=== PATIENT | female | born 1945 | race Caucasian/White ===

== ENCOUNTER 2016-05-01 14:32 | Inpatient (IN) ==
[2016-05-01] MEDS ORDERED: 0.9 % Sodium Chloride 1,000 ML IVC ONE ×2 (14:44→16:52)
[2016-05-01] MEDS ORDERED: Ipratropium/Albuterol Neb 3 ML IH ONE (14:44)
--- NOTE | 2016-05-01 14:47 | Emergency Department Note ---
Disposition Clinical Impression: Pneumonitis, NSTEMI (non-ST elevated myocardial infarction), Severe sepsis, Congestive heart failure, Confusion, Hypoxemia, Suicidal ideation, Depression Disposition: Admitted As Inpatient Referrals: NO,PCP [Primary Care Provider] - Forms: ED Satisfaction Letter General Adult HPI - General Chief complaint: ED Shortness of Breath/Dyspnea Stated complaint: brayden, hallucinations Time Seen by Provider: 05/01/16 14:44 Source: patient, family - History of Present Illness HPI Narrative: 71-year-old female reports to the emergency department via EMS. There is concern for confusion and hallucinosis. Also shortness of breath. The patient has a history of asthma but is essentially untreated. The family reports the patient has not seen a physician for 30 years. She is essentially bedbound at home from a previous back injury, she cannot usually move her legs well at all, she self treats for her various medical concerns. She uses [id number] remedies including honey as a cure-all. EMS reports the patient's oxygen saturation was 60% on arrival she was given that DuoNeb which brought the sats to 92%. The patient reports she has had a cough. She denies any chest pain she has been short of breath. No abdominal pain vomiting or diarrhea. There is no history of recent fall or injury noted back pain or urinary symptoms. EMS reports her feet appear to be discolored. There is no history of convulsion or difficulty moving the arms, no dysarthria. There is a history of confusion which is relatively acute, chronic neurologic defects in the lower extremites is described. - Related Data Allergies Allergy/AdvReac Type Severity Reaction Status Date / Time pain med Allergy See Uncoded 05/01/16 17:11 Comments All systems ED: reviewed and negative except as stated. Past Medical History - Past Medical History Source: patient Medical history: Reports: other (Back injury, bedbound state, ataxia, chronic weakness lower extremities.) Physical Exam - General Limitations: no limitations General appearance: alert - Head Head exam: atraumatic, normocephalic, normal inspection - Eye Eye exam: Present: normal appearance, EOMI, mydriasis. Absent: scleral icterus , conjunctival injection, miosis - ENT ENT exam: TM's normal bilaterally, normal external ear exam, other (Some purulent material noted in the mouth, no liz obstructive pharyngitis noted.) - Neck Neck exam: Present: normal inspection, full ROM, trachea midline. Absent: tenderness - Chest Chest inspection: Present: normal inspection, symmetric chest wall rise. Absent : tenderness - Respiratory Respiratory exam: Present: prolonged expiratory phase, other (Decreased breath sounds bilaterally with coarse breath sounds noted, tachypnea noted.). Absent: respiratory distress - Cardiovascular Cardiovascular exam: Present: normal rhythm, tachycardia - Abdominal Exam Abdominal exam: Present: soft, Non-Tender. Absent: tenderness, distention, guarding, rebound, rigidity, trauma - Extremities Exam Extremities exam: Present: pedal edema, other (Lower extremities show moderate edema, the feet are cyanotic and cool, there are no palpable dorsal pedal pulses. There is no evidence of liz trauma to the lower extremities, the patient's upper extremities show bounding radial pulses bilaterally but there is some fingertip cyanosis noted. There is a good range of motion of the upper extremities. Lower extremity range of motion is limited secondary to the patient's chronic debility. The patient can wiggle her toes and can feel her feet.). Absent: normal inspection, full ROM, tenderness, normal capillary refill, joint swelling - Expanded Lower Extremity Exam Neurovascular/Tendon exam: Absent: normal capillary refill, motor deficit, sensory deficit, tendon deficit - Back Exam Back exam: Present: normal inspection. Absent: tenderness, CVA tenderness (R), CVA tenderness (L), vertebral tenderness - Neurological Exam Neurological exam: Present: alert, oriented X3, CN II-XII intact. Absent: motor sensory deficit - Psychiatric Psychiatric exam: Present: normal affect - Skin Skin exam: Present: warm, dry, intact, cyanosis. Absent: normal color, rash, diaphoresis, erythema Course - Reevaluation(s) Reevaluation #1: I asked the health rn unit manager to page the academic director at 2 :54pm regarding the patient's EKG which appears to show some inferior lead changes with possible ST elevations. Reevaluation #2: Dr. Seth replied promptly, I tested the EKG with no patient identifiers, we both feel the patient is not having a STEMI. Vital Signs Temperature 97.8 F 05/01/16 14:43 Pulse Rate 113 05/01/16 14:43 Respiratory Rate 20 05/01/16 14:43 Blood Pressure 165/76 05/01/16 14:43 O2 Sat by Pulse Oximetry 85 L 05/01/16 14:43 Temperature 97.8 F 05/01/16 14:43 Pulse Rate 105 05/01/16 16:27 Respiratory Rate 35 05/01/16 16:34 Blood Pressure 151/108 05/01/16 16:34 O2 Sat by Pulse Oximetry 96 05/01/16 16:34 Oxygen Delivery Oxygen Delivery Nasal Cannula Medical Decision Making - MDM Narrative Medical decision making narrative: The patient is very ill, she has reportedly been hallucinating and feeling like killing herself for the last few months per the family, she reports she feels depressed and does not want to live. She was refusing imaging initially. Based on her altered mentation and suicidality, the patient was pink slipped. Most likely a medical delirium, patient protection is our primary concern and we felt imaging would be appropriate. She did go to radiology and a chest x- ray was obtained however she would not hold still for CT and essentially refused prompting radiology staff to bring the patient back. Secondary evaluation reveals patient to be alert and cooperative. She denies headache and has a supple neck. There is nothing to suggest liz meningismus. I did not detect focal neurologic defects based on her history of chronic lower extremity immobility. She does move her upper extremities well and has good muscle strength and general sensation all 4 extremities she can wiggle her toes bilaterally and demonstrates no liz cranial nerve defects or dysarthria. She is not overtly confused and is generally oriented. ABIs came back and showed levels in the 0.84 and 0.87 range. The patient did have an elevated BUN/ creatinine and appeared to be heme contracted and was initially started on fluids, the patient's troponin came back at 0.1, her BNP was also elevated. She was given aspirin. Blood cultures were sent, lactate negative, urinalysis shows no major infection, Chest x-ray reveals pneumonitis. Based on the patient 's tachycardia, white count, confirm source of infection, and apparent confusion and elevated creatinine and she meet severe sepsis criteria. Continued IV fluid was ordered. Levaquin was given IV. A second EKG was obtained which showed no ST elevation but significant T-wave inversions were noted strongly suggestive of coronary vascular disease. Non-STEMI is certainly a significant possibility. BiPAP was initiated. I discussed the case with the hospitalist on-call who is accepted the patient to their care. I ordered Ativan , and we will re-attempt to get a CT of the head. The patient is currently stable pending admission to the hospital. - Lab Data Lab results reviewed: Yes I reviewed the patient's lab results. Result diagrams: 05/01/16 15:21 05/01/16 15:21 Lab Results 05/01/16 05/01/16 05/01/16 Range/Units 15:08 15:08 15:12 WBC (4.3-11.1) K/mcL RBC (3.82-4.97) M/mcL Hgb (11.5-15.4) g/dL Hct (35.3-44.9) % MCV (83.0-100.0) fL MCH (28.0-33.3) pg MCHC (31.6-35.5) g/dL RDW (11.5-14.5) % Plt Count (140-400) K/mcL MPV (9.4-12.4) fL Seg Neutrophils % % Band Neutrophils % (0-4) % Lymphocytes % % Monocytes % % Neutrophils # (1.6-8.9) K/mcL Lymphocytes # (0.6-4.6) K/mcL Monocytes # (0.0-1.3) K/mcL Nucleated RBCs/100 WBC (0) /100 WBC Platelet Estimate (Normal) PT (9.4-12.1) Seconds INR APTT (26.0-36.0) Seconds ABG pH 7.32 (7.32-7.45) pH Units ABG pCO2 64 H (35-45) mmHg ABG pO2 67 L (85-104) mmHg ABG HCO3 33.0 H (21-27) mEQ/L ABG Total CO2 35.0 H (20-26) mEq/L ABG O2 Saturation 91 L (95-98) % ABG Base Excess 3.7 H (-2.0 to 3.0) mEq/L Liter Flow 4 L/MIN Blood Gas Modality NC Inspired O2 32 % Sodium (136-145) mEq/L Potassium (3.5-4.5) mEq/L Chloride (98-109) mEq/L Carbon Dioxide (19-29) mEq/L BUN (7-20) mg/dL Creatinine (0.57-1.11) mg/dL Est GFR ( Amer) (> 60) Est GFR (Non-Af Amer) (> 60) BUN/Creatinine Ratio (6-26) Glucose (70-99) mg/dL Calculated Osmolality (280-300) Lactic Acid (0.5-2.2) mmol/L Calcium (8.6-10.8) mg/dL Total Bilirubin (0.2-1.2) mg/dL Direct Bilirubin (0.0-0.5) mg/dL Indirect Bilirubin (0.0-1.2) mg/dL AST (5-34) Units/L ALT (0-55) Units/L Alkaline Phosphatase (38-126) Units/L Ammonia (18-72) mcmol/L Troponin I (0-0.03) ng/mL C-Reactive Protein (Less than 5) mg/L B-Natriuretic Peptide (0-100) pg/mL Serum Total Protein (6.0-8.3) g/dL Albumin (3.5-5.0) g/dL Globulin (2.4-3.5) g/dL Albumin/Globulin Ratio (1.1-2.2) Urine Color Dark Yellow (Yellow) Urine Clarity Cloudy A (Clear) Urine pH 6.0 (5.0-8.0) pH Units Ur Specific [place] 1.028 H (1.010-1.025) Urine Protein 100 H (Neg-Trace) mg/dL Urine Glucose (UA) Normal (Normal) mg/dL Urine Ketones Trace H (Negative) mg/dL Urine Blood Negative (Negative) Urine Nitrite Negative (Negative) Urine Bilirubin Moderate H (Negative) Urine Urobilinogen Normal (Normal) mg/dL Ur Leukocyte Esterase Negative (Negative) Urine Microscopic RBC 0-3 (0-3) per hpf Urine Microscopic WBC 0-3 (0-3) per hpf Urine Bacteria Moderate H (None-Few) per hpf Hyaline Casts Many H (None-Few) per lpf Urine Mucus Many H (Few) Ur Culture Indicated? NO (NO) Salicylates (15-30) mg/dL Urine Opiates Screen Negative (Ccdlms=136) ng/mL Acetaminophen (10-30) mcg/mL Ur Barbiturates Screen Negative (Uicbmk=486) ng/mL Ur Phencyclidine Scrn Negative (Cutoff=25) ng/mL Ur Amphetamines Screen Negative (Ftlmwa=7510) ng/mL U Benzodiazepines Scrn Negative (Jelbtj=520) ng/mL Urine Cocaine Screen Negative (Cutoff= 300) ng/mL U Marijuana (THC) Screen Negative (Cutoff = 50) ng/mL 05/01/16 05/01/16 05/01/16 Range/Units 15:21 15:21 15:21 WBC 27.1 H (4.3-11.1) K/mcL RBC 6.06 H (3.82-4.97) M/mcL Hgb 17.6 H (11.5-15.4) g/dL Hct 55.8 H (35.3-44.9) % MCV 92.1 (83.0-100.0) fL MCH 29.0 (28.0-33.3) pg MCHC 31.5 L (31.6-35.5) g/dL RDW 14.6 H (11.5-14.5) % Plt Count 289 (140-400) K/mcL MPV 10.1 (9.4-12.4) fL Seg Neutrophils % 94.0 % Band Neutrophils % 2.0 (0-4) % Lymphocytes % 2.0 % Monocytes % 2.0 % Neutrophils # 26.0 H (1.6-8.9) K/mcL Lymphocytes # 0.5 L (0.6-4.6) K/mcL Monocytes # 0.5 (0.0-1.3) K/mcL Nucleated RBCs/100 WBC 0.1 H (0) /100 WBC Platelet Estimate Normal (Normal) PT 14.4 H (9.4-12.1) Seconds INR 1.3 APTT 31.7 (26.0-36.0) Seconds ABG pH (7.32-7.45) pH Units ABG pCO2 (35-45) mmHg ABG pO2 (85-104) mmHg ABG HCO3 (21-27) mEQ/L ABG Total CO2 (20-26) mEq/L ABG O2 Saturation (95-98) % ABG Base Excess (-2.0 to 3.0) mEq/L Liter Flow L/MIN Blood Gas Modality Inspired O2 % Sodium 136 (136-145) mEq/L Potassium 4.1 (3.5-4.5) mEq/L Chloride 94 L (98-109) mEq/L Carbon Dioxide 30 H (19-29) mEq/L BUN 65 H (7-20) mg/dL Creatinine 1.30 H (0.57-1.11) mg/dL Est GFR ( Amer) 49 L (> 60) Est GFR (Non-Af Amer) 41 L (> 60) BUN/Creatinine Ratio 50 H (6-26) Glucose 184 H (70-99) mg/dL Calculated Osmolality 305 H (280-300) Lactic Acid (0.5-2.2) mmol/L Calcium 10.2 (8.6-10.8) mg/dL Total Bilirubin 0.7 (0.2-1.2) mg/dL Direct Bilirubin 0.4 (0.0-0.5) mg/dL Indirect Bilirubin 0.3 (0.0-1.2) mg/dL AST 21 (5-34) Units/L ALT 36 (0-55) Units/L Alkaline Phosphatase 161 H (38-126) Units/L Ammonia (18-72) mcmol/L Troponin I (0-0.03) ng/mL C-Reactive Protein 312 H (Less than 5) mg/L B-Natriuretic Peptide (0-100) pg/mL Serum Total Protein 8.4 H (6.0-8.3) g/dL Albumin 3.1 L (3.5-5.0) g/dL Globulin 5.3 H (2.4-3.5) g/dL Albumin/Globulin Ratio 0.6 L (1.1-2.2) Urine Color (Yellow) Urine Clarity (Clear) Urine pH (5.0-8.0) pH Units Ur Specific [place] (1.010-1.025) Urine Protein (Neg-Trace) mg/dL Urine Glucose (UA) (Normal) mg/dL Urine Ketones (Negative) mg/dL Urine Blood (Negative) Urine Nitrite (Negative) Urine Bilirubin (Negative) Urine Urobilinogen (Normal) mg/dL Ur Leukocyte Esterase (Negative) Urine Microscopic RBC (0-3) per hpf Urine Microscopic WBC (0-3) per hpf Urine Bacteria (None-Few) per hpf Hyaline Casts (None-Few) per lpf Urine Mucus (Few) Ur Culture Indicated? (NO) Salicylates < 5.0 L (15-30) mg/dL Urine Opiates Screen (Tpqyjw=289) ng/mL Acetaminophen < 1.0 L (10-30) mcg/mL Ur Barbiturates Screen (Gbbdfq=832) ng/mL Ur Phencyclidine Scrn (Cutoff=25) ng/mL Ur Amphetamines Screen (Ngovdi=1218) ng/mL U Benzodiazepines Scrn (Macfdp=294) ng/mL Urine Cocaine Screen (Cutoff= 300) ng/mL U Marijuana (THC) Screen (Cutoff = 50) ng/mL 05/01/16 05/01/16 05/01/16 Range/Units 15:21 15:21 15:21 WBC (4.3-11.1) K/mcL RBC (3.82-4.97) M/mcL Hgb (11.5-15.4) g/dL Hct (35.3-44.9) % MCV (83.0-100.0) fL MCH (28.0-33.3) pg MCHC (31.6-35.5) g/dL RDW (11.5-14.5) % Plt Count (140-400) K/mcL MPV (9.4-12.4) fL Seg Neutrophils % % Band Neutrophils % (0-4) % Lymphocytes % % Monocytes % % Neutrophils # (1.6-8.9) K/mcL Lymphocytes # (0.6-4.6) K/mcL Monocytes # (0.0-1.3) K/mcL Nucleated RBCs/100 WBC (0) /100 WBC Platelet Estimate (Normal) PT (9.4-12.1) Seconds INR APTT (26.0-36.0) Seconds ABG pH (7.32-7.45) pH Units ABG pCO2 (35-45) mmHg ABG pO2 (85-104) mmHg ABG HCO3 (21-27) mEQ/L ABG Total CO2 (20-26) mEq/L ABG O2 Saturation (95-98) % ABG Base Excess (-2.0 to 3.0) mEq/L Liter Flow L/MIN Blood Gas Modality Inspired O2 % Sodium (136-145) mEq/L Potassium (3.5-4.5) mEq/L Chloride (98-109) mEq/L Carbon Dioxide (19-29) mEq/L BUN (7-20) mg/dL Creatinine (0.57-1.11) mg/dL Est GFR ( Amer) (> 60) Est GFR (Non-Af Amer) (> 60) BUN/Creatinine Ratio (6-26) Glucose (70-99) mg/dL Calculated Osmolality (280-300) Lactic Acid 2.0 (0.5-2.2) mmol/L Calcium (8.6-10.8) mg/dL Total Bilirubin (0.2-1.2) mg/dL Direct Bilirubin (0.0-0.5) mg/dL Indirect Bilirubin (0.0-1.2) mg/dL AST (5-34) Units/L ALT (0-55) Units/L Alkaline Phosphatase (38-126) Units/L Ammonia (18-72) mcmol/L Troponin I 0.10 H* (0-0.03) ng/mL C-Reactive Protein (Less than 5) mg/L B-Natriuretic Peptide 930 H (0-100) pg/mL Serum Total Protein (6.0-8.3) g/dL Albumin (3.5-5.0) g/dL Globulin (2.4-3.5) g/dL Albumin/Globulin Ratio (1.1-2.2) Urine Color (Yellow) Urine Clarity (Clear) Urine pH (5.0-8.0) pH Units Ur Specific [place] (1.010-1.025) Urine Protein (Neg-Trace) mg/dL Urine Glucose (UA) (Normal) mg/dL Urine Ketones (Negative) mg/dL Urine Blood (Negative) Urine Nitrite (Negative) Urine Bilirubin (Negative) Urine Urobilinogen (Normal) mg/dL Ur Leukocyte Esterase (Negative) Urine Microscopic RBC (0-3) per hpf Urine Microscopic WBC (0-3) per hpf Urine Bacteria (None-Few) per hpf Hyaline Casts (None-Few) per lpf Urine Mucus (Few) Ur Culture Indicated? (NO) Salicylates (15-30) mg/dL Urine Opiates Screen (Ulomfu=904) ng/mL Acetaminophen (10-30) mcg/mL Ur Barbiturates Screen (Grvpwy=254) ng/mL Ur Phencyclidine Scrn (Cutoff=25) ng/mL Ur Amphetamines Screen (Eozoor=4469) ng/mL U Benzodiazepines Scrn (Snkuuq=199) ng/mL Urine Cocaine Screen (Cutoff= 300) ng/mL U Marijuana (THC) Screen (Cutoff = 50) ng/mL 05/01/16 Range/Units 15:21 WBC (4.3-11.1) K/mcL RBC (3.82-4.97) M/mcL Hgb (11.5-15.4) g/dL Hct (35.3-44.9) % MCV (83.0-100.0) fL MCH (28.0-33.3) pg MCHC (31.6-35.5) g/dL RDW (11.5-14.5) % Plt Count (140-400) K/mcL MPV (9.4-12.4) fL Seg Neutrophils % % Band Neutrophils % (0-4) % Lymphocytes % % Monocytes % % Neutrophils # (1.6-8.9) K/mcL Lymphocytes # (0.6-4.6) K/mcL Monocytes # (0.0-1.3) K/mcL Nucleated RBCs/100 WBC (0) /100 WBC Platelet Estimate (Normal) PT (9.4-12.1) Seconds INR APTT (26.0-36.0) Seconds ABG pH (7.32-7.45) pH Units ABG pCO2 (35-45) mmHg ABG pO2 (85-104) mmHg ABG HCO3 (21-27) mEQ/L ABG Total CO2 (20-26) mEq/L ABG O2 Saturation (95-98) % ABG Base Excess (-2.0 to 3.0) mEq/L Liter Flow L/MIN Blood Gas Modality Inspired O2 % Sodium (136-145) mEq/L Potassium (3.5-4.5) mEq/L Chloride (98-109) mEq/L Carbon Dioxide (19-29) mEq/L BUN (7-20) mg/dL Creatinine (0.57-1.11) mg/dL Est GFR ( Amer) (> 60) Est GFR (Non-Af Amer) (> 60) BUN/Creatinine Ratio (6-26) Glucose (70-99) mg/dL Calculated Osmolality (280-300) Lactic Acid (0.5-2.2) mmol/L Calcium (8.6-10.8) mg/dL Total Bilirubin (0.2-1.2) mg/dL Direct Bilirubin (0.0-0.5) mg/dL Indirect Bilirubin (0.0-1.2) mg/dL AST (5-34) Units/L ALT (0-55) Units/L Alkaline Phosphatase (38-126) Units/L Ammonia 30 (18-72) mcmol/L Troponin I (0-0.03) ng/mL C-Reactive Protein (Less than 5) mg/L B-Natriuretic Peptide (0-100) pg/mL Serum Total Protein (6.0-8.3) g/dL Albumin (3.5-5.0) g/dL Globulin (2.4-3.5) g/dL Albumin/Globulin Ratio (1.1-2.2) Urine Color (Yellow) Urine Clarity (Clear) Urine pH (5.0-8.0) pH Units Ur Specific [place] (1.010-1.025) Urine Protein (Neg-Trace) mg/dL Urine Glucose (UA) (Normal) mg/dL Urine Ketones (Negative) mg/dL Urine Blood (Negative) Urine Nitrite (Negative) Urine Bilirubin (Negative) Urine Urobilinogen (Normal) mg/dL Ur Leukocyte Esterase (Negative) Urine Microscopic RBC (0-3) per hpf Urine Microscopic WBC (0-3) per hpf Urine Bacteria (None-Few) per hpf Hyaline Casts (None-Few) per lpf Urine Mucus (Few) Ur Culture Indicated? (NO) Salicylates (15-30) mg/dL Urine Opiates Screen (Whzsxu=654) ng/mL Acetaminophen (10-30) mcg/mL Ur Barbiturates Screen (Sjdznb=608) ng/mL Ur Phencyclidine Scrn (Cutoff=25) ng/mL Ur Amphetamines Screen (Xvpruo=4138) ng/mL U Benzodiazepines Scrn (Fqgpce=663) ng/mL Urine Cocaine Screen (Cutoff= 300) ng/mL U Marijuana (THC) Screen (Cutoff = 50) ng/mL - Radiology Data Radiology results reviewed: Yes I reviewed the patient's radiology results.
[2016-05-01 15:18] LABS: Bilirubin,Urine Moderate (Negative); Blood,Urine Negative (Negative); Clarity,Urine Cloudy (Clear); Color,Urine Dark Yellow (Yellow); Glucose,Urine (UA) Normal (Normal); Ketones,Urine Trace mg/dL (Negative); Leukocyte Esterase,Urine Negative (Negative); Nitrite,Urine Negative (Negative); Protein,Urine 100 mg/dL (Neg-Trace); Specific Gravity,Urine 1.028 (1.010-1.025); Urobilinogen,Urine Normal (Normal)
[2016-05-01 15:24] LABS: ABG Base Excess 3.7 mEq/L (-2.0 to 3.0); ABG Oxygen Saturation 91 % (95-98); ABG PCO2 64 mmHg (35-45); ABG PH 7.32 pH Units (7.32-7.45); ABG PO2 67 mmHg (85-104)
[2016-05-01 15:25] LABS: Amphetamine Screen,Urine Negative ng/mL (Cutoff=1000); Barbiturate Screen,Urine Negative ng/mL (Cutoff=200); Benzodiazepines Screen,Urine Negative ng/mL (Cutoff=200); Cannabinoid Screen,Urine Negative ng/mL (Cutoff = 50); Cocaine Screen,Urine Negative ng/mL (Cutoff= 300); Opiate Screen,Urine Negative ng/mL (Cutoff=300); Phencyclidine Screen,Urine Negative ng/mL (Cutoff=25)
[2016-05-01 15:25] LABS: Blood Gas FiO2 32 %; Blood Gas Liter Flow 4 L/MIN
[2016-05-01 15:34] LABS: Hemoglobin 17.6 g/dL (11.5-15.4); Mean Corpuscular HGB Conc 31.5 g/dL (31.6-35.5); Mean Corpuscular Volume 92.1 fL (83.0-100.0); Mean Platelet Volume 10.1 fL (9.4-12.4); Nucleated Red Blood Cells 0.1 /100 WBC (0); Platelet Count 289 K/mcL (140-400); Red Blood Count 6.06 M/mcL (3.82-4.97); Red Cell Distribution Width 14.6 % (11.5-14.5)
[2016-05-01 15:35] LABS: Hematocrit 55.8 % (35.3-44.9)
[2016-05-01 15:39] LABS: INR 1.3; Prothrombin Time 14.4 Seconds (9.4-12.1)
[2016-05-01 15:42] LABS: Activated Partial Thrombo Time 31.7 Seconds (26.0-36.0)
[2016-05-01 15:44] LABS: Hyaline Casts,Urine Many per lpf (None-Few); Mucus,Urine Many (Few)
[2016-05-01 15:45] LABS: RBC,Urine 0-3 per hpf (0-3)
[2016-05-01 15:46] LABS: Bacteria,Urine Moderate per hpf (None-Few); WBC,Urine 0-3 per hpf (0-3)
[2016-05-01 15:51] LABS: Alanine Aminotransferase 36 Units/L (0-55); Albumin 3.1 g/dL (3.5-5.0); Albumin/Globulin Ratio 0.6 (1.1-2.2); Alkaline Phosphatase 161 Units/L (38-126); Aspartate Amino Transferase 21 Units/L (5-34); BUN/Creatinine Ratio 50 (6-26); Bilirubin,Direct 0.4 mg/dL (0.0-0.5); Bilirubin,Indirect 0.3 mg/dL (0.0-1.2); Bilirubin,Total 0.7 mg/dL (0.2-1.2); Blood Urea Nitrogen 65 mg/dL (7-20); Calcium 10.2 mg/dL (8.6-10.8); Carbon Dioxide 30 mEq/L (19-29); Chloride 94 mEq/L (98-109); Globulin 5.3 g/dL (2.4-3.5); Glucose 184 mg/dL (70-99); Osmolality,Calculated 305 (280-300); Potassium 4.1 mEq/L (3.5-4.5); Sodium 136 mEq/L (136-145); Total Protein 8.4 g/dL (6.0-8.3); eGFR For African Americans 49 (> 60); eGFR For Non-African Americans 41 (> 60)
[2016-05-01 15:52] LABS: Acetaminophen < 1.0 mcg/mL (10-30); Salicylate < 5.0 mg/dL (15-30)
[2016-05-01 15:57] LABS: C-Reactive Protein 312 mg/L (Less than 5)
[2016-05-01 16:05] LABS: Lymphocytes # 0.5 K/mcL (0.6-4.6); Monocytes # 0.5 K/mcL (0.0-1.3); Platelet Estimate Normal (Normal)
[2016-05-01] MEDS ORDERED: Aspirin 325 MG TABLET PO ONE (16:12)
[2016-05-01] MEDS ORDERED: Levofloxacin 750 MG/150 ML 750 MG/150 ML BAG IVPB SCH (16:50)
[2016-05-01] MEDS ORDERED: *HR* LORazepam 2 MG/ML VIAL IVP ONE ×2 (17:03→19:25)
[2016-05-01 17:09] LABS: Creatine Kinase 136 Units/L (29-168)
[2016-05-01] MEDS ORDERED: methylPREDNISolone 125 MG/2 ML VIAL IVP ONE (17:18)
[2016-05-01 17:38] LABS: Thyroid Stimulating Hormone 0.526 mcIU/mL (0.350-4.840)
[2016-05-01] MEDS ORDERED: *HR* Etomidate 20 MG/10 ML AMPUL IVP ONE (19:47)
[2016-05-01] MEDS ORDERED: *HR* Rocuronium Bromide 50 MG/5 ML VIAL IVP ONE (19:47)
[2016-05-01] MEDS ORDERED: *HR* Heparin 5,000 UNIT/ML VIAL IVP ONE (19:51)
[2016-05-01] MEDS ORDERED: *HR* Heparin 5,000 UNIT/ML VIAL IVP PRN ×2 (19:51)
[2016-05-01] MEDS ORDERED: Vancomycin 1,250 MG in D5% in Water 250 ML IVPB SCH (20:00)
[2016-05-01] MEDS ORDERED: Furosemide 40 MG/4 ML VIAL IVP SCH (20:00)
[2016-05-01] MEDS: Ipratropium/Albuterol Neb 3 ML IH SCH ×3 (20:21→23:36)
[2016-05-01 21:18] LABS: Hematocrit 50.9 % (35.3-44.9); Hemoglobin 16.1 g/dL (11.5-15.4); Mean Corpuscular HGB Conc 31.6 g/dL (31.6-35.5); Mean Corpuscular Hemoglobin 29.9 pg (28.0-33.3); Mean Corpuscular Volume 94.6 fL (83.0-100.0); Mean Platelet Volume 10.1 fL (9.4-12.4); Platelet Count 233 K/mcL (140-400); Red Blood Count 5.38 M/mcL (3.82-4.97); Red Cell Distribution Width 14.6 % (11.5-14.5)
[2016-05-01 21:21] LABS: INR 1.4
[2016-05-01 21:24] LABS: Activated Partial Thrombo Time 30.5 Seconds (26.0-36.0)
[2016-05-01] MEDS: Piperacillin/Tazobactam 3.375 GM in D5% in Water (Mini-Bag+) 100 ML IVPB SCH (21:24)
[2016-05-01] MEDS: Vancomycin 1,250 MG in D5% in Water 250 ML IVPB SCH (21:26)
[2016-05-01 21:29] LABS: BUN/Creatinine Ratio 55 (6-26); Blood Urea Nitrogen 59 mg/dL (7-20); Calcium 9.3 mg/dL (8.6-10.8); Carbon Dioxide 26 mEq/L (19-29); Chloride 99 mEq/L (98-109); Glucose 139 mg/dL (70-99); Osmolality,Calculated 301 (280-300); Sodium 136 mEq/L (136-145); eGFR For African Americans > 60 (> 60); eGFR For Non-African Americans 50 (> 60)
[2016-05-01 21:31] LABS: Potassium 4.8 mEq/L (3.5-4.5)
--- NOTE | 2016-05-01 21:38 | Internal Med History&Physical ---
Date of Encounter: 05/02/16 Time of Encounter: 21:32 Assessment and Plan (1) Hypercapnic respiratory failure Current visit: Yes Status: Acute Patient intubated and mechanically ventilated because of increased for completing despite maximal respiratory support. Follow arterial blood gas. Propofol for sedation Qualifiers: Qualified Code(s): J96.92 - Respiratory failure, unspecified with hypercapnia (2) CAP (community acquired pneumonia) Current visit: Yes Status: Acute Patient will be started empirically vancomycin Zosyn and Levaquin. Sputum and blood culture (3) CHF (congestive heart failure) Current visit: Yes Status: Acute Lasix 40 mg intravenous twice a day Qualifiers: Qualified Code(s): I50.9 - Heart failure, unspecified (4) Suspected pulmonary embolism Current visit: Yes Status: Acute Rights o initials increase compared to left suspected DVT or electrocardiogram also shows right bundle branch block with T wave inversions in the precordial leads unfortunately no baseline ECG. however patient is bedridden and because of high clinical suspicion for pulmonary embolism she will be started on heparin drip. Мария Doppler's will be checked. Creatinine clearances 41 she had received some fluids in the emergency room kidney functions will be repeated now there is improvement CT angiogram will be performed. discussed with the family the risk of contrast injury. (5) COPD exacerbation Current visit: Yes Status: Acute Internal Medicine - H&P: HPI Chief complaint: sob History of present illness: Ms. Booth is a 71 year old female patient was a lifelong smoker 2 packs per day for over 30 years, history of asthma on inhalers, hypertension takes captopril from her 's medication, non-compliant and has not seen a physician and 30 years who is immobile for the past 5 years as a back injury presents to the emergency room with shortness of breath. For the past 10 days patient has been having progressive shortness of breath productive cough of yellowish sputum chills decrease appetite and confusion probably noticed that she was hallucinating mentioning suicidal thoughts and phrases. She has been taking her nebulizer nonstop during the past few days. She has been noticing swelling in both lower extremities right more than left. On relative emergency room patient was in severe respiratory distress she was placed on BiPAP and after 2 hours of BiPAP during my interview she will still breathing 35 to 40 accessory muscle use so she was intubated and mechanically ventilated. She is nonalcoholic does not use IV drugs. No prior known history of coronary disease. Past Med Surg Social Fam HX - Past Medical History Medical history: other Psychiatric history: no psych history - Social History Smoking Status: Current every day smoker Smokeless Tobacco Status: No Alcohol use: none Drug use: none Internal Medicine - H&P: Meds Albuterol Sulfate [Albuterol Inhaler] 1 puff IH Q4HR 05/01/16 [History] Captopril/Hydrochlorothiazide [Captopril-Hctz 50-15 mg Tablet] 1 tab PO DAILY [History] Allergies pain med Allergy (Uncoded 05/01/16 17:11) See Comments PATIENT'S FAMILY UNSURE OF PAIN MEDICATION BUT IT WAS GIVEN TO PATIENT "30 YEARS AGO" AND "THEY HAD TO CALL A CODE BLUE" - UNSURE OF PATIENTS REACTION All Systems PM: A 10-system review of systems was performed and is negative for pertinent findings except as documented above in the HPI. Review of systems: 10 points of view systems is negative except for HPI - Constitutional Vitals: Temp Pulse Resp BP Pulse Ox 99.1 F 77 14 105/66 100 05/01/16 21:00 05/01/16 21:00 05/01/16 21:00 05/01/16 21:00 05/01/16 21:00 Exam: Gen.: patient's lethargic and moderate respiratory distress cardiac normal S1 S2 no additional sounds are normal chest: significantly diminished air entry lower extremity 2+ swelling increased girth of the right lower extremity compared to left. Abdomen soft nontender neuro: moving extremities pupil: 3 mm reactive Internal Med - H&P Results - Labs CBC & Chem 7: 05/01/16 21:10 05/01/16 21:10 Labs: Short CBC 05/01/16 Range/Units 21:10 WBC 26.8 H (4.3-11.1) K/mcL Hgb 16.1 H D (11.5-15.4) g/dL Hct 50.9 H (35.3-44.9) % Plt Count 233 (140-400) K/mcL BMP 05/01/16 21:10 Sodium 136 Potassium 4.8 H Chloride 99 Carbon Dioxide 26 BUN 59 H Creatinine 1.08 Glucose 139 H Calcium 9.3
[2016-05-01] MEDS: Heparin 25,000 UNIT/500 ML D5W 25,000 UNIT/500 ML MLS IVC SCH (21:45)
[2016-05-01] MEDS: Furosemide 40 MG/4 ML VIAL IVP SCH (21:50)
[2016-05-01 22:09] LABS: ABG Base Excess 6.7 mEq/L (-2.0 to 3.0); ABG HCO3 35.9 mEQ/L (21-27); ABG Oxygen Saturation 100 % (95-98); ABG PCO2 68 mmHg (35-45); ABG PH 7.33 pH Units (7.32-7.45); ABG PO2 475 mmHg (85-104); Blood Gas FiO2 100 %
[2016-05-01] MEDS ORDERED: Calcium Gluconate 1,000 MG in D5% in Water 100 ML IVPB ONE (22:42)
[2016-05-01] MEDS: methylPREDNISolone 125 MG/2 ML VIAL IVP SCH (23:25)
[2016-05-02] MEDS: Ipratropium/Albuterol Neb 3 ML IH SCH ×11 (02:17→23:09)
[2016-05-02] MEDS: Piperacillin/Tazobactam 3.375 GM in D5% in Water (Mini-Bag+) 100 ML IVPB SCH ×3 (03:31→20:53)
[2016-05-02 05:09] LABS: VBG HCO3 38.3 mEq/L (21-27); VBG PH 7.31 pH Units (7.32-7.42)
[2016-05-02 05:10] LABS: Lymphocytes % 2.2 %; Segmented Neutrophils % 92.8 %
[2016-05-02 05:11] LABS: Basophils # 0.1 K/mcL (0.0-0.2); Basophils % 0.2 %; Hematocrit 48.1 % (35.3-44.9); Hemoglobin 15.3 g/dL (11.5-15.4); Immature Granulocytes % 1.2 % (0-4); Lymphocytes # 0.6 K/mcL (0.6-4.6); Mean Corpuscular HGB Conc 31.8 g/dL (31.6-35.5); Mean Corpuscular Hemoglobin 29.8 pg (28.0-33.3); Mean Corpuscular Volume 93.8 fL (83.0-100.0); Mean Platelet Volume 10.7 fL (9.4-12.4); Monocytes % 3.6 %; Neutrophils # 25.2 K/mcL (1.6-8.9); Platelet Count 248 K/mcL (140-400); Red Blood Count 5.13 M/mcL (3.82-4.97); Red Cell Distribution Width 14.5 % (11.5-14.5)
[2016-05-02] MEDS: methylPREDNISolone 125 MG/2 ML VIAL IVP SCH ×3 (05:29→17:07)
[2016-05-02 05:31] LABS: Calcium 9.4 mg/dL (8.6-10.8); Magnesium 2.3 mg/dL (1.6-2.6)
[2016-05-02 05:44] LABS: Large Platelets Present (Not Present); Platelet Estimate Normal (Normal); Reactive Lymphocytes Present (Not Present)
[2016-05-02] MEDS ORDERED: Dexmedetomidine HCl 400 MCG/100 ML MLS IVC SCH (08:30)
[2016-05-02] MEDS: Furosemide 40 MG/4 ML VIAL IVP SCH ×2 (08:48→17:08)
[2016-05-02] MEDS: Pantoprazole 40 MG VIAL IVP SCH (08:48)
[2016-05-02] MEDS: FentaNYL (PF) 1,000 MCG in 0.9 % Sodium Chloride 80 ML IVC SCH ×2 (08:55→23:00)
[2016-05-02] MEDS ORDERED: Levofloxacin 750 MG/150 ML 750 MG/150 ML BAG IVPB SCH (09:00)
[2016-05-02] MEDS ORDERED: *HR* Rocuronium Bromide 100 MG/10 ML VIAL IVC ONE (09:00)
[2016-05-02] MEDS ORDERED: *HR* Etomidate 20 MG/10 ML AMPUL IVP ONE (09:00)
[2016-05-02 09:07] LABS: ABG Base Excess 8.5 mEq/L (-2.0 to 3.0); ABG HCO3 36.3 mEQ/L (21-27); ABG Oxygen Saturation 94 % (95-98); ABG PCO2 60 mmHg (35-45); ABG PH 7.39 pH Units (7.32-7.45); ABG PO2 72 mmHg (85-104); ABG TCO2 38.1 mEq/L (20-26)
[2016-05-02 09:08] LABS: Blood Gas FiO2 50 %; Blood Gas Respiration Rate 15; Blood Gas VT 500 cc
[2016-05-02] MEDS: Dexmedetomidine HCl 400 MCG/100 ML MLS IVC SCH (11:08)
[2016-05-02 11:13] LABS: Bilirubin,Urine Negative (Negative); Blood,Urine Negative (Negative); Clarity,Urine Clear (Clear); Color,Urine Yellow (Yellow); Glucose,Urine (UA) Normal (Normal); Ketones,Urine Negative (Negative); Leukocyte Esterase,Urine Negative (Negative); Nitrite,Urine Negative (Negative); Protein,Urine Negative (Neg-Trace); Specific Gravity,Urine 1.023 (1.010-1.025); Urobilinogen,Urine Normal (Normal)
--- NOTE | 2016-05-02 11:24 | ECHO - Doppler Report ---
Echocardiogram Name: Selma Booth Date of Study: 05/02/2016 Date: 1945 Ht: 64.0 in Medical Record#: [id number] Age: 71 Wt: 210.0 lb Gender: Female BSA: 2 Order #: [id number] Location: [facility] Room #: IC03 Reading Physician: Tai Colorado MD, [facility] Schedule Planning Manager: Marnie Schmitz T, [facility] Ordering Physician: Martín Chavarria MD Primary Physician: None Indications: Check RV and LV function Impressions: Normal LV size and systolic function, LVEF 65%. Mild left ventricular diastolic dysfunction. Moderate-severely dilated right ventricle. RV:LV ratio > 1.0 Mild-moderate right ventricular dysfunction. The basal RV moves normally. TAPSE 21 mm. There is hypokinesis of the mid-apical RV. Mild pulmonary hypertension. Estimated RVSP = 45 mmHg. No significant valvular dysfunction. Abnormal findings were discussed with Dr. Stokes. Left Ventricular Wall Motion: Rest Echo Findings All wall segments showed normal motion. Findings: Study Quality * Suboptimal echo windows. ECG Findings * Sinus rhythm with BBB. Left Ventricle * Normal LV size and systolic function, LVEF 65%. * Normal LV wall thickness. * Mild left ventricular diastolic dysfunction. Right Ventricle * Moderate-severely dilated right ventricle. RV:LV ratio > 1.0 * Mild-moderate right ventricular dysfunction. The basal RV moves normally. TAPSE 21 mm. There is hypokinesis of the mid-apical RV. Left Atrium * Normal left atrial size. Right Atrium * Normal right atrial size. Aorta * Normally sized aortic root. Pericardium * There is no pericardial effusion present. IVC * The IVC is dilated. Tricuspid Valve * Tricuspid valve not well visualized. * No tricuspid stenosis. * Trace tricuspid regurgitation. * Mild pulmonary hypertension. Estimated RVSP = 45 mmHg. Pulmonic Valve * Pulmonic valve not well visualized. * No pulmonic stenosis. * Trace pulmonic regurgitation. Mitral Valve * Normal mitral valve structure. * No mitral stenosis. * Trace mitral regurgitation. Aortic Valve * Aortic valve not well visualized. Appears mildly sclerotic. * No aortic stenosis. * No aortic regurgitation. History History of Smoking Years 30 Packs 2 Measurements: BP: 91/ 49 2D Normal Values RVIDd: 5.00 cm IVSd: 1.00 cm 0.6 - 1.0 cm LVIDd: 4.00 cm 3.7 - 5.6 cm LVPWd: 1.00 cm 0.6 - 1.1 cm LVIDs: 2.40 cm 1.5 - 3.6 cm AO: 3.20 cm < 4.0 cm %FS: 40.00 cm >25 % LA volume: 21 Mitral Valve Peak E:.65 m/sec Peak A:.80 m/sec E/A Ratio:0.8 Tricuspid Valve TV Regurg Peak Grad: 30.00mmHg TV Regurg Peak Benigno: 2.76m/sec Updated by Tai Colorado MD, [facility] on 05/02/2016 11:14:19 AM electronically signed on 05/02/2016 11:18:43 AM with status of Final Wall Motion [place]: 1=Normal, 2=Hypokinesis, 3=Akinesis, 4=Dyskinesis, 5=Aneurysmal, 6=Hyperkinetic, X=Not Visualized (Blank)=Missing
--- NOTE | 2016-05-02 12:03 | Pulmonology Consult Note ---
Date of Encounter: 05/02/16 Time of Encounter: 07:00 Assessment and Plan (1) Acute respiratory failure with hypoxia and hypercapnia Current Visit: Yes Status: Acute Appears to be multifocal including exacerbation of COPD pneumonia possible pulmonary embolus. Intubated and sedated on ventilator now. Vent adjusted for low tidal volume ventilatory strategy. With acceptable oxygenation and ventilation Goal SPO2 89-92% Continue bronchopulmonary toileting as needed Vent bundle to prevent VAP (2) CAP (community acquired pneumonia) Current Visit: Yes Status: Acute Currently covered for broad-spectrum antibiotics with vancomycin and Levaquin and cultures pending likely would de-escalate over the next 48 hours as patient not really at risk for organisms such as MRSA or pseudomonas. Strep and legionella antigen have been sent Rule out influenza Respiratory infectious panel pending Sputum culture pending CT of chest to further delineate opacification (3) Venous thromboembolism Current Visit: Yes Status: Acute Patient with arm swelling leading to ordering duplex of upper and lower extremities. Preliminary report is that she has diffuse DVT in the upper extremities. Official report a lower extremity is pending concern for pulmonary embolus CTA is pending heparin drip has been started cont to monitor PTT per protocol I have high concern for possible malignancy especially lung cancer Echocardiogram pending (4) COPD exacerbation Current Visit: Yes Status: Acute (5) NSTEMI (non-ST elevated myocardial infarction) Current Visit: Yes Status: Acute ECG without STEMI -Likely secondary to type II demand ischemia. Patient has been covered with heparin drip already because of concern for PTE echocardiogram pending we will continue to follow many cardiology consult based upon troponin trend (6) Severe sepsis Current Visit: Yes Status: Acute Lactate normal has been given antibiotics and appropriate fluid resuscitation blood maps have been above 60 we will continue to monitor and continue goal- directed therapy as necessary (7) Suicidal ideation Current Visit: Yes Status: Acute Per family patient has had long history of suicidal ideation and has been fixated on suicide for many years although per the family has not had an attempt of suicide will need psychiatry evaluation prior to discharge (8) Proptosis Current Visit: Yes Status: Acute Ongoing eye erythema and proptosis concern for preseptal cellulitis CT of the orbit has been ordered patient remains on appropriate antimicrobials History of Present Illness Consult date: 05/02/16 Requesting physician: Martín Chavarria Reason for consult: pneumonia Chief complaint: Shortness of Breath History of present illness: Ms Booth, is a 71-year-old woman who is been out of the healthcare system for the last 30 years. She presented with worsening shortness of breath and cough and severe dyspnea. In the ED was in respiratory extremis and was intubated. Chest x-ray notable for possible pneumonia was treated on broad- spectrum antibiotics slight troponin elevation was started on heparin as well as for concern for possible VTE. Per the son patient has had serious medical deterioration she avoids going to the medical community and so she has had chronic pain chronic lower extremity swelling which has essentially made her irritable. She is able to ambulate just a few feet and that is forced to sit most of her day is spent being immobile at home. She has an extensive smoking history including 2 packs a day for at least the last 50 years. Per the family she does take nebulizer breathing treatments at home although the family is unclear who prescribes these for her. She has noted occasionally take her 's medications including antihypertensives. Additionally they have noticed that the patient has been complaining of some eye swelling and pain and even bulging at times over the last few weeks she has not sought help for this either. The family denies that she has had extensive weight loss recently although they are not for certain of this Since admission to the ED overnight she has been maintained on Zully minimal vent settings with improvement in respiratory acidosis. Blood pressure has been stable she is on sedation and is comfortable. She underwent upper extremity and lower extremity duplex today with the preliminary being positive for bilateral VTE Past Med Surg Social Fam HX - Past Medical History Medical history: other Psychiatric history: no psych history - Social History Smoking Status: Current every day smoker Smokeless Tobacco Status: No Alcohol use: none Drug use: none Medications and Allergies Albuterol Sulfate [Albuterol Inhaler] 1 puff IH Q4HR 05/01/16 [History] Captopril/Hydrochlorothiazide [Captopril-Hctz 50-15 mg Tablet] 1 tab PO DAILY [History] Allergies pain med Allergy (Uncoded 05/01/16 17:11) See Comments PATIENT'S FAMILY UNSURE OF PAIN MEDICATION BUT IT WAS GIVEN TO PATIENT "30 YEARS AGO" AND "THEY HAD TO CALL A CODE BLUE" - UNSURE OF PATIENTS REACTION All Systems: A 10-system review of systems was performed and is negative for pertinent findings except as documented above in the HPI. Physical Examination Vital Signs: Vital Signs, Last 4 Hours Temp Pulse Resp BP Pulse Ox 05/02/16 11:28 18 91 L 05/02/16 11:00 98.8 F 80 18 92/52 92 L 05/02/16 10:00 84 18 96/56 92 L 05/02/16 09:39 18 93 L 05/02/16 09:20 85 16 100/58 90 L 05/02/16 08:33 16 90 L 05/02/16 08:30 84 16 91/49 90 L General appearance: other (Intubated and sedated does respond to voice and is noted to move all extremities) Eyes: injected, other (Tuesday with noted surrounding erythema and mild proptosis ) ENT: other (Endotracheal tube present) Neck: supple Auscultation: bilateral: diminished breath sounds, wheezes, rales Cardiovascular: regular rate and rhythm Gastrointestinal: normoactive bowel sounds, non-tender Integumentary: normal Extremities: edema Musculoskeletal: no deformities pupils equal and round other (Sedated intermittent mild agitation) Ventilator Settings Ventilator Settings: Ventilator Settings, Last 8 Hours Ventilator Mode A/C Ventilator Mode A/C Ventilator Mode A/C Ventilator Mode A/C Ventilator Mode A/C Ventilator Mode A/C Ventilator Mode A/C Ventilator Mode A/C Ventilator Mode A/C Ventilator Mode A/C Ventilator Mode A/C Ventilator Mode A/C Ventilator Mode A/C Ventilator Tidal Volume 400 Setting Ventilator Tidal Volume 400 Setting Ventilator Tidal Volume 400 Setting Ventilator Tidal Volume 400 Setting Ventilator Tidal Volume 400 Setting Ventilator Tidal Volume 400 Setting Ventilator Tidal Volume 500 Setting Ventilator Tidal Volume 500 Setting Ventilator Tidal Volume 500 Setting Ventilator Tidal Volume 500 Setting Ventilator Tidal Volume 500 Setting Ventilator Tidal Volume 500 Setting Ventilator Tidal Volume 500 Setting Ventilator Tidal Volume 500 Setting Ventilator Respiratory Rate 18 Setting Ventilator Respiratory Rate 18 Setting Ventilator Respiratory Rate 18 Setting Ventilator Respiratory Rate 18 Setting Ventilator Respiratory Rate 18 Setting Ventilator Respiratory Rate 18 Setting Ventilator Respiratory Rate 16 Setting Ventilator Respiratory Rate 16 Setting Ventilator Respiratory Rate 16 Setting Ventilator Respiratory Rate 16 Setting Ventilator Respiratory Rate 16 Setting Ventilator Respiratory Rate 16 Setting Ventilator Respiratory Rate 16 Setting Ventilator Respiratory Rate 16 Setting Actual Respiratory Rate 18 Actual Respiratory Rate 18 Actual Respiratory Rate 18 Actual Respiratory Rate 18 Actual Respiratory Rate 16 Actual Respiratory Rate 16 Actual Respiratory Rate 16 Actual Respiratory Rate 16 Actual Respiratory Rate 18 Actual Respiratory Rate 16 Actual Respiratory Rate 16 Actual Respiratory Rate 16 Positive End Expiratory 5 Pressure Positive End Expiratory 5 Pressure Positive End Expiratory 5 Pressure Positive End Expiratory 5 Pressure Positive End Expiratory 5 Pressure Positive End Expiratory 5 Pressure Positive End Expiratory 5 Pressure Positive End Expiratory 5 Pressure Positive End Expiratory 5 Pressure Positive End Expiratory 5 Pressure Positive End Expiratory 5 Pressure Positive End Expiratory 5 Pressure Positive End Expiratory 5 Pressure Peak Inspiratory Airway 30 Pressure Peak Inspiratory Airway 31 Pressure Peak Inspiratory Airway 32 Pressure Peak Inspiratory Airway 30 Pressure Peak Inspiratory Airway 32 Pressure Peak Inspiratory Airway 31 Pressure Peak Inspiratory Airway 31 Pressure Peak Inspiratory Airway 29 Pressure Peak Inspiratory Airway 31 Pressure Peak Inspiratory Airway 30 Pressure Peak Inspiratory Airway 30 Pressure Results - Laboratory Findings CBC and BMP: 05/02/16 02:59 05/02/16 02:59 ABG ABG pH 7.39 pH Units (7.32-7.45) 05/02/16 08:58 ABG pCO2 60 mmHg (35-45) H 05/02/16 08:58 ABG pO2 72 mmHg (85-104) L 05/02/16 08:58 ABG O2 Saturation 94 % (95-98) L 05/02/16 08:58 PT/INR, D-dimer PT 15.0 Seconds (9.4-12.1) H 05/01/16 21:10 Abnormal lab findings: Abnormal lab results WBC 27.2 K/mcL (4.3-11.1) H 05/02/16 02:59 RBC 5.13 M/mcL (3.82-4.97) H 05/02/16 02:59 Hct 48.1 % (35.3-44.9) H 05/02/16 02:59 Neutrophils # 25.2 K/mcL (1.6-8.9) H 05/02/16 02:59 Nucleated RBCs/100 WBC 0.1 /100 WBC (0) H 05/01/16 15:21 Reactive Lymphocytes Present (Not Present) A 05/02/16 02:59 Large Platelets Present (Not Present) A 05/02/16 02:59 PT 15.0 Seconds (9.4-12.1) H 05/01/16 21:10 APTT 64.0 Seconds (26.0-36.0) H 05/02/16 11:26 ABG pCO2 60 mmHg (35-45) H 05/02/16 08:58 ABG pO2 72 mmHg (85-104) L 05/02/16 08:58 ABG HCO3 36.3 mEQ/L (21-27) H 05/02/16 08:58 ABG Total CO2 38.1 mEq/L (20-26) H 05/02/16 08:58 ABG O2 Saturation 94 % (95-98) L 05/02/16 08:58 ABG Base Excess 8.5 mEq/L (-2.0 to 3.0) H 05/02/16 08:58 VBG pH 7.31 pH Units (7.32-7.42) L 05/02/16 02:59 VBG pCO2 76 mmHg (41-51) H 05/02/16 02:59 VBG pO2 126 mmHg (25-40) H 05/02/16 02:59 VBG HCO3 38.3 mEq/L (21-27) H 05/02/16 02:59 Chloride 95 mEq/L (98-109) L 05/02/16 02:59 Carbon Dioxide 30 mEq/L (19-29) H 05/02/16 02:59 BUN 57 mg/dL (7-20) H 05/02/16 02:59 Creatinine 1.19 mg/dL (0.57-1.11) H 05/02/16 02:59 Est GFR ( Amer) 55 (> 60) L 05/02/16 02:59 Est GFR (Non-Af Amer) 45 (> 60) L 05/02/16 02:59 BUN/Creatinine Ratio 48 (6-26) H 05/02/16 02:59 Glucose 151 mg/dL (70-99) H 05/02/16 02:59 POC Glucose 172 (58-89) H 05/02/16 11:02 Calculated Osmolality 309 (280-300) H 05/02/16 02:59 Alkaline Phosphatase 161 Units/L (38-126) H 05/01/16 15:21 Troponin I 0.08 ng/mL (0-0.03) H* 05/02/16 02:59 C-Reactive Protein 296 mg/L (Less than 5) H 05/02/16 02:59 B-Natriuretic Peptide 930 pg/mL (0-100) H 05/01/16 15:21 Serum Total Protein 8.4 g/dL (6.0-8.3) H 05/01/16 15:21 Albumin 3.1 g/dL (3.5-5.0) L 05/01/16 15:21 Globulin 5.3 g/dL (2.4-3.5) H 05/01/16 15:21 Albumin/Globulin Ratio 0.6 (1.1-2.2) L 05/01/16 15:21 Urine Bacteria Moderate per hpf (None-Few) H 05/01/16 15:08 Hyaline Casts Many per lpf (None-Few) H 05/01/16 15:08 Urine Mucus Many (Few) H 05/01/16 15:08 Salicylates < 5.0 mg/dL (15-30) L 05/01/16 15:21 Acetaminophen < 1.0 mcg/mL (10-30) L 05/01/16 15:21 - Microbiology Findings Microbiology Findings: Microbiology, Last 48 Hours 05/02/16 10:58 Legionella Antigen - Final Urine,[place] 05/02/16 10:58 Streptococcus pneumoniae Antigen (M - Final Urine,[place] 05/02/16 00:10 Sputum Culture - Preliminary Sputum - Diagnostic Findings Chest x-ray: report reviewed U/S of Legs: report reviewed - Clinical Findings Intake & Output: Intake & Output 05/01/16 05/02/16 05/02/16 23:59 07:59 15:59 Intake Total 250 / 1250 650 / 650 200 / 200 Output Total 550 / 550 400 / 400 100 / 100 Balance -300 / 700 250 / 250 100 / 100 Weight 95.6 kg Consult Discharge Plan - Plan Referrals: NO,PCP [Primary Care Provider] - - Attending Attestation I spent 40min of Critical Care time with this patient. It involved decision making of high complexity to assess, manipulate, and support vital organ system failure and/or to prevent further life threatening deterioration of the patient' s condition. The time involved in the performance of separately reportable procedures was not counted toward critical care time. CODE:Patient is Full Code family (son updated at bedside)
[2016-05-02 12:26] LABS: Adenovirus Not Detected (Not Detect); Bordetella Pertussis Not Detected (Not Detect); Chlamydophila pneumoniae Not Detected (Not Detect); Coronavirus 229E Not Detected (Not Detect); Coronavirus HKU1 Not Detected (Not Detect); Coronavirus NL63 Not Detected (Not Detect); Coronavirus OC43 Not Detected (Not Detect); Human Metapneumovirus Not Detected (Not Detect); Human Rhinovirus/Enterovirus Not Detected (Not Detect); Influenza A Subtype 2009 H1 Not Detected (Not Detect); Influenza A Untypeable Not Detected (Not Detect); Influenza B Not Detected (Not Detect); Mycoplasma pneumoniae Not Detected (Not Detect); Parainfluenza Virus 1 Not Detected (Not Detect); Parainfluenza Virus 2 Not Detected (Not Detect); Parainfluenza Virus 3 Not Detected (Not Detect); Parainfluenza Virus 4 Not Detected (Not Detect); Respiratory Syncytial Virus Not Detected (Not Detect)
[2016-05-02] MEDS: 0.9 % Sodium Chloride 1,000 ML IVC SCH (13:51)
[2016-05-02 15:30] LABS: ABG HCO3 36.5 mEQ/L (21-27); ABG Oxygen Saturation 99 % (95-98); ABG PCO2 59 mmHg (35-45); ABG PO2 135 mmHg (85-104); ABG TCO2 38.3 mEq/L (20-26)
[2016-05-02 15:31] LABS: Blood Gas FiO2 50 %; Blood Gas VT 400 cc
[2016-05-02] MEDS: Heparin 25,000 UNIT/500 ML D5W 25,000 UNIT/500 ML MLS IVC SCH (17:41)
[2016-05-02] MEDS ORDERED: *HR* Dextrose 50 % in Water (Syg) 50 ML SYRINGE IVP PRN (17:54)
[2016-05-02] MEDS ORDERED: D5% in Water 1,000 ML IV PRN (17:54)
[2016-05-02] MEDS ORDERED: Dextrose Gel 15 GM PO PRN ×2 (17:54)
[2016-05-02] MEDS: Insulin LISPRO 300 UNITS/3 ML VIAL SQ SCH (18:10)
[2016-05-02 18:27] LABS: Basophils # 0.1 K/mcL (0.0-0.2); Basophils % 0.2 %; Hematocrit 45.9 % (35.3-44.9); Hemoglobin 15.1 g/dL (11.5-15.4); Immature Granulocytes % 0.8 % (0-4); Immature Platelets 4.4 % (1.1-6.1); Lymphocytes % 2.8 %; Mean Corpuscular HGB Conc 32.9 g/dL (31.6-35.5); Mean Corpuscular Hemoglobin 29.5 pg (28.0-33.3); Mean Corpuscular Volume 89.6 fL (83.0-100.0); Monocytes # 0.8 K/mcL (0.0-1.3); Monocytes % 3.6 %; Neutrophils # 21.3 K/mcL (1.6-8.9); Platelet Count 227 K/mcL (140-400); Red Blood Count 5.12 M/mcL (3.82-4.97); Red Cell Distribution Width 14.3 % (11.5-14.5); Segmented Neutrophils % 92.6 %
[2016-05-02 18:31] LABS: Lymphocytes # 0.6 K/mcL (0.6-4.6)
[2016-05-02 18:38] LABS: Albumin 2.3 g/dL (3.5-5.0); Phosphorous 3.4 mg/dL (2.3-4.7); Potassium 3.5 mEq/L (3.5-4.5)
[2016-05-02 18:55] LABS: Platelet Estimate Normal (Normal)
[2016-05-02] MEDS: Lacri-Lube 3.5 GM TUBE BOTH EYES SCH (20:52)
[2016-05-02] MEDS: Chlorhexidine Rinse 15 ML MOUTHWASH MM SCH (20:54)
[2016-05-02] MEDS: Vancomycin 1,250 MG in D5% in Water 250 ML IVPB SCH (21:06)
[2016-05-03] MEDS: methylPREDNISolone 125 MG/2 ML VIAL IVP SCH ×2 (00:15→06:45)
[2016-05-03] MEDS: Insulin LISPRO 300 UNITS/3 ML VIAL SQ SCH ×4 (00:22→18:15)
[2016-05-03] MEDS: Ipratropium/Albuterol Neb 3 ML IH SCH ×12 (01:05→22:26)
[2016-05-03 04:54] LABS: Calcium 8.8 mg/dL (8.6-10.8); Potassium 3.4 mEq/L (3.5-4.5)
[2016-05-03 05:15] LABS: Albumin 2.3 g/dL (3.5-5.0)
[2016-05-03 05:16] LABS: Blood Gas FiO2 40 %; Blood Gas PEEP 5 cm H2O; Blood Gas Respiration Rate 16; Blood Gas VT 400 cc
[2016-05-03 05:19] LABS: ABG Base Excess 8.5 mEq/L (-2.0 to 3.0); ABG HCO3 34.1 mEQ/L (21-27); ABG Oxygen Saturation 91 % (95-98); ABG PCO2 48 mmHg (35-45); ABG PH 7.46 pH Units (7.32-7.45); ABG PO2 57 mmHg (85-104); ABG TCO2 35.6 mEq/L (20-26)
[2016-05-03 05:54] LABS: Basophils # 0.1 K/mcL (0.0-0.2); Basophils % 0.2 %; Hematocrit 45.9 % (35.3-44.9); Hemoglobin 14.8 g/dL (11.5-15.4); Immature Granulocytes % 1.1 % (0-4); Immature Platelets 5.5 % (1.1-6.1); Lymphocytes # 0.7 K/mcL (0.6-4.6); Lymphocytes % 2.7 %; Mean Corpuscular HGB Conc 32.2 g/dL (31.6-35.5); Mean Corpuscular Hemoglobin 29.2 pg (28.0-33.3); Mean Corpuscular Volume 90.7 fL (83.0-100.0); Mean Platelet Volume 10.4 fL (9.4-12.4); Monocytes # 1.1 K/mcL (0.0-1.3); Monocytes % 4.4 %; Platelet Count 233 K/mcL (140-400); Red Blood Count 5.06 M/mcL (3.82-4.97); Red Cell Distribution Width 14.4 % (11.5-14.5); Segmented Neutrophils % 91.6 %
[2016-05-03 06:09] LABS: Neutrophils # 23.3 K/mcL (1.6-8.9)
[2016-05-03 06:28] LABS: Anisocytosis 1+ (Not Present); Platelet Estimate Normal (Normal)
[2016-05-03] MEDS: Dexmedetomidine HCl 400 MCG/100 ML MLS IVC SCH (06:42)
[2016-05-03] MEDS: 0.9 % Sodium Chloride 1,000 ML IVC SCH ×2 (06:42→16:47)
[2016-05-03] MEDS: Piperacillin/Tazobactam 3.375 GM in D5% in Water (Mini-Bag+) 100 ML IVPB SCH ×3 (06:45→20:09)
--- NOTE | 2016-05-03 07:15 | Venous Imaging Report ---
LE Venous Duplex Patient Name:Selma Booth Order Number:[id number] Procedure Date:05/02/2016 Date:7Age:71 yrs Gender:Female Location:[facility] Room #: IC03 Inventory Checker:Marnie Schmitz RVT, FRANCO Referring MD:Yury Stokes MD blood bank supervisor:None Reading MD:Justin Cardenas MD Primary Indications:edema Secondary Indications: Impressions: Normal bilateral lower extremity deep and superficial venous exam. Recommendations: Test completed on 05/02/2016 at 11:09:37 am. Critical findings reported to Dr. Stokes in person at 11:09:53 am on 05/02/2016 by Marnie Schmitz RVT, FRANCO. Findings Venous Duplex Results: Right: Venous imaging of the lower extremity reveals full patency and normal vessel compressibility of the right distal iliac, right common femoral, right superficial femoral, right popliteal, right posterior tibial, right peroneal, right saphenofemoral junction, right great saphenous and right lesser saphenous. Doppler signals in the evaluated veins were normal. The right posterior tibial and right peroneal veins were not well visualized. Left: Venous imaging of the lower extremity reveals full patency and normal vessel compressibility of the left distal iliac, left common femoral, left superficial femoral, left popliteal, left posterior tibial, left peroneal, left saphenofemoral junction, left great saphenous and left lesser saphenous. Doppler signals in the evaluated veins were normal. The left posterior tibial and left peroneal veins were not well visualized. Lower Extremity Venous Duplex Side Vein Compress Spontaneous Flow Augment Diameter (cm) Depth (cm) Right Distal Iliac Normal Yes Phasic Yes Right Common Femoral Normal Yes Phasic Yes Right Superficial Femoral Normal Yes Phasic Yes Right Popliteal Normal Yes Phasic Yes Right Posterior Tibial Normal Yes Phasic Yes Right Peroneal Normal Yes Phasic Yes Right Saphenofemoral [place] Normal Yes Phasic Yes Right Great Saphenous Normal Yes Phasic Yes Right Lesser Saphenous Normal Yes Phasic Yes Left Distal Iliac Normal Yes Phasic Yes Left Common Femoral Normal Yes Phasic Yes Left Superficial Femoral Normal Yes Phasic Yes Left Popliteal Normal Yes Phasic Yes Left Posterior Tibial Normal Yes Phasic Yes Left Peroneal Normal Yes Phasic Yes Left Saphenofemoral [place] Normal Yes Phasic Yes Left Great Saphenous Normal Yes Phasic Yes Left Lesser Saphenous Normal Yes Phasic Yes Updated by Justin Cardenas MD on 05/03/2016 7:08:59 AM electronically signed on 05/03/2016 7:09:42 AM with status of Final
--- NOTE | 2016-05-03 07:19 | Venous Imaging Report ---
UE Venous Duplex Patient Name:Selma Booth Order Number:[id number] Procedure Date:05/02/2016 Date:1945ge:71 yrs Gender:Female Location:[facility] Room #: IC03 Deputy County Clerk:Marnie Schmitz RVT, RDCS Referring MD:Martín Chavarria MD test developer:None Reading MD:Justin Cardenas MD Primary Indications:DVT Secondary Indications: Impressions: Acute deep venous thrombosis is present in the right brachial vein. Normal right upper extremity superficial venous exam. Acute deep venous thrombosis is present in the left brachial, radial and ulnar veins. Normal left upper extremity superficial venous exam. Recommendations: Test completed on 05/02/2016 at 9:46:34 am. Critical findings reported to Dr. Stokes in person at 9:46:59 am on 05/02/2016 by Marnie Schmitz RVT, RDCS. Findings Venous Duplex Results: Right: Venous imaging of the upper extremity reveals full patency and normal vessel compressibility of the right jugular, right subclavian, right axillary, right cephalic, right basilic, right radial and right ulnar. Doppler signals in the evaluated veins were normal. There is an acute occlusive thrombus seen in the right brachial. It demonstrates an incompressible vein. Flow was absent and it did not augment. Left: Venous imaging of the upper extremity reveals full patency and normal vessel compressibility of the left jugular, left subclavian, left axillary, left cephalic and left basilic. Doppler signals in the evaluated veins were normal. There is an acute occlusive thrombus seen in the left brachial. It demonstrates an incompressible vein. Flow was absent and it did not augment. There is an acute occlusive thrombus seen in the left radial. It demonstrates an incompressible vein. Flow was absent and it did not augment. There is an acute occlusive thrombus seen in the left ulnar. It demonstrates an incompressible vein. Flow was absent and it did not augment. Prior Study: No prior study available for comparison. Upper Extremity Venous Duplex Side Vein Compress Spontaneous Flow Augment Right Jugular Normal Yes Phasic Yes Right Subclavian Normal Yes Phasic Yes Right Axillary Normal Yes Phasic Yes Right Brachial None no Absent no Right Cephalic Normal Yes Phasic Yes Right Basilic Normal Yes Phasic Yes Right Radial Normal Yes Phasic Yes Right Ulnar Normal Yes Phasic Yes Left Jugular Normal Yes Phasic Yes Left Subclavian Normal Yes Phasic Yes Left Axillary Normal Yes Phasic Yes Left Brachial None no Absent no Left Cephalic Normal Yes Phasic Yes Left Basilic Normal Yes Phasic Yes Left Radial None no Absent no Left Ulnar None no Absent no Updated by Justin Cardenas MD on 05/03/2016 7:11:29 AM electronically signed on 05/03/2016 7:12:59 AM with status of Final
[2016-05-03 07:55] LABS: Phosphorous 3.2 mg/dL (2.3-4.7)
[2016-05-03] MEDS ORDERED: Aminoglycoside Consult 1 EACH MC ONE (08:30)
[2016-05-03] MEDS: Lacri-Lube 3.5 GM TUBE BOTH EYES SCH ×2 (08:40→19:53)
[2016-05-03] MEDS: Pantoprazole 40 MG VIAL IVP SCH (08:40)
[2016-05-03] MEDS: Furosemide 40 MG/4 ML VIAL IVP SCH ×2 (08:40→16:47)
[2016-05-03] MEDS: Chlorhexidine Rinse 15 ML MOUTHWASH MM SCH ×2 (08:40→19:53)
--- NOTE | 2016-05-03 08:53 | Pulmonology Progress Note ---
<BobTai garcia Natan - Last Filed: 05/03/16 08:51> Date of Encounter: 05/03/16 Time of Encounter: 08:51 Assessment and Plan (1) Acute respiratory failure with hypoxia and hypercapnia Current Visit: Yes Status: Acute In the setting of abnormal embolism, pneumonia, COPD exacerbation. Patient remains intubated and mechanical ventilated. ABGs are reassuring. We will attempt extubation today. Once extubated BiPAP as needed. (2) Severe sepsis Current Visit: Yes Status: Acute Likely related to underlying pneumonia. Appears to be improving. Continue broad-spectrum antibiotics with vancomycin, Zosyn. Lactic acid normal. Blood pressures have been good. (3) Venous thromboembolism Current Visit: Yes Status: Acute CTA shows evidence of PEs, preliminary results of upper and lower extremity Dopplers showed upper extremity DVTs. Evidence of right heart strain on echo. We will await the final read. Concerns for underlying malignancy however primary is unknown at this time. No evidence of malignancy on CT scan of the chest. Patient is on a heparin drip. (4) CAP (community acquired pneumonia) Current Visit: Yes Status: Acute Patient has evidence of RLL pneumonia on chest CT. Patient has an elevated white count. Continue antibiotics. Blood and sputum cultures are negative at this time. (5) COPD exacerbation Current Visit: Yes Status: Acute Likely related to underlying pneumonia and PE. Treatment for these as above. Continue bronchodilators, steroids. (6) NSTEMI (non-ST elevated myocardial infarction) Current Visit: Yes Status: Acute Troponin was 0.1 on presentation, recheck shows it is decreased to 0.08. Likely related to demand ischemia in the setting of pneumonia, COPD, PE. Continue heparin drip for PE as discussed above. (7) Suicidal ideation Current Visit: Yes Status: Acute The family had expressed concerns of suicidal ideation to the physician yesterday. Once the patient is extubated we will discuss this with the patient we will consider psych consult for further evaluation. (8) DVT prophylaxis Current Visit: Yes Status: Acute Patient is fully anticoagulated with heparin drip. Subjective Principal diagnosis: Respiratory distress Interval history: Patient seen and examined bedside. Patient is awake but sedated. She does not appear in any acute distress. Objective PUL Vital signs: Last Vital Signs Temp 98.4 F 05/03/16 07:31 Pulse 96 05/03/16 08:23 Resp 24 05/03/16 08:23 BP 134/76 05/03/16 08:23 Pulse Ox 95 05/03/16 08:23 General appearance: no acute distress ENT: oropharynx moist Effort: normal Auscultation: right: rhonchi, bilateral: diminished breath sounds Cardiovascular: regular rate and rhythm Gastrointestinal: hypoactive bowel sounds, soft, non-tender, non-distended Extremities: no cyanosis, no clubbing, edema (1+ bilaterally) unable to assess due to mental status Ventilator Settings Ventilator Settings: Ventilator Settings, Last 8 Hours Ventilator Mode A/C Ventilator Mode CPAP Ventilator Mode CPAP Ventilator Mode A/C Ventilator Mode A/C Ventilator Mode A/C Ventilator Mode A/C Ventilator Mode A/C Ventilator Mode A/C Ventilator Mode A/C Ventilator Mode A/C Ventilator Mode A/C Ventilator Mode A/C Ventilator Tidal Volume 400 Setting Ventilator Tidal Volume 400 Setting Ventilator Tidal Volume 400 Setting Ventilator Tidal Volume 400 Setting Ventilator Tidal Volume 400 Setting Ventilator Tidal Volume 400 Setting Ventilator Tidal Volume 400 Setting Ventilator Tidal Volume 400 Setting Ventilator Tidal Volume 400 Setting Ventilator Tidal Volume 400 Setting Ventilator Tidal Volume 400 Setting Ventilator Respiratory Rate 16 Setting Ventilator Respiratory Rate 16 Setting Ventilator Respiratory Rate 16 Setting Ventilator Respiratory Rate 16 Setting Ventilator Respiratory Rate 16 Setting Ventilator Respiratory Rate 16 Setting Ventilator Respiratory Rate 16 Setting Ventilator Respiratory Rate 16 Setting Ventilator Respiratory Rate 16 Setting Ventilator Respiratory Rate 16 Setting Ventilator Respiratory Rate 16 Setting Actual Respiratory Rate 24 Actual Respiratory Rate 26 Actual Respiratory Rate 26 Actual Respiratory Rate 22 Actual Respiratory Rate 19 Actual Respiratory Rate 16 Actual Respiratory Rate 17 Actual Respiratory Rate 16 Actual Respiratory Rate 16 Actual Respiratory Rate 26 Actual Respiratory Rate 23 Actual Respiratory Rate 23 Positive End Expiratory 5 Pressure Positive End Expiratory 5 Pressure Positive End Expiratory 5 Pressure Positive End Expiratory 5 Pressure Positive End Expiratory 5 Pressure Positive End Expiratory 5 Pressure Positive End Expiratory 5 Pressure Positive End Expiratory 5 Pressure Positive End Expiratory 5 Pressure Positive End Expiratory 5 Pressure Positive End Expiratory 5 Pressure Positive End Expiratory 5 Pressure Positive End Expiratory 5 Pressure Peak Inspiratory Airway 12 Pressure Peak Inspiratory Airway 11 Pressure Peak Inspiratory Airway 12 Pressure Peak Inspiratory Airway 35 Pressure Peak Inspiratory Airway 18 Pressure Peak Inspiratory Airway 22 Pressure Peak Inspiratory Airway 29 Pressure Peak Inspiratory Airway 26 Pressure Peak Inspiratory Airway 26 Pressure Peak Inspiratory Airway 26 Pressure Peak Inspiratory Airway 24 Pressure Peak Inspiratory Airway 21 Pressure Results - Laboratory Findings CBC and BMP: 05/03/16 03:36 05/03/16 03:36 ABG ABG pH 7.46 pH Units (7.32-7.45) H 05/03/16 05:06 ABG pCO2 48 mmHg (35-45) H 05/03/16 05:06 ABG pO2 57 mmHg (85-104) L 05/03/16 05:06 ABG O2 Saturation 91 % (95-98) L 05/03/16 05:06 PT/INR, D-dimer PT 15.0 Seconds (9.4-12.1) H 05/01/16 21:10 Abnormal lab findings: Abnormal lab results WBC 25.4 K/mcL (4.3-11.1) H 05/03/16 03:36 RBC 5.06 M/mcL (3.82-4.97) H 05/03/16 03:36 Hct 45.9 % (35.3-44.9) H 05/03/16 03:36 Neutrophils # 23.3 K/mcL (1.6-8.9) H 05/03/16 03:36 Nucleated RBCs/100 WBC 0.1 /100 WBC (0) H 05/01/16 15:21 Reactive Lymphocytes Present (Not Present) A 05/02/16 02:59 Large Platelets Present (Not Present) A 05/02/16 02:59 Anisocytosis 1+ (Not Present) A 05/03/16 03:36 PT 15.0 Seconds (9.4-12.1) H 05/01/16 21:10 APTT 64.0 Seconds (26.0-36.0) H 05/03/16 03:36 ABG pH 7.46 pH Units (7.32-7.45) H 05/03/16 05:06 ABG pCO2 48 mmHg (35-45) H 05/03/16 05:06 ABG pO2 57 mmHg (85-104) L 05/03/16 05:06 ABG HCO3 34.1 mEQ/L (21-27) H 05/03/16 05:06 ABG Total CO2 35.6 mEq/L (20-26) H 05/03/16 05:06 ABG O2 Saturation 91 % (95-98) L 05/03/16 05:06 ABG Base Excess 8.5 mEq/L (-2.0 to 3.0) H 05/03/16 05:06 VBG pH 7.31 pH Units (7.32-7.42) L 05/02/16 02:59 VBG pCO2 76 mmHg (41-51) H 05/02/16 02:59 VBG pO2 126 mmHg (25-40) H 05/02/16 02:59 VBG HCO3 38.3 mEq/L (21-27) H 05/02/16 02:59 Potassium 3.4 mEq/L (3.5-4.5) L 05/03/16 03:36 Chloride 96 mEq/L (98-109) L 05/03/16 03:36 Carbon Dioxide 31 mEq/L (19-29) H 05/03/16 03:36 BUN 57 mg/dL (7-20) H 05/03/16 03:36 Creatinine 1.42 mg/dL (0.57-1.11) H 05/03/16 03:36 Est GFR ( Amer) 44 (> 60) L 05/03/16 03:36 Est GFR (Non-Af Amer) 37 (> 60) L 05/03/16 03:36 BUN/Creatinine Ratio 40 (6-26) H 05/03/16 03:36 Glucose 182 mg/dL (70-99) H 05/03/16 03:36 POC Glucose 188 (58-89) H 05/02/16 23:37 Calculated Osmolality 304 (280-300) H 05/03/16 03:36 Alkaline Phosphatase 161 Units/L (38-126) H 05/01/16 15:21 Troponin I 0.08 ng/mL (0-0.03) H* 05/02/16 02:59 C-Reactive Protein 296 mg/L (Less than 5) H 05/02/16 02:59 B-Natriuretic Peptide 930 pg/mL (0-100) H 05/01/16 15:21 Serum Total Protein 8.4 g/dL (6.0-8.3) H 05/01/16 15:21 Albumin 2.3 g/dL (3.5-5.0) L 05/03/16 03:36 Globulin 5.3 g/dL (2.4-3.5) H 05/01/16 15:21 Albumin/Globulin Ratio 0.6 (1.1-2.2) L 05/01/16 15:21 Urine Bacteria Moderate per hpf (None-Few) H 05/01/16 15:08 Hyaline Casts Many per lpf (None-Few) H 05/01/16 15:08 Urine Mucus Many (Few) H 05/01/16 15:08 Salicylates < 5.0 mg/dL (15-30) L 05/01/16 15:21 Acetaminophen < 1.0 mcg/mL (10-30) L 05/01/16 15:21 - Microbiology Findings Microbiology Findings: Microbiology, Last 48 Hours 05/02/16 00:10 Sputum Culture - Preliminary Sputum 05/02/16 10:58 Legionella Antigen - Final Urine,[place] 05/02/16 10:58 Streptococcus pneumoniae Antigen (M - Final Urine,[place] - Clinical Findings Intake & Output: Intake & Output 05/02/16 05/03/16 05/03/16 23:59 07:59 15:59 Intake Total 483 / 483 1100 / 1100 Output Total 300 / 300 375 / 375 Balance 183 / 183 725 / 725 Weight 99.1 kg Consult Discharge Plan - Plan Referrals: NO,PCP [Primary Care Provider] - <Sanya Macdonald M - Last Filed: 05/03/16 16:14> Date of Encounter: 05/03/16 Objective PUL Vital signs: Last Vital Signs Temp 98.9 F 05/03/16 11:01 Pulse 92 05/03/16 15:00 Resp 24 05/03/16 15:13 BP 117/56 05/03/16 15:00 Pulse Ox 94 L 05/03/16 15:13 Results - Laboratory Findings CBC and BMP: 05/03/16 03:36 05/03/16 03:36 ABG ABG pH 7.46 pH Units (7.32-7.45) H 05/03/16 05:06 ABG pCO2 48 mmHg (35-45) H 05/03/16 05:06 ABG pO2 57 mmHg (85-104) L 05/03/16 05:06 ABG O2 Saturation 91 % (95-98) L 05/03/16 05:06 PT/INR, D-dimer PT 15.0 Seconds (9.4-12.1) H 05/01/16 21:10 Abnormal lab findings: Abnormal lab results WBC 25.4 K/mcL (4.3-11.1) H 05/03/16 03:36 RBC 5.06 M/mcL (3.82-4.97) H 05/03/16 03:36 Hct 45.9 % (35.3-44.9) H 05/03/16 03:36 Neutrophils # 23.3 K/mcL (1.6-8.9) H 05/03/16 03:36 Nucleated RBCs/100 WBC 0.1 /100 WBC (0) H 05/01/16 15:21 Reactive Lymphocytes Present (Not Present) A 05/02/16 02:59 Large Platelets Present (Not Present) A 05/02/16 02:59 Anisocytosis 1+ (Not Present) A 05/03/16 03:36 PT 15.0 Seconds (9.4-12.1) H 05/01/16 21:10 APTT 64.0 Seconds (26.0-36.0) H 05/03/16 03:36 ABG pH 7.46 pH Units (7.32-7.45) H 05/03/16 05:06 ABG pCO2 48 mmHg (35-45) H 05/03/16 05:06 ABG pO2 57 mmHg (85-104) L 05/03/16 05:06 ABG HCO3 34.1 mEQ/L (21-27) H 05/03/16 05:06 ABG Total CO2 35.6 mEq/L (20-26) H 05/03/16 05:06 ABG O2 Saturation 91 % (95-98) L 05/03/16 05:06 ABG Base Excess 8.5 mEq/L (-2.0 to 3.0) H 05/03/16 05:06 VBG pH 7.31 pH Units (7.32-7.42) L 05/02/16 02:59 VBG pCO2 76 mmHg (41-51) H 05/02/16 02:59 VBG pO2 126 mmHg (25-40) H 05/02/16 02:59 VBG HCO3 38.3 mEq/L (21-27) H 05/02/16 02:59 Potassium 3.4 mEq/L (3.5-4.5) L 05/03/16 03:36 Chloride 96 mEq/L (98-109) L 05/03/16 03:36 Carbon Dioxide 31 mEq/L (19-29) H 05/03/16 03:36 BUN 57 mg/dL (7-20) H 05/03/16 03:36 Creatinine 1.42 mg/dL (0.57-1.11) H 05/03/16 03:36 Est GFR ( Amer) 44 (> 60) L 05/03/16 03:36 Est GFR (Non-Af Amer) 37 (> 60) L 05/03/16 03:36 BUN/Creatinine Ratio 40 (6-26) H 05/03/16 03:36 Glucose 182 mg/dL (70-99) H 05/03/16 03:36 POC Glucose 188 (58-89) H 05/02/16 23:37 Calculated Osmolality 304 (280-300) H 05/03/16 03:36 Alkaline Phosphatase 161 Units/L (38-126) H 05/01/16 15:21 Troponin I 0.08 ng/mL (0-0.03) H* 05/02/16 02:59 C-Reactive Protein 296 mg/L (Less than 5) H 05/02/16 02:59 B-Natriuretic Peptide 930 pg/mL (0-100) H 05/01/16 15:21 Serum Total Protein 8.4 g/dL (6.0-8.3) H 05/01/16 15:21 Albumin 2.3 g/dL (3.5-5.0) L 05/03/16 03:36 Globulin 5.3 g/dL (2.4-3.5) H 05/01/16 15:21 Albumin/Globulin Ratio 0.6 (1.1-2.2) L 05/01/16 15:21 Urine Bacteria Moderate per hpf (None-Few) H 05/01/16 15:08 Hyaline Casts Many per lpf (None-Few) H 05/01/16 15:08 Urine Mucus Many (Few) H 05/01/16 15:08 Salicylates < 5.0 mg/dL (15-30) L 05/01/16 15:21 Acetaminophen < 1.0 mcg/mL (10-30) L 05/01/16 15:21 - Microbiology Findings Microbiology Findings: Microbiology, Last 48 Hours 05/02/16 10:58 Urine Culture - Final Urine,[place] No growth. 05/02/16 00:10 Sputum Culture - Preliminary Sputum 05/02/16 10:58 Legionella Antigen - Final Urine,[place] 05/02/16 10:58 Streptococcus pneumoniae Antigen (M - Final Urine,[place] - Clinical Findings Intake & Output: Intake & Output 05/03/16 05/03/16 05/03/16 07:59 15:59 23:59 Intake Total 1195 / 1195 200 / 200 Output Total 375 / 375 325 / 325 Balance 820 / 820 -125 / -125 Weight 99.1 kg - Attending Attestation I examined this patient and my medical decision-making was reviewed with the TRASHMAN/PA/Advanced Practice Nurse/Resident Physician. I agree with the documented findings, disposition and treatment plan as described except to the extent set forth below. Patient seen and examined. Labs, radiology, chart personally reviewed. Agree with resident's history and physical, assessment, plan with following comments: INFORMATION TECHNOLOGY ADMINISTRATOR: Patient follows commands, Pulmonary: Acceptable oxygenation and ventilation. Changed vent setting to VC+ and then SBT before extubation. Patient was extubated successfully. Keep SPO2 around 90%. Cardiovascular: stable GI: Nutrition per dietary and GI prophylaxis per routine Heme: DVT prophylaxis per routine ID: Continue antibiotics and plan to de-escalation Renal; urine out put and renal funtion reviewed Endorcine: blood glucose is monitored Lines: all lines checked and no evidence of infections Skin: skin care to prevent pressure ulcers per nursing routine care Pysch: Patient has severe depression and psych consulted. Family has been updated. I spent 32 min of Critical Care time with this patient. It involved decision making of high complexity to assess, manipulate, and support vital organ system failure and/or to prevent further life threatening deterioration of the patient' s condition. The time involved in the performance of separately reportable procedures was not counted toward critical care time.
[2016-05-03] MEDS: FentaNYL (PF) 1,000 MCG in 0.9 % Sodium Chloride 80 ML IVC SCH (09:38)
[2016-05-03] MEDS: Budesonide/Formoterol 80/4.5 MDI IH SCH ×2 (11:25→20:00)
[2016-05-03] MEDS: APIXABAN 5 MG TABLET PO SCH ×2 (11:56→20:10)
--- NOTE | 2016-05-03 14:11 | Electrocardiograph Report ---
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
--- NOTE | 2016-05-03 14:27 | Electrocardiograph Report ---
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
[2016-05-03] MEDS ORDERED: Levofloxacin 750 MG/150 ML 750 MG/150 ML BAG IVPB SCH (17:00)
--- NOTE | 2016-05-03 17:14 | Arterial Study Report ---
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 Right DAWSON 0.85. The left DAWSON and waveforms are consistent with mild disease. Left DAWSON 0.87. Recommendations: Risk factor reduction. Follow-up exam in 1 year. After imaging the patient returned to their room. Critical findings reported to Dr. Frey in person by Arley Fischer. Findings LE Arterial Physiologic Exam: PVR: Right: The PVR waveforms are mildly diminished in the right ankle. Left: The PVR waveforms are mildly diminished in the left ankle. Prior Study: No prior study available for comparison. Segmental Pressures Side Location Pressure Index Result Right Posterior Tibial 130 0.85 Mildly Diminished Right Dorsalis Pedis 119 0.78 Moderately Diminished Left Posterior Tibial 133 0.87 Mildly Diminished Left Dorsalis Pedis 122 0.80 Mildly Diminished Ankle Brachial Index Right Systolic Diastolic DAWSON Brachial 148 0.85 Dorsalis Pedis 119 0.78 Posterior Tibial 130 0.85 Left Systolic Diastolic DAWSON Brachial 153 0.87 Dorsalis Pedis 122 0.80 Posterior Tibial 133 0.87 Updated by Justin Cardenas MD on 05/03/2016 5:08:25 PM with Status of Final electronically signed on 05/03/2016 5:08:39 PM with status of Final
[2016-05-04] MEDS: Ipratropium/Albuterol Neb 3 ML IH SCH ×7 (00:16→17:10)
[2016-05-04] MEDS: Insulin LISPRO 300 UNITS/3 ML VIAL SQ SCH ×5 (00:22→20:25)
[2016-05-04] MEDS: Dexmedetomidine HCl 400 MCG/100 ML MLS IVC SCH (03:35)
[2016-05-04] MEDS: Piperacillin/Tazobactam 3.375 GM in D5% in Water (Mini-Bag+) 100 ML IVPB SCH ×3 (04:12→19:52)
[2016-05-04 04:32] LABS: Hematocrit 46.9 % (35.3-44.9); Hemoglobin 15.4 g/dL (11.5-15.4); Mean Corpuscular HGB Conc 32.8 g/dL (31.6-35.5); Mean Corpuscular Hemoglobin 29.8 pg (28.0-33.3); Mean Corpuscular Volume 90.7 fL (83.0-100.0); Mean Platelet Volume 10.3 fL (9.4-12.4); Platelet Count 215 K/mcL (140-400); Red Blood Count 5.17 M/mcL (3.82-4.97); Red Cell Distribution Width 14.5 % (11.5-14.5); Segmented Neutrophils % 91.1 %
[2016-05-04 04:33] LABS: Basophils # 0.1 K/mcL (0.0-0.2); Basophils % 0.4 %; Immature Granulocytes % 1.4 % (0-4); Lymphocytes # 0.6 K/mcL (0.6-4.6); Lymphocytes % 2.4 %; Monocytes # 1.2 K/mcL (0.0-1.3); Monocytes % 4.7 %; Neutrophils # 22.3 K/mcL (1.6-8.9)
[2016-05-04 04:36] LABS: INR 1.8; Prothrombin Time 19.3 Seconds (9.4-12.1)
[2016-05-04 04:50] LABS: Albumin 2.4 g/dL (3.5-5.0); Albumin/Globulin Ratio 0.6 (1.1-2.2); Bilirubin,Total 0.6 mg/dL (0.2-1.2); Globulin 4.3 g/dL (2.4-3.5); Phosphorous 3.4 mg/dL (2.3-4.7); Potassium 3.5 mEq/L (3.5-4.5)
[2016-05-04 04:53] LABS: Total Protein 6.7 g/dL (6.0-8.3)
[2016-05-04] MEDS: 0.9 % Sodium Chloride 1,000 ML IVC SCH (04:54)
[2016-05-04] MEDS: Pantoprazole 40 MG VIAL IVP SCH ×2 (04:58→04:59)
[2016-05-04 05:02] LABS: Platelet Estimate Normal (Normal); Reactive Lymphocytes Present (Not Present)
[2016-05-04] MEDS ORDERED: *HR* OxyCODONE/APAP 5/325 TABLET PO PRN (06:43)
[2016-05-04] MEDS: APIXABAN 5 MG TABLET PO SCH ×3 (08:05→20:13)
[2016-05-04] MEDS: Furosemide 40 MG/4 ML VIAL IVP SCH (08:05)
[2016-05-04] MEDS ORDERED: *HR* Dextrose 50 % in Water (Syg) 50 ML SYRINGE IVP PRN (08:50)
[2016-05-04] MEDS ORDERED: D5% in Water 1,000 ML IV PRN (08:50)
[2016-05-04] MEDS ORDERED: Dextrose Gel 15 GM PO PRN ×2 (08:50)
--- NOTE | 2016-05-04 08:50 | Pulmonology Progress Note ---
<Tai Mazariegos - Last Filed: 05/04/16 08:47> Date of Encounter: 05/04/16 Time of Encounter: 08:48 Assessment and Plan (1) Acute respiratory failure with hypoxia and hypercapnia Current Visit: Yes Status: Acute In the setting of pulmonary embolism, pneumonia, COPD exacerbation. Patient extubated and doing well. ABGs are reassuring. Supplemental oxygen and BiPAP as needed. (2) Severe sepsis Current Visit: Yes Status: Acute Likely related to underlying pneumonia. Appears to be improving. Continue broad-spectrum antibiotics with Zosyn, discontinue vancomycin. Day 3 of antibiotics. Lactic acid normal. Blood pressures have been stable. (3) Venous thromboembolism Current Visit: Yes Status: Acute CTA shows evidence of PEs, preliminary results of upper and lower extremity Dopplers showed upper extremity DVTs. Evidence of right heart strain on echo. Concerns for underlying malignancy however primary is unknown at this time. No evidence of malignancy on CT scan of the chest. Patient has been transitioned to Eliquis. (4) CAP (community acquired pneumonia) Current Visit: Yes Status: Acute Patient has evidence of RLL pneumonia on chest CT. Patient has an elevated white count. Continue antibiotics as discussed above. Blood and sputum cultures are negative at this time. (5) COPD exacerbation Current Visit: Yes Status: Acute Likely related to underlying pneumonia and PE. Treatment for these as above. Continue bronchodilators, steroids. Have transitioned to by mouth prednisone will treat for 5 days. (6) NSTEMI (non-ST elevated myocardial infarction) Current Visit: Yes Status: Acute Troponin was 0.1 on presentation, recheck shows it is decreased to 0.08. Likely related to demand ischemia in the setting of pneumonia, COPD, PE. No further cardiac workup at this time. (7) Suicidal ideation Current Visit: Yes Status: Acute The family had expressed concerns of suicidal ideation and hallucinations to the admitting physician. Patient does endorse suicidal ideation to me. Suicide precautions in place. Psychiatry is been consulted. (8) DVT prophylaxis Current Visit: Yes Status: Acute Patient is fully anticoagulated with Eliquis. Subjective Principal diagnosis: Respiratory distress Interval history: Patient seen and examined bedside. Patient says she feels much improved today. She states her breathing is progressively improving. She does report some mild back pain. Patient does endorse suicidal ideation, states that she is in pain all the time and would often "like it to just end.". Objective PUL Vital signs: Last Vital Signs Temp 97.9 F 05/04/16 08:04 Pulse 90 05/04/16 07:30 Resp 12 05/04/16 07:30 BP 115/71 05/04/16 07:30 Pulse Ox 90 L 05/04/16 07:30 General appearance: no acute distress ENT: oropharynx moist Effort: normal Auscultation: bilateral: clear Cardiovascular: regular rate and rhythm Gastrointestinal: normoactive bowel sounds, soft, non-tender, non-distended Extremities: no cyanosis, no clubbing, edema (1+) normal mental status, non-focal exam depressed, other (Endorses suicidal ideation. No plan related.) Results - Laboratory Findings CBC and BMP: 05/04/16 03:50 05/04/16 03:50 ABG ABG pH 7.46 pH Units (7.32-7.45) H 05/03/16 05:06 ABG pCO2 48 mmHg (35-45) H 05/03/16 05:06 ABG pO2 57 mmHg (85-104) L 05/03/16 05:06 ABG O2 Saturation 91 % (95-98) L 05/03/16 05:06 PT/INR, D-dimer PT 19.3 Seconds (9.4-12.1) H 05/04/16 03:50 Abnormal lab findings: Abnormal lab results WBC 24.5 K/mcL (4.3-11.1) H 05/04/16 03:50 RBC 5.17 M/mcL (3.82-4.97) H 05/04/16 03:50 Hct 46.9 % (35.3-44.9) H 05/04/16 03:50 Neutrophils # 22.3 K/mcL (1.6-8.9) H 05/04/16 03:50 Nucleated RBCs/100 WBC 0.1 /100 WBC (0) H 05/01/16 15:21 Reactive Lymphocytes Present (Not Present) A 05/04/16 03:50 Large Platelets Present (Not Present) A 05/02/16 02:59 Anisocytosis 1+ (Not Present) A 05/03/16 03:36 PT 19.3 Seconds (9.4-12.1) H 05/04/16 03:50 APTT 64.0 Seconds (26.0-36.0) H 05/03/16 03:36 ABG pH 7.46 pH Units (7.32-7.45) H 05/03/16 05:06 ABG pCO2 48 mmHg (35-45) H 05/03/16 05:06 ABG pO2 57 mmHg (85-104) L 05/03/16 05:06 ABG HCO3 34.1 mEQ/L (21-27) H 05/03/16 05:06 ABG Total CO2 35.6 mEq/L (20-26) H 05/03/16 05:06 ABG O2 Saturation 91 % (95-98) L 05/03/16 05:06 ABG Base Excess 8.5 mEq/L (-2.0 to 3.0) H 05/03/16 05:06 VBG pH 7.31 pH Units (7.32-7.42) L 05/02/16 02:59 VBG pCO2 76 mmHg (41-51) H 05/02/16 02:59 VBG pO2 126 mmHg (25-40) H 05/02/16 02:59 VBG HCO3 38.3 mEq/L (21-27) H 05/02/16 02:59 Chloride 97 mEq/L (98-109) L 05/04/16 03:50 Carbon Dioxide 33 mEq/L (19-29) H 05/04/16 03:50 BUN 56 mg/dL (7-20) H 05/04/16 03:50 Creatinine 1.39 mg/dL (0.57-1.11) H 05/04/16 03:50 Est GFR ( Amer) 46 (> 60) L 05/04/16 03:50 Est GFR (Non-Af Amer) 38 (> 60) L 05/04/16 03:50 BUN/Creatinine Ratio 40 (6-26) H 05/04/16 03:50 Glucose 122 mg/dL (70-99) H 05/04/16 03:50 POC Glucose 197 (58-89) H 05/03/16 23:32 Calculated Osmolality 309 (280-300) H 05/04/16 03:50 Troponin I 0.08 ng/mL (0-0.03) H* 05/02/16 02:59 C-Reactive Protein 296 mg/L (Less than 5) H 05/02/16 02:59 B-Natriuretic Peptide 930 pg/mL (0-100) H 05/01/16 15:21 Albumin 2.4 g/dL (3.5-5.0) L 05/04/16 03:50 Globulin 4.3 g/dL (2.4-3.5) H 05/04/16 03:50 Albumin/Globulin Ratio 0.6 (1.1-2.2) L 05/04/16 03:50 Urine Bacteria Moderate per hpf (None-Few) H 05/01/16 15:08 Hyaline Casts Many per lpf (None-Few) H 05/01/16 15:08 Urine Mucus Many (Few) H 05/01/16 15:08 Salicylates < 5.0 mg/dL (15-30) L 05/01/16 15:21 Acetaminophen < 1.0 mcg/mL (10-30) L 05/01/16 15:21 - Microbiology Findings Microbiology Findings: Microbiology, Last 48 Hours 05/02/16 00:10 Sputum Culture - Preliminary Sputum 05/02/16 10:58 Urine Culture - Final Urine,[place] No growth. 05/02/16 10:58 Legionella Antigen - Final Urine,[place] 05/02/16 10:58 Streptococcus pneumoniae Antigen (M - Final Urine,[place] - Clinical Findings Intake & Output: Intake & Output 05/03/16 05/04/16 05/04/16 23:59 07:59 15:59 Intake Total 130 / 130 150 / 150 200 / 200 Output Total 175 / 175 200 / 200 Balance -45 / -45 -50 / -50 200 / 200 Weight 98.928 kg Consult Discharge Plan - Plan Referrals: NO,PCP [Primary Care Provider] - <Sanya Macdonald M - Last Filed: 05/04/16 13:18> Date of Encounter: 05/04/16 Objective PUL Vital signs: Last Vital Signs Temp 97.6 F 05/04/16 11:37 Pulse 98 05/04/16 09:21 Resp 24 05/04/16 11:08 BP 131/80 05/04/16 11:37 Pulse Ox 94 L 05/04/16 11:08 Results - Laboratory Findings CBC and BMP: 05/04/16 03:50 05/04/16 03:50 ABG ABG pH 7.46 pH Units (7.32-7.45) H 05/03/16 05:06 ABG pCO2 48 mmHg (35-45) H 05/03/16 05:06 ABG pO2 57 mmHg (85-104) L 05/03/16 05:06 ABG O2 Saturation 91 % (95-98) L 05/03/16 05:06 PT/INR, D-dimer PT 19.3 Seconds (9.4-12.1) H 05/04/16 03:50 Abnormal lab findings: Abnormal lab results WBC 24.5 K/mcL (4.3-11.1) H 05/04/16 03:50 RBC 5.17 M/mcL (3.82-4.97) H 05/04/16 03:50 Hct 46.9 % (35.3-44.9) H 05/04/16 03:50 Neutrophils # 22.3 K/mcL (1.6-8.9) H 05/04/16 03:50 Nucleated RBCs/100 WBC 0.1 /100 WBC (0) H 05/01/16 15:21 Reactive Lymphocytes Present (Not Present) A 05/04/16 03:50 Large Platelets Present (Not Present) A 05/02/16 02:59 Anisocytosis 1+ (Not Present) A 05/03/16 03:36 PT 19.3 Seconds (9.4-12.1) H 05/04/16 03:50 APTT 64.0 Seconds (26.0-36.0) H 05/03/16 03:36 ABG pH 7.46 pH Units (7.32-7.45) H 05/03/16 05:06 ABG pCO2 48 mmHg (35-45) H 05/03/16 05:06 ABG pO2 57 mmHg (85-104) L 05/03/16 05:06 ABG HCO3 34.1 mEQ/L (21-27) H 05/03/16 05:06 ABG Total CO2 35.6 mEq/L (20-26) H 05/03/16 05:06 ABG O2 Saturation 91 % (95-98) L 05/03/16 05:06 ABG Base Excess 8.5 mEq/L (-2.0 to 3.0) H 05/03/16 05:06 VBG pH 7.31 pH Units (7.32-7.42) L 05/02/16 02:59 VBG pCO2 76 mmHg (41-51) H 05/02/16 02:59 VBG pO2 126 mmHg (25-40) H 05/02/16 02:59 VBG HCO3 38.3 mEq/L (21-27) H 05/02/16 02:59 Chloride 97 mEq/L (98-109) L 05/04/16 03:50 Carbon Dioxide 33 mEq/L (19-29) H 05/04/16 03:50 BUN 56 mg/dL (7-20) H 05/04/16 03:50 Creatinine 1.39 mg/dL (0.57-1.11) H 05/04/16 03:50 Est GFR ( Amer) 46 (> 60) L 05/04/16 03:50 Est GFR (Non-Af Amer) 38 (> 60) L 05/04/16 03:50 BUN/Creatinine Ratio 40 (6-26) H 05/04/16 03:50 Glucose 122 mg/dL (70-99) H 05/04/16 03:50 POC Glucose 197 (58-89) H 05/03/16 23:32 Calculated Osmolality 309 (280-300) H 05/04/16 03:50 Troponin I 0.08 ng/mL (0-0.03) H* 05/02/16 02:59 C-Reactive Protein 296 mg/L (Less than 5) H 05/02/16 02:59 B-Natriuretic Peptide 930 pg/mL (0-100) H 05/01/16 15:21 Albumin 2.4 g/dL (3.5-5.0) L 05/04/16 03:50 Globulin 4.3 g/dL (2.4-3.5) H 05/04/16 03:50 Albumin/Globulin Ratio 0.6 (1.1-2.2) L 05/04/16 03:50 Urine Bacteria Moderate per hpf (None-Few) H 05/01/16 15:08 Hyaline Casts Many per lpf (None-Few) H 05/01/16 15:08 Urine Mucus Many (Few) H 05/01/16 15:08 Salicylates < 5.0 mg/dL (15-30) L 05/01/16 15:21 Acetaminophen < 1.0 mcg/mL (10-30) L 05/01/16 15:21 - Microbiology Findings Microbiology Findings: Microbiology, Last 48 Hours 05/02/16 00:10 Sputum Culture - Preliminary Sputum 05/02/16 10:58 Urine Culture - Final Urine,[place] No growth. 05/02/16 10:58 Legionella Antigen - Final Urine,[place] 05/02/16 10:58 Streptococcus pneumoniae Antigen (M - Final Urine,[place] - Clinical Findings Intake & Output: Intake & Output 05/03/16 05/04/16 05/04/16 23:59 07:59 15:59 Intake Total 130 / 130 150 / 150 440 / 440 Output Total 175 / 175 200 / 200 200 / 200 Balance -45 / -45 -50 / -50 240 / 240 Weight 98.928 kg - Attending Attestation I examined this patient and my medical decision-making was reviewed with the HEALTHCARE ASSOCIATE/PA/Advanced Practice Nurse/Resident Physician. I agree with the documented findings, disposition and treatment plan as described except to the extent set forth below. Patient seen and examined with resident Patient more awake and she wants to go home and awaiting for psych to evaluate patient and awaiting to transfer patient to the floor. There is no significant change in the physical examination. Patient will need outpatient follow up. Continue current treatment.
[2016-05-04] MEDS ORDERED: Pantoprazole 40 MG VIAL IVP SCH (09:00)
[2016-05-04] MEDS ORDERED: predniSONE 20 MG TABLET PO SCH (09:00)
[2016-05-04] MEDS: Budesonide/Formoterol 80/4.5 MDI IH SCH ×2 (11:08→22:50)
--- NOTE | 2016-05-04 11:41 | Consult Note ---
Date of Encounter: 05/04/16 Time of Encounter: 10:40 Assessment & Recommendation (1) Major depressive disorder with psychotic features Current visit: Yes Status: Acute Assessment & Recommendation: Patient is alert and oriented today and reports only intermittent auditory hallucinations. This is a chronic issue that has been going on for many years. Patient does report chronic depression that has been untreated. Offer patient medication, such as Remeron 15 mg by mouth daily at bedtime at bedtime to help with both sleep and depressive symptoms. Patient is hesitant to start an antidepressant now until all of her medical issues are sorted out. She denies active plan to hurt herself here in the hospital. She is willing to consider outpatient follow-up. Would recommend continuing to offer the patient Remeron or some other antidepressant so that she can get started on the medication prior to leaving the hospital. Please recall psychiatry prior to patient's discharge so that her lethality can be reassessed and it can be determined if patient will require psychiatric placement once her medical issues have been stabilized. Qualifiers: Major depression recurrence: recurrent Active/Remission status: currently active Major depression episode severity: severe Qualified Code(s): F33.3 - Major depressive disorder, recurrent, severe with psychotic symptoms (2) Anxiety Current visit: Yes Status: Acute Assessment & Recommendation: Avoid sedating medications for now as patient is having difficulty with breathing and there was reported difficulty with confusion prior to coming into the hospital. Encourage positive coping skills to deal with anxiety. History of Present Illness Patient: new to practice Requesting Physician: Zane Albrecht MD Reason for consult: Depression, hallucinations History of present illness: Ms. Booth is a 71 year old female with an unclear psychiatric history who presented to the hospital reporting shortness of breath and was admitted to the hospital for treatment of pulmonary embolus. Patient was initially intubated in the ICU. She reported to staff at some point that she was severely depressed with passive wish to . She also reported to staff that she was having some hallucinations. On interview the patient does appear very dysphoric and states that she has been very depressed for a long time. She has seen a psychiatrist in the remote past and doctor apparently told her she was "crazy." She has not sought help from a psychiatrist or any other doctor in some time. Patient reports that she does have some trouble breathing and her initial reason for coming to the hospital was to get "my physical health sorted out." She admits low mood, difficulty motivating, feelings of hopelessness and helplessness. She does report a passive wish to no longer be alive. However, she has never actively try to hurt herself but has no intention of doing so. She denies auditory hallucinations or visual hallucinations at the time of the interview. Patient reports that sometimes she gets so depressed that she hears people telling her to "get it over with. She has no previous psychiatric admission. She denies a history of schizophrenia or bipolar disorder. Patient is hesitant to start any medication but specifically psychiatric medications. She reports she would like to first get all her health issues sorted out and then potentially start seeing a therapist and/or psychiatrist for depression. CC: Zane Albrecht MD Past Med Surg Social Fam HX - Past Medical History Medical history: other - Past Psychiatric History Psychiatric history: Denies: prior suicide attempt, previous psychiatric hospitalization Past psychiatric history details: Patient has seen a psychiatrist in the past. No history of suicide attempts. No psychiatric admissions. Family psychiatric history: No Family History of Suicide: None - Social History Smoking Status: Current every day smoker Smokeless Tobacco Status: No Alcohol use: none Drug use: none Medications & Allergies Albuterol Sulfate [Albuterol Inhaler] 1 puff IH Q4HR 05/01/16 [History] Captopril/Hydrochlorothiazide [Captopril-Hctz 50-15 mg Tablet] 1 tab PO DAILY [History] Allergies pain med Allergy (Uncoded 05/01/16 17:11) See Comments PATIENT'S FAMILY UNSURE OF PAIN MEDICATION BUT IT WAS GIVEN TO PATIENT "30 YEARS AGO" AND "THEY HAD TO CALL A CODE BLUE" - UNSURE OF PATIENTS REACTION Review of Systems Constitutional: Denies: fever, chills, weakness, weight change Eyes: Denies: eye pain, vision change Ears, Nose, Throat: Denies: ear pain, throat pain, dental pain, hearing loss, congestion Cardiovascular: Denies: chest pain, palpitations, dyspnea on exertion Respiratory: Reports: cough, dyspnea Gastrointestinal: Denies: abdominal pain, nausea, vomiting, diarrhea, constipation Genitourinary male: Denies: urgency, dysuria, frequency, genital lesions Genitourinary female: Denies: urgency, dysuria, frequency, abnormal menses, dyspareunia Musculoskeletal: Reports: back pain Integumentary: Denies: rash, lesions, pruritus Neurological: Denies: headache, weakness, numbness, memory loss Psychiatric: Reports: depression, abnormal sleep pattern, suicidal ideation ( Passive, no plan), auditory hallucinations, hopelessness Endocrine: Denies: fatigue, heat or cold intolerance Hematologic/Lymphatic: Denies: easy bruising, lymphadenopathy Allergic/Immunologic: Denies: urticaria, itchy eyes Mental Status Exam Patient orientation: Yes Person, Yes Time, Yes Place Level of alertness: Alert Patient appearance: Appropriate Behavior: guarded Psychomotor activity: Normal Eye contact: Maintains Eye Contact Mood description: Depressed Affect description: tearful, dysphoric Speech pattern: Normal rate, Normal rhythm, Normal tone Speech volume: Normal Thought process: Intact Thought content: Yes Suicidal ideation (Passive), No Homicidal ideation Perceptual disturbances: No Reacting to internal stimuli, Yes Auditory hallucinations, No Visual hallucinations Attention span: Capable of Focused Attention Memory description: Grossly Intact Patient reliability: Reliable Historian Intelligence estimate: Average Judgment: Limited Insight: Partial Results - Vital Signs Vital signs: Temp Pulse Resp BP Pulse Ox 97.6 F 98 24 131/80 94 L 05/04/16 11:37 05/04/16 09:21 05/04/16 11:08 05/04/16 11:37 05/04/16 11:08 - Labs Labs: Laboratory Last Values WBC 24.5 K/mcL (4.3-11.1) H 05/04/16 03:50 RBC 5.17 M/mcL (3.82-4.97) H 05/04/16 03:50 Hgb 15.4 g/dL (11.5-15.4) 05/04/16 03:50 Hct 46.9 % (35.3-44.9) H 05/04/16 03:50 MCV 90.7 fL (83.0-100.0) 05/04/16 03:50 MCH 29.8 pg (28.0-33.3) 05/04/16 03:50 MCHC 32.8 g/dL (31.6-35.5) 05/04/16 03:50 RDW 14.5 % (11.5-14.5) 05/04/16 03:50 Plt Count 215 K/mcL (140-400) 05/04/16 03:50 MPV 10.3 fL (9.4-12.4) 05/04/16 03:50 Immature Gran % 1.4 % (0-4) 05/04/16 03:50 Seg Neutrophils % 91.1 % 05/04/16 03:50 Band Neutrophils % 2.0 % (0-4) 05/01/16 15:21 Lymphocytes % 2.4 % 05/04/16 03:50 Monocytes % 4.7 % 05/04/16 03:50 Eosinophils % 0.0 % 05/04/16 03:50 Basophils % 0.4 % 05/04/16 03:50 Neutrophils # 22.3 K/mcL (1.6-8.9) H 05/04/16 03:50 Lymphocytes # 0.6 K/mcL (0.6-4.6) 05/04/16 03:50 Monocytes # 1.2 K/mcL (0.0-1.3) 05/04/16 03:50 Eosinophils # 0.0 K/mcL (0.0-0.6) 05/04/16 03:50 Basophils # 0.1 K/mcL (0.0-0.2) 05/04/16 03:50 Nucleated RBCs/100 WBC 0.1 /100 WBC (0) H 05/01/16 15:21 Reactive Lymphocytes Present (Not Present) A 05/04/16 03:50 Platelet Estimate Normal (Normal) 05/04/16 03:50 Large Platelets Present (Not Present) A 05/02/16 02:59 Immature Plt Fraction 5.5 % (1.1-6.1) 05/03/16 03:36 Anisocytosis 1+ (Not Present) A 05/03/16 03:36 PT 19.3 Seconds (9.4-12.1) H 05/04/16 03:50 INR 1.8 05/04/16 03:50 APTT 64.0 Seconds (26.0-36.0) H 05/03/16 03:36 ABG pH 7.46 pH Units (7.32-7.45) H 05/03/16 05:06 ABG pCO2 48 mmHg (35-45) H 05/03/16 05:06 ABG pO2 57 mmHg (85-104) L 05/03/16 05:06 ABG HCO3 34.1 mEQ/L (21-27) H 05/03/16 05:06 ABG Total CO2 35.6 mEq/L (20-26) H 05/03/16 05:06 ABG O2 Saturation 91 % (95-98) L 05/03/16 05:06 ABG Base Excess 8.5 mEq/L (-2.0 to 3.0) H 05/03/16 05:06 VBG pH 7.31 pH Units (7.32-7.42) L 05/02/16 02:59 VBG pCO2 76 mmHg (41-51) H 05/02/16 02:59 VBG pO2 126 mmHg (25-40) H 05/02/16 02:59 VBG HCO3 38.3 mEq/L (21-27) H 05/02/16 02:59 Respiration Rate 16 05/03/16 05:06 Liter Flow 4 L/MIN 05/01/16 15:12 Blood Gas Modality ASSIST CONTROL 05/03/16 05:06 Inspired O2 40 % 05/03/16 05:06 Tidal Volume 400 cc 05/03/16 05:06 PEEP 5 cm H2O 05/03/16 05:06 Sodium 141 mEq/L (136-145) 05/04/16 03:50 Potassium 3.5 mEq/L (3.5-4.5) 05/04/16 03:50 Chloride 97 mEq/L (98-109) L 05/04/16 03:50 Carbon Dioxide 33 mEq/L (19-29) H 05/04/16 03:50 BUN 56 mg/dL (7-20) H 05/04/16 03:50 Creatinine 1.39 mg/dL (0.57-1.11) H 05/04/16 03:50 Est GFR ( Amer) 46 (> 60) L 05/04/16 03:50 Est GFR (Non-Af Amer) 38 (> 60) L 05/04/16 03:50 BUN/Creatinine Ratio 40 (6-26) H 05/04/16 03:50 Glucose 122 mg/dL (70-99) H 05/04/16 03:50 POC Glucose 197 (58-89) H 05/03/16 23:32 Calculated Osmolality 309 (280-300) H 05/04/16 03:50 Lactic Acid 1.6 mmol/L (0.5-2.2) 05/02/16 05:52 Calcium 9.0 mg/dL (8.6-10.8) 05/04/16 03:50 Phosphorus 3.4 mg/dL (2.3-4.7) 05/04/16 03:50 Magnesium 2.0 mg/dL (1.6-2.6) 05/04/16 03:50 Total Bilirubin 0.6 mg/dL (0.2-1.2) 05/04/16 03:50 Direct Bilirubin 0.4 mg/dL (0.0-0.5) 05/01/16 15:21 Indirect Bilirubin 0.3 mg/dL (0.0-1.2) 05/01/16 15:21 AST 19 Units/L (5-34) 05/04/16 03:50 ALT 24 Units/L (0-55) 05/04/16 03:50 Alkaline Phosphatase 106 Units/L (38-126) 05/04/16 03:50 Ammonia 30 mcmol/L (18-72) 05/01/16 15:21 Creatine Kinase 127 Units/L (29-168) 05/02/16 02:59 Troponin I 0.08 ng/mL (0-0.03) H* 05/02/16 02:59 C-Reactive Protein 296 mg/L (Less than 5) H 05/02/16 02:59 B-Natriuretic Peptide 930 pg/mL (0-100) H 05/01/16 15:21 Serum Total Protein 6.7 g/dL (6.0-8.3) D 05/04/16 03:50 Albumin 2.4 g/dL (3.5-5.0) L 05/04/16 03:50 Globulin 4.3 g/dL (2.4-3.5) H 05/04/16 03:50 Albumin/Globulin Ratio 0.6 (1.1-2.2) L 05/04/16 03:50 TSH 0.526 mcIU/mL (0.350-4.840) 05/01/16 15:21 Urine Color Yellow (Yellow) 05/02/16 10:58 Urine Clarity Clear (Clear) 05/02/16 10:58 Urine pH 6.0 pH Units (5.0-8.0) 05/02/16 10:58 Ur Specific [place] 1.023 (1.010-1.025) 05/02/16 10:58 Urine Protein Negative mg/dL (Neg-Trace) 05/02/16 10:58 Urine Glucose (UA) Normal mg/dL (Normal) 05/02/16 10:58 Urine Ketones Negative mg/dL (Negative) 05/02/16 10:58 Urine Blood Negative (Negative) 05/02/16 10:58 Urine Nitrite Negative (Negative) 05/02/16 10:58 Urine Bilirubin Negative (Negative) 05/02/16 10:58 Urine Urobilinogen Normal mg/dL (Normal) 05/02/16 10:58 Ur Leukocyte Esterase Negative (Negative) 05/02/16 10:58 Urine Microscopic RBC 0-3 per hpf (0-3) 05/01/16 15:08 Urine Microscopic WBC 0-3 per hpf (0-3) 05/01/16 15:08 Urine Bacteria Moderate per hpf (None-Few) H 05/01/16 15:08 Hyaline Casts Many per lpf (None-Few) H 05/01/16 15:08 Urine Mucus Many (Few) H 05/01/16 15:08 Ur Culture Indicated? NO (NO) 05/02/16 10:58 Salicylates < 5.0 mg/dL (15-30) L 05/01/16 15:21 Urine Opiates Screen Negative ng/mL (Drahfc=724) 05/01/16 15:08 Acetaminophen < 1.0 mcg/mL (10-30) L 05/01/16 15:21 Ur Barbiturates Screen Negative ng/mL (Iagdtf=554) 05/01/16 15:08 Ur Phencyclidine Scrn Negative ng/mL (Cutoff=25) 05/01/16 15:08 Ur Amphetamines Screen Negative ng/mL (Evpjfb=2427) 05/01/16 15:08 U Benzodiazepines Scrn Negative ng/mL (Jpbjdl=282) 05/01/16 15:08 Urine Cocaine Screen Negative ng/mL (Cutoff= 300) 05/01/16 15:08 U Marijuana (THC) Screen Negative ng/mL (Cutoff = 50) 05/01/16 15:08 Chlamy pneumoniae PCR Not Detected (Not Detect) 05/02/16 10:58 Adenovirus (PCR) Not Detected (Not Detect) 05/02/16 10:58 B. pertussis DNA (PCR) Not Detected (Not Detect) 05/02/16 10:58 Coronavirus OC43 (PCR) Not Detected (Not Detect) 05/02/16 10:58 Coronavirus HKU1 (PCR) Not Detected (Not Detect) 05/02/16 10:58 Coronavirus 229E (PCR) Not Detected (Not Detect) 05/02/16 10:58 Coronavirus NL63 (PCR) Not Detected (Not Detect) 05/02/16 10:58 Human Metapneumovirus Not Detected (Not Detect) 05/02/16 10:58 Influenza A (H1) PCR Not Detected (Not Detect) 05/02/16 10:58 Influ A (H1N1/09) PCR Not Detected (Not Detect) 05/02/16 10:58 Influenza A (H3) PCR Not Detected (Not Detect) 05/02/16 10:58 Influenza A Untype (PCR) Not Detected (Not Detect) 05/02/16 10:58 Influenza Type B (PCR) Not Detected (Not Detect) 05/02/16 10:58 M.pneumoniae DNA (PCR) Not Detected (Not Detect) 05/02/16 10:58 Parainfluenza 1 (PCR) Not Detected (Not Detect) 05/02/16 10:58 Parainfluenza 2 (PCR) Not Detected (Not Detect) 05/02/16 10:58 Parainfluenza 3 (PCR) Not Detected (Not Detect) 05/02/16 10:58 Parainfluenza 4 (PCR) Not Detected (Not Detect) 05/02/16 10:58 RSV (PCR) Not Detected (Not Detect) 05/02/16 10:58 Entero/Rhino (PCR) Not Detected (Not Detect) 05/02/16 10:58 Consult Discharge Plan - Plan Referrals: NO,PCP [Primary Care Provider] -
[2016-05-04] MEDS ORDERED: Ipratropium/Albuterol Neb 3 ML IH SCH (12:00)
[2016-05-04] MEDS: predniSONE 20 MG TABLET PO SCH (12:01)
[2016-05-04] MEDS: *HR* OxyCODONE/APAP 5/325 TABLET PO PRN ×2 (13:28→21:32)
[2016-05-04] MEDS ORDERED: Furosemide 40 MG/4 ML VIAL IVP SCH (17:00)
[2016-05-04] MEDS ORDERED: Ipratropium/Albuterol Neb 3 ML IH PRN (18:45)
[2016-05-04] MEDS: Mirtazapine 15 MG TABLET PO SCH (20:13)
[2016-05-05 03:44] LABS: Basophils # 0.1 K/mcL (0.0-0.2); Basophils % 0.4 %; Hematocrit 49.1 % (35.3-44.9); Hemoglobin 15.6 g/dL (11.5-15.4); Immature Granulocytes % 1.3 % (0-4); Lymphocytes % 4.8 %; Mean Corpuscular HGB Conc 31.8 g/dL (31.6-35.5); Mean Corpuscular Hemoglobin 29.5 pg (28.0-33.3); Mean Platelet Volume 10.1 fL (9.4-12.4); Monocytes # 1.2 K/mcL (0.0-1.3); Monocytes % 5.4 %; Neutrophils # 19.1 K/mcL (1.6-8.9); Platelet Count 216 K/mcL (140-400); Red Blood Count 5.28 M/mcL (3.82-4.97); Red Cell Distribution Width 14.7 % (11.5-14.5); Segmented Neutrophils % 88.1 %
[2016-05-05 03:47] LABS: INR 1.6; Prothrombin Time 17.9 Seconds (9.4-12.1)
[2016-05-05 03:58] LABS: Albumin 2.4 g/dL (3.5-5.0); Albumin/Globulin Ratio 0.6 (1.1-2.2); Bilirubin,Total 0.8 mg/dL (0.2-1.2); Calcium 8.9 mg/dL (8.6-10.8); Globulin 4.1 g/dL (2.4-3.5); Potassium 3.8 mEq/L (3.5-4.5); Total Protein 6.5 g/dL (6.0-8.3)
[2016-05-05] MEDS: Piperacillin/Tazobactam 3.375 GM in D5% in Water (Mini-Bag+) 100 ML IVPB SCH ×3 (03:58→19:38)
--- NOTE | 2016-05-05 07:08 | Pulmonology Progress Note ---
<Tai Mazariegos - Last Filed: 05/05/16 07:24> Date of Encounter: 05/05/16 Time of Encounter: 07:07 Assessment and Plan (1) Acute respiratory failure with hypoxia and hypercapnia Current Visit: Yes Status: Acute In the setting of pulmonary embolism, pneumonia, COPD exacerbation. Patient extubated and doing well. ABGs are reassuring. Supplemental oxygen and BiPAP as needed. (2) Severe sepsis Current Visit: Yes Status: Acute Likely related to underlying pneumonia. Appears to be improving. Continue broad-spectrum antibiotics with Zosyn, discontinue vancomycin. Day 4 of antibiotics. Lactic acid normal. Blood pressures have been stable. (3) Venous thromboembolism Current Visit: Yes Status: Acute CTA shows evidence of PEs, preliminary results of upper and lower extremity Dopplers showed upper extremity DVTs. Evidence of right heart strain on echo. Concerns for underlying malignancy however primary is unknown at this time. No evidence of malignancy on CT scan of the chest. Patient has been transitioned to Eliquis. No evidence of active bleeding (4) CAP (community acquired pneumonia) Current Visit: Yes Status: Acute Patient has evidence of RLL pneumonia on chest CT. Patient has an elevated white count that is improving. Continue antibiotics as discussed above. Blood and sputum cultures are negative at this time. (5) COPD exacerbation Current Visit: Yes Status: Acute Likely related to underlying pneumonia and PE. Treatment for these as above. Continue bronchodilators, steroids. Have transitioned to by mouth prednisone will treat for 5 days, today is last day of treatment. (6) NSTEMI (non-ST elevated myocardial infarction) Current Visit: Yes Status: Acute Troponin was 0.1 on presentation, recheck shows it is decreased to 0.08. Likely related to demand ischemia in the setting of pneumonia, COPD, PE. No further cardiac workup at this time. (7) Suicidal ideation Current Visit: Yes Status: Acute The family had expressed concerns of suicidal ideation and hallucinations to the admitting physician. Patient does endorse suicidal ideation to me. Suicide precautions in place. Psychiatry saw the patient and recommended antidepressant. Remeron was started, Patient was initially hesitant to try it however she did take Remeron last night and states she had the best night sleep of her life. We will continue to encourage this. Patient will need a repeat psych eval at time of discharge to determine whether she is safe to go home. (8) Back pain Current Visit: Yes Status: Acute Patient has chronic low back pain since an injury at work 6 years ago. Her family her functional status has continued to decline because of this pain. She did report significant pain to me. Patient has been started on Percocet 5 mg and this has helped her pain. We will obtain a lumbar x-ray today. Encourage the patient to get out of bed to the chair. PT OT will see the patient today. Qualifiers: Back pain location: low back pain Chronicity: chronic Back pain laterality: bilateral Sciatica presence: unspecified whether sciatica present Qualified Code(s): M54.5 - Low back pain; G89.29 - Other chronic pain (9) DVT prophylaxis Current Visit: Yes Status: Acute Patient is fully anticoagulated with Eliquis. Subjective Principal diagnosis: Respiratory distress Interval history: Patient seen and examined bedside. Patient says she feels much improved today. She states her breathing is progressively improving. She does report some mild back pain that is improving, particularly with pain medication. She states that she slept through the night last night for the first time in years. Feels well rested this morning. Objective PUL Vital signs: Last Vital Signs Temp 98.3 F 05/05/16 03:51 Pulse 77 05/05/16 03:54 Resp 12 05/05/16 03:51 BP 127/82 05/05/16 03:51 Pulse Ox 90 L 05/05/16 03:51 General appearance: no acute distress ENT: oropharynx moist Effort: normal Auscultation: bilateral: diminished breath sounds Cardiovascular: regular rate and rhythm Gastrointestinal: normoactive bowel sounds, soft, non-tender, non-distended Extremities: no cyanosis, no clubbing, edema (Trace) normal mental status, non-focal exam depressed (But improved) Results - Laboratory Findings CBC and BMP: 05/05/16 03:24 05/05/16 03:24 ABG ABG pH 7.46 pH Units (7.32-7.45) H 05/03/16 05:06 ABG pCO2 48 mmHg (35-45) H 05/03/16 05:06 ABG pO2 57 mmHg (85-104) L 05/03/16 05:06 ABG O2 Saturation 91 % (95-98) L 05/03/16 05:06 PT/INR, D-dimer PT 17.9 Seconds (9.4-12.1) H 05/05/16 03:24 Abnormal lab findings: Abnormal lab results WBC 21.7 K/mcL (4.3-11.1) H 05/05/16 03:24 RBC 5.28 M/mcL (3.82-4.97) H 05/05/16 03:24 Hgb 15.6 g/dL (11.5-15.4) H 05/05/16 03:24 Hct 49.1 % (35.3-44.9) H 05/05/16 03:24 RDW 14.7 % (11.5-14.5) H 05/05/16 03:24 Neutrophils # 19.1 K/mcL (1.6-8.9) H 05/05/16 03:24 Nucleated RBCs/100 WBC 0.1 /100 WBC (0) H 05/01/16 15:21 Reactive Lymphocytes Present (Not Present) A 05/04/16 03:50 Large Platelets Present (Not Present) A 05/02/16 02:59 Anisocytosis 1+ (Not Present) A 05/03/16 03:36 PT 17.9 Seconds (9.4-12.1) H 05/05/16 03:24 APTT 64.0 Seconds (26.0-36.0) H 05/03/16 03:36 ABG pH 7.46 pH Units (7.32-7.45) H 05/03/16 05:06 ABG pCO2 48 mmHg (35-45) H 05/03/16 05:06 ABG pO2 57 mmHg (85-104) L 05/03/16 05:06 ABG HCO3 34.1 mEQ/L (21-27) H 05/03/16 05:06 ABG Total CO2 35.6 mEq/L (20-26) H 05/03/16 05:06 ABG O2 Saturation 91 % (95-98) L 05/03/16 05:06 ABG Base Excess 8.5 mEq/L (-2.0 to 3.0) H 05/03/16 05:06 VBG pH 7.31 pH Units (7.32-7.42) L 05/02/16 02:59 VBG pCO2 76 mmHg (41-51) H 05/02/16 02:59 VBG pO2 126 mmHg (25-40) H 05/02/16 02:59 VBG HCO3 38.3 mEq/L (21-27) H 05/02/16 02:59 Carbon Dioxide 36 mEq/L (19-29) H 05/05/16 03:24 BUN 55 mg/dL (7-20) H 05/05/16 03:24 Creatinine 1.16 mg/dL (0.57-1.11) H 05/05/16 03:24 Est GFR ( Amer) 56 (> 60) L 05/05/16 03:24 Est GFR (Non-Af Amer) 46 (> 60) L 05/05/16 03:24 BUN/Creatinine Ratio 47 (6-26) H 05/05/16 03:24 Glucose 127 mg/dL (70-99) H 05/05/16 03:24 POC Glucose 197 (58-89) H 05/03/16 23:32 Calculated Osmolality 313 (280-300) H 05/05/16 03:24 Troponin I 0.08 ng/mL (0-0.03) H* 05/02/16 02:59 C-Reactive Protein 296 mg/L (Less than 5) H 05/02/16 02:59 B-Natriuretic Peptide 930 pg/mL (0-100) H 05/01/16 15:21 Albumin 2.4 g/dL (3.5-5.0) L 05/05/16 03:24 Globulin 4.1 g/dL (2.4-3.5) H 05/05/16 03:24 Albumin/Globulin Ratio 0.6 (1.1-2.2) L 05/05/16 03:24 Urine Bacteria Moderate per hpf (None-Few) H 05/01/16 15:08 Hyaline Casts Many per lpf (None-Few) H 05/01/16 15:08 Urine Mucus Many (Few) H 05/01/16 15:08 Salicylates < 5.0 mg/dL (15-30) L 05/01/16 15:21 Acetaminophen < 1.0 mcg/mL (10-30) L 05/01/16 15:21 - Microbiology Findings Microbiology Findings: Microbiology, Last 48 Hours 05/02/16 00:10 Sputum Culture - Preliminary Sputum 05/02/16 10:58 Urine Culture - Final Urine,[place] No growth. - Clinical Findings Intake & Output: Intake & Output 05/04/16 05/04/16 05/05/16 15:59 23:59 07:59 Intake Total 440 / 440 500 / 500 Output Total 200 / 200 Balance 240 / 240 500 / 500 Consult Discharge Plan - Plan Referrals: NO,PCP [Primary Care Provider] - <Sanya Macdonald - Last Filed: 05/05/16 12:36> Date of Encounter: 05/05/16 Objective PUL Vital signs: Last Vital Signs Temp 97.8 F 05/05/16 11:16 Pulse 80 05/05/16 08:20 Resp 18 05/05/16 11:15 BP 158/95 05/05/16 08:20 Pulse Ox 90 L 05/05/16 11:15 Results - Laboratory Findings CBC and BMP: 05/05/16 03:24 05/05/16 03:24 ABG ABG pH 7.46 pH Units (7.32-7.45) H 05/03/16 05:06 ABG pCO2 48 mmHg (35-45) H 05/03/16 05:06 ABG pO2 57 mmHg (85-104) L 05/03/16 05:06 ABG O2 Saturation 91 % (95-98) L 05/03/16 05:06 PT/INR, D-dimer PT 17.9 Seconds (9.4-12.1) H 05/05/16 03:24 Abnormal lab findings: Abnormal lab results WBC 21.7 K/mcL (4.3-11.1) H 05/05/16 03:24 RBC 5.28 M/mcL (3.82-4.97) H 05/05/16 03:24 Hgb 15.6 g/dL (11.5-15.4) H 05/05/16 03:24 Hct 49.1 % (35.3-44.9) H 05/05/16 03:24 RDW 14.7 % (11.5-14.5) H 05/05/16 03:24 Neutrophils # 19.1 K/mcL (1.6-8.9) H 05/05/16 03:24 Nucleated RBCs/100 WBC 0.1 /100 WBC (0) H 05/01/16 15:21 Reactive Lymphocytes Present (Not Present) A 05/04/16 03:50 Large Platelets Present (Not Present) A 05/02/16 02:59 Anisocytosis 1+ (Not Present) A 05/03/16 03:36 PT 17.9 Seconds (9.4-12.1) H 05/05/16 03:24 APTT 64.0 Seconds (26.0-36.0) H 05/03/16 03:36 ABG pH 7.46 pH Units (7.32-7.45) H 05/03/16 05:06 ABG pCO2 48 mmHg (35-45) H 05/03/16 05:06 ABG pO2 57 mmHg (85-104) L 05/03/16 05:06 ABG HCO3 34.1 mEQ/L (21-27) H 05/03/16 05:06 ABG Total CO2 35.6 mEq/L (20-26) H 05/03/16 05:06 ABG O2 Saturation 91 % (95-98) L 05/03/16 05:06 ABG Base Excess 8.5 mEq/L (-2.0 to 3.0) H 05/03/16 05:06 VBG pH 7.31 pH Units (7.32-7.42) L 05/02/16 02:59 VBG pCO2 76 mmHg (41-51) H 05/02/16 02:59 VBG pO2 126 mmHg (25-40) H 05/02/16 02:59 VBG HCO3 38.3 mEq/L (21-27) H 05/02/16 02:59 Carbon Dioxide 36 mEq/L (19-29) H 05/05/16 03:24 BUN 55 mg/dL (7-20) H 05/05/16 03:24 Creatinine 1.16 mg/dL (0.57-1.11) H 05/05/16 03:24 Est GFR ( Amer) 56 (> 60) L 05/05/16 03:24 Est GFR (Non-Af Amer) 46 (> 60) L 05/05/16 03:24 BUN/Creatinine Ratio 47 (6-26) H 05/05/16 03:24 Glucose 127 mg/dL (70-99) H 05/05/16 03:24 POC Glucose 263 (58-89) H 05/04/16 20:24 Calculated Osmolality 313 (280-300) H 05/05/16 03:24 Troponin I 0.08 ng/mL (0-0.03) H* 05/02/16 02:59 C-Reactive Protein 296 mg/L (Less than 5) H 05/02/16 02:59 B-Natriuretic Peptide 930 pg/mL (0-100) H 05/01/16 15:21 Albumin 2.4 g/dL (3.5-5.0) L 05/05/16 03:24 Globulin 4.1 g/dL (2.4-3.5) H 05/05/16 03:24 Albumin/Globulin Ratio 0.6 (1.1-2.2) L 05/05/16 03:24 Urine Bacteria Moderate per hpf (None-Few) H 05/01/16 15:08 Hyaline Casts Many per lpf (None-Few) H 05/01/16 15:08 Urine Mucus Many (Few) H 05/01/16 15:08 Salicylates < 5.0 mg/dL (15-30) L 05/01/16 15:21 Acetaminophen < 1.0 mcg/mL (10-30) L 05/01/16 15:21 - Microbiology Findings Microbiology Findings: Microbiology, Last 48 Hours 05/02/16 00:10 Sputum Culture - Final Sputum Haemophilus influenzae II 05/02/16 10:58 Urine Culture - Final Urine,[place] No growth. - Clinical Findings Intake & Output: Intake & Output 05/04/16 05/05/16 05/05/16 23:59 07:59 15:59 Intake Total 500 / 500 340 / 340 Balance 500 / 500 340 / 340 - Attending Attestation I examined this patient and my medical decision-making was reviewed with the TRAINING AND DEVELOPMENT PROFESSIONAL/PA/Advanced Practice Nurse/Resident Physician. I agree with the documented findings, disposition and treatment plan as described except to the extent set forth below. Patient seen and examined. Labs, radiology, chart personally reviewed. 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 Pulmonary: Acceptable oxygenation and ventilation Cardiovascular: stable GI: Nutrition per dietary and GI prophylaxis per routine Heme: DVT prophylaxis per routine ID: Continue antibiotics and plan to de-escalation Renal; urine out put and renal funtion reviewed Endorcine: blood glucose is monitored Lines: all lines checked and no evidence of infections Skin: skin care to prevent pressure ulcers per nursing routine care Awaiting to transfer patient to the floor.
[2016-05-05] MEDS: predniSONE 20 MG TABLET PO SCH (08:07)
[2016-05-05] MEDS: Furosemide 20 MG TABLET PO SCH (08:08)
[2016-05-05] MEDS: APIXABAN 5 MG TABLET PO SCH ×2 (08:08→20:18)
[2016-05-05] MEDS: *HR* OxyCODONE/APAP 5/325 TABLET PO PRN ×2 (08:08→22:39)
[2016-05-05] MEDS: Insulin LISPRO 300 UNITS/3 ML VIAL SQ SCH ×4 (08:19→20:22)
[2016-05-05] MEDS: Budesonide/Formoterol 80/4.5 MDI IH SCH ×2 (11:15→21:42)
[2016-05-05 18:15] LABS: CK-BB (CK isoenzymes) 0 % (0-0); CK-MB (CK isoenzymes) 0 % (0-4); CK-MM (CK-isoenzymes) 88 % (96-100)
[2016-05-05] MEDS: Mirtazapine 15 MG TABLET PO SCH (20:18)
[2016-05-06 05:22] LABS: Basophils # 0.1 K/mcL (0.0-0.2); Basophils % 0.4 %; Eosinophils % 0.1 %; Hematocrit 48.3 % (35.3-44.9); Hemoglobin 14.7 g/dL (11.5-15.4); Immature Granulocytes % 1.3 % (0-4); Lymphocytes # 1.4 K/mcL (0.6-4.6); Lymphocytes % 8.4 %; Mean Corpuscular HGB Conc 30.4 g/dL (31.6-35.5); Mean Corpuscular Hemoglobin 28.7 pg (28.0-33.3); Mean Corpuscular Volume 94.2 fL (83.0-100.0); Mean Platelet Volume 10.2 fL (9.4-12.4); Monocytes # 1.1 K/mcL (0.0-1.3); Monocytes % 6.5 %; Platelet Count 201 K/mcL (140-400); Red Blood Count 5.13 M/mcL (3.82-4.97); Red Cell Distribution Width 14.6 % (11.5-14.5); Segmented Neutrophils % 83.3 %
[2016-05-06 05:23] LABS: INR 1.4; Prothrombin Time 15.3 Seconds (9.4-12.1)
[2016-05-06 05:29] LABS: BUN/Creatinine Ratio 47 (6-26); Calcium 8.7 mg/dL (8.6-10.8); Chloride 100 mEq/L (98-109); Glucose 105 mg/dL (70-99); Osmolality,Calculated 307 (280-300); Potassium 3.9 mEq/L (3.5-4.5); Sodium 144 mEq/L (136-145); eGFR For African Americans > 60 (> 60); eGFR For Non-African Americans > 60 (> 60)
[2016-05-06 05:40] LABS: Blood Urea Nitrogen 38 mg/dL (7-20)
[2016-05-06 05:41] LABS: Carbon Dioxide 40 mEq/L (19-29)
[2016-05-06] MEDS: Furosemide 20 MG TABLET PO SCH (07:39)
[2016-05-06] MEDS: APIXABAN 5 MG TABLET PO SCH ×2 (07:39→20:56)
[2016-05-06] MEDS: Insulin LISPRO 300 UNITS/3 ML VIAL SQ SCH ×4 (07:39→20:56)
[2016-05-06] MEDS: Budesonide/Formoterol 80/4.5 MDI IH SCH ×2 (11:36→20:00)
[2016-05-06] MEDS: *HR* OxyCODONE/APAP 5/325 TABLET PO PRN (11:50)
[2016-05-06] MEDS: Nystatin SUSP 5 ML UD.LIQ PO SCH ×3 (11:50→20:56)
--- NOTE | 2016-05-06 16:24 | Pulmonology Progress Note ---
<Tai Mazariegos - Last Filed: 05/06/16 16:22> Date of Encounter: 05/06/16 Time of Encounter: 16:22 Assessment and Plan (1) Acute respiratory failure with hypoxia and hypercapnia Current Visit: Yes Status: Acute In the setting of pulmonary embolism, pneumonia, COPD exacerbation. Patient extubated and doing well. Supplemental oxygen and BiPAP as needed. (2) Severe sepsis Current Visit: Yes Status: Acute Likely related to underlying pneumonia due to Haemophilus influenza. Appears to be improving. Patient completed a five-day course of antibiotics at least been stopped. (3) Venous thromboembolism Current Visit: Yes Status: Acute CTA shows evidence of PEs, preliminary results of upper and lower extremity Dopplers showed upper extremity DVTs. Evidence of right heart strain on echo. Stable. Continue Eliquis. No evidence of active bleeding. (4) CAP (community acquired pneumonia) Current Visit: Yes Status: Acute Due to Haemophilus influenza. Patient has evidence of RLL pneumonia on chest CT. Patient has an elevated white count that is improving. Continue antibiotics as discussed above. Blood and sputum cultures are negative at this time. (5) COPD exacerbation Current Visit: Yes Status: Acute Likely related to underlying pneumonia and PE. Treatment for these as above. Continue bronchodilators, steroids. Have transitioned to by mouth prednisone will treat for 5 days, we will discontinue as patient has completed treatment. (6) NSTEMI (non-ST elevated myocardial infarction) Current Visit: Yes Status: Acute Troponin was 0.1 on presentation, recheck shows it is decreased to 0.08. Likely related to demand ischemia in the setting of pneumonia, COPD, PE. No further cardiac workup at this time. (7) Suicidal ideation Current Visit: Yes Status: Acute The family had expressed concerns of suicidal ideation and hallucinations to the admitting physician. Patient does endorse suicidal ideation to me. Suicide precautions in place. Psychiatry saw the patient and recommended antidepressant. Remeron was started, Patient was initially hesitant to try it however she did take Remeron last night and states she had the best night sleep of her life. We will continue to encourage this. Patient will need a repeat psych eval at time of discharge to determine whether she is safe to go home. (8) Back pain Current Visit: Yes Status: Acute Patient has chronic low back pain since an injury at work 6 years ago. Her family her functional status has continued to decline because of this pain. She did report significant pain to me. Patient has been started on Percocet 5 mg and this has helped her pain. Lumbar x-ray showed arthritis. Encourage the patient to get out of bed to the chair. Continue PT and OT Qualifiers: Back pain location: low back pain Chronicity: chronic Back pain laterality: bilateral Sciatica presence: unspecified whether sciatica present Qualified Code(s): M54.5 - Low back pain; G89.29 - Other chronic pain (9) DVT prophylaxis Current Visit: Yes Status: Acute Patient is fully anticoagulated with Eliquis. Subjective Principal diagnosis: Respiratory distress Interval history: Patient seen and examined bedside. Patient says she feels much improved today. She states her breathing is progressively improving. She does report some mild back pain that is improving, particularly with pain medication. She states that she slept through the night last night. Feels well rested this morning. Objective PUL Vital signs: Last Vital Signs Temp 98.4 F 05/06/16 15:32 Pulse 79 05/06/16 12:18 Resp 15 05/06/16 12:18 BP 131/73 05/06/16 12:18 Pulse Ox 90 L 05/06/16 12:18 General appearance: no acute distress ENT: oropharynx moist Effort: normal Auscultation: bilateral: rhonchi (Improving) Cardiovascular: regular rate and rhythm Gastrointestinal: normoactive bowel sounds, soft, non-tender, non-distended Extremities: no cyanosis, no edema, no clubbing normal mental status, non-focal exam depressed Results - Laboratory Findings CBC and BMP: 05/06/16 05:07 05/06/16 05:07 ABG ABG pH 7.46 pH Units (7.32-7.45) H 05/03/16 05:06 ABG pCO2 48 mmHg (35-45) H 05/03/16 05:06 ABG pO2 57 mmHg (85-104) L 05/03/16 05:06 ABG O2 Saturation 91 % (95-98) L 05/03/16 05:06 PT/INR, D-dimer PT 15.3 Seconds (9.4-12.1) H 05/06/16 05:07 Abnormal lab findings: Abnormal lab results WBC 16.7 K/mcL (4.3-11.1) H 05/06/16 05:07 RBC 5.13 M/mcL (3.82-4.97) H 05/06/16 05:07 Hct 48.3 % (35.3-44.9) H 05/06/16 05:07 MCHC 30.4 g/dL (31.6-35.5) L 05/06/16 05:07 RDW 14.6 % (11.5-14.5) H 05/06/16 05:07 Neutrophils # 14.0 K/mcL (1.6-8.9) H 05/06/16 05:07 Nucleated RBCs/100 WBC 0.1 /100 WBC (0) H 05/01/16 15:21 Reactive Lymphocytes Present (Not Present) A 05/04/16 03:50 Large Platelets Present (Not Present) A 05/02/16 02:59 Anisocytosis 1+ (Not Present) A 05/03/16 03:36 PT 15.3 Seconds (9.4-12.1) H 05/06/16 05:07 APTT 64.0 Seconds (26.0-36.0) H 05/03/16 03:36 ABG pH 7.46 pH Units (7.32-7.45) H 05/03/16 05:06 ABG pCO2 48 mmHg (35-45) H 05/03/16 05:06 ABG pO2 57 mmHg (85-104) L 05/03/16 05:06 ABG HCO3 34.1 mEQ/L (21-27) H 05/03/16 05:06 ABG Total CO2 35.6 mEq/L (20-26) H 05/03/16 05:06 ABG O2 Saturation 91 % (95-98) L 05/03/16 05:06 ABG Base Excess 8.5 mEq/L (-2.0 to 3.0) H 05/03/16 05:06 VBG pH 7.31 pH Units (7.32-7.42) L 05/02/16 02:59 VBG pCO2 76 mmHg (41-51) H 05/02/16 02:59 VBG pO2 126 mmHg (25-40) H 05/02/16 02:59 VBG HCO3 38.3 mEq/L (21-27) H 05/02/16 02:59 Carbon Dioxide 40 mEq/L (19-29) H* 05/06/16 05:07 BUN 38 mg/dL (7-20) H D 05/06/16 05:07 BUN/Creatinine Ratio 47 (6-26) H 05/06/16 05:07 Glucose 105 mg/dL (70-99) H 05/06/16 05:07 POC Glucose 151 (58-89) H 05/05/16 20:20 Hemoglobin A1c 6.0 % (-5.6) H 05/05/16 03:24 Calculated Osmolality 307 (280-300) H 05/06/16 05:07 Troponin I 0.08 ng/mL (0-0.03) H* 05/02/16 02:59 C-Reactive Protein 296 mg/L (Less than 5) H 05/02/16 02:59 B-Natriuretic Peptide 930 pg/mL (0-100) H 05/01/16 15:21 Albumin 2.4 g/dL (3.5-5.0) L 05/05/16 03:24 Globulin 4.1 g/dL (2.4-3.5) H 05/05/16 03:24 Albumin/Globulin Ratio 0.6 (1.1-2.2) L 05/05/16 03:24 Urine Bacteria Moderate per hpf (None-Few) H 05/01/16 15:08 Hyaline Casts Many per lpf (None-Few) H 05/01/16 15:08 Urine Mucus Many (Few) H 05/01/16 15:08 Salicylates < 5.0 mg/dL (15-30) L 05/01/16 15:21 Acetaminophen < 1.0 mcg/mL (10-30) L 05/01/16 15:21 - Microbiology Findings Microbiology Findings: Microbiology, Last 48 Hours 05/02/16 00:10 Sputum Culture - Final Sputum Haemophilus influenzae II - Clinical Findings Intake & Output: Intake & Output 05/06/16 05/06/16 05/06/16 07:59 15:59 23:59 Intake Total 240 / 240 Output Total 150 / 150 Balance -150 / -150 240 / 240 Consult Discharge Plan - Plan Referrals: NO,PCP [Primary Care Provider] - <Sanya Macdonald - Last Filed: 05/06/16 21:11> Date of Encounter: 05/06/16 Objective PUL Vital signs: Last Vital Signs Temp 98.4 F 05/06/16 20:00 Pulse 77 05/06/16 20:00 Resp 18 05/06/16 20:01 BP 144/76 05/06/16 20:00 Pulse Ox 95 05/06/16 20:01 Results - Laboratory Findings CBC and BMP: 05/06/16 05:07 05/06/16 05:07 ABG ABG pH 7.46 pH Units (7.32-7.45) H 05/03/16 05:06 ABG pCO2 48 mmHg (35-45) H 05/03/16 05:06 ABG pO2 57 mmHg (85-104) L 05/03/16 05:06 ABG O2 Saturation 91 % (95-98) L 05/03/16 05:06 PT/INR, D-dimer PT 15.3 Seconds (9.4-12.1) H 05/06/16 05:07 Abnormal lab findings: Abnormal lab results WBC 16.7 K/mcL (4.3-11.1) H 05/06/16 05:07 RBC 5.13 M/mcL (3.82-4.97) H 05/06/16 05:07 Hct 48.3 % (35.3-44.9) H 05/06/16 05:07 MCHC 30.4 g/dL (31.6-35.5) L 05/06/16 05:07 RDW 14.6 % (11.5-14.5) H 05/06/16 05:07 Neutrophils # 14.0 K/mcL (1.6-8.9) H 05/06/16 05:07 Nucleated RBCs/100 WBC 0.1 /100 WBC (0) H 05/01/16 15:21 Reactive Lymphocytes Present (Not Present) A 05/04/16 03:50 Large Platelets Present (Not Present) A 05/02/16 02:59 Anisocytosis 1+ (Not Present) A 05/03/16 03:36 PT 15.3 Seconds (9.4-12.1) H 05/06/16 05:07 APTT 64.0 Seconds (26.0-36.0) H 05/03/16 03:36 ABG pH 7.46 pH Units (7.32-7.45) H 05/03/16 05:06 ABG pCO2 48 mmHg (35-45) H 05/03/16 05:06 ABG pO2 57 mmHg (85-104) L 05/03/16 05:06 ABG HCO3 34.1 mEQ/L (21-27) H 05/03/16 05:06 ABG Total CO2 35.6 mEq/L (20-26) H 05/03/16 05:06 ABG O2 Saturation 91 % (95-98) L 05/03/16 05:06 ABG Base Excess 8.5 mEq/L (-2.0 to 3.0) H 05/03/16 05:06 VBG pH 7.31 pH Units (7.32-7.42) L 05/02/16 02:59 VBG pCO2 76 mmHg (41-51) H 05/02/16 02:59 VBG pO2 126 mmHg (25-40) H 05/02/16 02:59 VBG HCO3 38.3 mEq/L (21-27) H 05/02/16 02:59 Carbon Dioxide 40 mEq/L (19-29) H* 05/06/16 05:07 BUN 38 mg/dL (7-20) H D 05/06/16 05:07 BUN/Creatinine Ratio 47 (6-26) H 05/06/16 05:07 Glucose 105 mg/dL (70-99) H 05/06/16 05:07 POC Glucose 151 (58-89) H 05/05/16 20:20 Hemoglobin A1c 6.0 % (-5.6) H 05/05/16 03:24 Calculated Osmolality 307 (280-300) H 05/06/16 05:07 Troponin I 0.08 ng/mL (0-0.03) H* 05/02/16 02:59 C-Reactive Protein 296 mg/L (Less than 5) H 05/02/16 02:59 B-Natriuretic Peptide 930 pg/mL (0-100) H 05/01/16 15:21 Albumin 2.4 g/dL (3.5-5.0) L 05/05/16 03:24 Globulin 4.1 g/dL (2.4-3.5) H 05/05/16 03:24 Albumin/Globulin Ratio 0.6 (1.1-2.2) L 05/05/16 03:24 Urine Bacteria Moderate per hpf (None-Few) H 05/01/16 15:08 Hyaline Casts Many per lpf (None-Few) H 05/01/16 15:08 Urine Mucus Many (Few) H 05/01/16 15:08 Salicylates < 5.0 mg/dL (15-30) L 05/01/16 15:21 Acetaminophen < 1.0 mcg/mL (10-30) L 05/01/16 15:21 - Microbiology Findings Microbiology Findings: Microbiology, Last 48 Hours 05/02/16 00:10 Sputum Culture - Final Sputum Haemophilus influenzae II - Clinical Findings Intake & Output: Intake & Output 05/06/16 05/06/16 05/06/16 07:59 15:59 23:59 Intake Total 240 / 240 120 / 120 Output Total 150 / 150 Balance -150 / -150 240 / 240 120 / 120 - Attending Attestation I examined this patient and my medical decision-making was reviewed with the ASSISTANT COACH/PA/Advanced Practice Nurse/Resident Physician. I agree with the documented findings, disposition and treatment plan as described except to the extent set forth below. Patient seen and examined and all labs reviewed with residents. Patient is doing much better and exam is unremarkable She is in good spirit and she is not suicidal anymore She doesn't need sitter anymore, but still will need psych evaluation and treatment. Awaiting for transfer
[2016-05-06] MEDS: Mirtazapine 15 MG TABLET PO SCH (20:56)
[2016-05-07] MEDS: *HR* OxyCODONE/APAP 5/325 TABLET PO PRN ×2 (02:26→22:21)
[2016-05-07] MEDS: Insulin LISPRO 300 UNITS/3 ML VIAL SQ SCH ×4 (08:05→21:18)
[2016-05-07] MEDS: Budesonide/Formoterol 80/4.5 MDI IH SCH ×2 (08:10→19:39)
--- NOTE | 2016-05-07 08:33 | Internal Med Progress Note ---
<Jr lAlan Jet - Last Filed: 05/07/16 17:28> Date of Encounter: 05/07/16 Time of Encounter: 08:32 - Assessment and plan (1) Acute respiratory failure with hypoxia and hypercapnia Current Visit: Yes Status: Acute Assessment and plan: In the setting of pulmonary embolism, pneumonia, COPD exacerbation. Supplemental oxygen and BiPAP as needed. (2) Venous thromboembolism Current Visit: Yes Status: Acute Assessment and plan: CTA shows evidence of PEs, preliminary results of upper and lower extremity Dopplers showed upper extremity DVTs. Evidence of right heart strain on echo. Stable. Continue Eliquis. No evidence of active bleeding. Pt. history reveals limited mobility at home for the past 5-6 years. (3) CAP (community acquired pneumonia) Current Visit: Yes Status: Acute Assessment and plan: Due to Haemophilus influenza. Patient has evidence of RLL pneumonia on chest CT. Patient has an elevated white count that is improving. Pt. continued 5 day course of IV abx. Blood and sputum cultures are negative at this time. (4) COPD exacerbation Current Visit: Yes Status: Acute Assessment and plan: Likely related to underlying pneumonia and PE. Treatment for these as above. Continue bronchodilators, steroids. Have transitioned to by mouth prednisone will treat for 5 days, we will discontinue as patient has completed treatment. (5) NSTEMI (non-ST elevated myocardial infarction) Current Visit: Yes Status: Acute Assessment and plan: Troponin was 0.1 on presentation, recheck shows it is decreased to 0.08. Likely related to demand ischemia in the setting of pneumonia, COPD, PE. No further cardiac workup at this time. (6) Severe sepsis Current Visit: Yes Status: Resolved Assessment and plan: Likely related to underlying pneumonia due to Haemophilus influenza. Resolved. Vitals WNL and only slight WBC elevation, but has been trending down. Patient completed a five-day course of IV antibiotics Will continue to monitor vitals and cbc (7) Suicidal ideation Current Visit: Yes Status: Acute Assessment and plan: The family had expressed concerns of suicidal ideation and hallucinations to the admitting physician. Patient does endorse suicidal ideation to me. Suicide precautions in place. Psychiatry saw the patient and recommended antidepressant. Remeron was started, Patient was initially hesitant to try it however she did take Remeron last night and states she had the best night sleep of her life. We will continue to encourage this. Patient will need a repeat psych eval at time of discharge to determine whether she is safe to go home. (8) Back pain Current Visit: Yes Status: Acute Assessment and plan: Patient has chronic low back pain since an injury at work 6 years ago. Lumbar xray revealed osteopenia and spondylosis. Encourage the patient to get out of bed to the chair. Continue PT and OT Pain control further workup as outpatient Qualifiers: Back pain location: low back pain Chronicity: chronic Back pain laterality: bilateral Sciatica presence: unspecified whether sciatica present Qualified Code(s): M54.5 - Low back pain; G89.29 - Other chronic pain (9) DVT prophylaxis Current Visit: Yes Status: Acute Assessment and plan: Patient is fully anticoagulated with Eliquis. - Subjective Interval history: patient seen and examined. Was in the ICU prior and had been intubated for respiratory failure 2/2 PE/PNA/COPD. Pt. has been doing well since being extubated. Resting comfortably in bed on 5L O2 by nc. She is conversational and pleasant. States she currently has some mild SOB. Denies CP/N/V/D - Constitutional Vitals: Temp Pulse Resp BP Pulse Ox 98.0 F 77 18 173/93 92 L 05/07/16 07:17 05/07/16 07:17 05/07/16 08:10 05/07/16 07:17 05/07/16 08:10 General appearance: Present: A&O X 3, pleasant, no acute distress - Head Head exam: Present: atraumatic, normocephalic - Eye Eye exam: Present: PERRL, conjuntiva pink, sclera anicteric Pupils: Present: PERRL - Neck Neck exam general surgery: Present: lymphadenopathy, supple, trachea midline - Respiratory Respiratory exam: Present: decreased breath sounds, rhonchi, wheezes. Absent: CTAB - Cardiovascular Cardiovascular exam: Present: RRR, +S1, +S2. Absent: diastolic murmur, gallop, rubs, systolic murmur - GI/Abdominal GI/Abdominal exam: Present: normal bowel sounds, soft, no peritoneal signs. Absent: distended, tenderness - Extremities Exam Extremities exam: Present: pedal edema, warm. Absent: calf tenderness, normal inspection (b/l le edema, feet in poor repair), tenderness - Neurological Exam Neurological exam: Present: CN II-XII intact, oriented X3, no focal deficits. Absent: facial droop, speech deficit - Skin Skin exam: Present: dry, intact Internal Medicine: Result - Labs CBC & Chem 7: 05/07/16 10:27 05/07/16 10:27 - ABG Interpretation ABG results: ABG ABG pH 7.46 pH Units (7.32-7.45) H 05/03/16 05:06 ABG pCO2 48 mmHg (35-45) H 05/03/16 05:06 ABG pO2 57 mmHg (85-104) L 05/03/16 05:06 ABG O2 Saturation 91 % (95-98) L 05/03/16 05:06 PT/INR, D-dimer PT 15.3 Seconds (9.4-12.1) H 05/06/16 05:07 - Impressions Impressions Lumbar Spine X-Ray 05/05/16 08:00 IMPRESSION: No acute osseous abnormality of the lumbar spine. Mild osteopenia and multilevel lumbar spondylosis and facet arthropathy. D/ / 05/05/2016 12:00:58 Destin Proctor MD / cristofer Interpreting Provider: Destin Proctor MD Consult Discharge Plan - Plan Referrals: NO,PCP [Primary Care Provider] - <Escobar Odonnell P - Last Filed: 05/07/16 18:45> Date of Encounter: 05/07/16 - Constitutional Vitals: Temp Pulse Resp BP Pulse Ox 98.0 F 79 18 174/107 92 L 05/07/16 15:02 05/07/16 15:02 05/07/16 16:38 05/07/16 15:02 05/07/16 16:38 Internal Medicine: Result - Labs CBC & Chem 7: 05/07/16 10:27 05/07/16 10:27 Labs: Short CBC 05/07/16 Range/Units 10:27 WBC 17.4 H (4.3-11.1) K/mcL Hgb 16.0 H (11.5-15.4) g/dL Hct 52.2 H (35.3-44.9) % Plt Count 228 (140-400) K/mcL Neutrophils # 14.8 H (1.6-8.9) K/mcL BMP 05/07/16 10:27 Sodium 142 Potassium 4.4 Chloride 99 Carbon Dioxide 37 H BUN 26 H D Creatinine 0.74 Glucose 165 H Calcium 8.7 Cardiac Enzymes 05/02/16 Range/Units 02:59 CK-MB (CK-2) 0 (0-4) % - ABG Interpretation ABG results: ABG ABG pH 7.46 pH Units (7.32-7.45) H 05/03/16 05:06 ABG pCO2 48 mmHg (35-45) H 05/03/16 05:06 ABG pO2 57 mmHg (85-104) L 05/03/16 05:06 ABG O2 Saturation 91 % (95-98) L 05/03/16 05:06 PT/INR, D-dimer PT 15.3 Seconds (9.4-12.1) H 05/06/16 05:07 - Attending Attestation I examined this patient and my medical decision-making was reviewed with the PULLER OUT/PA/Advanced Practice Nurse/Resident Physician. I agree with the documented findings, disposition and treatment plan as described except to the extent set forth below.
[2016-05-07] MEDS: Nystatin SUSP 5 ML UD.LIQ PO SCH ×4 (08:37→21:22)
[2016-05-07] MEDS: Furosemide 20 MG TABLET PO SCH (08:37)
[2016-05-07] MEDS: APIXABAN 5 MG TABLET PO SCH ×2 (08:37→21:22)
[2016-05-07 08:39] LABS: CK Total (Ck Isoenzymes) 131 U/L (20-180)
[2016-05-07 11:16] LABS: Basophils # 0.1 K/mcL (0.0-0.2); Basophils % 0.4 %; Eosinophils # 0.1 K/mcL (0.0-0.6); Eosinophils % 0.4 %; Hematocrit 52.2 % (35.3-44.9); Immature Granulocytes % 1.5 % (0-4); Lymphocytes # 1.3 K/mcL (0.6-4.6); Lymphocytes % 7.4 %; Mean Corpuscular HGB Conc 30.7 g/dL (31.6-35.5); Mean Corpuscular Volume 94.6 fL (83.0-100.0); Mean Platelet Volume 10.3 fL (9.4-12.4); Monocytes # 0.9 K/mcL (0.0-1.3); Monocytes % 5.1 %; Neutrophils # 14.8 K/mcL (1.6-8.9); Platelet Count 228 K/mcL (140-400); Red Blood Count 5.52 M/mcL (3.82-4.97); Red Cell Distribution Width 14.6 % (11.5-14.5); Segmented Neutrophils % 85.2 %
[2016-05-07 11:33] LABS: BUN/Creatinine Ratio 35 (6-26); Calcium 8.7 mg/dL (8.6-10.8); Carbon Dioxide 37 mEq/L (19-29); Chloride 99 mEq/L (98-109); Chol/HDL Ratio 3.2 (0-4.9); Cholesterol 175 mg/dL (< 200); Glucose 165 mg/dL (70-99); HDL Cholesterol 54 mg/dL (40-59); LDL Cholesterol,Calculated 91 mg/dL (0-99); Osmolality,Calculated 302 (280-300); Potassium 4.4 mEq/L (3.5-4.5); Sodium 142 mEq/L (136-145); Triglycerides 149 mg/dL (< 150); eGFR For African Americans > 60 (> 60); eGFR For Non-African Americans > 60 (> 60)
[2016-05-07 11:35] LABS: Blood Urea Nitrogen 26 mg/dL (7-20)
[2016-05-07] MEDS: Ipratropium/Albuterol Neb 3 ML IH SCH ×4 (11:48→23:30)
[2016-05-07] MEDS: Mirtazapine 15 MG TABLET PO SCH (21:22)
[2016-05-08 04:23] LABS: Basophils # 0.1 K/mcL (0.0-0.2); Basophils % 0.3 %; Eosinophils # 0.2 K/mcL (0.0-0.6); Eosinophils % 0.9 %; Hemoglobin 16.5 g/dL (11.5-15.4); Lymphocytes # 1.4 K/mcL (0.6-4.6); Lymphocytes % 8.5 %; Mean Corpuscular HGB Conc 30.6 g/dL (31.6-35.5); Mean Corpuscular Hemoglobin 28.8 pg (28.0-33.3); Mean Corpuscular Volume 94.4 fL (83.0-100.0); Mean Platelet Volume 10.3 fL (9.4-12.4); Monocytes % 5.9 %; Neutrophils # 13.8 K/mcL (1.6-8.9); Platelet Count 201 K/mcL (140-400); Red Blood Count 5.72 M/mcL (3.82-4.97); Red Cell Distribution Width 14.7 % (11.5-14.5); Segmented Neutrophils % 83.4 %
[2016-05-08] MEDS: Ipratropium/Albuterol Neb 3 ML IH SCH ×5 (04:24→20:01)
[2016-05-08 04:42] LABS: BUN/Creatinine Ratio 32 (6-26); Blood Urea Nitrogen 23 mg/dL (7-20); Calcium 8.7 mg/dL (8.6-10.8); Carbon Dioxide 38 mEq/L (19-29); Chloride 101 mEq/L (98-109); Glucose 117 mg/dL (70-99); Osmolality,Calculated 299 (280-300); Potassium 4.1 mEq/L (3.5-4.5); Sodium 142 mEq/L (136-145); eGFR For African Americans > 60 (> 60); eGFR For Non-African Americans > 60 (> 60)
[2016-05-08] MEDS: Budesonide/Formoterol 80/4.5 MDI IH SCH ×2 (08:19→20:02)
[2016-05-08] MEDS: Insulin LISPRO 300 UNITS/3 ML VIAL SQ SCH ×4 (08:37→21:17)
[2016-05-08] MEDS: APIXABAN 5 MG TABLET PO SCH ×2 (08:40→21:16)
[2016-05-08] MEDS: Furosemide 20 MG TABLET PO SCH (08:40)
[2016-05-08] MEDS: Nystatin SUSP 5 ML UD.LIQ PO SCH ×4 (09:40→21:17)
[2016-05-08] MEDS: *HR* OxyCODONE/APAP 5/325 TABLET PO PRN ×3 (11:16→23:26)
--- NOTE | 2016-05-08 18:08 | Internal Med Progress Note ---
Date of Encounter: 05/08/16 Time of Encounter: 18:06 - Assessment and plan (1) Acute respiratory failure with hypoxia and hypercapnia Current Visit: Yes Status: Acute Assessment and plan: In the setting of pulmonary embolism, pneumonia, COPD exacerbation. Supplemental oxygen and BiPAP as needed. (2) Venous thromboembolism Current Visit: Yes Status: Acute Assessment and plan: CTA shows evidence of PEs, preliminary results of upper and lower extremity Dopplers showed upper extremity DVTs. Evidence of right heart strain on echo. Stable. Continue Eliquis. No evidence of active bleeding. Pt. history reveals limited mobility at home for the past 5-6 years. (3) CAP (community acquired pneumonia) Current Visit: Yes Status: Acute Assessment and plan: Due to Haemophilus influenza. Patient has evidence of RLL pneumonia on chest CT. Patient has an elevated white count that is improving. Pt. continued 5 day course of IV abx. Blood and sputum cultures are negative at this time. (4) COPD exacerbation Current Visit: Yes Status: Acute Assessment and plan: Likely related to underlying pneumonia and PE. Treatment for these as above. Continue bronchodilators, steroids. Have transitioned to by mouth prednisone will treat for 5 days, we will discontinue as patient has completed treatment. (5) NSTEMI (non-ST elevated myocardial infarction) Current Visit: Yes Status: Acute Assessment and plan: Troponin was 0.1 on presentation, recheck shows it is decreased to 0.08. Likely related to demand ischemia in the setting of pneumonia, COPD, PE. No further cardiac workup at this time. - Subjective Interval history: Patient seen and examined. Chart reviewed. Patient is still fatigued and tired. Patient hardly ambulates from her bed to bathroom. We will get opinion from physical therapy/occupational therapy. - Constitutional Vitals: Temp Pulse Resp BP Pulse Ox 97.9 F 79 16 160/95 90 L 05/08/16 15:41 05/08/16 15:41 05/08/16 16:27 05/08/16 11:03 05/08/16 16:27 General appearance: Present: A&O X 3, pleasant, no acute distress - Head Head exam: Present: atraumatic, normocephalic - Eye Eye exam: Present: PERRL, conjuntiva pink, sclera anicteric Pupils: Present: PERRL - Neck Neck exam general surgery: Present: supple, trachea midline. Absent: lymphadenopathy - Respiratory Respiratory exam: Present: CTAB. Absent: accessory muscle use, rales, rhonchi, wheezes - Cardiovascular Cardiovascular exam: Present: RRR, +S1, +S2. Absent: diastolic murmur, gallop, rubs, systolic murmur - GI/Abdominal GI/Abdominal exam: Present: normal bowel sounds, soft, no peritoneal signs. Absent: distended, tenderness - Extremities Exam Extremities exam: Present: warm, radial pulses palpable and symetrical. Absent : calf tenderness, cyanotic, pedal edema - Neurological Exam Neurological exam: Present: CN II-XII intact, oriented X3, no focal deficits. Absent: pronater drift, facial droop, speech deficit - Skin Skin exam: Present: dry, intact Internal Medicine: Result - Labs CBC & Chem 7: 05/08/16 03:39 05/08/16 03:39 Labs: Short CBC 05/08/16 Range/Units 03:39 WBC 16.5 H (4.3-11.1) K/mcL Hgb 16.5 H (11.5-15.4) g/dL Hct 54.0 H (35.3-44.9) % Plt Count 201 (140-400) K/mcL Neutrophils # 13.8 H (1.6-8.9) K/mcL BMP 05/08/16 03:39 Sodium 142 Potassium 4.1 Chloride 101 Carbon Dioxide 38 H BUN 23 H Creatinine 0.72 Glucose 117 H Calcium 8.7 - ABG Interpretation ABG results: ABG ABG pH 7.46 pH Units (7.32-7.45) H 05/03/16 05:06 ABG pCO2 48 mmHg (35-45) H 05/03/16 05:06 ABG pO2 57 mmHg (85-104) L 05/03/16 05:06 ABG O2 Saturation 91 % (95-98) L 05/03/16 05:06 PT/INR, D-dimer PT 15.3 Seconds (9.4-12.1) H 05/06/16 05:07 - VTE Documentation of Mechanical Device: Intermittent pneumatic compression device Consult Discharge Plan - Plan Referrals: NO,PCP [Primary Care Provider] -
[2016-05-08] MEDS: Mirtazapine 15 MG TABLET PO SCH (21:17)
[2016-05-09] MEDS: Ipratropium/Albuterol Neb 3 ML IH SCH ×7 (00:04→23:20)
[2016-05-09 05:16] LABS: Basophils % 0.2 %; Eosinophils # 0.3 K/mcL (0.0-0.6); Eosinophils % 1.9 %; Hematocrit 50.6 % (35.3-44.9); Hemoglobin 15.2 g/dL (11.5-15.4); Immature Granulocytes % 0.9 % (0-4); Lymphocytes # 1.1 K/mcL (0.6-4.6); Lymphocytes % 7.6 %; Mean Corpuscular Hemoglobin 28.8 pg (28.0-33.3); Mean Platelet Volume 10.3 fL (9.4-12.4); Monocytes # 0.9 K/mcL (0.0-1.3); Neutrophils # 12.2 K/mcL (1.6-8.9); Platelet Count 206 K/mcL (140-400); Red Blood Count 5.27 M/mcL (3.82-4.97); Red Cell Distribution Width 14.7 % (11.5-14.5); Segmented Neutrophils % 83.4 %
[2016-05-09 05:33] LABS: BUN/Creatinine Ratio 30 (6-26); Blood Urea Nitrogen 21 mg/dL (7-20); Calcium 8.7 mg/dL (8.6-10.8); Carbon Dioxide 34 mEq/L (19-29); Chloride 101 mEq/L (98-109); Glucose 160 mg/dL (70-99); Osmolality,Calculated 298 (280-300); Potassium 4.9 mEq/L (3.5-4.5); Sodium 141 mEq/L (136-145); eGFR For African Americans > 60 (> 60); eGFR For Non-African Americans > 60 (> 60)
[2016-05-09] MEDS: Budesonide/Formoterol 80/4.5 MDI IH SCH ×2 (07:36→19:55)
[2016-05-09] MEDS: Nystatin SUSP 5 ML UD.LIQ PO SCH ×4 (10:37→21:07)
[2016-05-09] MEDS: Furosemide 20 MG TABLET PO SCH (10:37)
[2016-05-09] MEDS: APIXABAN 5 MG TABLET PO SCH ×2 (10:37→21:07)
[2016-05-09] MEDS: Insulin LISPRO 300 UNITS/3 ML VIAL SQ SCH ×4 (10:38→22:00)
[2016-05-09] MEDS: *HR* OxyCODONE/APAP 5/325 TABLET PO PRN (17:46)
--- NOTE | 2016-05-09 18:22 | Internal Med Progress Note ---
Date of Encounter: 05/10/16 Time of Encounter: 18:22 - Assessment and plan (1) Acute respiratory failure with hypoxia and hypercapnia Current Visit: Yes Status: Acute Assessment and plan: In the setting of pulmonary embolism, pneumonia, COPD exacerbation. Supplemental oxygen and BiPAP as needed. 05/09/2016. Patient's saturation is an acceptable limit. She is not short of breath. She is very physically deconditioned secondary to prolonged ICU stay. (2) Venous thromboembolism Current Visit: Yes Status: Acute Assessment and plan: CTA shows evidence of PEs, preliminary results of upper and lower extremity Dopplers showed upper extremity DVTs. Evidence of right heart strain on echo. Stable. Continue Eliquis. No evidence of active bleeding. Pt. history reveals limited mobility at home for the past 5-6 years. (3) CAP (community acquired pneumonia) Current Visit: Yes Status: Acute Assessment and plan: Due to Haemophilus influenza. Patient has evidence of RLL pneumonia on chest CT. Patient has an elevated white count that is improving. Pt. continued 5 day course of IV abx. Blood and sputum cultures are negative at this time. (4) COPD exacerbation Current Visit: Yes Status: Acute Assessment and plan: Likely related to underlying pneumonia and PE. Treatment for these as above. Continue bronchodilators, steroids. Have transitioned to by mouth prednisone will treat for 5 days, we will discontinue as patient has completed treatment. (5) NSTEMI (non-ST elevated myocardial infarction) Current Visit: Yes Status: Acute Assessment and plan: Troponin was 0.1 on presentation, recheck shows it is decreased to 0.08. Likely related to demand ischemia in the setting of pneumonia, COPD, PE. No further cardiac workup at this time. - Subjective Interval history: Patient seen and examined. Chart reviewed. Patient is still fatigued and tired. Patient hardly ambulates from her bed to bathroom. We will get opinion from physical therapy/occupational therapy. 05/09/2016. Patient seen and examined. Chart reviewed. No new complaints. We will follow the recommendations from physical therapy and occupational therapy. - Constitutional Vitals: Temp Pulse Resp BP Pulse Ox 97.9 F 88 20 156/80 93 L 05/09/16 15:00 05/09/16 15:00 05/09/16 15:29 05/09/16 15:00 05/09/16 15:29 General appearance: Present: A&O X 3, pleasant, no acute distress - Head Head exam: Present: atraumatic, normocephalic - Eye Eye exam: Present: PERRL, conjuntiva pink, sclera anicteric Pupils: Present: PERRL - Neck Neck exam general surgery: Present: supple, trachea midline. Absent: lymphadenopathy - Respiratory Respiratory exam: Present: CTAB. Absent: accessory muscle use, rales, rhonchi, wheezes - Cardiovascular Cardiovascular exam: Present: RRR, +S1, +S2. Absent: diastolic murmur, gallop, rubs, systolic murmur - GI/Abdominal GI/Abdominal exam: Present: normal bowel sounds, soft, no peritoneal signs. Absent: distended, tenderness - Extremities Exam Extremities exam: Present: warm, radial pulses palpable and symetrical. Absent : calf tenderness, cyanotic, pedal edema - Neurological Exam Neurological exam: Present: CN II-XII intact, oriented X3, no focal deficits. Absent: pronater drift, facial droop, speech deficit - Skin Skin exam: Present: dry, intact Internal Medicine: Result - Labs CBC & Chem 7: 05/10/16 05:45 05/10/16 05:45 Labs: Short CBC 05/09/16 Range/Units 04:29 WBC 14.6 H (4.3-11.1) K/mcL Hgb 15.2 (11.5-15.4) g/dL Hct 50.6 H (35.3-44.9) % Plt Count 206 (140-400) K/mcL Neutrophils # 12.2 H (1.6-8.9) K/mcL BMP 05/09/16 04:29 Sodium 141 Potassium 4.9 H Chloride 101 Carbon Dioxide 34 H BUN 21 H Creatinine 0.71 Glucose 160 H Calcium 8.7 - ABG Interpretation ABG results: ABG ABG pH 7.46 pH Units (7.32-7.45) H 05/03/16 05:06 ABG pCO2 48 mmHg (35-45) H 05/03/16 05:06 ABG pO2 57 mmHg (85-104) L 05/03/16 05:06 ABG O2 Saturation 91 % (95-98) L 05/03/16 05:06 PT/INR, D-dimer PT 15.3 Seconds (9.4-12.1) H 05/06/16 05:07 - VTE Documentation of Mechanical Device: Intermittent pneumatic compression device Consult Discharge Plan - Plan Referrals: NO,PCP [Primary Care Provider] -
[2016-05-09] MEDS: Mirtazapine 15 MG TABLET PO SCH (21:07)
[2016-05-10] MEDS: Ipratropium/Albuterol Neb 3 ML IH SCH ×6 (03:42→23:44)
[2016-05-10] MEDS: *HR* OxyCODONE/APAP 5/325 TABLET PO PRN ×3 (04:57→21:41)
[2016-05-10 05:51] LABS: Hematocrit 49.6 % (35.3-44.9); Hemoglobin 15.5 g/dL (11.5-15.4); Immature Platelets 4.8 % (1.1-6.1); Mean Corpuscular HGB Conc 31.3 g/dL (31.6-35.5); Mean Corpuscular Hemoglobin 29.4 pg (28.0-33.3); Mean Corpuscular Volume 93.9 fL (83.0-100.0); Mean Platelet Volume 9.6 fL (9.4-12.4); Red Blood Count 5.28 M/mcL (3.82-4.97); Red Cell Distribution Width 14.9 % (11.5-14.5)
[2016-05-10 05:56] LABS: Ionized Calcium 1.07 mmol/L (1.15-1.35)
[2016-05-10 06:04] LABS: Alanine Aminotransferase 24 Units/L (0-55); Albumin 2.3 g/dL (3.5-5.0); Albumin/Globulin Ratio 0.6 (1.1-2.2); Alkaline Phosphatase 90 Units/L (38-126); Aspartate Amino Transferase 17 Units/L (5-34); BUN/Creatinine Ratio 26 (6-26); Bilirubin,Total 0.5 mg/dL (0.2-1.2); Blood Urea Nitrogen 18 mg/dL (7-20); Calcium 8.7 mg/dL (8.6-10.8); Carbon Dioxide 32 mEq/L (19-29); Chloride 102 mEq/L (98-109); Globulin 3.9 g/dL (2.4-3.5); Glucose 121 mg/dL (70-99); Magnesium 1.8 mg/dL (1.6-2.6); Osmolality,Calculated 289 (280-300); Phosphorous 2.9 mg/dL (2.3-4.7); Potassium 4.3 mEq/L (3.5-4.5); Sodium 138 mEq/L (136-145); Total Protein 6.2 g/dL (6.0-8.3); eGFR For African Americans > 60 (> 60); eGFR For Non-African Americans > 60 (> 60)
[2016-05-10] MEDS: Budesonide/Formoterol 80/4.5 MDI IH SCH ×2 (07:54→19:49)
[2016-05-10] MEDS: APIXABAN 5 MG TABLET PO SCH ×2 (08:35→21:30)
[2016-05-10] MEDS: Furosemide 20 MG TABLET PO SCH (08:35)
[2016-05-10] MEDS: Nystatin SUSP 5 ML UD.LIQ PO SCH ×4 (08:35→21:31)
[2016-05-10] MEDS: Insulin LISPRO 300 UNITS/3 ML VIAL SQ SCH ×4 (08:36→21:31)
--- NOTE | 2016-05-10 18:30 | Internal Med Progress Note ---
Date of Encounter: 05/10/16 Time of Encounter: 18:28 - Assessment and plan (1) Acute respiratory failure with hypoxia and hypercapnia Current Visit: Yes Status: Acute Assessment and plan: In the setting of pulmonary embolism, pneumonia, COPD exacerbation. Supplemental oxygen and BiPAP as needed. 05/09/2016. Patient's saturation is an acceptable limit. She is not short of breath. She is very physically deconditioned secondary to prolonged ICU stay. 05/10/2016. Patient is clinically much better as compared to the day of admission. We will continue the present medications. Possible transfer to longterm tomorrow Patient needs short-term rehabilitation. (2) Venous thromboembolism Current Visit: Yes Status: Acute Assessment and plan: CTA shows evidence of PEs, preliminary results of upper and lower extremity Dopplers showed upper extremity DVTs. Evidence of right heart strain on echo. Stable. Continue Eliquis. No evidence of active bleeding. Pt. history reveals limited mobility at home for the past 5-6 years. (3) CAP (community acquired pneumonia) Current Visit: Yes Status: Acute Assessment and plan: Due to Haemophilus influenza. Patient has evidence of RLL pneumonia on chest CT. Patient has an elevated white count that is improving. Pt. continued 5 day course of IV abx. Blood and sputum cultures are negative at this time. (4) COPD exacerbation Current Visit: Yes Status: Acute Assessment and plan: Likely related to underlying pneumonia and PE. Treatment for these as above. Continue bronchodilators, steroids. Have transitioned to by mouth prednisone will treat for 5 days, we will discontinue as patient has completed treatment. (5) NSTEMI (non-ST elevated myocardial infarction) Current Visit: Yes Status: Acute Assessment and plan: Troponin was 0.1 on presentation, recheck shows it is decreased to 0.08. Likely related to demand ischemia in the setting of pneumonia, COPD, PE. No further cardiac workup at this time. - Subjective Interval history: Patient seen and examined. Chart reviewed. Patient is still fatigued and tired. Patient hardly ambulates from her bed to bathroom. We will get opinion from physical therapy/occupational therapy. 05/09/2016. Patient seen and examined. Chart reviewed. No new complaints. We will follow the recommendations from physical therapy and occupational therapy. 05/10/2016. Patient seen and examined. Patient is comfortably lying in the bed. No new complaints at this point and today patient had a workup with physical therapy. - Constitutional Vitals: Temp Pulse Resp BP Pulse Ox 97.7 F 83 16 180/80 94 L 05/10/16 15:41 05/10/16 15:41 05/10/16 15:57 05/10/16 15:41 05/10/16 15:57 General appearance: Present: A&O X 3, pleasant, no acute distress - Head Head exam: Present: atraumatic, normocephalic - Eye Eye exam: Present: PERRL, conjuntiva pink, sclera anicteric Pupils: Present: PERRL - Neck Neck exam general surgery: Present: supple, trachea midline. Absent: lymphadenopathy - Respiratory Respiratory exam: Present: CTAB. Absent: accessory muscle use, rales, rhonchi, wheezes - Cardiovascular Cardiovascular exam: Present: RRR, +S1, +S2. Absent: diastolic murmur, gallop, rubs, systolic murmur - GI/Abdominal GI/Abdominal exam: Present: normal bowel sounds, soft, no peritoneal signs. Absent: distended, tenderness - Extremities Exam Extremities exam: Present: warm, radial pulses palpable and symetrical. Absent : calf tenderness, cyanotic, pedal edema - Neurological Exam Neurological exam: Present: CN II-XII intact, oriented X3, no focal deficits. Absent: pronater drift, facial droop, speech deficit - Skin Skin exam: Present: dry, intact Internal Medicine: Result - Labs CBC & Chem 7: 05/10/16 05:45 05/10/16 05:45 Labs: Short CBC 05/10/16 Range/Units 05:45 WBC 15.6 H (4.3-11.1) K/mcL Hgb 15.5 H (11.5-15.4) g/dL Hct 49.6 H (35.3-44.9) % Plt Count 240 (140-400) K/mcL BMP 05/10/16 05:45 Sodium 138 Potassium 4.3 Chloride 102 Carbon Dioxide 32 H BUN 18 Creatinine 0.68 Glucose 121 H Calcium 8.7 Liver Function 05/10/16 Range/Units 05:45 Total Bilirubin 0.5 (0.2-1.2) mg/dL AST 17 (5-34) Units/L ALT 24 (0-55) Units/L Alkaline Phosphatase 90 (38-126) Units/L Albumin 2.3 L (3.5-5.0) g/dL - ABG Interpretation ABG results: ABG ABG pH 7.46 pH Units (7.32-7.45) H 05/03/16 05:06 ABG pCO2 48 mmHg (35-45) H 05/03/16 05:06 ABG pO2 57 mmHg (85-104) L 05/03/16 05:06 ABG O2 Saturation 91 % (95-98) L 05/03/16 05:06 PT/INR, D-dimer PT 15.3 Seconds (9.4-12.1) H 05/06/16 05:07 - VTE Documentation of Mechanical Device: Intermittent pneumatic compression device Consult Discharge Plan - Plan Referrals: NO,PCP [Primary Care Provider] -
[2016-05-10] MEDS: Mirtazapine 15 MG TABLET PO SCH (21:30)
[2016-05-11] MEDS: Ipratropium/Albuterol Neb 3 ML IH SCH ×3 (05:05→11:22)
--- NOTE | 2016-05-11 06:59 | Discharge Summary ---
Date of Encounter: 05/11/16 Time of Encounter: 06:56 - Discharge Diagnosis (1) Acute respiratory failure with hypoxia and hypercapnia Priority: Primary Status: Acute (2) Venous thromboembolism Priority: Primary Status: Acute (3) CAP (community acquired pneumonia) Priority: Primary Status: Acute (4) COPD exacerbation Priority: Primary Status: Acute (5) NSTEMI (non-ST elevated myocardial infarction) Priority: Secondary Status: Acute - Discharge Medications Prescriptions: OxyCODONE/APAP 5/325 [Percocet 5/325 MG] 1 each PO Q6HR PRN #14 tablet PRN Reason: Pain Apixaban [Eliquis] 5 mg PO BID #60 tablet Budesonide/Formoterol 80/4.5 [Symbicort 80/4.5] 2 puff IH BIDR #1 inhaler Furosemide [Lasix] 20 mg PO DAILY #30 tablet Metformin [Glucophage] 1,000 mg PO BIDWM #60 tablet Metoprolol [Lopressor] 25 mg PO DAILY #30 tablet Mirtazapine [Remeron] 15 mg PO HS #30 tablet Omeprazole [PriLOSEC] 20 mg PO DAILY@0730 #30 capsule. Potassium Chloride 20 meq PO DAILY #30 tab.er.prt Home Medications: Albuterol Sulfate [Albuterol Inhaler] 1 puff IH Q4HR 05/01/16 [History] Apixaban [Eliquis] 5 mg PO BID #60 tablet 05/11/16 [Rx] Budesonide/Formoterol 80/4.5 [Symbicort 80/4.5] 2 puff IH BIDR #1 inhaler 05/11 [Rx] Furosemide [Lasix] 20 mg PO DAILY #30 tablet 05/11/16 [Rx] Metformin [Glucophage] 1,000 mg PO BIDWM #60 tablet 05/11/16 [Rx] Metoprolol [Lopressor] 25 mg PO DAILY #30 tablet 05/11/16 [Rx] Mirtazapine [Remeron] 15 mg PO HS #30 tablet 05/11/16 [Rx] Omeprazole [PriLOSEC] 20 mg PO DAILY@0730 #30 capsule. 05/11/16 [Rx] OxyCODONE/APAP 5/325 [Percocet 5/325 MG] 1 each PO Q6HR PRN #14 tablet 05/11/16 [Rx] Potassium Chloride 20 meq PO DAILY #30 tab.er.prt 05/11/16 [Rx] Allergies/Adverse Reactions: Allergies pain med Allergy (Uncoded 05/01/16 17:11) See Comments PATIENT'S FAMILY UNSURE OF PAIN MEDICATION BUT IT WAS GIVEN TO PATIENT "30 YEARS AGO" AND "THEY HAD TO CALL A CODE BLUE" - UNSURE OF PATIENTS REACTION Date of admission: 05/01/16 19:43 Primary care physician: PCP NO Consults: 05/02/16 16:50 Consult to [place] [CONS] Routine Reason for SW Consult: insurance and financial concerns 05/03/16 11:07 Consult to Psychiatry [CONS] Routine Consulting Provider: Psychiatry Anabel Reason for Consult: Suicidial Ideation Call Completed: Yes 05/03/16 11:12 Consult to Physical Therapy [CONS] Routine Comment: Evaluate, develop and implement POC OT [Consult to Occupational Therapy] [CONS] Routine Comment: Evaluate, develop and implement POC Discharging clinician: Escobar Odonnell - Patient Status Disposition: Transfer Inpatient Rehab Fac Condition: Good Functional capacity at discharge: uses cane/walker Overall status at discharge: patient is progressing back to baseline - Discharge Instructions Follow Up With: clinic, res [Other] Additional Instructions: please make an appointment with Dr Tai Montejo IM resident in 1-2 weeks. - Diet and Activity Activity: as per physical therapy Diet: diabetic diet Interval History: Ms. Booth is a 71 year old female patient was a lifelong smoker 2 packs per day for over 30 years, history of asthma on inhalers, hypertension takes captopril from her 's medication, non-compliant and has not seen a physician and 30 years who is immobile for the past 5 years as a back injury presents to the emergency room with shortness of breath. For the past 10 days patient has been having progressive shortness of breath productive cough of yellowish sputum chills decrease appetite and confusion probably noticed that she was hallucinating mentioning suicidal thoughts and phrases. She has been taking her nebulizer nonstop during the past few days. She has been noticing swelling in both lower extremities right more than left. On relative emergency room patient was in severe respiratory distress she was placed on BiPAP and after 2 hours of BiPAP during my interview she will still breathing 35 to 40 accessory muscle use so she was intubated and mechanically ventilated. She is nonalcoholic does not use IV drugs. No prior known history of coronary disease. Hospital course: In ICU: Acute respiratory failure secondary to hypoxia and hypercapnia. This was likely secondary to COPD exacerbation and pulmonary embolism. Patient was intubated she was on the ventilator. Patient was started on broad-spectrum antibiotics with vancomycin and levofloxacin. She had a mildly raised troponin likely secondary to sepsis. CTA showed pulmonary embolism. Patient did not have a right heart strain on echo. Her ejection fraction on echocardiogram was more than 50%. Patient was anticoagulated with heparin. Patient responded to supportive treatment well and then she was extubated. On Floor: Patient was transferred to the floor. Physical therapy was consulted. We continued antibiotics and stopped after appropriate duration. Patient is receiving inhaled corticosteroids. She is receiving albuterol nebulization. Physical therapy recommended inpatient rehabilitation. Patient has gained a lot of confidence and she is ready to go to rehabilitation. Plan -Patient can go to rehabilitation today. -Follow with Dr. Lang who is a resident in internal medicine in 1-2 weeks. -Patient needs rehabilitation as per the direction from the physical therapy. QUESTIONS answered at the time of discharge and patient and family does not have any question, concerns or recommendations. -I have printed her medications which are Elliquis for anticoagulation as she has a pulmonary embolism Inhaled corticosteroids and albuterol for COPD Metoprolol/Lasix/potassium chloride as treatment to continue for non-ST elevation HI Remeron as recommended by psychiatry Omeprazole for her GERD Metformin for her diabetes mellitus. She might need of further workup in terms of readjustment/addition of another oral hypoglycemic agent as outpatient. Pain medication total of 14 tablets. - Time Spent with Patient Total time spent providing and/or coordinating discharge services: - Constitutional Vitals: Temp Pulse Resp BP Pulse Ox 97.9 F 89 77 145/78 94 L 05/11/16 03:56 05/11/16 03:56 05/11/16 05:05 05/11/16 03:56 05/11/16 05:05 General appearance: Present: A&O X 3, pleasant, no acute distress - Head Head exam: Present: atraumatic, normocephalic - Eye Eye exam: Present: PERRL, conjuntiva pink, sclera anicteric Pupils: Present: PERRL - Neck Neck exam general surgery: Present: supple, trachea midline. Absent: lymphadenopathy - Respiratory Respiratory exam: Present: CTAB. Absent: accessory muscle use, rales, rhonchi, wheezes - Cardiovascular Cardiovascular exam: Present: RRR, +S1, +S2. Absent: diastolic murmur, gallop, rubs, systolic murmur - GI/Abdominal GI/Abdominal exam: Present: normal bowel sounds, soft, no peritoneal signs. Absent: distended, tenderness - Extremities Exam Extremities exam: Present: warm, radial pulses palpable and symetrical. Absent : calf tenderness, cyanotic, pedal edema - Neurological Exam Neurological exam: Present: CN II-XII intact, oriented X3, no focal deficits. Absent: pronater drift, facial droop, speech deficit - Skin Skin exam: Present: dry, intact - VTE Documentation of Mechanical Device: Intermittent pneumatic compression device
--- NOTE | 2016-05-11 07:18 | Physician Discharge Referral ---
ExtendedCare Referral Info Transfer To: In patient Rehab - Diagnosis (1) Acute respiratory failure with hypoxia and hypercapnia Priority: Primary Status: Acute (2) Venous thromboembolism Priority: Primary Status: Acute (3) CAP (community acquired pneumonia) Priority: Primary Status: Acute (4) COPD exacerbation Priority: Primary Status: Acute (5) NSTEMI (non-ST elevated myocardial infarction) Priority: Primary Status: Acute - Transfer Medications Prescriptions: OxyCODONE/APAP 5/325 [Percocet 5/325 MG] 1 each PO Q6HR PRN #14 tablet PRN Reason: Pain Apixaban [Eliquis] 5 mg PO BID #60 tablet Budesonide/Formoterol 80/4.5 [Symbicort 80/4.5] 2 puff IH BIDR #1 inhaler Furosemide [Lasix] 20 mg PO DAILY #30 tablet Metformin [Glucophage] 1,000 mg PO BIDWM #60 tablet Metoprolol [Lopressor] 25 mg PO DAILY #30 tablet Mirtazapine [Remeron] 15 mg PO HS #30 tablet Omeprazole [PriLOSEC] 20 mg PO DAILY@0730 #30 capsule. Potassium Chloride 20 meq PO DAILY #30 tab.er.prt Home Medications: Albuterol Sulfate [Albuterol Inhaler] 1 puff IH Q4HR 05/01/16 [History] Apixaban [Eliquis] 5 mg PO BID #60 tablet 05/11/16 [Rx] Budesonide/Formoterol 80/4.5 [Symbicort 80/4.5] 2 puff IH BIDR #1 inhaler 05/11 [Rx] Furosemide [Lasix] 20 mg PO DAILY #30 tablet 05/11/16 [Rx] Metformin [Glucophage] 1,000 mg PO BIDWM #60 tablet 05/11/16 [Rx] Metoprolol [Lopressor] 25 mg PO DAILY #30 tablet 05/11/16 [Rx] Mirtazapine [Remeron] 15 mg PO HS #30 tablet 05/11/16 [Rx] Omeprazole [PriLOSEC] 20 mg PO DAILY@0730 #30 capsule. 05/11/16 [Rx] OxyCODONE/APAP 5/325 [Percocet 5/325 MG] 1 each PO Q6HR PRN #14 tablet 05/11/16 [Rx] Potassium Chloride 20 meq PO DAILY #30 tab.er.prt 05/11/16 [Rx] Allergies/Adverse Reactions: Allergies pain med Allergy (Uncoded 05/01/16 17:11) See Comments PATIENT'S FAMILY UNSURE OF PAIN MEDICATION BUT IT WAS GIVEN TO PATIENT "30 YEARS AGO" AND "THEY HAD TO CALL A CODE BLUE" - UNSURE OF PATIENTS REACTION - Respiratory Orders Smoking Cessation: Smoking cessation has been advised. For more information, call the [place] Tobacco Quit Line at 3-888-KVET-NOW. - Mobility Orders Ambulate - Rehabiliation Orders Rehab Potential: Good Rehab Orders: ROM Exercises, Evaluation for Physical Therapy, Evaluation for Occupational Therapy - Treatments Skin tear care topically daily PRN per policy CERTIFICATION: I certify that the transfer of the above named patient to an Extended Care Facility is necessary for the continuing treatment of the diagnosis listed. The above information is true and accurate reflection of patient's current condition. Confidential - Redisclosure prohibited without a patient's written consent.
[2016-05-11] MEDS: APIXABAN 5 MG TABLET PO SCH (08:30)
[2016-05-11] MEDS: Furosemide 20 MG TABLET PO SCH (08:30)
[2016-05-11] MEDS: Nystatin SUSP 5 ML UD.LIQ PO SCH (08:31)
[2016-05-11] MEDS: Insulin LISPRO 300 UNITS/3 ML VIAL SQ SCH ×2 (08:34→12:25)
[2016-05-11] MEDS: Budesonide/Formoterol 80/4.5 MDI IH SCH (11:29)
[2016-05-11 12:10] VITALS: BP 174/89
[2016-05-11] MEDS: *HR* OxyCODONE/APAP 5/325 TABLET PO PRN (13:59)
== END 2016-05-11 14:21 | DRG 871 ==
LOC: EMEROO 14:32 → 2NNU 14:32 → ICNU 19:40 → SUATTDRO 19:43 → ICNU 20:53 → 3BNU 05-07 05:19
PROVIDERS: ADMIT Internal Medicine; ATTEND Internal Medicine

== ENCOUNTER 2018-09-15 23:31 | Inpatient (IN) ==
[2018-09-15] MEDS ORDERED: Ipratropium/Albuterol Neb 3 ML IH ONE (23:44)
--- NOTE | 2018-09-16 00:18 | Emergency Department Note ---
Disposition Clinical Impression: Generalized weakness, Chronic pain of lower extremity, bilateral Congestive heart failure Qualifiers: Heart failure type: unspecified Heart failure chronicity: acute on chronic Qualified Code(s): I50.9 - Heart failure, unspecified DM type 2 (diabetes mellitus, type 2) Qualifiers: Diabetes mellitus fpc insulin use: unspecified fpc insulin use [facility] Diabetes mellitus complication status: with unspecified complications Qualified Code(s): E11.8 - Type 2 diabetes mellitus with unspecified compli cations COPD (chronic obstructive pulmonary disease) Qualifiers: COPD type: unspecified COPD Qualified Code(s): J44.9 - Chronic obstructive pulmonary disease, unspecified Disposition: Admitted As Inpatient Condition: Fair Referrals: NONE,PCP [Primary Care Provider] - Forms: ED Satisfaction Letter Time of Disposition: 04:50 SOB HPI - General Chief Complaint: ED Shortness of Breath/Dyspnea Stated Complaint: TERESITA Time Seen by Provider: 09/15/18 23:44 Source: patient, EMS Mode of arrival: EMS Limitations: no limitations Nursing Notes Reviewed: Yes Vital Signs Reviewed: Yes - History of Present Illness 73 yo female with past medical history of COPD, CHF, diabetes presents to the emergency department via EMS with the complaint of lower extremity weakness and numbness as well as shortness of breath. The patient states that she was discharged from hospital several weeks ago and had been doing well since then but today she was unable to stand up and walk due to a lack of feeling in her legs and weakness. She states that she has not been able to feel her legs for a while but the weakness was new for her. She also complains of pain in her legs that is worse with movement. She has been wrapping her legs to help decrease the swelling. She denies fevers at home, chest pain, increased cough and sputum production, abdominal pain, nausea and vomiting. She has not noticed a decreased urine output. - Related Data Home Medications Medication Instructions Recorded Confirmed Albuterol Sulfate [Albuterol 1 puff IH Q4HR 05/01/16 08/03/18 Inhaler] Albuterol Neb [AccuNeb] 1.25 mg IH Q4-6H PRN 08/02/18 08/03/18 Vitamin E 4,000 unit PO DAILY 08/02/18 08/03/18 Budesonide/Formoterol 160/4.5 2 puff IH BID 08/03/18 08/03/18 [Symbicort 160/4.5] Furosemide [Lasix] 40 mg PO BID 08/03/18 08/03/18 Previous Rx's Medication Instructions Recorded Metoprolol XL (24 HR) Succ [Toprol 50 mg PO DAILY #30 tab.er.24h 05/16/16 Xl] Allergies Allergy/AdvReac Type Severity Reaction Status Date / Time pain med Allergy See Uncoded 08/03/18 15:36 Comments All systems ED: reviewed and negative except as stated. Review of Systems: As Per HPI Constitutional: Reports: weakness. Denies: fever, chills Cardiovascular: Reports: dyspnea on exertion, orthopnea, edema. Denies: chest pain, palpitations, syncope Respiratory: Reports: dyspnea. Denies: cough, wheezes, hemoptysis Gastrointestinal: Denies: abdominal pain, nausea, vomiting, diarrhea Genitourinary: Denies: dysuria Musculoskeletal: Denies: back pain, neck pain Integumentary: Denies: rash Neurological: Reports: weakness, numbness, paresthesias. Denies: headache Endocrine: Denies: fatigue Past Medical History - Past Medical History Attestation: Yes The following information was validated with the patient. 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 Absent: tenderness, lymphadenopathy - Chest Chest inspection: Present: normal inspection. Absent: tenderness, rash - Respiratory Respiratory exam: Present: wheezes, other (pursed lip breathing) - Cardiovascular Cardiovascular exam: Present: normal rhythm, tachycardia - Abdominal Exam Abdominal exam: Present: soft, Non-Tender. Absent: distention, guarding, rebound, rigidity - Extremities Exam Extremities exam: Present: other (Extremity edema of bilateral lower extremities with chronic skin changes, edema is 3+ pitting to the tibial tuberosities) - Neurological Exam Neurological exam: Present: alert, oriented X3 - Psychiatric Psychiatric exam: Present: normal affect, normal mood - Skin Skin exam: Present: warm, dry Course Vital Signs Temperature 98.5 F 09/15/18 23:34 Pulse Rate 119 09/15/18 23:34 Respiratory Rate 28 09/15/18 23:34 Blood Pressure 181/91 09/15/18 23:34 O2 Sat by Pulse Oximetry 98 09/15/18 23:34 Temperature 98.5 F 09/15/18 23:34 Pulse Rate 100 09/16/18 04:11 Respiratory Rate 18 09/16/18 04:11 Blood Pressure 130/53 09/16/18 04:11 O2 Sat by Pulse Oximetry 90 09/16/18 04:11 Oxygen Delivery Oxygen Delivery Simple Mask Shortness of Breath/Dyspnea - MDM Narrative Medical decision making narrative: Patient presents from home with lower extremity weakness and difficulty in breathing. She will be evaluated for a CHF exacerbation with lab work, troponin , BNP, EKG, and chest x-ray. Lab work has returned at patient's baseline. Chest x-ray shows cardiomegaly with mild pulmonary edema. Patient's breathing has improved with oxygen administration but she is still feeling short of breath and did become hypoxic in the mid 80s on nasal cannula, she was placed on a facemask which improved her oxygen saturation to the low 90s. Patient will be admitted to the hospital for IV diuresis as she states she "cannot take the Lasix at home because I cannot ge t up to walk to go to the bathroom". She will be given a dose of IV lasix in the ED and admitted to the hospital for hypoxia and CHF exacerbation. Pt has been accepted by Dr. Bland. - Medical Records Medical records reviewed: Yes I reviewed the patient's medical records. - Lab Data Lab results reviewed: Yes I reviewed the patient's lab results. Result diagrams: 09/15/18 23:59 09/15/18 23:59 Lab Results 09/15/18 09/15/18 09/15/18 Range/Units 23:59 23:59 23:59 WBC 13.3 H (4.3-11.1) K/mcL RBC 4.04 (3.82-4.97) M/mcL Hgb 11.5 (11.5-15.4) g/dL Hct 37.3 (35.3-44.9) % MCV 92.3 (83.0-100.0) fL MCH 28.5 (28.0-33.3) pg MCHC 30.8 L (31.6-35.5) g/dL RDW 14.4 (11.5-14.5) % Plt Count 306 (140-400) K/mcL MPV 9.6 (9.4-12.4) fL Immature Gran % 0.4 (0-4) % Seg Neutrophils % 76.3 % Lymphocytes % 15.8 % Monocytes % 5.5 % Eosinophils % 1.8 % Basophils % 0.2 % Neutrophils # 10.1 H (1.6-8.9) K/mcL Lymphocytes # 2.1 (0.6-4.6) K/mcL Monocytes # 0.7 (0.0-1.3) K/mcL Eosinophils # 0.2 (0.0-0.6) K/mcL Basophils # 0.0 (0.0-0.2) K/mcL Sodium 140 (136-145) mEq/L Potassium 3.9 (3.5-5.1) mEq/L Chloride 99 (98-107) mEq/L Carbon Dioxide 33 H (23-29) mEq/L BUN 21 (8-23) mg/dL Creatinine 1.16 (0.60-1.20) mg/dL Est GFR ( Amer) 56 L (> 60) Est GFR (Non-Af Amer) 46 L (> 60) BUN/Creatinine Ratio 18 (6-26) Glucose 202 H (70-105) mg/dL Calculated Osmolality 299 (280-300) Calcium 8.7 (8.6-10.3) mg/dL Troponin I 0.03 (< 0.04) ng/mL B-Natriuretic Peptide 106 H (Less than 100) pg/mL - Radiology Data Radiology results reviewed: Yes I reviewed the patient's radiology results. - EKG Data EKG attestation: Yes I reviewed and interpreted this EKG. EKG results narrative: EKG obtained at 23:39 on 09/15/2018 Heart rate 1 21 bpm, DC interval 1:15, QRS duration 145, QT 362, QTC 514 Sinus tachycardia with right bundle branch block and left anterior fascicular block. No signs of ST segment elevations or depressions. No other T-wave abnormalities. Unchanged when compared to previous EKG dated 08/02/2018.
[2018-09-16 00:26] LABS: Calcium 8.7 mg/dL (8.6-10.3); Potassium 3.9 mEq/L (3.5-5.1)
[2018-09-16 00:39] LABS: Basophils % 0.2 %; Eosinophils # 0.2 K/mcL (0.0-0.6); Eosinophils % 1.8 %; Hematocrit 37.3 % (35.3-44.9); Hemoglobin 11.5 g/dL (11.5-15.4); Immature Granulocytes % 0.4 % (0-4); Lymphocytes # 2.1 K/mcL (0.6-4.6); Lymphocytes % 15.8 %; Mean Corpuscular HGB Conc 30.8 g/dL (31.6-35.5); Mean Corpuscular Hemoglobin 28.5 pg (28.0-33.3); Mean Corpuscular Volume 92.3 fL (83.0-100.0); Mean Platelet Volume 9.6 fL (9.4-12.4); Monocytes # 0.7 K/mcL (0.0-1.3); Monocytes % 5.5 %; Neutrophils # 10.1 K/mcL (1.6-8.9); Platelet Count 306 K/mcL (140-400); Red Blood Count 4.04 M/mcL (3.82-4.97); Red Cell Distribution Width 14.4 % (11.5-14.5); Segmented Neutrophils % 76.3 %
[2018-09-16 01:23] LABS: Troponin I 0.03 ng/mL (< 0.04)
[2018-09-16] MEDS ORDERED: Furosemide 40 MG/4 ML VIAL IVP ONE (04:48)
--- NOTE | 2018-09-16 04:54 | Emergency Department Note ---
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 Diabetes mellitus complication status: with unspecified complications Qualified Code(s): E11.8 - Type 2 diabetes mellitus with unspecified compli cations COPD (chronic obstructive pulmonary disease) Qualifiers: COPD type: unspecified COPD Qualified Code(s): J44.9 - Chronic obstructive pulmonary disease, unspecified Disposition: Admitted As Inpatient Condition: Fair Referrals: NONE,PCP [Primary Care Provider] - Forms: ED Satisfaction Letter General Adult HPI - General Chief complaint: ED Shortness of Breath/Dyspnea Stated complaint: TERESITA Time Seen by Provider: 09/15/18 23:44 Source: patient, EMS Mode of arrival: EMS Limitations: no limitations Nursing Notes Reviewed: Yes Vital Signs Reviewed: Yes - History of Present Illness Pain Scale: 0 - Related Data Home Medications Medication Instructions Recorded Confirmed Albuterol Sulfate [Albuterol 1 puff IH Q4HR 05/01/16 08/03/18 Inhaler] Albuterol Neb [AccuNeb] 1.25 mg IH Q4-6H PRN 08/02/18 08/03/18 Vitamin E 4,000 unit PO DAILY 08/02/18 08/03/18 Budesonide/Formoterol 160/4.5 2 puff IH BID 08/03/18 08/03/18 [Symbicort 160/4.5] Furosemide [Lasix] 40 mg PO BID 08/03/18 08/03/18 Previous Rx's Medication Instructions Recorded Metoprolol XL (24 HR) Succ [Toprol 50 mg PO DAILY #30 tab.er.24h 05/16/16 Xl] Allergies Allergy/AdvReac Type Severity Reaction Status Date / Time pain med Allergy See Uncoded 08/03/18 15:36 Comments Constitutional: Reports: weakness. Denies: fever, chills Cardiovascular: Reports: dyspnea on exertion, orthopnea, edema. Denies: chest pain, palpitations, syncope Respiratory: Reports: dyspnea. Denies: cough, wheezes, hemoptysis Gastrointestinal: Denies: abdominal pain, nausea, vomiting, diarrhea Genitourinary: Denies: dysuria Musculoskeletal: Denies: back pain, neck pain Integumentary: Denies: rash Neurological: Reports: weakness, numbness, paresthesias. Denies: headache Endocrine: Denies: fatigue Past Medical History - Past Medical History Medical history: Reports: COPD, other Psychiatric history: Reports: anxiety ACTIVITY ASSISTANT history: Reports: no ACTIVITY ASSISTANT history - Social History Smoking Status: Former smoker Smokeless Tobacco Status: No Alcohol use: Reports: none Drug use: Reports: none Physical Exam - General Limitations: no limitations General appearance: alert, in distress (moderate) Course Vital Signs Temperature 98.5 F 09/15/18 23:34 Pulse Rate 119 09/15/18 23:34 Respiratory Rate 28 09/15/18 23:34 Blood Pressure 181/91 09/15/18 23:34 O2 Sat by Pulse Oximetry 98 09/15/18 23:34 Temperature 98.5 F 09/15/18 23:34 Pulse Rate 100 09/16/18 04:11 Respiratory Rate 18 09/16/18 04:11 Blood Pressure 130/53 09/16/18 04:11 O2 Sat by Pulse Oximetry 90 09/16/18 04:11 Oxygen Delivery Oxygen Delivery Simple Mask Medical Decision Making - Medical Records Medical records reviewed: Yes I reviewed the patient's medical records. - Lab Data Lab results reviewed: Yes I reviewed the patient's lab results. Result diagrams: 09/15/18 23:59 09/15/18 23:59 Lab Results 09/15/18 09/15/18 09/15/18 Range/Units 23:59 23:59 23:59 WBC 13.3 H (4.3-11.1) K/mcL RBC 4.04 (3.82-4.97) M/mcL Hgb 11.5 (11.5-15.4) g/dL Hct 37.3 (35.3-44.9) % MCV 92.3 (83.0-100.0) fL MCH 28.5 (28.0-33.3) pg MCHC 30.8 L (31.6-35.5) g/dL RDW 14.4 (11.5-14.5) % Plt Count 306 (140-400) K/mcL MPV 9.6 (9.4-12.4) fL Immature Gran % 0.4 (0-4) % Seg Neutrophils % 76.3 % Lymphocytes % 15.8 % Monocytes % 5.5 % Eosinophils % 1.8 % Basophils % 0.2 % Neutrophils # 10.1 H (1.6-8.9) K/mcL Lymphocytes # 2.1 (0.6-4.6) K/mcL Monocytes # 0.7 (0.0-1.3) K/mcL Eosinophils # 0.2 (0.0-0.6) K/mcL Basophils # 0.0 (0.0-0.2) K/mcL Sodium 140 (136-145) mEq/L Potassium 3.9 (3.5-5.1) mEq/L Chloride 99 (98-107) mEq/L Carbon Dioxide 33 H (23-29) mEq/L BUN 21 (8-23) mg/dL Creatinine 1.16 (0.60-1.20) mg/dL Est GFR ( Amer) 56 L (> 60) Est GFR (Non-Af Amer) 46 L (> 60) BUN/Creatinine Ratio 18 (6-26) Glucose 202 H (70-105) mg/dL Calculated Osmolality 299 (280-300) Calcium 8.7 (8.6-10.3) mg/dL Troponin I 0.03 (< 0.04) ng/mL B-Natriuretic Peptide 106 H (Less than 100) pg/mL - Radiology Data Radiology results reviewed: Yes I reviewed the patient's radiology results. Chest X-Ray 09/15/18 23:44 IMPRESSION: Cardiomegaly with pulmonary edema versus artifact related to the portable technique. D/ / Faraz Hampton MD / Faraz Hampton MD Interpreting Provider: Faraz Hampton MD - EKG Data EKG #1 EKG attestation: Yes I reviewed and interpreted this EKG. EKG results narrative: EKG shows a sinus tachycardia with ventricular rate of 121. Right bundle branch block. Unchanged from prior EKG dated 08/02/2018. Critical Care Time Critical Care Time: Yes Total Critical Care Time: 35 Attestation: Critical care performed: Time is exclusive of separately billable procedures. Time includes: direct patient care, patient reassessment, coordination of patient care, interpretation of data (laboratory data, radiology data, and respiratory data), review of patient's medical records, medical consultation and documentation of patient care. Procedures included in critical care time: Procedures excluded from critical care time: Attestation Statement - Attestation Attestation: I, Miguelito Omalley MD, personally evaluated this patient and discussed their management with the resident physician. I reviewed the resident's note and agree with the documented findings, medical decision making, and plan of care. 73-year-old female presents to the emergency department by EMS with a complaint of severe pain in both lower extremities. This is somewhat chronic but she states tonight it was just unbearable. She has both lower extremities wrapped. The right one is weeping and the wrap is saturated with green drainage from a lesion on the posterior calf. This is cared for by her at home. She do es have a doctor he does home visits. She also complains of severe weakness in the lower extremities. She normally uses a wheelchair and can get around very short distances using a walker at home. Tonight she states that her legs were just so weak that she was unable to move them and could not walk using her walker. She states she became very anxious and became short of breath. She does have a history of CHF. On examination patient is a well-developed obese elderly female in mild respiratory distress on arrival. She seems very anxious and is tachypneic. No cyanosis or diaphoresis. Breath sounds are decreased bilaterally. There are a few scattered expiratory wheezes. Heart tachycardic and regular. Abdomen soft with present bowel sounds. There is marked edema with erythema and chronic skin changes to both lower extremities below the knee. There is a weeping wound on the posterior right calf which I was unable to visualize adequately because of patient's lack of ability to move her lower extremities or her entire body. EKG showed sinus tach with rate of 121. Right bundle branch block. Unchanged from prior EKG dated 08/02/2018. Chest x-ray showed cardiomegaly with pulmonary edema. Labs reviewed. Patient received Lasix 40 mg IV. The hospitalist, Dr. Bland, was consulted and accepted admission of the patient.
--- NOTE | 2018-09-16 08:45 | Internal Med History&Physical ---
Date of Encounter: 09/16/18 Time of Encounter: 08:45 Internal Medicine - H&P: HPI History of present illness: 73 yo female with past medical history of COPD, CHF, diabetes presents to the emergency department via EMS with the complaint of lower extremity weakness and swelling associated with progressive worsening of shortness of breath. she was unable to stand up or walk and she had to stay in her urine until her returned from work. She denies fevers at home, chest pain, increased cough and sputum production, abdominal pain, nausea and vomiting. She has not noticed a decreased urine output. The patient is very emotional about her immobility, she stated that she no longer can visit with her son and see her grandkids, she has some suicidal ideation. She stated that since her leg become extremely swollen she no longer able to move around. The patient also has history of both DVT and pulmonary embolism was supposed to be on Eliquis however she could not afford it and currently she is not on any anticoagulation. , Severe swelling of both lower extremities associated with erythema and skin changes was noted in physical exam. The patient was admitted for further evaluation and management Past Med Surg Social Fam HX - Past Medical History Medical history: COPD, other Additional medical history: bells palsy family states has not seen a doctor in 30 years. Psychiatric history: anxiety - Past Surgical History Additional surgical history: tubal with surgical intervention. - Social History Smoking Status: Former smoker Smokeless Tobacco Status: No Alcohol use: none Drug use: none - Family History Father Living Status: Hx Family Cardiac Disorders: Yes (CHF, anuerysm) Hx Family Respiratory Disorders: No Hx Family Cancer: No Hx Family GI Disorders: No Hx Family Endocrine Disorder: Yes (IDDM 1) Hx Family Neuromuscular Disorders: No Hx Family Neurologic Disorders: No Hx Family HEENT Disorders: No Hx Family Autoimmune Disorders: No Mother Living Status: Age at : 66 Cause of : CHF Hx Family Cardiac Disorders: Yes (CHF, HTN) Hx Family Endocrine Disorder: Yes (DM) Sister Age: 69 Living Status: Age at : 69 Cause of : CHF Hx Family Cardiac Disorders: Yes Internal Medicine - H&P: Meds Albuterol Sulfate [Albuterol Inhaler] 1 puff IH Q4HR 05/01/16 [History] Metoprolol XL (24 HR) Succ [Toprol Xl] 50 mg PO DAILY #30 tab.er.24h 05/16/16 [Rx] Albuterol Neb [AccuNeb] 1.25 mg IH Q4-6H PRN 08/02/18 [History] Budesonide/Formoterol 160/4.5 [Symbicort 160/4.5] 2 puff IH BID 08/03/18 [History] Furosemide [Lasix] 40 mg PO BID 08/03/18 [History] Magnesium 250 mg PO DAILY 09/16/18 [History] Potassium 550 mg PO DAILY 09/16/18 [History] Vitamin E 400 unit PO DAILY 09/16/18 [History] Allergy/AdvReac Type Severity Reaction Status Date / Time pain med Allergy See Uncoded 08/03/18 15:36 Comments All Systems PM: A 10-system review of systems was performed and is negative for pertinent findin gs except as documented above in the HPI. - Constitutional Constitutional: lethargy, malaise, weakness - Cardiovascular Cardiovascular ROS IM: dyspnea, no chest pain, no diaphoresis, no lightheadedness, no palpitations, no syncope - Respiratory Respiratory: dyspnea, wheezing, no cough, no excessive phlegm production - Gastrointestinal Gastrointestinal: no abdominal pain, no diarrhea, no hematemesis, no hematochezia, no melena, no nausea, no vomiting - Integumentary Integumentary IM: erythema, new lesions, skin ulcer - Neurological Neurological ROS: no confusion, no convulsions, no focal weakness, no numbness, no tingling, no tremor(s) - Constitutional Vitals: Temp Pulse Resp BP Pulse Ox 98.3 F 98 18 123/53 95 09/16/18 07:01 09/16/18 07:01 09/16/18 07:01 09/16/18 07:01 09/16/18 07:01 General appearance: Present: A&O X 3 Exam: As below - Head Head exam: Present: atraumatic, normocephalic - Neck Neck exam general surgery: Present: supple, trachea midline. Absent: lymphadenopathy - Respiratory Respiratory exam: Present: rhonchi. Absent: accessory muscle use, rales, wheezes - Cardiovascular Cardiovascular exam: Present: RRR, +S1, +S2. Absent: diastolic murmur, gallop, rubs, systolic murmur - GI/Abdominal GI/Abdominal exam: Present: normal bowel sounds, soft, no peritoneal signs. Absent: distended, tenderness - Neurological Exam Neurological exam: Present: CN II-XII intact, oriented X3, no focal deficits. Absent: pronater drift, facial droop, speech deficit - Skin Skin exam: Present: erythema, intact Additional comments: Most lower extremities are swollen and was erythematous changes Internal Med - H&P Results - Labs CBC & Chem 7: 09/19/18 07:53 09/19/18 07:53 Labs: Short CBC 09/15/18 Range/Units 23:59 WBC 13.3 H (4.3-11.1) K/mcL Hgb 11.5 (11.5-15.4) g/dL Hct 37.3 (35.3-44.9) % Plt Count 306 (140-400) K/mcL Neutrophils # 10.1 H (1.6-8.9) K/mcL BMP 09/15/18 23:59 Sodium 140 Potassium 3.9 Chloride 99 Carbon Dioxide 33 H BUN 21 Creatinine 1.16 Glucose 202 H Calcium 8.7 Cardiac Enzymes 09/15/18 Range/Units 23:59 Troponin I 0.03 (< 0.04) ng/mL - Impressions ITS Impressions Chest X-Ray 09/15/18 23:44 IMPRESSION: Cardiomegaly with pulmonary edema versus artifact related to the portable technique. D/ / Faraz Hampton MD / Faraz Hampton MD Interpreting Provider: Faraz Hampton MD - Assessment and Plan (1) Congestive heart failure Current Visit: Yes Status: Acute Assessment and plan: SOB due to *CHF exacerbation Noncompliance PLAN: - CPP x 1 more, 8 hr after the 1st one - EKG in AM - ASA - O2 to keep SpO2 > 92% - Lasix 40 mg IV BID - Aerosols UD q 4 hr - UA - 2D Echo - CBCD, BMP in AM - Fasting lipids - Tylenol 650 mg PO q 4-6 hr PRN pain - Home meds Qualifiers: Heart failure type: diastolic Heart failure chronicity: acute on chronic Qualified Code(s): I50.33 - Acute on chronic diastolic (congestive) heart failure (2) Suicidal ideation Current Visit: Yes Status: Ruled-out Assessment and plan: We will consult psych for further evaluation and management (3) Depression Current Visit: No Status: Acute Qualifiers: Depression Type: major depressive disorder Major depression recurrence: unspecified whether recurrent Active/Remission status: currently active Tim guzman depression episode severity: moderate Qualified Code(s): F32.1 - Major depressive disorder, single episode, moderate (4) COPD exacerbation Current Visit: Yes Status: Acute Assessment and plan: We will continue home inhalers (5) Hx of deep venous thrombosis Current Visit: No Status: Chronic Assessment and plan: The patient is to be on Eliquis however she could not afford it now she is not in any anticoagulation, she stated that she follow at the resident clinic and she was told that she no longer needed, we will start the patient on heparin 5000 twice a day for DVT prophylaxis. (6) History of pulmonary embolism Current Visit: Yes Status: Acute (7) Physical deconditioning Current Visit: Yes Status: Chronic Assessment and plan: We will consult physical therapy and occupational therapy (8) Diabetes Current Visit: Yes Status: Chronic Assessment and plan: We will start the patient and insulin sliding scale with coverage Qualifiers: Diabetes mellitus type: type 2 Diabetes mellitus primer boxer insulin use: without fpc use Diabetes mellitus complication status: with neurologic complications Diabetes mellitus complication detail: with polyneuropathy Qualified Code(s): E11.42 - Type 2 diabetes mellitus with diabetic polyneuropathy (9) Decubitus skin ulcer Current Visit: Yes Status: Acute Assessment and plan: We will consult wound care for further evaluation and management Qualifiers: Pressure injury location: unspecified location Pressure injury stage: stage 2 Qualified Code(s): L89.92 - Pressure ulcer of unspecified site, stage 2 (10) Lower extremity cellulitis Current Visit: Yes Status: Acute Assessment and plan: Appears to be chronic , The patient stated that for the last several months she has lower extremity edema and erythema, We will order ESR and CRP to rule out infection Qualifiers: Qualified Code(s): L03.119 - Cellulitis of unspecified part of limb - Time Spent With Patient Total time spent is greater than 50% in coordination of care (as documented) at patient's floor/unit and/or counseling patient:
[2018-09-16] MEDS ORDERED: Dextrose Gel 15 GM/37.5 ML TUBE PO PRN ×2 (08:49)
[2018-09-16] MEDS ORDERED: D5% in Water 1,000 ML IVC PRN (08:49)
[2018-09-16] MEDS ORDERED: *HR* Dextrose 50 % in Water (Syg) 50 ML SYRINGE IVP PRN (08:49)
[2018-09-16] MEDS ORDERED: Ipratropium/Albuterol Neb 3 ML IH PRN (08:49)
[2018-09-16] MEDS: Insulin LISPRO 300 UNITS/3 ML VIAL SQ SCH ×4 (10:26→20:48)
[2018-09-16] MEDS ORDERED: Naloxone 0.4 MG/ML INJ IVP PRN ×2 (10:33)
[2018-09-16] MEDS ORDERED: Ondansetron ODT 4 MG TAB.RAPDIS SL PRN (10:33)
[2018-09-16] MEDS ORDERED: 0.9 % Sodium Chloride 250 ML ONE (11:15)
[2018-09-16] MEDS: Furosemide 40 MG in 0.9 % Sodium Chloride 50 ML IV SCH ×2 (11:18→20:38)
[2018-09-16 11:54] LABS: Estimated Average Glucose 134 mg/dl; Hemoglobin A1C 6.3 %
[2018-09-16] MEDS ORDERED: Perflutren Lipid Microsphere 1.3 ML in 0.9 % Sodium Chloride 8.7 ML IVP ONE (14:40)
[2018-09-16] MEDS: *HR* OxyCODONE Immed Rel 5 MG TABLET PO PRN ×2 (16:27→23:15)
[2018-09-16] MEDS ORDERED: Albuterol Neb 1.25 MG/3 ML VIAL IH PRN (16:57)
[2018-09-16] MEDS: Budesonide/Formoterol 160/4.5 1 PUFF INH IH SCH (19:40)
[2018-09-16] MEDS: Nystatin POWDER 30 GM BOTTLE TP SCH (20:38)
[2018-09-17 00:41] LABS: Bilirubin,Urine Negative (Negative); Blood,Urine Negative (Negative); Clarity,Urine Clear (Clear); Color,Urine Yellow (Yellow); Glucose,Urine (UA) Normal (Normal); Ketones,Urine Negative (Negative); Leukocyte Esterase,Urine Negative (Negative); Nitrite,Urine Negative (Negative); PH,Urine 5.5 pH Units (5.0-8.0); Protein,Urine Negative (Neg-Trace); Specific Gravity,Urine 1.015 (1.010-1.025); Urobilinogen,Urine Normal (Normal)
[2018-09-17 04:33] LABS: Basophils % 0.1 %; Eosinophils % 0.3 %; Hematocrit 33.6 % (35.3-44.9); Hemoglobin 10.1 g/dL (11.5-15.4); Immature Granulocytes % 0.2 % (0-4); Lymphocytes # 1.9 K/mcL (0.6-4.6); Lymphocytes % 17.6 %; Mean Corpuscular HGB Conc 30.1 g/dL (31.6-35.5); Mean Corpuscular Volume 93.1 fL (83.0-100.0); Mean Platelet Volume 9.7 fL (9.4-12.4); Monocytes # 0.9 K/mcL (0.0-1.3); Monocytes % 8.9 %; Neutrophils # 7.7 K/mcL (1.6-8.9); Platelet Count 243 K/mcL (140-400); Red Blood Count 3.61 M/mcL (3.82-4.97); Red Cell Distribution Width 14.6 % (11.5-14.5); Segmented Neutrophils % 72.9 %
[2018-09-17 04:45] LABS: Prothrombin Time 11.3 Seconds (9.4-12.1)
[2018-09-17 04:48] LABS: Activated Partial Thrombo Time 31.6 Seconds (26.0-36.0)
[2018-09-17 04:55] LABS: Alanine Aminotransferase 11 Units/L (7-52); Albumin 3.1 g/dL (3.5-5.7); Albumin/Globulin Ratio 0.9 (1.1-2.2); Alkaline Phosphatase 63 Units/L (34-104); Aspartate Amino Transferase 24 Units/L (13-39); BUN/Creatinine Ratio 21 (6-26); Bilirubin,Total 0.3 mg/dL (0.3-1.0); Blood Urea Nitrogen 23 mg/dL (8-23); Calcium 8.3 mg/dL (8.6-10.3); Carbon Dioxide 38 mEq/L (23-29); Chloride 97 mEq/L (98-107); Chol/HDL Ratio 2.6 (0-4.9); Cholesterol 170 mg/dL (< 200); Globulin 3.4 g/dL (2.4-3.5); Glucose 104 mg/dL (70-105); HDL Cholesterol 66 mg/dL (40-59); LDL Cholesterol,Calculated 86 mg/dL (0-99); Magnesium 2.1 mg/dL (1.6-2.6); Osmolality,Calculated 296 (280-300); Phosphorous 3.4 mg/dL (2.7-4.5); Potassium 3.4 mEq/L (3.5-5.1); Sodium 141 mEq/L (136-145); Total Protein 6.5 g/dL (6.4-8.9); Triglycerides 91 mg/dL (< 150); eGFR For Non-African Americans 50 (> 60)
[2018-09-17] MEDS: *HR* Heparin 5,000 UNIT/ML VIAL SQ SCH ×2 (04:59→20:58)
[2018-09-17] MEDS: Budesonide/Formoterol 160/4.5 1 PUFF INH IH SCH ×2 (07:45→22:15)
[2018-09-17] MEDS: Metoprolol XL (24 HR) Succ 50 MG TAB.ER.24H PO SCH (08:26)
[2018-09-17] MEDS: Furosemide 40 MG in 0.9 % Sodium Chloride 50 ML IV SCH ×2 (08:26→22:56)
[2018-09-17] MEDS: Insulin LISPRO 300 UNITS/3 ML VIAL SQ SCH ×4 (08:26→20:58)
[2018-09-17] MEDS: Magnesium Oxide 400 MG TABLET PO SCH (08:26)
[2018-09-17] MEDS: Nystatin POWDER 30 GM BOTTLE TP SCH ×3 (08:27→23:00)
[2018-09-17 08:52] LABS: C-Reactive Protein 18 mg/L (Less than 10)
--- NOTE | 2018-09-17 09:33 | Consult Note ---
Date of Encounter: 09/17/18 Time of Encounter: 09:10 Assessment & Recommendation (1) Depression Current visit: No Status: Acute Assessment & Recommendation: 1. I discussed getting her back on Remeron which according to her record she has been on before. She does not recall being on in the past. She says someone did prescribe her something once which she never took because she prefers to be "natural". She says she does not want to be started on an antidepressant at this time. 2. Would recommend home health care for patient's medical needs if she qualifies. This would give patient someone to talk to during the day and may make her feel like less of a burden to her (though adamantly denies that patient is a burden). 3. Recommended a home hospital bed for the patient so that she can sleep in a bed instead of in a chair at her kitchen island. There is no recliner in the house. 4. Recommend following up with an outpatient counselor at [facility] or [facility].. 5. The patient does not meet criteria for pink slip or psychiatric hospitalization at this time. 6. Psychiatry will sign off unless really contacted. Qualifiers: Depression Type: major depressive disorder Major depression recurrence: unspecified whether recurrent Active/Remission status: currently active Major depression episode severity: moderate Qualified Code(s): F32.1 - Major depressive disorder, single episode, moderate History of Present Illness Patient: known to practice within the last 3 years Requesting Physician: Brandan Lr MD Reason for consult: SI History of present illness: Ms. Booth is a 73 year old female who is known to consult service. She has COPD, CHF, diabetes, and severe lower extremity swelling. She was admitted for shortness of breath. Psychiatry was consulted for depression and some statements of wishing she were not alive. She has had these same symptoms and we have seen her on prior hospitalizations. As with her other hospitalization she has no active thoughts of harming herself, no plan, she prefers to live, she will said she would never kill herself because it would be too hurtful to her son and grandchild. She has no homicidal ideations. She is no psychosis. She does report feeling down, sad, tearful at times, she reports poor sleep because she has to sit up in a chair to attempt asleep and only gets 20-30 minutes at a time. She reports low energy but attributes that to her medical conditions. She says her appetite is okay for sweets. CC: Brandan Lr MD Past Med Surg Social Fam HX - Past Medical History Medical history: arthritis, asthma, COPD, DVT, pulmonary embolus, other - Past Psychiatric History Psychiatric history: Reports: depression. Denies: prior suicide attempt, previous psychiatric hospitalization Past psychiatric history details: She saw a psychiatrist several years ago for psychotherapy and medication management. She cannot recall the name of the medication but said it was for panic attacks and said she really only used it once or twice and then carried around a bottle to know that she had not if she needed. She has no prior psychiatric hospitalizations and no prior suicide attempts. Family psychiatric history: No Family History of Suicide: Attempted - Social History Smoking Status: Former smoker Smokeless Tobacco Status: No Alcohol use: none Drug use: none Occupational status: unemployed Current living situation: Home, With Family Recent Out of Country Travel Within the Last 8 Weeks: No Exposure or Possible Exposure to Illness During Travel: No Additional social history: Patient lives at home with her of 51 years. Her younger brother also lives with them. She has one child and twin grandchildren. She does not work, but her brother and are gone all day at work. - Family History Father Living Status: Age at : 63 Cause of : Stroke Hx Family Cardiac Disorders: Yes (CHF, anuerysm) Hx Family Respiratory Disorders: No Hx Family Cancer: No Hx Family GI Disorders: No Hx Family Endocrine Disorder: Yes (IDDM 1) Hx Family Neuromuscular Disorders: No Hx Family Neurologic Disorders: No Hx Family HEENT Disorders: No Hx Family Autoimmune Disorders: No Mother Living Status: Age at : 66 Cause of : CHF Hx Family Cardiac Disorders: Yes (CHF, HTN) Hx Family Endocrine Disorder: Yes (DM) Sister Age: 69 Living Status: Age at : 69 Cause of : CHF Hx Family Cardiac Disorders: Yes Medications & Allergies Albuterol Sulfate [Albuterol Inhaler] 1 puff IH Q4HR 05/01/16 [History] Metoprolol XL (24 HR) Succ [Toprol Xl] 50 mg PO DAILY #30 tab.er.24h 05/16/16 [Rx] Albuterol Neb [AccuNeb] 1.25 mg IH Q4-6H PRN 08/02/18 [History] Budesonide/Formoterol 160/4.5 [Symbicort 160/4.5] 2 puff IH BID 08/03/18 [History] Furosemide [Lasix] 40 mg PO BID 08/03/18 [History] Magnesium 250 mg PO DAILY 09/16/18 [History] Potassium 550 mg PO DAILY 09/16/18 [History] Vitamin E 400 unit PO DAILY 09/16/18 [History] Allergy/AdvReac Type Severity Reaction Status Date / Time pain med Allergy See Uncoded 08/03/18 15:36 Comments Review of Systems Constitutional: Reports: weakness Eyes: Denies: eye pain Ears, Nose, Throat: Denies: ear pain Cardiovascular: Reports: dyspnea on exertion Respiratory: Reports: dyspnea Gastrointestinal: Reports: abdominal pain Genitourinary female: Denies: urgency Musculoskeletal: Reports: back pain, joint pain, myalgia Integumentary: Reports: other (Severe swelling of lower extremities with some fluid leaking and broken them skin) Neurological: Reports: weakness Psychiatric: Reports: depression, abnormal sleep pattern, anhedonia, hopelessness. Denies: suicidal ideation, change in appetite, homicidal ideation, auditory hallucinations, visual hallucinations Endocrine: Reports: fatigue Hematologic/Lymphatic: Denies: easy bleeding Allergic/Immunologic: Denies: facial swelling Psychiatry Exam - Constitutional Vitals: Temp Pulse Resp BP Pulse Ox 98.2 F 76 18 134/63 92 09/17/18 07:53 09/17/18 07:53 09/17/18 07:53 09/17/18 07:53 09/17/18 07:53 General appearance: age & developmentally appropriate, disheveled - Musculoskeletal Gait: other (In bed) Station: stooped Strength & Tone: mild weakness - Psychiatric Patient Orientation: Yes Person, Yes Time, Yes Place, Yes Circumstance Level of alertness: Alert Behavior: tearful Psychomotor activity: Slowed Eye Contact: Minimal Contact Mood Description: Depressed Patient description of mood: "Down" Affect description: tearful, dysphoric Speech Volume: Normal Speech pattern: normal rate Language & Vocabulary: consistent with education Thought Process: Linear, Goal Oriented Thought Content: No Suicidal ideation, No Homicidal ideation, No Overt delusions Perceptual Disturbances: No Auditory hallucinations, No Visual hallucinations Attention Span Ability: Capable of Focused Attention Memory Description: Grossly Intact Patient Reliability: Reliable Historian Fund of knowledge: Yes abstraction ability, Yes aware of current events Intelligence Estimate: Average Judgment: Good Insight: Full Results - Drug Levels and Toxicology Drug Levels and Toxicology: Vital Signs Temp Pulse Resp BP Pulse Ox 09/17/18 07:53 98.2 F 76 18 134/63 92 09/17/18 07:45 16 93 09/17/18 04:09 98.3 F 73 17 146/67 94 09/17/18 04:08 18 99 09/17/18 00:33 98.0 F 65 17 128/61 94 09/16/18 19:56 95 09/16/18 19:43 18 93 09/16/18 18:48 99.1 F 80 18 122/54 93 09/16/18 16:18 98.3 F 85 17 115/48 93 09/16/18 11:46 18 96 09/16/18 11:19 98.3 F 88 18 130/63 93 Intake and Output 09/16/18 09/17/18 09/17/18 23:59 07:59 15:59 Intake Total 54 / 508 240 / 480 240 / 480 Output Total 700 / 2200 350 / 350 Balance -646 / -1692 -110 / 130 240 / 130 Intake: IV Fluids 54 / 108 Lasix 40 MG In 0.9 % Sodium 54 / 108 Chloride 50 ML @ 108 mls/hr IV BID [facility] Rx#:[id number] Oral 240 / 480 240 / 480 Output: Urine 700 / 2200 Catheter 350 / 350 Urethral (Lopez) 200 / 200 Other: Meal Breakfast Percent of Meal Consumed 85% Weight 113.5 kg Blood Glucose* 135 100 Patient Weight 09/17/18 23:59 Weight 113.5 kg Short CBC 09/17/18 Range/Units 03:50 WBC 10.6 (4.3-11.1) K/mcL Hgb 10.1 L (11.5-15.4) g/dL Hct 33.6 L (35.3-44.9) % Plt Count 243 (140-400) K/mcL Neutrophils # 7.7 (1.6-8.9) K/mcL BMP 09/17/18 Range/Units 03:50 Sodium 141 (136-145) mEq/L Potassium 3.4 L (3.5-5.1) mEq/L Chloride 97 L (98-107) mEq/L Carbon Dioxide 38 H (23-29) mEq/L BUN 23 (8-23) mg/dL Creatinine 1.08 (0.60-1.20) mg/dL Glucose 104 (70-105) mg/dL Calcium 8.3 L (8.6-10.3) mg/dL Liver Function 09/17/18 Range/Units 03:50 Total Bilirubin 0.3 (0.3-1.0) mg/dL AST 24 (13-39) Units/L ALT 11 (7-52) Units/L Alkaline Phosphatase 63 (34-104) Units/L Albumin 3.1 L (3.5-5.7) g/dL Urine 09/17/18 Range/Units 00:27 Urine Color Yellow (Yellow) Urine Clarity Clear (Clear) Urine pH 5.5 (5.0-8.0) pH Units Ur Specific [place] 1.015 (1.010-1.025) Urine Protein Negative (Neg-Trace) mg/dL Urine Glucose (UA) Normal (Normal) mg/dL - Labs Labs: Laboratory Last Values WBC 10.6 K/mcL (4.3-11.1) 09/17/18 03:50 RBC 3.61 M/mcL (3.82-4.97) L 09/17/18 03:50 Hgb 10.1 g/dL (11.5-15.4) L 09/17/18 03:50 Hct 33.6 % (35.3-44.9) L 09/17/18 03:50 MCV 93.1 fL (83.0-100.0) 09/17/18 03:50 MCH 28.0 pg (28.0-33.3) 09/17/18 03:50 MCHC 30.1 g/dL (31.6-35.5) L 09/17/18 03:50 RDW 14.6 % (11.5-14.5) H 09/17/18 03:50 Plt Count 243 K/mcL (140-400) 09/17/18 03:50 MPV 9.7 fL (9.4-12.4) 09/17/18 03:50 Immature Gran % 0.2 % (0-4) 09/17/18 03:50 Seg Neutrophils % 72.9 % 09/17/18 03:50 17.6 % 09/17/18 03:50 8.9 % 09/17/18 03:50 0.3 % 09/17/18 03:50 0.1 % 09/17/18 03:50 7.7 K/mcL (1.6-8.9) 09/17/18 03:50 1.9 K/mcL (0.6-4.6) 09/17/18 03:50 0.9 K/mcL (0.0-1.3) 09/17/18 03:50 0.0 K/mcL (0.0-0.6) 09/17/18 03:50 0.0 K/mcL (0.0-0.2) 09/17/18 03:50 ESR 47 mm/hr (0-15) H 09/17/18 03:50 PT 11.3 Seconds (9.4-12.1) 09/17/18 03:50 INR 1.0 09/17/18 03:50 APTT 31.6 Seconds (26.0-36.0) 09/17/18 03:50 Sodium 141 mEq/L (136-145) 09/17/18 03:50 Potassium 3.4 mEq/L (3.5-5.1) L 09/17/18 03:50 Chloride 97 mEq/L (98-107) L 09/17/18 03:50 Carbon Dioxide 38 mEq/L (23-29) H 09/17/18 03:50 BUN 23 mg/dL (8-23) 09/17/18 03:50 1.08 mg/dL (0.60-1.20) 09/17/18 03:50 Est GFR ( Amer) > 60 (> 60) 09/17/18 03:50 Est GFR (Non-Af Amer) 50 (> 60) L 09/17/18 03:50 21 (6-26) 09/17/18 03:50 Glucose 104 mg/dL (70-105) 09/17/18 03:50 POC Glucose 135 mg/dL (70-99) H 09/16/18 19:50 Est Mean Plasma Glucose 134 mg/dl 09/16/18 00:04 6.3 % (-5.6) H 09/16/18 00:04 296 (280-300) 09/17/18 03:50 Calcium 8.3 mg/dL (8.6-10.3) L 09/17/18 03:50 Phosphorus 3.4 mg/dL (2.7-4.5) 09/17/18 03:50 Magnesium 2.1 mg/dL (1.6-2.6) 09/17/18 03:50 0.3 mg/dL (0.3-1.0) 09/17/18 03:50 AST 24 Units/L (13-39) 09/17/18 03:50 ALT 11 Units/L (7-52) 09/17/18 03:50 63 Units/L (34-104) 09/17/18 03:50 0.03 ng/mL (< 0.04) 09/15/18 23:59 18 mg/L (Less than 10) H 09/17/18 03:50 B-Natriuretic Peptide 106 pg/mL (Less than 100) H 09/15/18 23:59 6.5 g/dL (6.4-8.9) 09/17/18 03:50 3.1 g/dL (3.5-5.7) L 09/17/18 03:50 3.4 g/dL (2.4-3.5) 09/17/18 03:50 0.9 (1.1-2.2) L 09/17/18 03:50 Triglycerides 91 mg/dL (< 150) 09/17/18 03:50 Cholesterol 170 mg/dL (< 200) 09/17/18 03:50 LDL Cholesterol, Calc 86 mg/dL (0-99) 09/17/18 03:50 VLDL Cholesterol, Calc 18 mg/dL (< 31) 09/17/18 03:50 66 mg/dL (40-59) H 09/17/18 03:50 2.6 (0-4.9) 09/17/18 03:50 Yellow (Yellow) 09/17/18 00:27 Clear (Clear) 09/17/18 00:27 5.5 pH Units (5.0-8.0) 09/17/18 00:27 Ur Specific [place] 1.015 (1.010-1.025) 09/17/18 00:27 Negative mg/dL (Neg-Trace) 09/17/18 00:27 Normal mg/dL (Normal) 09/17/18 00:27 Negative mg/dL (Negative) 09/17/18 00:27 Negative (Negative) 09/17/18 00:27 Negative (Negative) 09/17/18 00:27 Negative (Negative) 09/17/18 00:27 Normal mg/dL (Normal) 09/17/18 00:27 Ur Leukocyte Esterase Negative (Negative) 09/17/18 00:27 - Impressions Impressions Echocardiogram 09/16/18 08:36 Impressions: LVEF 50-55%. Normal LV chamber size, wall thickness and function. Mild left ventricular diastolic dysfunction. Definity echo contrast was used. Normal right ventricular structure and function on this study. Mild mitral regurgitation. Mild tricuspid regurgitation. Mild pulmonary hypertension. Left Ventricular Wall Motion: Rest Echo Findings All wall segments showed normal motion. Findings: Study Quality * Technically adequate exam. ECG Findings * Normal sinus rhythm. Left Ventricle * LVEF 50-55%. * Normal LV chamber size, wall thickness and function. * Mild left ventricular diastolic dysfunction. * Definity echo contrast was used. Right Ventricle * Normal right ventricular structure and function. Left Atrium * Mildly dilated left atrium. Right Atrium * Normal right atrial size. Mitral Valve * Normal mitral valve structure. * No mitral stenosis. * Mild mitral regurgitation. Aortic Valve * No aortic regurgitation. * Trileaflet aortic valve. * No aortic stenosis. Tricuspid Valve * Tricuspid valve not well visualized. * Mild tricuspid regurgitation. * Estimated RA pressure is 20 mmHg. * Estimated RVSP is 44 mmHg. * Mild pulmonary hypertension. Pulmonic Valve * Pulmonic valve is not well visualized. * No pulmonic stenosis. * No pulmonic regurgitation. Pulmonary Artery * Pulmonary artery not well visualized. Aorta * Normally sized aortic root. Pericardium * There is no pericardial effusion present. Interatrial Septum * No evidence of PFO by color Doppler. IVC * The IVC is dilated. * < 50% respiratory change. Consult Discharge Plan - Plan Referrals: NONE,PCP [Primary Care Provider] -
--- NOTE | 2018-09-17 14:25 | Internal Med Progress Note ---
Hospitalist Progress Note - Encounter Date of Encounter: 09/17/18 Time of Encounter: 10:30 - Subjective Interval History: Patient lying down in bed. Continues to have lower extremity swelling and some shortness of breath. No fevers or chills reported overnight. Also complains of bilateral foot pain. Currently on 4.5 L nasal cannula. - Exam Vitals: Temp Pulse Resp BP Pulse Ox 98.2 F 69 18 129/59 92 09/17/18 11:23 09/17/18 11:23 09/17/18 11:23 09/17/18 11:23 09/17/18 11:23 Exam: General: Patient is alert, mild distress, oriented x 3 ENT: Mucous membranes moist Respiratory: Good respiratory effort. Normal breath sounds. No wheezing or crackles. Cardiovascular: Regular rate and rhythm. s1 and s2 normal No clicks, rubs, gallops, or murmurs. Bilateral pedal edema with stasis dermatitis on both lower extremities. Abdomen: Abdomen is soft, nontender. Bowel sounds are present Musculoskeletal: Spontaneously moving all extremities; stasis dermatitis in both lower extremities. Dry skin with onychomycosis and poor hygiene involving her both feet. No clear signs of acute infection. Skin: warm, dry, intact. Psych: Depressed mood. Neuro: Alert oriented x 3 normal cranial nerves, no focal deficits - Assessment and Plan (1) Congestive heart failure Current Visit: Yes Status: Acute (2) Suicidal ideation Current Visit: Yes Status: Acute (3) Depression Current Visit: No Status: Acute (4) COPD exacerbation Current Visit: No Status: Acute (5) Hx of deep venous thrombosis Current Visit: No Status: Chronic (6) History of pulmonary embolism Current Visit: Yes Status: Acute (7) Physical deconditioning Current Visit: Yes Status: Acute (8) Diabetes Current Visit: Yes Status: Acute (9) Decubitus skin ulcer Current Visit: Yes Status: Acute (10) Stasis dermatitis of both legs Current Visit: Yes Status: Acute DVT Prophylaxis: Patient being treated for acute on chronic diastolic congestive heart failure. Will continue Lasix. Patient has had good diuresis so far. Renal function remained stable. We will supplement potassium. Evaluated by psychiatry and recommended treatment for depression. Not suicidal. Will DC one-to-one sitter. She does not want treatment for depression. ESR and CRP is slightly elevated. No clear signs of cellulitis on my exam but patient does need to be evaluated by podiatry. She has not never taken care of her feet and she does appear to have very unkempt nails and onychomycosis. Bilateral foot pain which could be from neuropathy, we will place her on low-dose gabapentin. Continue bronchodilators for COPD. On metoprolol for hypertension which is well controlled. On subcuta neous heparin for DVT prophylaxis. 2-D echocardiogram done shows EF of 50-55% with mild left ventricle and diastolic dysfunction. - Time Spent with Patient Total time spent is greater than 50% in coordination of care (as documented) at patient's floor/unit and/or counseling patient: Internal Medicine: Result - Labs CBC & Chem 7: 09/17/18 03:50 09/17/18 03:50 Labs: Short CBC 09/17/18 Range/Units 03:50 WBC 10.6 (4.3-11.1) K/mcL Hgb 10.1 L (11.5-15.4) g/dL Hct 33.6 L (35.3-44.9) % Plt Count 243 (140-400) K/mcL Neutrophils # 7.7 (1.6-8.9) K/mcL BMP 09/17/18 03:50 Sodium 141 Potassium 3.4 L Chloride 97 L Carbon Dioxide 38 H BUN 23 Creatinine 1.08 Glucose 104 Calcium 8.3 L Liver Function 09/17/18 Range/Units 03:50 Total Bilirubin 0.3 (0.3-1.0) mg/dL AST 24 (13-39) Units/L ALT 11 (7-52) Units/L Alkaline Phosphatase 63 (34-104) Units/L Albumin 3.1 L (3.5-5.7) g/dL Urine 09/17/18 Range/Units 00:27 Urine Color Yellow (Yellow) Urine Clarity Clear (Clear) Urine pH 5.5 (5.0-8.0) pH Units Ur Specific [place] 1.015 (1.010-1.025) Urine Protein Negative (Neg-Trace) mg/dL Urine Glucose (UA) Normal (Normal) mg/dL - ABG Interpretation ABG results: PT/INR, D-dimer PT 11.3 Seconds (9.4-12.1) 09/17/18 03:50 - Impressions Impressions Echocardiogram 09/16/18 08:36 Impressions: LVEF 50-55%. Normal LV chamber size, wall thickness and function. Mild left ventricular diastolic dysfunction. Definity echo contrast was used. Normal right ventricular structure and function on this study. Mild mitral regurgitation. Mild tricuspid regurgitation. Mild pulmonary hypertension. Left Ventricular Wall Motion: Rest Echo Findings All wall segments showed normal motion. Findings: Study Quality * Technically adequate exam. ECG Findings * Normal sinus rhythm. Left Ventricle * LVEF 50-55%. * Normal LV chamber size, wall thickness and function. * Mild left ventricular diastolic dysfunction. * Definity echo contrast was used. Right Ventricle * Normal right ventricular structure and function. Left Atrium * Mildly dilated left atrium. Right Atrium * Normal right atrial size. Mitral Valve * Normal mitral valve structure. * No mitral stenosis. * Mild mitral regurgitation. Aortic Valve * No aortic regurgitation. * Trileaflet aortic valve. * No aortic stenosis. Tricuspid Valve * Tricuspid valve not well visualized. * Mild tricuspid regurgitation. * Estimated RA pressure is 20 mmHg. * Estimated RVSP is 44 mmHg. * Mild pulmonary hypertension. Pulmonic Valve * Pulmonic valve is not well visualized. * No pulmonic stenosis. * No pulmonic regurgitation. Pulmonary Artery * Pulmonary artery not well visualized. Aorta * Normally sized aortic root. Pericardium * There is no pericardial effusion present. Interatrial Septum * No evidence of PFO by color Doppler. IVC * The IVC is dilated. * < 50% respiratory change. Consult Discharge Plan - Plan Referrals: NONE,PCP [Primary Care Provider] - (1) Congestive heart failure Qualifiers: Heart failure type: diastolic Heart failure chronicity: acute on chronic Qualified Code(s): I50.33 - Acute on chronic diastolic (congestive) heart failure (3) Depression Qualifiers: Depression Type: major depressive disorder Major depression recurrence: unspecified whether recurrent Active/Remission status: currently active Major depression episode severity: moderate Qualified Code(s): F32.1 - Major depressive disorder, single episode, moderate (8) Diabetes Qualifiers: Diabetes mellitus type: type 2 Diabetes mellitus prison insulin use: without prison use Diabetes mellitus complication detail: with polyneuropathy
[2018-09-17] MEDS: Ipratropium/Albuterol Neb 3 ML IH PRN (18:56)
[2018-09-17] MEDS: Gabapentin 100 MG CAPSULE PO SCH (20:57)
[2018-09-17] MEDS: *HR* OxyCODONE Immed Rel 5 MG TABLET PO PRN (23:04)
[2018-09-18] MEDS: Ipratropium/Albuterol Neb 3 ML IH PRN ×5 (00:15→15:14)
[2018-09-18] MEDS: *HR* Heparin 5,000 UNIT/ML VIAL SQ SCH ×2 (05:52→17:37)
[2018-09-18 07:06] LABS: Basophils % 0.2 %; Eosinophils # 0.2 K/mcL (0.0-0.6); Eosinophils % 1.8 %; Hematocrit 33.8 % (35.3-44.9); Immature Granulocytes % 0.2 % (0-4); Lymphocytes # 1.6 K/mcL (0.6-4.6); Lymphocytes % 17.8 %; Mean Corpuscular HGB Conc 29.6 g/dL (31.6-35.5); Mean Corpuscular Hemoglobin 27.9 pg (28.0-33.3); Mean Corpuscular Volume 94.2 fL (83.0-100.0); Mean Platelet Volume 9.9 fL (9.4-12.4); Monocytes # 0.7 K/mcL (0.0-1.3); Monocytes % 7.4 %; Neutrophils # 6.5 K/mcL (1.6-8.9); Platelet Count 237 K/mcL (140-400); Red Blood Count 3.59 M/mcL (3.82-4.97); Red Cell Distribution Width 14.5 % (11.5-14.5); Segmented Neutrophils % 72.6 %
[2018-09-18] MEDS: Budesonide/Formoterol 160/4.5 1 PUFF INH IH SCH ×2 (07:17→19:43)
[2018-09-18 07:33] LABS: BUN/Creatinine Ratio 22 (6-26); Blood Urea Nitrogen 20 mg/dL (8-23); Calcium 8.7 mg/dL (8.6-10.3); Carbon Dioxide 39 mEq/L (23-29); Chloride 97 mEq/L (98-107); Glucose 94 mg/dL (70-105); Osmolality,Calculated 294 (280-300); Potassium 3.8 mEq/L (3.5-5.1); Sodium 141 mEq/L (136-145); eGFR For Non-African Americans > 60 (> 60)
[2018-09-18] MEDS: Metoprolol XL (24 HR) Succ 50 MG TAB.ER.24H PO SCH (08:12)
[2018-09-18] MEDS: Gabapentin 100 MG CAPSULE PO SCH ×3 (08:12→21:50)
[2018-09-18] MEDS: Insulin LISPRO 300 UNITS/3 ML VIAL SQ SCH ×4 (08:12→21:55)
[2018-09-18] MEDS: Magnesium Oxide 400 MG TABLET PO SCH (08:12)
[2018-09-18] MEDS: Furosemide 40 MG in 0.9 % Sodium Chloride 50 ML IV SCH (08:13)
[2018-09-18] MEDS: Nystatin POWDER 30 GM BOTTLE TP SCH ×3 (08:16→21:54)
--- NOTE | 2018-09-18 09:54 | Electrocardiograph Report ---
[address] [place], [place] [address] Test Date: 2018-09-15 Pat Name: Selma Booth Department: [id number] Room: 2NE19 Gender: F Food Vendor: : [id number] Requested By: Ileana Cardona Order Number: [id number] Reading MD: Chidi Burdick Measurements Intervals [place] Rate: 121 P: 67 SC: 115 QRS: -75 QRSD: 145 T: 66 QT: 362 QTc: 514 Interpretive Statements Sinus tachycardia RBBB and LAFB Electronically Signed On 09-18-2018 9:53:17 EDT by Chidi Burdick
--- NOTE | 2018-09-18 11:21 | Event Note ---
Date of Encounter: 09/18/18 Time of Encounter: 11:00 Podiatry consulted in regards to toenail care. Patient is alert and oriented sitting in bed with no acute distress noted. Patient reports history of elongated, thick, and mycotic nails bilateral feet and dry skin. She reports she doesn't like to have her toenails trimmed due to pain in her feet. She reports history of "weepy lower legs" and that she did have a [employer] come to her house once and she soaked her feet and trimmed her nails and removed all the tissue. Patient states "they looked like normal feet." Patient's bilateral lower extremity with extreme xerosis noted and toenails thick, elongated and onychomycosis noted. No ulcer, pre-ulcerative lesion, blisters, r lydia, or maceration noted to either foot. 2/4 pulses noted PT/DP bilaterally. Cap refill less than 3 seconds. Edema 2/4 lower extremities. Recommend heel medix boots to lower extremities while in bed and follow up with Podiatry outpatient for nail care. Will sign off, please re-consult if feel needs further evaluation from Podiatry team.
--- NOTE | 2018-09-18 14:09 | Internal Med Progress Note ---
Hospitalist Progress Note - Encounter Date of Encounter: 09/18/18 Time of Encounter: 14:07 - Subjective Interval History: Evaluated patient earlier today. She feels much better this morning. She did have an episode of worsening shortness of breath last night and felt like she could not get any air in. She received bronchodilator treatment with and after that she was able to cough up some mucus and since then she has been doing better. She does have chronic home oxygen 2 L/m. - Exam Vitals: Temp Pulse Resp BP Pulse Ox 98.7 F 86 20 161/88 91 09/18/18 07:18 09/18/18 07:18 09/18/18 07:18 09/18/18 07:18 09/18/18 07:18 Exam: General: Patient is alert, mild distress, oriented x 3 ENT: Mucous membranes moist Respiratory: Decreased air entry at both bases. And expiratory wheezing present Cardiovascular: Regular rate and rhythm. s1 and s2 normal No clicks, rubs, gallops, or murmurs. Bilateral pedal edema present Abdomen: Abdomen is soft, nontender. Bowel sounds are present Musculoskeletal: Spontaneously moving all extremities Skin: Feet stasis dermatitis and cirrhosis noted on both feet with onychomycosis involving pretty much all the nails. No cellulitis noted. Neuro: Alert oriented x 3 normal cranial nerves, no focal deficits - Assessment and Plan (1) Acute on chronic respiratory failure with hypoxemia Current Visit: Yes Status: Acute (2) Congestive heart failure Current Visit: Yes Status: Acute (3) Suicidal ideation Current Visit: Yes Status: Ruled-out (4) Depression Current Visit: No Status: Acute (5) COPD exacerbation Current Visit: No Status: Acute (6) Hx of deep venous thrombosis Current Visit: No Status: Chronic (7) History of pulmonary embolism Current Visit: Yes Status: Acute (8) Physical deconditioning Current Visit: Yes Status: Acute (9) Diabetes Current Visit: Yes Status: Acute (10) Decubitus skin ulcer Current Visit: Yes Status: Acute (11) Stasis dermatitis of both legs Current Visit: Yes Status: Acute (12) Morbid obesity with BMI of 40.0-44.9, adult Current Visit: Yes Status: Acute - Summary of Assessment and Plan Summary of Assessment and Plan: Patient with acute respiratory failure with hypoxia related to CHF exacerbation and COPD exacerbation. Continue intravenous Lasix. Continue scheduled bronchodilators and O2 supplementation. Patient is currently on Flor[place]f liters O2 supplementation. Will wean FiO2 as tolerated. Order incentive spirometry. Blood pressure is currently elevated. Patient is on metoprolol 50 mg daily. We will add lisinopril 5 mg daily. Blood sugars are well controlled at this time. Podiatry evaluated patient regarding her bilateral lower extremity extreme xerosis and onychomycosis. We will follow recommendations. Physical therapy evaluation pending. Patient is agreeable to stay at skilled rehabilitation if needed. Moderate risk for complications. - Time Spent with Patient Total time spent is greater than 50% in coordination of care (as documented) at patient's floor/unit and/or counseling patient: Internal Medicine: Result - Labs CBC & Chem 7: 09/18/18 05:54 09/18/18 05:54 Labs: Short CBC 09/18/18 Range/Units 05:54 WBC 9.0 (4.3-11.1) K/mcL Hgb 10.0 L (11.5-15.4) g/dL Hct 33.8 L (35.3-44.9) % Plt Count 237 (140-400) K/mcL Neutrophils # 6.5 (1.6-8.9) K/mcL BMP 09/18/18 05:54 Sodium 141 Potassium 3.8 Chloride 97 L Carbon Dioxide 39 H BUN 20 Creatinine 0.89 Glucose 94 Calcium 8.7 - ABG Interpretation ABG results: PT/INR, D-dimer PT 11.3 Seconds (9.4-12.1) 09/17/18 03:50 Consult Discharge Plan - Plan Referrals: NONE,PCP [Primary Care Provider] - (2) Congestive heart failure Qualifiers: Heart failure type: diastolic Heart failure chronicity: acute on chronic Qualified Code(s): I50.33 - Acute on chronic diastolic (congestive) heart failure (4) Depression Qualifiers: Depression Type: major depressive disorder Major depression recurrence: unspecified whether recurrent Active/Remission status: currently active Major depression episode severity: moderate Qualified Code(s): F32.1 - Major depressive disorder, single episode, moderate (9) Diabetes Qualifiers: Diabetes mellitus type: type 2 Diabetes mellitus correction insulin use: without correction use Diabetes mellitus complication detail: with polyneuropathy
[2018-09-18] MEDS: Furosemide 40 MG/4 ML VIAL IVP SCH (16:15)
[2018-09-18] MEDS: Ipratropium/Albuterol Neb 3 ML IH SCH ×4 (19:43→23:57)
[2018-09-18] MEDS: *HR* OxyCODONE Immed Rel 5 MG TABLET PO PRN (21:49)
[2018-09-19] MEDS: Ipratropium/Albuterol Neb 3 ML IH SCH ×6 (03:36→23:49)
[2018-09-19] MEDS: *HR* Heparin 5,000 UNIT/ML VIAL SQ SCH ×2 (05:42→18:00)
[2018-09-19] MEDS: Budesonide/Formoterol 160/4.5 1 PUFF INH IH SCH ×2 (07:19→19:51)
[2018-09-19 08:40] LABS: Basophils % 0.2 %; Eosinophils # 0.2 K/mcL (0.0-0.6); Eosinophils % 2.1 %; Hematocrit 32.7 % (35.3-44.9); Hemoglobin 9.9 g/dL (11.5-15.4); Immature Granulocytes % 0.3 % (0-4); Lymphocytes # 1.5 K/mcL (0.6-4.6); Lymphocytes % 15.7 %; Mean Corpuscular HGB Conc 30.3 g/dL (31.6-35.5); Mean Corpuscular Hemoglobin 28.4 pg (28.0-33.3); Mean Corpuscular Volume 93.7 fL (83.0-100.0); Mean Platelet Volume 9.8 fL (9.4-12.4); Monocytes # 0.9 K/mcL (0.0-1.3); Monocytes % 8.7 %; Neutrophils # 7.1 K/mcL (1.6-8.9); Platelet Count 226 K/mcL (140-400); Red Blood Count 3.49 M/mcL (3.82-4.97); Red Cell Distribution Width 14.7 % (11.5-14.5)
[2018-09-19 08:59] LABS: BUN/Creatinine Ratio 24 (6-26); Blood Urea Nitrogen 23 mg/dL (8-23); Calcium 8.5 mg/dL (8.6-10.3); Carbon Dioxide 39 mEq/L (23-29); Chloride 95 mEq/L (98-107); Glucose 94 mg/dL (70-105); Osmolality,Calculated 285 (280-300); Potassium 4.2 mEq/L (3.5-5.1); Sodium 136 mEq/L (136-145); eGFR For Non-African Americans 58 (> 60)
[2018-09-19] MEDS: Metoprolol XL (24 HR) Succ 50 MG TAB.ER.24H PO SCH (10:03)
[2018-09-19] MEDS: Magnesium Oxide 400 MG TABLET PO SCH (10:03)
[2018-09-19] MEDS: Gabapentin 100 MG CAPSULE PO SCH ×3 (10:03→21:32)
[2018-09-19] MEDS: Furosemide 40 MG/4 ML VIAL IVP SCH (10:03)
[2018-09-19] MEDS: Insulin LISPRO 300 UNITS/3 ML VIAL SQ SCH ×4 (10:04→21:43)
[2018-09-19] MEDS: Nystatin POWDER 30 GM BOTTLE TP SCH ×3 (10:08→21:43)
--- NOTE | 2018-09-19 12:59 | Internal Med Progress Note ---
Hospitalist Progress Note - Encounter Date of Encounter: 09/19/18 Time of Encounter: 12:57 - Subjective Interval History: Evaluated patient earlier today. She is lying down in bed. Complains of nausea. No shortness of breath. No chest pain or palpitations. No fever or chills reported overnight. Lower extremity swelling is improving. - Exam Vitals: Temp Pulse Resp BP Pulse Ox 98.2 F 78 18 135/61 95 09/19/18 07:09 09/19/18 07:09 09/19/18 11:32 09/19/18 07:09 09/19/18 11:32 Exam: General: Patient is alert, mild distress, oriented x 3 ENT: Mucous membranes moist Respiratory: Decreased breath sounds at both bases. Prolonged expiratory phase. Cardiovascular: Regular rate and rhythm. s1 and s2 normal No clicks, rubs, gallops, or murmurs. Bilateral pedal edema extending up to the knee. Improving overall. Abdomen: Abdomen is soft, nontender. Bowel sounds are present Musculoskeletal: Spontaneously moving all extremities Skin: significant xerosis involving both lower extremities. With onychomycosis involving all the toes Neuro: Alert oriented x 3 normal cranial nerves, no focal deficits - Assessment and Plan (1) Acute on chronic respiratory failure with hypoxemia Current Visit: Yes Status: Acute Assessment and Plan: Patient remains on 4 L O2 supplementation. Saturating well at 95%. Continue. Wean FiO2 as tolerated. (2) Congestive heart failure Current Visit: Yes Status: Acute Assessment and Plan: patient has responded well to intravenous Lasix. -4 L fluid balance. We will transition to oral Lasix. (3) Suicidal ideation Current Visit: Yes Status: Ruled-out (4) Depression Current Visit: No Status: Acute Assessment and Plan: Patient does not wish for any treatment for this condition. (5) COPD exacerbation Current Visit: Yes Status: Acute Assessment and Plan: Continue bronchodilators. Clinically patient is feeling better today with regards to her breathing status. (6) Physical deconditioning Current Visit: Yes Status: Chronic Assessment and Plan: Patient has agreed to placement to skilled rehabilitation. 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 (7) Diabetes Current Visit: Yes Status: Chronic Assessment and Plan: Blood sugars are well controlled. Continue current insulin regimen. (8) Decubitus skin ulcer Current Visit: Yes Status: Acute Assessment and Plan: Patient has multiple decubitus ulcers in various stages in different locations. Stage II ulcer noted on gluteal region. Wound Care consult has been placed. We will follow recommendations. Currently have foam dressing on. (9) Stasis dermatitis of both legs Current Visit: Yes Status: Acute Assessment and Plan: Continued aggressive diuresis. ARETHA hose stockings if patient able to tolerate. (10) Morbid obesity with BMI of 40.0-44.9, adult Current Visit: Yes Status: Chronic DVT Prophylaxis: On Sq Heparin - Time Spent with Patient Total time spent is greater than 50% in coordination of care (as documented) at patient's floor/unit and/or counseling patient: Internal Medicine: Result - Labs CBC & Chem 7: 09/19/18 07:53 09/19/18 07:53 Labs: Short CBC 09/19/18 Range/Units 07:53 WBC 9.7 (4.3-11.1) K/mcL Hgb 9.9 L (11.5-15.4) g/dL Hct 32.7 L (35.3-44.9) % Plt Count 226 (140-400) K/mcL Neutrophils # 7.1 (1.6-8.9) K/mcL BMP 09/19/18 07:53 Sodium 136 Potassium 4.2 Chloride 95 L Carbon Dioxide 39 H BUN 23 Creatinine 0.95 Glucose 94 Calcium 8.5 L - ABG Interpretation ABG results: PT/INR, D-dimer PT 11.3 Seconds (9.4-12.1) 09/17/18 03:50 Consult Discharge Plan - Plan Referrals: NONE,PCP [Primary Care Provider] - (2) Congestive heart failure Qualifiers: Heart failure type: diastolic Heart failure chronicity: acute on chronic Qualified Code(s): I50.33 - Acute on chronic diastolic (congestive) heart failure (4) Depression Qualifiers: Depression Type: major depressive disorder Major depression recurrence: unspecified whether recurrent Active/Remission status: currently active Major depression episode severity: moderate Qualified Code(s): F32.1 - Major depressive disorder, single episode, moderate (7) Diabetes Qualifiers: Diabetes mellitus type: type 2 Diabetes mellitus longterm insulin use: without assistant terminal manager use Diabetes mellitus complication status: with neurologic complications Diabetes mellitus complication detail: with polyneuropathy Qualified Code(s): E11.42 - Type 2 diabetes mellitus with diabetic polyneuropathy (8) Decubitus skin ulcer Qualifiers: Pressure injury location: unspecified location Pressure injury stage: stage 2 Qualified Code(s): L89.92 - Pressure ulcer of unspecified site, stage 2
[2018-09-19] MEDS: Furosemide 40 MG TABLET PO SCH (18:00)
[2018-09-20] MEDS: Ipratropium/Albuterol Neb 3 ML IH SCH ×6 (03:31→23:42)
[2018-09-20] MEDS: Acetaminophen 325 MG TABLET PO PRN ×2 (04:39→20:04)
[2018-09-20] MEDS: *HR* Heparin 5,000 UNIT/ML VIAL SQ SCH ×2 (04:55→17:40)
[2018-09-20] MEDS: Budesonide/Formoterol 160/4.5 1 PUFF INH IH SCH ×2 (07:15→19:57)
[2018-09-20] MEDS: Furosemide 40 MG TABLET PO SCH ×2 (08:29→16:32)
[2018-09-20] MEDS: Metoprolol XL (24 HR) Succ 50 MG TAB.ER.24H PO SCH (08:29)
[2018-09-20] MEDS: *HR* OxyCODONE Immed Rel 5 MG TABLET PO PRN ×2 (08:29→16:32)
[2018-09-20] MEDS: Gabapentin 100 MG CAPSULE PO SCH ×3 (08:29→19:57)
[2018-09-20] MEDS: Magnesium Oxide 400 MG TABLET PO SCH (08:30)
[2018-09-20] MEDS: Insulin LISPRO 300 UNITS/3 ML VIAL SQ SCH ×4 (08:30→20:00)
[2018-09-20] MEDS: Nystatin POWDER 30 GM BOTTLE TP SCH ×3 (08:31→20:00)
--- NOTE | 2018-09-20 18:59 | Internal Med Progress Note ---
Hospitalist Progress Note - Encounter Date of Encounter: 09/20/18 Time of Encounter: 11:00 - Subjective Interval History: Patient is a 73-year-old female who presents due to shortness of breath secondary to acute on chronic diastolic heart failure and COPD exacerbation. Patients respiratory status has improved and currently awaiting placement to residential facility. - Exam Vitals: Temp Pulse Resp BP Pulse Ox 98 F 82 16 141/56 90 09/20/18 16:56 09/20/18 16:56 09/20/18 16:56 09/20/18 16:56 09/20/18 16:56 Exam: Gen.: Nonacute distress, alert and oriented 3 ENT: Mucosal membranes moist Respiratory: Lungs are clear to auscultation bilaterally without any wheezing rhonchi or rales Cardiovascular: Normal S1 and S2 regular rate rhythm no murmurs rubs or gallops Abdomen: Soft, nontender and nondistended with positive bowel sounds Extremities: No lower extremity edema Skin: Normal color - Assessment and Plan (1) COPD exacerbation Current Visit: Yes Status: Acute Assessment and Plan: Continue bronchodilators. Clinically patient is feeling better today with regards to her breathing status. (2) Congestive heart failure Current Visit: Yes Status: Acute Assessment and Plan: patient has responded well to intravenous Lasix. She has now been transitioned to oral Lasix (3) Depression Current Visit: No Status: Acute Assessment and Plan: Psych consult with recommendation to start patient on Remeron She is declining treatment at this point (4) Physical deconditioning Current Visit: Yes Status: Chronic Assessment and Plan: Awaiting placement to residential facility. (5) Diabetes Current Visit: Yes Status: Chronic Assessment and Plan: Blood sugars are well controlled. Continue current insulin regimen. (6) Decubitus skin ulcer Current Visit: Yes Status: Acute Assessment and Plan: Patient has multiple decubitus ulcers in various stages in different locations. Stage II ulcer noted on gluteal region. Wound Care consult has been placed. We will follow recommendations. (7) Stasis dermatitis of both legs Current Visit: Yes Status: Acute Assessment and Plan: Continued aggressive diuresis. ARETHA hose stockings if patient able to tolerate. (8) Morbid obesity with BMI of 40.0-44.9, adult Current Visit: Yes Status: Chronic Assessment and Plan: BMI 42.2 (9) Acute on chronic respiratory failure with hypoxemia Current Visit: Yes Status: Acute Assessment and Plan: Patient remains on 4 L O2 supplementation. Wean FiO2 as tolerated. DVT Prophylaxis: Subcutaneous heparin - Time Spent with Patient Total time spent is greater than 50% in coordination of care (as documented) at patient's floor/unit and/or counseling patient: Internal Medicine: Result - Labs CBC & Chem 7: 09/19/18 07:53 09/19/18 07:53 - ABG Interpretation ABG results: PT/INR, D-dimer PT 11.3 Seconds (9.4-12.1) 09/17/18 03:50 Consult Discharge Plan - Plan Referrals: NONE,PCP [Primary Care Provider] - (2) Congestive heart failure Qualifiers: Heart failure type: diastolic Heart failure chronicity: acute on chronic Qualified Code(s): I50.33 - Acute on chronic diastolic (congestive) heart failure (3) Depression Qualifiers: Depression Type: major depressive disorder Major depression recurrence: unspecified whether recurrent Active/Remission status: currently active Major depression episode severity: moderate Qualified Code(s): F32.1 - Major depressive disorder, single episode, moderate (5) Diabetes Qualifiers: Diabetes mellitus type: type 2 Diabetes mellitus chcf insulin use: without chcf use Diabetes mellitus complication status: with neurologic complications Diabetes mellitus complication detail: with polyneuropathy Qualified Code(s): E11.42 - Type 2 diabetes mellitus with diabetic polyneuropathy (6) Decubitus skin ulcer Qualifiers: Pressure injury location: unspecified location Pressure injury stage: stage 2 Qualified Code(s): L89.92 - Pressure ulcer of unspecified site, stage 2
[2018-09-21] MEDS: Ipratropium/Albuterol Neb 3 ML IH SCH ×6 (03:42→23:57)
[2018-09-21] MEDS: *HR* Heparin 5,000 UNIT/ML VIAL SQ SCH ×2 (05:39→18:44)
[2018-09-21] MEDS: Budesonide/Formoterol 160/4.5 1 PUFF INH IH SCH ×2 (07:39→19:52)
[2018-09-21] MEDS: Gabapentin 100 MG CAPSULE PO SCH ×3 (10:05→21:29)
[2018-09-21] MEDS: Metoprolol XL (24 HR) Succ 50 MG TAB.ER.24H PO SCH (10:05)
[2018-09-21] MEDS: Nystatin POWDER 30 GM BOTTLE TP SCH ×3 (10:05→23:16)
[2018-09-21] MEDS: Magnesium Oxide 400 MG TABLET PO SCH (10:05)
[2018-09-21] MEDS: Furosemide 40 MG TABLET PO SCH ×2 (10:05→16:42)
[2018-09-21] MEDS: Insulin LISPRO 300 UNITS/3 ML VIAL SQ SCH ×4 (10:06→21:29)
--- NOTE | 2018-09-21 19:03 | Internal Med Progress Note ---
Hospitalist Progress Note - Encounter Date of Encounter: 09/21/18 Time of Encounter: 11:00 - Subjective Interval History: Patient is a 73-year-old female who presents due to shortness of breath secondary to acute on chronic diastolic heart failure and COPD exacerbation. Patients respiratory status has improved and currently awaiting placement to long-term facility. - Exam Vitals: Temp Pulse Resp BP Pulse Ox 98.9 F 75 18 115/48 90 09/21/18 15:14 09/21/18 15:14 09/21/18 15:45 09/21/18 15:14 09/21/18 15:45 Exam: Gen.: Nonacute distress, alert and oriented 3 ENT: Mucosal membranes moist Respiratory: Lungs are clear to auscultation bilaterally without any wheezing rhonchi or rales Cardiovascular: Normal S1 and S2 regular rate rhythm no murmurs rubs or gallops Abdomen: Soft, nontender and nondistended with positive bowel sounds Extremities: No lower extremity edema Skin: Normal color - Assessment and Plan (1) Physical deconditioning Current Visit: Yes Status: Chronic Assessment and Plan: Awaiting placement to long-term facility. (2) COPD exacerbation Current Visit: Yes Status: Acute Assessment and Plan: Continue bronchodilators. Clinically patient is feeling better today with regards to her breathing status. (3) Depression Current Visit: No Status: Acute Assessment and Plan: Psych consult with recommendation to start patient on Remeron She is declining treatment at this point (4) Congestive heart failure Current Visit: Yes Status: Acute Assessment and Plan: patient has responded well to intravenous Lasix. She has now been transitioned to oral Lasix (5) Diabetes Current Visit: Yes Status: Chronic Assessment and Plan: Blood sugars are well controlled. Continue current insulin regimen. (6) Decubitus skin ulcer Current Visit: Yes Status: Acute Assessment and Plan: Patient has multiple decubitus ulcers in various stages in different locations. Stage II ulcer noted on gluteal region. Wound Care consult has been placed. We will follow recommendations. - Time Spent with Patient Total time spent is greater than 50% in coordination of care (as documented) at patient's floor/unit and/or counseling patient: Internal Medicine: Result - Labs CBC & Chem 7: 09/19/18 07:53 09/19/18 07:53 - ABG Interpretation ABG results: PT/INR, D-dimer PT 11.3 Seconds (9.4-12.1) 09/17/18 03:50 Consult Discharge Plan - Plan Referrals: NONE,PCP [Primary Care Provider] - (3) Depression Qualifiers: Depression Type: major depressive disorder Major depression recurrence: unspecified whether recurrent Active/Remission status: currently active Major depression episode severity: moderate Qualified Code(s): F32.1 - Major depressive disorder, single episode, moderate (4) Congestive heart failure Qualifiers: Heart failure type: diastolic Heart failure chronicity: acute on chronic Qualified Code(s): I50.33 - Acute on chronic diastolic (congestive) heart failure (5) Diabetes Qualifiers: Diabetes mellitus type: type 2 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
[2018-09-22] MEDS: *HR* OxyCODONE Immed Rel 5 MG TABLET PO PRN ×2 (03:40→10:36)
[2018-09-22] MEDS: Ipratropium/Albuterol Neb 3 ML IH SCH ×4 (03:58→15:51)
[2018-09-22] MEDS: *HR* Heparin 5,000 UNIT/ML VIAL SQ SCH (05:15)
[2018-09-22] MEDS: Insulin LISPRO 300 UNITS/3 ML VIAL SQ SCH ×2 (09:23→12:21)
[2018-09-22] MEDS: Furosemide 40 MG TABLET PO SCH (09:26)
[2018-09-22] MEDS: Metoprolol XL (24 HR) Succ 50 MG TAB.ER.24H PO SCH (09:27)
[2018-09-22] MEDS: Nystatin POWDER 30 GM BOTTLE TP SCH ×2 (09:27→14:11)
[2018-09-22] MEDS: Magnesium Oxide 400 MG TABLET PO SCH (09:27)
[2018-09-22] MEDS: Gabapentin 100 MG CAPSULE PO SCH ×2 (09:27→14:10)
[2018-09-22] MEDS: Budesonide/Formoterol 160/4.5 1 PUFF INH IH SCH (10:58)
[2018-09-22 15:32] VITALS: BP 138/66
--- NOTE | 2018-09-22 16:33 | Physician Discharge Referral ---
ExtendedCare Referral Info Institutional Level of Care: Skilled - Diagnosis (1) Physical deconditioning Status: Chronic (2) COPD exacerbation Status: Acute (3) Depression Status: Acute (4) Congestive heart failure Status: Acute (5) Diabetes Status: Chronic (6) Decubitus skin ulcer Status: Acute - Transfer Medications Prescriptions: Gabapentin [Neurontin] 100 mg PO TID 4 Days #12 capsule OxyCODONE Immed Rel [Roxicodone 5 MG] 10 mg PO Q6HR PRN 4 Days #16 tablet PRN Reason: Severe Pain Home Medications: Albuterol Sulfate [Albuterol Inhaler] 1 puff IH Q4HR 05/01/16 [History] Metoprolol XL (24 HR) Succ [Toprol Xl] 50 mg PO DAILY #30 tab.er.24h 05/16/16 [Rx] Albuterol Neb [AccuNeb] 1.25 mg IH Q4-6H PRN 08/02/18 [History] Budesonide/Formoterol 160/4.5 [Symbicort 160/4.5] 2 puff IH BID 08/03/18 [History] Furosemide [Lasix] 40 mg PO BID 08/03/18 [History] Magnesium 250 mg PO DAILY 09/16/18 [History] Potassium 550 mg PO DAILY 09/16/18 [History] Vitamin E 400 unit PO DAILY 09/16/18 [History] Gabapentin [Neurontin] 100 mg PO TID 4 Days #12 capsule 09/22/18 [Rx] Lisinopril [Zestril] 5 mg PO DAILY tablet 09/22/18 [Rx] OxyCODONE Immed Rel [Roxicodone 5 MG] 10 mg PO Q6HR PRN 4 Days #16 tablet 09/22/18 [Rx] Allergies/Adverse Reactions: Allergy/AdvReac Type Severity Reaction Status Date / Time pain med Allergy See Uncoded 08/03/18 15:36 Comments - Respiratory Orders Smoking Cessation: Smoking cessation has been advised. For more information, call the [place] Tobacco Quit Line at 5-910-ADHG-NOW. CERTIFICATION: I certify that the transfer of the above named patient to an Extended Care Facility is necessary for the continuing treatment of the diagnosis listed. The above information is true and accurate reflection of patient's current condition. Confidential - Redisclosure prohibited without a patient's written consent.
--- NOTE | 2018-09-22 16:33 | Discharge Summary ---
Date of Encounter: 09/22/18 Time of Encounter: 11:00 - Discharge Diagnosis (1) Physical deconditioning Priority: Primary Status: Chronic (2) COPD exacerbation Priority: Primary Status: Acute (3) Depression Priority: Primary Status: Acute Qualifiers: Depression Type: major depressive disorder Major depression recurrence: unspecified whether recurrent Active/Remission status: currently active Major depression episode severity: moderate Qualified Code(s): F32.1 - Major depressive disorder, single episode, moderate (4) Congestive heart failure Priority: Primary Status: Acute Qualifiers: Heart failure type: diastolic Heart failure chronicity: acute on chronic Qualified Code(s): I50.33 - Acute on chronic diastolic (congestive) heart failure (5) Diabetes Priority: Secondary Status: Chronic Qualifiers: Diabetes mellitus type: type 2 Diabetes mellitus jail insulin use: without jail use Diabetes mellitus complication status: with neurologic complications Diabetes mellitus complication detail: with polyneuropathy Qualified Code(s): E11.42 - Type 2 diabetes mellitus with diabetic polyneuropathy (6) Decubitus skin ulcer Priority: Secondary Status: Acute Qualifiers: Pressure injury location: unspecified location Pressure injury stage: stage 2 Qualified Code(s): L89.92 - Pressure ulcer of unspecified site, stage 2 Hospital course: Patient is a 73-year-old female who presents due to shortness of breath secondary to acute on chronic diastolic heart failure and COPD exacerbation. During patients hospital stay her COPD exacerbation improved as did her acute on chronic heart failure with IV diuresis. Patient is now medically stable to be transferred to shelter facility for strengthening conditioning. - Time Spent with Patient Total time spent providing and/or coordinating discharge services: - Discharge Medications Prescriptions: New Gabapentin [Neurontin] 100 mg PO TID 4 Days #12 capsule OxyCODONE Immed Rel [Roxicodone 5 MG] 10 mg PO Q6HR PRN 4 Days #16 tablet PRN Reason: Severe Pain Lisinopril [Zestril] 5 mg PO DAILY tablet Continued Albuterol Sulfate [Albuterol Inhaler] 1 puff IH Q4HR Albuterol Neb [AccuNeb] 1.25 mg IH Q4-6H PRN PRN Reason: Difficulty in Breathing Budesonide/Formoterol 160/4.5 [Symbicort 160/4.5] 2 puff IH BID Furosemide [Lasix] 40 mg PO BID Vitamin E 400 unit PO DAILY Potassium 550 mg PO DAILY Magnesium 250 mg PO DAILY Metoprolol XL (24 HR) Succ [Toprol Xl] 50 mg PO DAILY #30 tab.er.24h Home Medications: Albuterol Sulfate [Albuterol Inhaler] 1 puff IH Q4HR 05/01/16 [History] Metoprolol XL (24 HR) Succ [Toprol Xl] 50 mg PO DAILY #30 tab.er.24h 05/16/16 [Rx] Albuterol Neb [AccuNeb] 1.25 mg IH Q4-6H PRN 08/02/18 [History] Budesonide/Formoterol 160/4.5 [Symbicort 160/4.5] 2 puff IH BID 08/03/18 [History] Furosemide [Lasix] 40 mg PO BID 08/03/18 [History] Magnesium 250 mg PO DAILY 09/16/18 [History] Potassium 550 mg PO DAILY 09/16/18 [History] Vitamin E 400 unit PO DAILY 09/16/18 [History] Gabapentin [Neurontin] 100 mg PO TID 4 Days #12 capsule 09/22/18 [Rx] Lisinopril [Zestril] 5 mg PO DAILY tablet 09/22/18 [Rx] OxyCODONE Immed Rel [Roxicodone 5 MG] 10 mg PO Q6HR PRN 4 Days #16 tablet 09/22/18 [Rx] Allergies/Adverse Reactions: Allergy/AdvReac Type Severity Reaction Status Date / Time pain med Allergy See Uncoded 08/03/18 15:36 Comments Date of admission: 09/16/18 17:22 Primary care physician: PCP NONE Consults: 09/16/18 10:21 Consult to Supervisor Cd Area [CONS] Routine Reason for SW Consult: patient is bed bound is gone at home all day and patient is unable to care for her self 09/16/18 10:37 Consult to Occupational Therapy [CONS] Routine Comment: Evaluate, develop and implement POC Reason for Consult: Difficulty with mobilization Does patient have active BEDREST order?: Yes Is patient medically & hemodynamically stable?: Yes Patient assessed for mobility or mobilized this visit?: No 09/16/18 10:38 Consult to Physical Therapy [CONS] Routine Comment: Evaluate, develop and implement POC Reason for Consult: Difficulty with mobilization Does patient have active BEDREST order?: Yes Is patient medically & hemodynamically stable?: Yes Patient assessed for mobility or mobilized this visit?: No 09/16/18 10:41 Consult to Wound Care [CONS] Routine Reason for Consult: Decub. ulcer Time Notified: 10:41 Call Completed: No 09/16/18 11:03 Consult to Psychiatry [CONS] Routine Consulting Provider: [facility] [place] Reason consult: Other Other reason and/or additional details: Suicidal Time Notified: 11:05 Call Completed: No 09/16/18 17:32 Consult to Podiatry [CONS] Routine Consulting Provider: Podiatry [facility] Reason for Consult: toenail and foot care Time Notified: 17:35 Call Completed: Yes - Constitutional Vitals: Temp Pulse Resp BP Pulse Ox 98.3 F 70 18 138/66 93 09/22/18 15:28 09/22/18 15:28 09/22/18 15:51 09/22/18 15:28 09/22/18 15:51 General appearance: Present: A&O X 3 Exam: Gen.: Nonacute distress, alert and oriented 3 Skin: Normal color - Patient Status Disposition: Transfer LTC Condition: Fair - Discharge Instructions Follow Up With: NONE,PCP [Primary Care Provider] -
== END 2018-09-22 19:25 | DRG 291 ==
LOC: 2NENU 23:31 → EMEROOARM 23:31 → 2NENU 09-16 06:30 → SUATTDRO 09-16 17:22
PROVIDERS: ADMIT Internal Medicine; ATTEND Hospitalist

== ENCOUNTER 2018-11-02 08:14 | Inpatient (IN) ==
[2018-11-02] MEDS ORDERED: Furosemide 40 MG/4 ML VIAL IVP ONE (08:25)
[2018-11-02] MEDS ORDERED: Nitroglycerin 0.4 MG TAB.SUBL SL ONE (08:28)
[2018-11-02] MEDS: Nitroglycerin 0.4 MG TAB.SUBL SL SCH ×2 (08:39→14:15)
[2018-11-02] MEDS ORDERED: Isovue-370 500 ML BOTTLE IVP ONE (08:45)
[2018-11-02 08:50] LABS: Basophils # 0.1 K/mcL (0.0-0.2); Basophils % 0.5 %; Eosinophils # 0.5 K/mcL (0.0-0.6); Eosinophils % 2.9 %; Hematocrit 46.8 % (35.3-44.9); Hemoglobin 13.4 g/dL (11.5-15.4); Immature Granulocytes % 1.6 % (0-4); Lymphocytes % 43.7 %; Mean Corpuscular HGB Conc 28.6 g/dL (31.6-35.5); Mean Corpuscular Hemoglobin 27.5 pg (28.0-33.3); Mean Corpuscular Volume 95.9 fL (83.0-100.0); Mean Platelet Volume 9.9 fL (9.4-12.4); Monocytes % 4.6 %; Neutrophils # 8.6 K/mcL (1.6-8.9); Platelet Count 393 K/mcL (140-400); Red Blood Count 4.88 M/mcL (3.82-4.97); Red Cell Distribution Width 14.2 % (11.5-14.5); Segmented Neutrophils % 46.7 %; White Blood Count 18.4 K/mcL (4.3-11.1)
[2018-11-02 08:52] LABS: Monocytes # 0.9 K/mcL (0.0-1.3)
[2018-11-02] MEDS: Nitroglycerin 25 MG/250 ML INFUS..BTL IVC SCH (08:59)
[2018-11-02 09:00] LABS: Prothrombin Time 11.3 Seconds (9.4-12.1)
[2018-11-02 09:02] LABS: Activated Partial Thrombo Time 38.5 Seconds (26.0-36.0)
[2018-11-02 09:26] LABS: Hypochromasia Present (Not Present); Platelet Estimate Normal (Normal)
[2018-11-02 09:42] LABS: Alanine Aminotransferase 10 Units/L (7-52); Albumin 3.4 g/dL (3.5-5.7); Albumin/Globulin Ratio 0.9 (1.1-2.2); Alkaline Phosphatase 114 Units/L (34-104); Aspartate Amino Transferase 18 Units/L (13-39); BUN/Creatinine Ratio 17 (6-26); Bilirubin,Direct 0.1 mg/dL (0.0-0.2); Bilirubin,Indirect 0.2 mg/dL (0.0-1.2); Bilirubin,Total 0.3 mg/dL (0.3-1.0); Blood Urea Nitrogen 16 mg/dL (8-23); Calcium 8.9 mg/dL (8.6-10.3); Carbon Dioxide 22 mEq/L (23-29); Chloride 100 mEq/L (98-107); Globulin 3.8 g/dL (2.4-3.5); Glucose 321 mg/dL (70-105); Lipase 19 Units/L (11-82); Magnesium 2.5 mg/dL (1.6-2.6); Osmolality,Calculated 298 (280-300); Phosphorous 7.2 mg/dL (2.7-4.5); Potassium 3.7 mEq/L (3.5-5.1); Sodium 137 mEq/L (136-145); Total Protein 7.2 g/dL (6.4-8.9); Troponin I < 0.03 ng/mL (< 0.04); eGFR For African Americans > 60 (> 60); eGFR For Non-African Americans 57 (> 60)
[2018-11-02 09:42] LABS: ABG Base Excess 2 mEq/L (-2 to 3); ABG HCO3 30 mEq/L (21-27); ABG Oxygen Saturation 95 % (95-98); ABG PCO2 63 mmHg (35-45); ABG PH 7.29 pH Units (7.32-7.45); ABG PO2 86 mmHg (85-104); ABG TCO2 32 mEq/L (20-26); Blood Gas Modality BiLevel
--- NOTE | 2018-11-02 09:53 | Emergency Department Note ---
Disposition Clinical Impression: Acute respiratory distress Pulmonary edema Qualifiers: Chronicity: acute Qualified Code(s): J81.0 - Acute pulmonary edema CHF exacerbation Qualifiers: Heart failure type: unspecified Qualified Code(s): I50.9 - Heart failure, unspecified Disposition: Admitted As Inpatient Condition: Fair Referrals: NONE,PCP [Primary Care Provider] - Forms: ED Satisfaction Letter Time of Disposition: 09:53 General Adult HPI - General Chief complaint: ED Shortness of Breath/Dyspnea Stated complaint: TERESITA Time Seen by Provider: 11/02/18 08:22 Source: EMS Limitations: altered mental status - History of Present Illness Pain Scale: 0 - Related Data Home Medications Medication Instructions Recorded Confirmed Albuterol Sulfate [Proventil 1 puff IH Q4HR 05/01/16 09/16/18 Inhaler] Albuterol Neb [AccuNeb] 1.25 mg IH Q4-6H PRN 08/02/18 09/16/18 Budesonide/Formoterol 160/4.5 2 puff IH BID 08/03/18 09/16/18 [Symbicort 160/4.5] Furosemide [Lasix] 40 mg PO BID 08/03/18 09/16/18 Magnesium 250 mg PO DAILY 09/16/18 09/16/18 Potassium 550 mg PO DAILY 09/16/18 09/16/18 Vitamin E 400 unit PO DAILY 09/16/18 09/16/18 Previous Rx's Medication Instructions Recorded Metoprolol XL (24 HR) Succ [Toprol 50 mg PO DAILY #30 tab.er.24h 05/16/16 Xl] Lisinopril [Zestril] 5 mg PO DAILY tablet 09/22/18 Allergies Allergy/AdvReac Type Severity Reaction Status Date / Time pain med Allergy See Uncoded 08/03/18 15:36 Comments Past Medical History - Past Medical History Medical history: Reports: arthritis, asthma, COPD, DVT, pulmonary embolus, other Psychiatric history: Reports: depression MEMBER OF CONGRESS history: Reports: no [employer]BER [employer] history - Social History Smoking Status: Former smoker Smokeless Tobacco Status: No Alcohol use: Reports: none Drug use: Reports: none Physical Exam - General Limitations: altered mental status General appearance: in distress Course Vital Signs Temperature 98.2 F 11/02/18 08:17 Pulse Rate 145 11/02/18 08:17 Respiratory Rate 32 11/02/18 08:17 Blood Pressure 182/117 11/02/18 08:17 O2 Sat by Pulse Oximetry 99 11/02/18 08:17 Temperature 98.2 F 11/02/18 08:18 Pulse Rate 122 11/02/18 09:43 Respiratory Rate 22 11/02/18 09:43 Blood Pressure 135/73 11/02/18 09:43 O2 Sat by Pulse Oximetry 100 11/02/18 09:43 Oxygen Delivery Oxygen Delivery Bipap Medical Decision Making - Lab Data Result diagrams: 11/02/18 08:37 11/02/18 08:37 Lab Results 11/02/18 11/02/18 11/02/18 Range/Units 08:37 08:37 08:37 WBC 18.4 H (4.3-11.1) K/mcL RBC 4.88 (3.82-4.97) M/mcL Hgb 13.4 (11.5-15.4) g/dL Hct 46.8 H (35.3-44.9) % MCV 95.9 (83.0-100.0) fL MCH 27.5 L (28.0-33.3) pg MCHC 28.6 L (31.6-35.5) g/dL RDW 14.2 (11.5-14.5) % Plt Count 393 (140-400) K/mcL MPV 9.9 (9.4-12.4) fL Immature Gran % 1.6 (0-4) % Seg Neutrophils % 46.7 % Lymphocytes % 43.7 % Monocytes % 4.6 % Eosinophils % 2.9 % Basophils % 0.5 % Neutrophils # 8.6 (1.6-8.9) K/mcL Lymphocytes # 8.0 H (0.6-4.6) K/mcL Monocytes # 0.9 (0.0-1.3) K/mcL Eosinophils # 0.5 (0.0-0.6) K/mcL Basophils # 0.1 (0.0-0.2) K/mcL Platelet Estimate Normal (Normal) Hypochromasia Present A (Not Present) PT 11.3 (9.4-12.1) Seconds INR 1.0 APTT 38.5 H (26.0-36.0) Seconds Sample Site ABG pH (7.32-7.45) pH Units ABG pCO2 (35-45) mmHg ABG pO2 (85-104) mmHg ABG HCO3 (21-27) mEq/L ABG Total CO2 (20-26) mEq/L ABG O2 Saturation (95-98) % ABG Base Excess (-2 to 3) mEq/L O2 Delivery Device Blood Gas Modality Inspired O2 (1-15=lpm sn61-115=%) Sodium 137 (136-145) mEq/L Potassium 3.7 (3.5-5.1) mEq/L Chloride 100 (98-107) mEq/L Carbon Dioxide 22 L (23-29) mEq/L BUN 16 (8-23) mg/dL Creatinine 0.96 (0.60-1.20) mg/dL Est GFR ( Amer) > 60 (> 60) Est GFR (Non-Af Amer) 57 L (> 60) BUN/Creatinine Ratio 17 (6-26) Glucose 321 H (70-105) mg/dL Calculated Osmolality 298 (280-300) Calcium 8.9 (8.6-10.3) mg/dL Phosphorus 7.2 H (2.7-4.5) mg/dL Magnesium 2.5 (1.6-2.6) mg/dL Total Bilirubin 0.3 (0.3-1.0) mg/dL Direct Bilirubin 0.1 (0.0-0.2) mg/dL Indirect Bilirubin 0.2 (0.0-1.2) mg/dL AST 18 (13-39) Units/L ALT 10 (7-52) Units/L Alkaline Phosphatase 114 H (34-104) Units/L Troponin I < 0.03 (< 0.04) ng/mL Serum Total Protein 7.2 (6.4-8.9) g/dL Albumin 3.4 L (3.5-5.7) g/dL Globulin 3.8 H (2.4-3.5) g/dL Albumin/Globulin Ratio 0.9 L (1.1-2.2) Lipase 19 (11-82) Units/L 11/02/18 Range/Units 09:36 WBC (4.3-11.1) K/mcL RBC (3.82-4.97) M/mcL Hgb (11.5-15.4) g/dL Hct (35.3-44.9) % MCV (83.0-100.0) fL MCH (28.0-33.3) pg MCHC (31.6-35.5) g/dL RDW (11.5-14.5) % Plt Count (140-400) K/mcL MPV (9.4-12.4) fL Immature Gran % (0-4) % Seg Neutrophils % % Lymphocytes % % Monocytes % % Eosinophils % % Basophils % % Neutrophils # (1.6-8.9) K/mcL Lymphocytes # (0.6-4.6) K/mcL Monocytes # (0.0-1.3) K/mcL Eosinophils # (0.0-0.6) K/mcL Basophils # (0.0-0.2) K/mcL Platelet Estimate (Normal) Hypochromasia (Not Present) PT (9.4-12.1) Seconds INR APTT (26.0-36.0) Seconds Sample Site R Radial ABG pH 7.29 L (7.32-7.45) pH Units ABG pCO2 63 H (35-45) mmHg ABG pO2 86 (85-104) mmHg ABG HCO3 30 H (21-27) mEq/L ABG Total CO2 32 H (20-26) mEq/L ABG O2 Saturation 95 (95-98) % ABG Base Excess 2 (-2 to 3) mEq/L O2 Delivery Device BiPAP Blood Gas Modality BiLevel Inspired O2 40.0 (1-15=lpm [id number]=%) Sodium (136-145) mEq/L Potassium (3.5-5.1) mEq/L Chloride (98-107) mEq/L Carbon Dioxide (23-29) mEq/L BUN (8-23) mg/dL Creatinine (0.60-1.20) mg/dL Est GFR ( Amer) (> 60) Est GFR (Non-Af Amer) (> 60) BUN/Creatinine Ratio (6-26) Glucose (70-105) mg/dL Calculated Osmolality (280-300) Calcium (8.6-10.3) mg/dL Phosphorus (2.7-4.5) mg/dL Magnesium (1.6-2.6) mg/dL Total Bilirubin (0.3-1.0) mg/dL Direct Bilirubin (0.0-0.2) mg/dL Indirect Bilirubin (0.0-1.2) mg/dL AST (13-39) Units/L ALT (7-52) Units/L Alkaline Phosphatase (34-104) Units/L Troponin I (< 0.04) ng/mL Serum Total Protein (6.4-8.9) g/dL Albumin (3.5-5.7) g/dL Globulin (2.4-3.5) g/dL Albumin/Globulin Ratio (1.1-2.2) Lipase (11-82) Units/L Attestation Statement - Attestation Attestation: I reviewed the residents documentation and agree with the residents assessment and plan of care. I have personally had face to face time with the patient. (Brief History, Brief Exam, and MDM) I personally supervised and was present for the corey/critical portions of the following procedures completed by the resident: EKG 73 year old female presents to the ED with complaints of acute respiratory distress and AMS. Leon was found unrespnisve in her house by her and she has a histroy of CHF and COPD and appaers to be in pulmonary edema. She was quickly placed on bipap with nitro drip and lasix therapy and has otherwise been improvin. 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 We will contineu to stabilize leon and obtain a CTA chest/ab/p secondary to her histoyr of PE but also to rule out dissection. admit to medicine
[2018-11-02] MEDS ORDERED: Piperacillin/Tazobactam 3.375 GM in 0.9 % Sodium Chloride Mini Bag 100 ML IVPB ONE (10:00)
[2018-11-02] MEDS ORDERED: levoFLOXacin 750 MG/150 ML 750 MG/150 ML BAG IVPB ONE (10:00)
[2018-11-02] MEDS ORDERED: 0.9 % Sodium Chloride 500 ML IVC ONE (10:12)
[2018-11-02 10:25] LABS: Bilirubin,Urine Negative (Negative); Blood,Urine Negative (Negative); Clarity,Urine Cloudy (Clear); Color,Urine Yellow (Yellow); Glucose,Urine (UA) Normal (Normal); Ketones,Urine Negative (Negative); Leukocyte Esterase,Urine Trace (Negative); Nitrite,Urine Negative (Negative); Protein,Urine Negative (Neg-Trace); Urobilinogen,Urine Normal (Normal)
[2018-11-02 10:28] LABS: Bacteria,Urine Few per hpf (None-Few); Hyaline Casts,Urine None Seen per lpf (None-Few); Squamous Epithelial Cell,Urine Many per lpf (None-Few)
--- NOTE | 2018-11-02 10:46 | Emergency Department Note ---
Disposition Clinical Impression: Acute respiratory distress Pulmonary edema Qualifiers: Chronicity: acute Qualified Code(s): J81.0 - Acute pulmonary edema CHF exacerbation Qualifiers: Heart failure type: diastolic Qualified Code(s): I50.33 - Acute on chronic diastolic (congestive) heart failure Disposition: Admitted As Inpatient Condition: Fair Time of Disposition: 19:54 General Adult HPI - General Chief complaint: ED Shortness of Breath/Dyspnea Stated complaint: TERESITA Time Seen by Provider: 11/02/18 08:22 Source: family, EMS Mode of arrival: EMS Limitations: altered mental status Nursing Notes Reviewed: Yes Vital Signs Reviewed: Yes - History of Present Illness HPI Narrative: Patient is a 73-year-old female with past medical history of COPD, CHF, on 3 L nasal cannula, presents to the ED for evaluation of altered mental status and concern for loss of pulses with chest compressions and ROSC. Granted patient's family patient was recently discharged from a detention facility after she was admitted for CHF and COPD. This morning her checked on her at approximate 5:00 AM. He states that she was at baseline. States he checked on her again around 7 and she does appear to have difficulty breathing was not kelby keesha to himself he called their son when the son arrived he did not feel pulses were initiated 2 rounds of chest compressions with return of pulses. On arrival the patient is altered and she opens eyes to voice. Family states that the patient has been in bed since being discharged from detention facility. Pain Scale: 0 - Related Data Home Medications Medication Instructions Recorded Confirmed Albuterol Sulfate [Proventil 2 puff IH Q4HR PRN 05/01/16 11/02/18 Inhaler] Furosemide [Lasix] 40 mg PO BID 08/03/18 11/02/18 Magnesium 250 mg PO DAILY 09/16/18 11/02/18 Vitamin E 400 unit PO DAILY 09/16/18 11/02/18 Fluticasone/Vilanterol [Breo 1 puff IH BID 11/02/18 11/02/18 Ellipta 100-25 Mcg INH] Gabapentin [Neurontin] 100 mg PO TID 11/02/18 11/02/18 Ipratropium/Albuterol Sulfate 3 ml IH Q4H PRN 11/02/18 11/02/18 [Iprat-Albut 0.5-3(2.5) mg/3 ml] LORazepam [Ativan] 0.5 mg PO Q4H PRN 11/02/18 11/02/18 Oxycodone HCl [Roxybond] 10 mg PO Q6H PRN 11/02/18 11/02/18 Potassium Gluconate 550 mg PO DAILY 11/02/18 11/02/18 Previous Rx's Medication Instructions Recorded Metoprolol XL (24 HR) Succ [Toprol 50 mg PO DAILY #30 tab.er.24h 05/16/16 Xl] Lisinopril [Zestril] 5 mg PO DAILY tablet 09/22/18 Allergies Allergy/AdvReac Type Severity Reaction Status Date / Time pain med Allergy See Uncoded 08/03/18 15:36 Comments Limitations: ROS unobtainable due to patients medical condition Past Medical History - Past Medical History Attestation: Yes The following information was validated with the patient. Medical history: Reports: arthritis, asthma, COPD, DVT, pulmonary embolus, other Psychiatric history: Reports: depression DIRECTOR ACUTE history: Reports: no DIRECTOR ACUTE history - Social History Smoking Status: Former smoker Smokeless Tobacco Status: No Alcohol use: Reports: none Drug use: Reports: none Physical Exam - General Limitations: altered mental status General appearance: in distress - Head Head exam: atraumatic, normocephalic, normal inspection - Eye Eye exam: Present: normal appearance, PERRL, EOMI - ENT ENT exam: normal exam, normal oropharynx, mucous membranes moist - Neck Neck exam: Present: normal inspection, full ROM, trachea midline - Chest Chest inspection: Present: normal inspection, symmetric chest wall rise - Respiratory Respiratory exam: Present: respiratory distress, wheezes (bilaterally. Arrived on 15lpm non-rebreather mask) - Cardiovascular Cardiovascular exam: Present: tachycardia, irregular rhythm - Abdominal Exam Abdominal exam: Present: soft, Non-Tender, normal bowel sounds - Extremities Exam Extremities exam: Present: pedal edema (mild with chronic venous stasis changes. ) - Neurological Exam Neurological exam: Present: other (altered) - Skin Skin exam: Present: warm, dry, intact, other Course Course Narrative: On initial evaluation patient appears to be in acute respiratory distress. Her rhythm and the EKG is showing a wide complex tachycardia in the 150s which appears to be consistent with prior rhythms however there is concern for iso lated ST depressions in leads I, 3 and V6. Her bedside chest x-ray showed concerns for edema. Her pressure systolic was in the high 190s. She was given nitroglycerin tablets and started on nitroglycerin drip. She is also ordered a dose of IV Lasix. Concern at this time is for pulmonary edema secondary to possibly CHF versus pneumonia top of COPD exacerbation. The patient was started on BiPAP on arrival as well. I discussed the patient's EKG with the natural resources extension educator on-call and the . There is no need for intervention at this time no signs for obvious STEMI that would require catheterization. While on the nitroglycerin drip the patient's pressure improved to normal range. Her heart rate has also improved. Her symptoms have also improved the patient is now alert and oriented she is able answer my questions appropriately she is actually refusing CAT scans at this time. She was started on broad-spectrum antibiotics for septic shock shock with an elevated lactic and recent hospitalization. Urine is pending. Vital Signs Temperature 98.2 F 11/02/18 08:17 Pulse Rate 145 11/02/18 08:17 Respiratory Rate 32 11/02/18 08:17 Blood Pressure 182/117 11/02/18 08:17 O2 Sat by Pulse Oximetry 99 11/02/18 08:17 Temperature 98.1 F 11/02/18 14:50 Pulse Rate 102 11/02/18 14:50 Respiratory Rate 20 11/02/18 15:35 Blood Pressure 141/75 11/02/18 14:50 O2 Sat by Pulse Oximetry 99 11/02/18 15:35 Oxygen Delivery Oxygen Delivery Bipap Medical Decision Making - Medical Records Medical records reviewed: Yes I reviewed the patient's medical records. - Lab Data Lab results reviewed: Yes I reviewed the patient's lab results. Result diagrams: 11/02/18 08:37 11/02/18 08:37 Lab Results 11/02/18 11/02/18 11/02/18 Range/Units 08:37 08:37 08:37 WBC 18.4 H (4.3-11.1) K/mcL RBC 4.88 (3.82-4.97) M/mcL Hgb 13.4 (11.5-15.4) g/dL Hct 46.8 H (35.3-44.9) % MCV 95.9 (83.0-100.0) fL MCH 27.5 L (28.0-33.3) pg MCHC 28.6 L (31.6-35.5) g/dL RDW 14.2 (11.5-14.5) % Plt Count 393 (140-400) K/mcL MPV 9.9 (9.4-12.4) fL Immature Gran % 1.6 (0-4) % Seg Neutrophils % 46.7 % Lymphocytes % 43.7 % Monocytes % 4.6 % Eosinophils % 2.9 % Basophils % 0.5 % Neutrophils # 8.6 (1.6-8.9) K/mcL Lymphocytes # 8.0 H (0.6-4.6) K/mcL Monocytes # 0.9 (0.0-1.3) K/mcL Eosinophils # 0.5 (0.0-0.6) K/mcL Basophils # 0.1 (0.0-0.2) K/mcL Platelet Estimate Normal (Normal) Hypochromasia Present A (Not Present) PT 11.3 (9.4-12.1) Seconds INR 1.0 APTT 38.5 H (26.0-36.0) Seconds Sample Site ABG pH (7.32-7.45) pH Units ABG pCO2 (35-45) mmHg ABG pO2 (85-104) mmHg ABG HCO3 (21-27) mEq/L ABG Total CO2 (20-26) mEq/L ABG O2 Saturation (95-98) % ABG Base Excess (-2 to 3) mEq/L O2 Delivery Device Blood Gas Modality Inspired O2 (1-15=lpm [id number]=%) Sodium (136-145) mEq/L Potassium (3.5-5.1) mEq/L Chloride (98-107) mEq/L Carbon Dioxide (23-29) mEq/L BUN (8-23) mg/dL Creatinine (0.60-1.20) mg/dL Est GFR ( Amer) (> 60) Est GFR (Non-Af Amer) (> 60) BUN/Creatinine Ratio (6-26) Glucose (70-105) mg/dL Calculated Osmolality (280-300) Lactic Acid (0.5-2.2) mmol/L Calcium (8.6-10.3) mg/dL Phosphorus (2.7-4.5) mg/dL Magnesium (1.6-2.6) mg/dL Total Bilirubin (0.3-1.0) mg/dL Direct Bilirubin (0.0-0.2) mg/dL Indirect Bilirubin (0.0-1.2) mg/dL AST (13-39) Units/L ALT (7-52) Units/L Alkaline Phosphatase (34-104) Units/L Troponin I (< 0.04) ng/mL B-Natriuretic Peptide 142 H (Less than 100) pg/mL Serum Total Protein (6.4-8.9) g/dL Albumin (3.5-5.7) g/dL Globulin (2.4-3.5) g/dL Albumin/Globulin Ratio (1.1-2.2) Lipase (11-82) Units/L Urine Color (Yellow) Urine Clarity (Clear) Urine pH (5.0-8.0) pH Units Ur Specific Economy (1.010-1.025) Urine Protein (Neg-Trace) mg/dL Urine Glucose (UA) (Normal) mg/dL Urine Ketones (Negative) mg/dL Urine Blood (Negative) Urine Nitrite (Negative) Urine Bilirubin (Negative) Urine Urobilinogen (Normal) mg/dL Ur Leukocyte Esterase (Negative) Urine Microscopic RBC (0-3) per hpf Urine Microscopic WBC (0-3) per hpf Ur Squamous Epith Cells (None-Few) per lpf Urine Bacteria (None-Few) per hpf Hyaline Casts (None-Few) per lpf Ur Culture Indicated? (NO) 11/02/18 11/02/18 11/02/18 Range/Units 08:37 08:37 09:36 WBC (4.3-11.1) K/mcL RBC (3.82-4.97) M/mcL Hgb (11.5-15.4) g/dL Hct (35.3-44.9) % MCV (83.0-100.0) fL MCH (28.0-33.3) pg MCHC (31.6-35.5) g/dL RDW (11.5-14.5) % Plt Count (140-400) K/mcL MPV (9.4-12.4) fL Immature Gran % (0-4) % Seg Neutrophils % % Lymphocytes % % Monocytes % % Eosinophils % % Basophils % % Neutrophils # (1.6-8.9) K/mcL Lymphocytes # (0.6-4.6) K/mcL Monocytes # (0.0-1.3) K/mcL Eosinophils # (0.0-0.6) K/mcL Basophils # (0.0-0.2) K/mcL Platelet Estimate (Normal) Hypochromasia (Not Present) PT (9.4-12.1) Seconds INR APTT (26.0-36.0) Seconds Sample Site R Radial ABG pH 7.29 L (7.32-7.45) pH Units ABG pCO2 63 H (35-45) mmHg ABG pO2 86 (85-104) mmHg ABG HCO3 30 H (21-27) mEq/L ABG Total CO2 32 H (20-26) mEq/L ABG O2 Saturation 95 (95-98) % ABG Base Excess 2 (-2 to 3) mEq/L O2 Delivery Device BiPAP Blood Gas Modality BiLevel Inspired O2 40.0 (1-15=lpm by39-066=%) Sodium 137 (136-145) mEq/L Potassium 3.7 (3.5-5.1) mEq/L Chloride 100 (98-107) mEq/L Carbon Dioxide 22 L (23-29) mEq/L BUN 16 (8-23) mg/dL Creatinine 0.96 (0.60-1.20) mg/dL Est GFR ( Amer) > 60 (> 60) Est GFR (Non-Af Amer) 57 L (> 60) BUN/Creatinine Ratio 17 (6-26) Glucose 321 H (70-105) mg/dL Calculated Osmolality 298 (280-300) Lactic Acid 5.0 H* (0.5-2.2) mmol/L Calcium 8.9 (8.6-10.3) mg/dL Phosphorus 7.2 H (2.7-4.5) mg/dL Magnesium 2.5 (1.6-2.6) mg/dL Total Bilirubin 0.3 (0.3-1.0) mg/dL Direct Bilirubin 0.1 (0.0-0.2) mg/dL Indirect Bilirubin 0.2 (0.0-1.2) mg/dL AST 18 (13-39) Units/L ALT 10 (7-52) Units/L Alkaline Phosphatase 114 H (34-104) Units/L Troponin I < 0.03 (< 0.04) ng/mL B-Natriuretic Peptide (Less than 100) pg/mL Serum Total Protein 7.2 (6.4-8.9) g/dL Albumin 3.4 L (3.5-5.7) g/dL Globulin 3.8 H (2.4-3.5) g/dL Albumin/Globulin Ratio 0.9 L (1.1-2.2) Lipase 19 (11-82) Units/L Urine Color (Yellow) Urine Clarity (Clear) Urine pH (5.0-8.0) pH Units Ur Specific Economy (1.010-1.025) Urine Protein (Neg-Trace) mg/dL Urine Glucose (UA) (Normal) mg/dL Urine Ketones (Negative) mg/dL Urine Blood (Negative) Urine Nitrite (Negative) Urine Bilirubin (Negative) Urine Urobilinogen (Normal) mg/dL Ur Leukocyte Esterase (Negative) Urine Microscopic RBC (0-3) per hpf Urine Microscopic WBC (0-3) per hpf Ur Squamous Epith Cells (None-Few) per lpf Urine Bacteria (None-Few) per hpf Hyaline Casts (None-Few) per lpf Ur Culture Indicated? (NO) 11/02/18 11/02/18 Range/Units 10:15 11:51 WBC (4.3-11.1) K/mcL RBC (3.82-4.97) M/mcL Hgb (11.5-15.4) g/dL Hct (35.3-44.9) % MCV (83.0-100.0) fL MCH (28.0-33.3) pg MCHC (31.6-35.5) g/dL RDW (11.5-14.5) % Plt Count (140-400) K/mcL MPV (9.4-12.4) fL Immature Gran % (0-4) % Seg Neutrophils % % Lymphocytes % % Monocytes % % Eosinophils % % Basophils % % Neutrophils # (1.6-8.9) K/mcL Lymphocytes # (0.6-4.6) K/mcL Monocytes # (0.0-1.3) K/mcL Eosinophils # (0.0-0.6) K/mcL Basophils # (0.0-0.2) K/mcL Platelet Estimate (Normal) Hypochromasia (Not Present) PT (9.4-12.1) Seconds INR APTT (26.0-36.0) Seconds Sample Site ABG pH (7.32-7.45) pH Units ABG pCO2 (35-45) mmHg ABG pO2 (85-104) mmHg ABG HCO3 (21-27) mEq/L ABG Total CO2 (20-26) mEq/L ABG O2 Saturation (95-98) % ABG Base Excess (-2 to 3) mEq/L O2 Delivery Device Blood Gas Modality Inspired O2 (1-15=lpm xu39-122=%) Sodium (136-145) mEq/L Potassium (3.5-5.1) mEq/L Chloride (98-107) mEq/L Carbon Dioxide (23-29) mEq/L BUN (8-23) mg/dL Creatinine (0.60-1.20) mg/dL Est GFR ( Amer) (> 60) Est GFR (Non-Af Amer) (> 60) BUN/Creatinine Ratio (6-26) Glucose (70-105) mg/dL Calculated Osmolality (280-300) Lactic Acid 2.3 H (0.5-2.2) mmol/L Calcium (8.6-10.3) mg/dL Phosphorus (2.7-4.5) mg/dL Magnesium (1.6-2.6) mg/dL Total Bilirubin (0.3-1.0) mg/dL Direct Bilirubin (0.0-0.2) mg/dL Indirect Bilirubin (0.0-1.2) mg/dL AST (13-39) Units/L ALT (7-52) Units/L Alkaline Phosphatase (34-104) Units/L Troponin I (< 0.04) ng/mL B-Natriuretic Peptide (Less than 100) pg/mL Serum Total Protein (6.4-8.9) g/dL Albumin (3.5-5.7) g/dL Globulin (2.4-3.5) g/dL Albumin/Globulin Ratio (1.1-2.2) Lipase (11-82) Units/L Urine Color Yellow (Yellow) Urine Clarity Cloudy A (Clear) Urine pH 6.0 (5.0-8.0) pH Units Ur Specific Economy 1.010 (1.010-1.025) Urine Protein Negative (Neg-Trace) mg/dL Urine Glucose (UA) Normal (Normal) mg/dL Urine Ketones Negative (Negative) mg/dL Urine Blood Negative (Negative) Urine Nitrite Negative (Negative) Urine Bilirubin Negative (Negative) Urine Urobilinogen Normal (Normal) mg/dL Ur Leukocyte Esterase Trace H (Negative) Urine Microscopic RBC 3-5 H (0-3) per hpf Urine Microscopic WBC 3-5 H (0-3) per hpf Ur Squamous Epith Cells Many H (None-Few) per lpf Urine Bacteria Few (None-Few) per hpf Hyaline Casts None Seen (None-Few) per lpf Ur Culture Indicated? YES A (NO) - Radiology Data Radiology results reviewed: Yes I reviewed the patient's radiology results. Chest X-Ray 11/02/18 08:23 IMPRESSION: Worsened diffuse increased interstitial markings suggesting interstitial edema superimposed upon COPD. D/ / Chaz Perez MD / Chaz Perez MD Interpreting Provider: Chaz Perez MD - EKG Data EKG #1 EKG attestation: Yes I reviewed and interpreted this EKG. EKG results narrative: Patient's initial EKG showed sinus tachycardia rate 137 bpm. Right bundle branch block. Concerns for ST depressions in lead 1, lead 3 and lead V6. EKG #2 EKG attestation: Yes I reviewed and interpreted this EKG. EKG results narrative: Patient's second EKG showed sinus tachycardia at a rate of 138 bpm. Improvement in the ST depressions in leads discussed on patient's initial EKG. EKG #3 EKG attestation: Yes I reviewed and interpreted this EKG. EKG results narrative: Patient's third EKG performed at 23:39 shows sinus tachycardia at a rate 1 or 21 bpm. Normal axis. Intervals with QRS widening to 145 and QTc C prolongation.
[2018-11-02] MEDS ORDERED: Naloxone 0.4 MG/ML INJ IVP PRN (11:35)
[2018-11-02] MEDS ORDERED: Ondansetron 4 MG/2 ML VIAL IVP PRN (11:35)
--- NOTE | 2018-11-02 11:46 | Internal Med History&Physical ---
Date of Encounter: 11/02/18 Time of Encounter: 11:00 Internal Medicine - H&P: HPI Chief complaint: SOB, unresponsiveness Admitted From: Home History of present illness: Ms. Booth is a 73 year old female with history of COPD on 3 L of oxygen, h ypertension, heart failure with preserved EF, chronic LE lymphedema, who presented to the ED with SOB. Pt is currently on BiPaP and unable to participate much in history hence further history was obtained from the family members by bedside. According to them, she had been using her nebulizer every 1-2 hours for the last several days. This morning, she developed significantly worsening SOB to the point that she appeared to be apneic hence brief CPR was performed by her family members (although not sure whether she truly went into arrest or not). She was fully responsive and spontaneously breathing after the brief CPR and was brought to the hospital for further evaluation. En route to the ED, her O2 sat was noted to be in 40-50%. She otherwise denied any chest pain, palpitation, orthopnea, PND, or worsening LE swelling. She does admit to intermittent cough without significant sputum production. No fever/chills, sick contacts, N/V, abdominal pain, diarrhea, or dysuria. States that she is compliant to her meds but when asked how often she takes lasix, she is unable to tell me the dosage or frequency. Upon presentation to the ED, she was tachycardic in 145, 182/117, breathing at 32 on NRB, and afebrile. At work showed leukocytosis of 18.4, ABG consistent with respiratory acidosis, and lactic acid of 5. Troponin was negative, EKG shows sinus tachycardia with known bundle branch block (there was a concern for wide complex tachycardia on the EKG done in EMS but after discussing with supervisor kosher dietary service over the phone from the ED, it was deemed that there were no new findings). Chest x-ray showed pulmonary edema. She was started on IV vancomycin/Zosyn/Levaquin, IV Lasix, nitro gtt, and admitted for further management. At the time of my interview, she was breathing much more comfortably on BiPaP with improvement in her tachycardia. Past Med Surg Social Fam HX - Past Medical History Medical history: arthritis, asthma, COPD, DVT, pulmonary embolus, other Additional medical history: bells palsy family states has not seen a doctor in 30 years. Psychiatric history: depression - Past Surgical History Additional surgical history: tubal with surgical intervention. - Social History Smoking Status: Former smoker Smokeless Tobacco Status: No Alcohol use: none Drug use: none - Family History Father Living Status: Hx Family Cardiac Disorders: Yes (CHF, anuerysm) Hx Family Respiratory Disorders: No Hx Family Cancer: No Hx Family GI Disorders: No Hx Family Endocrine Disorder: Yes (IDDM 1) Hx Family Neuromuscular Disorders: No Hx Family Neurologic Disorders: No Hx Family HEENT Disorders: No Hx Family Autoimmune Disorders: No Mother Living Status: Hx Family Cardiac Disorders: Yes (CHF, HTN) Hx Family Endocrine Disorder: Yes (DM) Sister Living Status: Hx Family Cardiac Disorders: Yes Internal Medicine - H&P: Meds Albuterol Sulfate [Proventil Inhaler] 1 puff IH Q4HR 05/01/16 [History] Metoprolol XL (24 HR) Succ [Toprol Xl] 50 mg PO DAILY #30 tab.er.24h 05/16/16 [Rx] Albuterol Neb [AccuNeb] 1.25 mg IH Q4-6H PRN 08/02/18 [History] Budesonide/Formoterol 160/4.5 [Symbicort 160/4.5] 2 puff IH BID 08/03/18 [History] Furosemide [Lasix] 40 mg PO BID 08/03/18 [History] Magnesium 250 mg PO DAILY 09/16/18 [History] Potassium 550 mg PO DAILY 09/16/18 [History] Vitamin E 400 unit PO DAILY 09/16/18 [History] Lisinopril [Zestril] 5 mg PO DAILY tablet 09/22/18 [Rx] Allergy/AdvReac Type Severity Reaction Status Date / Time pain med Allergy See Uncoded 08/03/18 15:36 Comments All Systems PM: A 10-system review of systems was performed and is negative for pertinent findings except as documented above in the HPI. - Constitutional Vitals: Temp Pulse Resp BP Pulse Ox 98.2 F 113 19 132/74 100 11/02/18 08:18 11/02/18 10:42 11/02/18 10:42 11/02/18 10:42 11/02/18 10:42 Exam: General: Alert and oriented, mild distress on BiPAP HEENT:EOMI, pupils equal, round and reactive. Cardiovascular:Normal S1 & S2, No JVD. Pulse regular. Lungs: bibasilar rales, scattered wheezes Abdomen:Soft, non-tender, no rigidity. Extremities: LE changes consistent with chronic lymphedema. Neurological: Non-focal Skin: warm and dry Pulses:Carotid and radial pulses normal +2. Rest of the physical exam is non contributory Internal Med - H&P Results - Labs CBC & Chem 7: 11/02/18 08:37 11/02/18 08:37 Labs: Short CBC 11/02/18 Range/Units 08:37 WBC 18.4 H (4.3-11.1) K/mcL Hgb 13.4 (11.5-15.4) g/dL Hct 46.8 H (35.3-44.9) % Plt Count 393 (140-400) K/mcL Neutrophils # 8.6 (1.6-8.9) K/mcL BMP 11/02/18 08:37 Sodium 137 Potassium 3.7 Chloride 100 Carbon Dioxide 22 L BUN 16 Creatinine 0.96 Glucose 321 H Calcium 8.9 Cardiac Enzymes 11/02/18 Range/Units 08:37 Troponin I < 0.03 (< 0.04) ng/mL Liver Function 11/02/18 Range/Units 08:37 Total Bilirubin 0.3 (0.3-1.0) mg/dL Direct Bilirubin 0.1 (0.0-0.2) mg/dL AST 18 (13-39) Units/L ALT 10 (7-52) Units/L Alkaline Phosphatase 114 H (34-104) Units/L Albumin 3.4 L (3.5-5.7) g/dL Urine 11/02/18 Range/Units 10:15 Urine Color Yellow (Yellow) Urine Clarity Cloudy A (Clear) Urine pH 6.0 (5.0-8.0) pH Units Ur Specific [place] 1.010 (1.010-1.025) Urine Protein Negative (Neg-Trace) mg/dL Urine Glucose (UA) Normal (Normal) mg/dL - ABG Interpretation ABG results: 11/02/18 09:36 ABG pH 7.29 L ABG pCO2 63 H ABG pO2 86 ABG HCO3 30 H ABG Total CO2 32 H ABG O2 Saturation 95 ABG Base Excess 2 - Impressions ITS Impressions Chest X-Ray 11/02/18 08:23 IMPRESSION: Worsened diffuse increased interstitial markings suggesting interstitial edema superimposed upon COPD. D/ / Chaz Perez MD / Chaz Perez MD Interpreting Provider: Chaz Perez MD - Assessment and Plan (1) Acute on chronic respiratory failure with hypoxemia Current Visit: Yes Status: Acute Assessment and plan: requires 3L at baseline, presented with O2 sat of 40-50% CXR finding compatible with pulmonary edema, ?HTN emergency given her leukocytosis, intermittent cough, and recent hospitalization, unable to rule out PNA complicated by COPD exacerbation entirely significantly improved after IV lasix and IV Abx, continue offered CT to better evaluate the airspace disease but declined continue bronchodilators, will add IV solumedrol for the possibility of COPD exacerbation trend troponin to rule out ACS, limited echo due to CHF exacerbation wean to HFNC if possible MRSA screen, sputum culture, strep/legionella ag (2) Sepsis Current Visit: Yes Status: Suspected Assessment and plan: presented with tachycardia, tachypnea, and leukocytosis recently hospitalized, ?HCAP. LActic acid also elevated at 5 which can be explained by profound hypoxia on presentation was given 500ml bolus in the ED, will trend while holding off on further IVF in view of significant pulm edema on CXR abx as above, follow up on cultures Qualifiers: Sepsis type: sepsis due to unspecified organism Qualified Code(s): A41.9 - Sepsis, unspecified organism (3) Hypertensive emergency Current Visit: Yes Status: Acute Assessment and plan: likely the cause of pulmonary edema leading to acute on chronic respiratory failure improved on nitro gtt, will try to wean while restarting her home meds for HTN once reconciled (4) Pneumonia Current Visit: Yes Status: Acute Assessment and plan: abx as above Qualifiers: Pneumonia type: due to unspecified organism Laterality: bilateral Lung location: unspecified part of lung Qualified Code(s): J18.9 - Pneumonia, unspecified organism (5) CHF exacerbation Current Visit: Yes Status: Acute Assessment and plan: continue IV diuresis limited echo trend troponin to rule out ACS Qualifiers: Heart failure type: diastolic Qualified Code(s): I50.33 - Acute on chronic diastolic (congestive) heart failure (6) COPD exacerbation Current Visit: Yes Status: Acute Assessment and plan: IV solumedrol added in addition to abx and IV lasix (7) DVT prophylaxis Current Visit: Yes Status: Acute Assessment and plan: SQ heparin - Time Spent With Patient Total time spent is greater than 50% in coordination of care (as documented) at patient's floor/unit and/or counseling patient: Greater than 35 minutes
[2018-11-02] MEDS ORDERED: Aminoglycoside Consult 1 EACH MC ONE (14:19)
[2018-11-02] MEDS ORDERED: *HR* LORazepam 0.5 MG TABLET PO PRN (15:21)
[2018-11-02] MEDS: Levalbuterol Neb 0.63 MG/3 ML IH SCH ×2 (15:35→20:18)
[2018-11-02] MEDS ORDERED: *HR* Heparin 5,000 UNIT/ML VIAL IVP PRN ×2 (15:47)
[2018-11-02] MEDS ORDERED: *HR* Heparin 5,000 UNIT/ML VIAL IVP ONE (15:47)
[2018-11-02] MEDS ORDERED: Nystatin POWDER 30 GM BOTTLE TP PRN (15:50)
[2018-11-02] MEDS ORDERED: Aspirin 81 MG TAB.CHEW PO ONE (15:50)
[2018-11-02 16:46] LABS: Heparin anti-factor XA UFH 0.01 IU/mL (0.30-0.70)
[2018-11-02] MEDS: MethylPREDNISolone 40 MG/ML VIAL IVP SCH (16:46)
[2018-11-02 16:47] LABS: Prothrombin Time 11.9 Seconds (9.4-12.1)
[2018-11-02] MEDS: Metoprolol XL (24 HR) Succ 50 MG TAB.ER.24H PO SCH (16:47)
[2018-11-02] MEDS: Piperacillin/Tazobactam 3.375 GM in 0.9 % Sodium Chloride Mini Bag 100 ML IVPB SCH ×2 (16:47→23:44)
[2018-11-02] MEDS: Heparin 25,000 UNIT/250 ML D5W 25,000 UNIT/250 ML IV.SOLN IVC SCH (17:36)
[2018-11-02] MEDS ORDERED: *HR* Heparin 5,000 UNIT/ML VIAL SQ SCH (18:00)
[2018-11-02] MEDS ORDERED: (Fluticasone/Vilanterol [Breo Ellipta 100-25 Mcg Inh] IH SCH (21:00)
[2018-11-02] MEDS ORDERED: Levalbuterol Neb 0.63 MG/3 ML IH PRN (21:00)
[2018-11-02] MEDS: Budesonide/Formoterol 160/4.5 1 PUFF INH IH SCH (21:44)
[2018-11-02] MEDS: Furosemide 40 MG/4 ML VIAL IVP SCH (22:06)
[2018-11-03] MEDS: *HR* OxyCODONE Immed Rel 5 MG TABLET PO PRN (02:49)
[2018-11-03] MEDS: Levalbuterol Neb 0.63 MG/3 ML IH SCH ×4 (03:52→21:34)
[2018-11-03 05:05] LABS: Blood Urea Nitrogen 21 mg/dL (8-23); Calcium 9.2 mg/dL (8.6-10.3); Carbon Dioxide 33 mEq/L (23-29); Chloride 97 mEq/L (98-107); Glucose 155 mg/dL (70-105); Osmolality,Calculated 294 (280-300); Potassium 3.6 mEq/L (3.5-5.1); Sodium 139 mEq/L (136-145)
[2018-11-03 05:21] LABS: BUN/Creatinine Ratio 20 (6-26); eGFR For African Americans > 60 (> 60); eGFR For Non-African Americans 52 (> 60)
[2018-11-03] MEDS: MethylPREDNISolone 40 MG/ML VIAL IVP SCH ×2 (06:14→16:56)
[2018-11-03 06:36] LABS: Basophils % 0.2 %; Hemoglobin 12.8 g/dL (11.5-15.4); Immature Granulocytes % 0.2 % (0-4); Lymphocytes # 1.1 K/mcL (0.6-4.6); Lymphocytes % 12.9 %; Mean Corpuscular HGB Conc 31.2 g/dL (31.6-35.5); Mean Corpuscular Hemoglobin 27.8 pg (28.0-33.3); Mean Corpuscular Volume 89.1 fL (83.0-100.0); Mean Platelet Volume 9.9 fL (9.4-12.4); Monocytes # 0.5 K/mcL (0.0-1.3); Monocytes % 5.6 %; Platelet Count 330 K/mcL (140-400); Segmented Neutrophils % 81.1 %; White Blood Count 8.6 K/mcL (4.3-11.1)
[2018-11-03] MEDS: Metoprolol XL (24 HR) Succ 50 MG TAB.ER.24H PO SCH (08:47)
[2018-11-03] MEDS: Furosemide 40 MG/4 ML VIAL IVP SCH ×2 (08:48→20:15)
[2018-11-03] MEDS: Piperacillin/Tazobactam 3.375 GM in 0.9 % Sodium Chloride Mini Bag 100 ML IVPB SCH ×2 (08:48→16:57)
[2018-11-03] MEDS: Nitroglycerin 25 MG/250 ML INFUS..BTL IVC SCH (08:49)
[2018-11-03] MEDS ORDERED: Perflutren Lipid Microsphere 1.3 ML in 0.9 % Sodium Chloride 8.7 ML IVP ONE (08:54)
--- NOTE | 2018-11-03 08:59 | Cardiology Consult Note ---
Date of Encounter: 11/03/18 Time of Encounter: 08:57 Assessment and Plan (1) Elevated troponin Current Visit: Yes Status: Acute Troponin negative, then 0.44, 0.43 in setting of acute hypoxic respiratory failure, hypertensive urgency. Suspect demand ischemic, nondiagnostic for ACS. Per family, appeared to be apneic and brief CPR was performed for ~45 seconds. En route to the ED, her O2 sat was noted to be in 40-50%. Pt denies chest pain. ECG RBBB with LAFB, similar to previous. No arrhythmias noted on tele. Check TTE to evaluate structure and function. Further recs pending TTE results. Continue heparin gtt for now. (2) Diastolic CHF Current Visit: Yes Status: Chronic Documented hx of diastolic CHF. BNP 142. CXR worsened diffuse increased interstitial markings suggesting interstitial edema superimposed upon COPD. Agree with IV Lasix 40mg BID. Recommend strict I/Os, Na and fluid restriction, daily weights. Check TTE. Qualifiers: Heart failure chronicity: chronic Qualified Code(s): I50.32 - Chronic diastolic (congestive) heart failure Discussion w patient/family: The assessment and plan as outlined above was discussed with the patient and/or family members who expressed understanding and agreement. All questions were answered. Thank you for involving us in the care of your patient. Please call with any questions. I will discuss all the above with Dr. Perry and make changes as necessary. History of Present Illness Consult date: 11/03/18 Consult reason: elevated troponin Chief complaint: dyspnea History of present illness: Ms. Booth is a 73 year old female with PMH of COPD on 3 L of oxygen, HTN, diastolic CHF, chronic LE lymphedema, who presented to the ED with chief complaint of dyspnea. Yesterday morning she developed acute shortness of breath. Per family, appeared to be apneic and brief CPR was performed by her family members for ~45 seconds (although not sure whether she truly went into arrest or not). She was fully responsive and spontaneously breathing after the brief CPR and was brought to the ED for further evaluation. En route to the ED, her O2 sat was noted to be in 40-50%. She denied any chest pain. Initial troponin negative, then 0.44, 0.43. Cardiology consulted for further recs. Past Med Surg Social Fam HX - Past Medical History Medical history: arthritis, asthma, COPD, DVT, pulmonary embolus, other Additional medical history: bells palsy family states has not seen a doctor in 30 years. Psychiatric history: depression - Past Surgical History Additional surgical history: tubal with surgical intervention. - Social History Smoking Status: Former smoker Smokeless Tobacco Status: No Alcohol use: none Drug use: none - Family History Father Living Status: Hx Family Cardiac Disorders: Yes (CHF, anuerysm) Hx Family Respiratory Disorders: No Hx Family Cancer: No Hx Family GI Disorders: No Hx Family Endocrine Disorder: Yes (IDDM 1) Hx Family Neuromuscular Disorders: No Hx Family Neurologic Disorders: No Hx Family HEENT Disorders: No Hx Family Autoimmune Disorders: No Mother Living Status: Hx Family Cardiac Disorders: Yes (CHF, HTN) Hx Family Endocrine Disorder: Yes (DM) Sister Living Status: Hx Family Cardiac Disorders: Yes Medications and Allergies Albuterol Sulfate [Proventil Inhaler] 2 puff IH Q4HR PRN 05/01/16 [History] Metoprolol XL (24 HR) Succ [Toprol Xl] 50 mg PO DAILY #30 tab.er.24h 05/16/16 [Rx] Furosemide [Lasix] 40 mg PO BID 08/03/18 [History] Magnesium 250 mg PO DAILY 09/16/18 [History] Vitamin E 400 unit PO DAILY 09/16/18 [History] Lisinopril [Zestril] 5 mg PO DAILY tablet 09/22/18 [Rx] Fluticasone/Vilanterol [Breo Ellipta 100-25 Mcg INH] 1 puff IH BID 11/02/18 [History] Gabapentin [Neurontin] 100 mg PO TID 11/02/18 [History] Ipratropium/Albuterol Sulfate [Iprat-Albut 0.5-3(2.5) mg/3 ml] 3 ml IH Q4H PRN 11/02/18 [History] LORazepam [Ativan] 0.5 mg PO Q4H PRN 11/02/18 [History] Oxycodone HCl [Roxybond] 10 mg PO Q6H PRN 11/02/18 [History] Potassium Gluconate 550 mg PO DAILY 11/02/18 [History] Allergy/AdvReac Type Severity Reaction Status Date / Time pain med Allergy See Uncoded 08/03/18 15:36 Comments All Systems Review: The remainder of the systems were reviewed and are negative - Cardiovascular Cardiovascular: as per HPI, dyspnea at rest, leg edema - Respiratory Respiratory: cough, dyspnea Physical Examination Vital Signs, Last 4 Hours Temp Pulse Resp BP Pulse Ox 11/03/18 07:05 98.2 F 78 16 115/62 96 11/03/18 04:58 98.0 F 87 17 123/58 93 Vital Signs Temp Pulse Resp BP Pulse Ox 11/03/18 07:05 98.2 F 78 16 115/62 96 11/03/18 04:58 98.0 F 87 17 123/58 93 11/03/18 03:52 18 94 11/03/18 00:25 98.6 F 77 20 112/68 96 11/02/18 21:44 18 98 11/02/18 21:30 97.9 F 82 20 126/59 93 11/02/18 21:00 97 100 11/02/18 20:18 20 98 11/02/18 15:35 20 99 11/02/18 14:50 98.1 F 102 22 141/75 96 11/02/18 14:27 21 100 11/02/18 13:14 101 19 122/26 99 11/02/18 12:09 21 130/82 100 11/02/18 12:00 102 19 117/77 100 11/02/18 11:41 116 23 126/88 100 11/02/18 10:42 113 19 132/74 100 11/02/18 10:23 124 22 132/100 100 11/02/18 09:43 122 22 135/73 100 11/02/18 09:18 120 22 132/95 100 11/02/18 09:13 117 19 125/90 100 11/02/18 09:07 119 22 142/94 100 Intake and Output 11/02/18 11/03/18 11/03/18 23:59 07:59 15:59 Intake Total 250 / 1156 485 / 485 Output Total 1400 / 1400 600 / 600 Balance -1150 / -244 -115 / -115 Intake: IV Fluids 250 / 1156 285 / 285 Heparin 25,000 UNIT/250 ML D5W 50 / 50 185 / 185 25,000 unit In 250 ml @ 12 UNIT /KG/HR 11.832 mls/hr IVC . Q21H8M [facility] Rx#:[id number] Zosyn 3.375 GM In 0.9 % Sodium 200 / 200 100 / 100 Chloride (Mini-Bag +) 100 ML @ 25 mls/hr IVPB Q8HR [facility] Rx#: [id number] Oral 200 / 200 Output: Urine 700 / 700 600 / 600 Catheter 700 / 700 Female External Catheter 700 / 700 Other: Weight 98.2 kg Patient Weight 11/03/18 23:59 Weight 98.2 kg General: Conversant, No Apparent Distress HEENT: Atraumatic, Normocephaly, Mucus Membranes Moist Neck: No JVD, Normal carotid pulses Cardiac: Reg Rate and Rhythm, Normal S1 and S2, No Murmur Lungs: Other (diminished, mild bibasilar crackles) Neuro: Alert and responsive, No focal deficits noted Abdomen: Soft, Non-Tender Skin: No rashes noted on visualized skin Musculoskeletal: No Chest Wall Tenderness Extremities: No Clubbing, No Cyanosis, No Edema, Normal Pulses Results 11/03/18 06:22 11/03/18 04:28 Lab Results 11/02/18 11/02/18 11/02/18 08:37 08:37 08:37 WBC Hgb Hct Plt Count INR 1.0 APTT 38.5 H Sodium 137 Potassium 3.7 Chloride 100 Carbon Dioxide 22 L BUN 16 Creatinine 0.96 Glucose 321 H Calcium 8.9 Magnesium 2.5 Total Bilirubin 0.3 AST 18 ALT 10 Alkaline Phosphatase 114 H Troponin I < 0.03 B-Natriuretic Peptide 142 H Lipase 19 11/02/18 11/02/18 11/02/18 14:46 16:26 20:56 WBC Hgb Hct Plt Count INR 1.0 APTT Sodium Potassium Chloride Carbon Dioxide BUN Creatinine Glucose Calcium Magnesium Total Bilirubin AST ALT Alkaline Phosphatase Troponin I 0.44 H* 0.43 H* B-Natriuretic Peptide Lipase 11/03/18 11/03/18 04:28 06:22 WBC 8.6 D Hgb 12.8 Hct 41.0 Plt Count 330 INR APTT Sodium 139 Potassium 3.6 Chloride 97 L Carbon Dioxide 33 H BUN 21 Creatinine 1.04 Glucose 155 H Calcium 9.2 Magnesium Total Bilirubin AST ALT Alkaline Phosphatase Troponin I B-Natriuretic Peptide Lipase Short CBC 11/03/18 11/02/18 Range/Units 06:22 08:37 WBC 8.6 D (4.3-11.1) K/mcL Hgb 12.8 (11.5-15.4) g/dL Hct 41.0 (35.3-44.9) % Plt Count 330 (140-400) K/mcL Neutrophils # 7.0 8.6 (1.6-8.9) K/mcL BMP 11/03/18 11/02/18 Range/Units 04:28 08:37 Sodium 139 137 (136-145) mEq/L Potassium 3.6 3.7 (3.5-5.1) mEq/L Chloride 97 L 100 (98-107) mEq/L Carbon Dioxide 33 H 22 L (23-29) mEq/L BUN 21 16 (8-23) mg/dL Creatinine 1.04 0.96 (0.60-1.20) mg/dL Glucose 155 H 321 H (70-105) mg/dL Calcium 9.2 8.9 (8.6-10.3) mg/dL Cardiac Enzymes 11/02/18 11/02/18 11/02/18 Range/Units 20:56 14:46 08:37 Troponin I 0.43 H* 0.44 H* < 0.03 (< 0.04) ng/mL Liver Function 11/02/18 Range/Units 08:37 Total Bilirubin 0.3 (0.3-1.0) mg/dL Direct Bilirubin 0.1 (0.0-0.2) mg/dL AST 18 (13-39) Units/L ALT 10 (7-52) Units/L Alkaline Phosphatase 114 H (34-104) Units/L Albumin 3.4 L (3.5-5.7) g/dL Urine 11/02/18 Range/Units 10:15 Urine Color Yellow (Yellow) Urine Clarity Cloudy A (Clear) Urine pH 6.0 (5.0-8.0) pH Units Ur Specific [place] 1.010 (1.010-1.025) Urine Protein Negative (Neg-Trace) mg/dL Urine Glucose (UA) Normal (Normal) mg/dL Active Medications Budesonide/Formoterol Fumarate (Symbicort) 2 puff IH BIDR [facility]; Protocol Stop: 05/04/19 22:01 Last Admin: 11/02/18 21:44 Dose: 2 puff Documented by: Furosemide (Lasix) 40 mg IVP BID [facility] Stop: 05/04/19 21:01 Last Admin: 11/03/18 08:48 Dose: 40 mg Documented by: Heparin Sodium (Porcine) (Heparin) 4,000 unit IVP Q6HR PRN PRN Reason: SEE COMMENTS Stop: 05/04/19 15:48 Heparin Sodium (Porcine) (Heparin) 2,000 unit IVP Q6H PRN PRN Reason: SEE COMMENTS Stop: 05/04/19 15:48 Nitroglycerin (Nitroglycerin Premix 25 Mg/250 Ml) 25 mg in 250 mls @ 3 mls/hr IVC .Q24H [facility]; Protocol Stop: 05/04/19 08:46 Last Admin: 11/03/18 08:49 Dose: Not Given Documented by: Piperacillin Sod/Tazobactam (Sod 3.375 gm/ Sodium Chloride) 100 mls @ 25 mls/hr IVPB Q8HR [facility] Stop: 05/04/19 16:01 Last Admin: 11/03/18 08:48 Dose: 25 mls/hr Documented by: Heparin Sodium/Dextrose (Heparin 25,000 Unit/250 Ml D5w) 25,000 unit in 250 mls @ 11.832 mls/hr IVC .Q21H8M [facility]; Protocol Stop: 05/04/19 16:01 Last Titration: 11/03/18 04:56 Dose: 10.04 unit/kg/hr, 9.9 mls/hr Documented by: Perflutren Lipid Microsphere 1 (.3 ml/ Sodium Chloride) 10 mls @ 1,200 mls/hr IVP ONCE ONE Stop: 11/03/18 08:55 Levalbuterol HCl (Xopenex) 0.63 mg IH [id number] [facility] Stop: 05/04/19 16:01 Last Admin: 11/03/18 03:52 Dose: 0.63 mg Documented by: Levalbuterol HCl (Xopenex) 0.63 mg IH Q4H PRN PRN Reason: Dyspnea Stop: 05/04/19 21:01 Lisinopril (Zestril) 5 mg PO DAILY [facility]; Protocol Stop: 05/05/19 09:01 Last Admin: 11/03/18 08:47 Dose: 5 mg Documented by: Lorazepam (Ativan) 0.5 mg PO Q4H PRN PRN Reason: Anxiety Stop: 05/04/19 15:22 Methylprednisolone (Solu-Medrol) 40 mg IVP Q12HR [facility] Stop: 05/04/19 18:01 Last Admin: 11/03/18 06:14 Dose: 40 mg Documented by: Metoprolol Succinate (Toprol Xl) 50 mg PO DAILY [facility] Stop: 05/04/19 15:54 Last Admin: 11/03/18 08:47 Dose: 50 mg Documented by: Naloxone HCl (Narcan) 0.4 mg IVP Q2MPRN PRN PRN Reason: SEE COMMENTS Stop: 05/04/19 11:36 Nystatin (Nystop) 1 appl TP TID PRN PRN Reason: EXCORIATION Stop: 05/04/19 16:01 Ondansetron HCl (Zofran) 4 mg IVP Q8HR PRN PRN Reason: Nausea And Vomiting Stop: 05/04/19 11:36 Oxycodone HCl (Roxicodone) 10 mg PO Q6H PRN PRN Reason: Pain Last Admin: 11/03/18 02:49 Dose: 10 mg Documented by: - EKG Interpretation EKG results cardiology: personally reviewed (sinus tach, RBBB, LAFB), other (12 hr tele AVG HR 79, SR) Consult Discharge Plan - Plan Referrals: NONE,PCP [Primary Care Provider] -
[2018-11-03] MEDS ORDERED: Metoprolol XL (24 HR) Succ 50 MG TAB.ER.24H PO SCH (09:00)
[2018-11-03] MEDS: Budesonide/Formoterol 160/4.5 1 PUFF INH IH SCH ×2 (10:15→21:34)
[2018-11-03] MEDS ORDERED: Mag Hydrox/Al Hydrox/Simeth 30 ML UDC PO ONE (13:04)
--- NOTE | 2018-11-03 15:37 | Electrocardiograph Report ---
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
[2018-11-03] MEDS: Heparin 25,000 UNIT/250 ML D5W 25,000 UNIT/250 ML IV.SOLN IVC SCH (16:59)
[2018-11-03] MEDS: Miconazole 2% ointment 141 APPL/141 GM TUBE TP SCH (17:03)
--- NOTE | 2018-11-03 19:36 | Internal Med Progress Note ---
Hospitalist Progress Note - Encounter Date of Encounter: 11/03/18 Time of Encounter: 10:00 - Subjective Interval History: Mrs. Booth stated she has no recollection of events prior to hospitalization. She admits to be compliant with her COPD inhalers she presently denies any chest pain. 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 - Exam Vitals: Temp Pulse Resp BP Pulse Ox 97.7 F 65 19 118/45 93 11/03/18 19:17 11/03/18 19:17 11/03/18 19:17 11/03/18 19:17 11/03/18 19:17 Exam: GENERAL: NAD, A&O x3, pleasant and conversant at the bedside SKIN: No skin lesions or rashes except for her bilateral lower extremity with signs of chronic lymphedema with venous stasis, non-jaundiced EYES: EOMI, PERRLA, no sclera icterus HENT: Head atraumatic, no facial asymmetry, frontal and maxillary sinus non- tender, normal hearing, oropharynx and mucosa moist and without any exudates NECK: No cervical lymphadenopathy, trachea midline, thyroid is palpable does not appear enlarged LUNGS: Diminished few scattered rales no wheezing rhonchi. Non labored respirations HEART: Normal rate and rhythm, no murmurs or rubs ABDOMEN: soft, non-tender, non-distended, bowel sounds x 4 normoactive EXTRMITIES: No LE asymmetry however since of chronic lymphedema and venostasis with thickening and scaling of the skin bilateral onychomycoses noted with overgrown toenails NEURO: Speech and comprehension appears intact. PSYCH: Cooperative, non- anxious or irritable, mood and affect is appropriate - Assessment and Plan (1) Sepsis Current Visit: Yes Status: Suspected Assessment and Plan: History of resolved her leukocytosis trended down from 18.4-8.6 given his sudden resolution appears to be more inflammatory or reactive blood and urine cultures are pending we will leave [facility] for now presented with tachycardia, tachypnea, and leukocytosis recently hospitalized, ?HCAP. LActic acid also elevated at 5 which can be explained by profound hypoxia on presentation was given 500ml bolus in the ED, will trend while holding off on further IVF in view of significant pulm edema on CXR abx as above, follow up on cultures (2) Elevated troponin Current Visit: Yes Status: Acute Assessment and Plan: Likely demand ischemia however. Family did state that they performed CPR 2-D echo is pending cardiology is on board recommended continuing heparin. (3) Pneumonia Current Visit: Yes Status: Acute Assessment and Plan: Leukocytosis trended down she is afebrile we will continue empiric Zosyn for now likely de-escalate therapy Legionella antigen was negative (4) COPD exacerbation Current Visit: Yes Status: Acute Assessment and Plan: Continue IV steroids and nebulizer treatment will include azithromycin for its anti-inflammatory properties (5) Acute on chronic respiratory failure with hypoxemia Current Visit: Yes Status: Acute Assessment and Plan: She appears stable follow him back to baseline underlying etiology for her likely cardiorespiratory arrest remains unclear requires 3L at baseline, presented with O2 sat of 40-50% CXR finding compatible with pulmonary edema, ?HTN emergency given her leukocytosis, intermittent cough, and recent hospitalization, unable to rule out PNA complicated by COPD exacerbation entirely significantly improved after IV lasix and IV Abx, continue offered CT to better evaluate the airspace disease but declined continue bronchodilators, will add IV solumedrol for the possibility of COPD exacerbation trend troponin to rule out ACS, limited echo due to CHF exacerbation wean to HFNC if possible MRSA screen, sputum culture, strep/legionella ag (6) CHF exacerbation Current Visit: Yes Status: Acute Assessment and Plan: He has had 2.8 L out so far but only -0.4 L continue IV diuresis limited echo trend troponin to rule out ACS (7) Hypertensive emergency Current Visit: Yes Status: Acute Assessment and Plan: Resolved BP is trending down likely the cause of pulmonary edema leading to acute on chronic respiratory failure improved on nitro gtt, will try to wean while restarting her home meds for HTN once reconciled (8) DVT prophylaxis Current Visit: Yes Status: Acute Assessment and Plan: Currently on heparin protocol for her presumed NSTEMI - Time Spent with Patient Total time spent is greater than 50% in coordination of care (as documented) at patient's floor/unit and/or counseling patient: 25 - 35 minutes Internal Medicine: Result - Labs CBC & Chem 7: 11/03/18 06:22 11/03/18 04:28 Labs: Short CBC 11/03/18 Range/Units 06:22 WBC 8.6 D (4.3-11.1) K/mcL Hgb 12.8 (11.5-15.4) g/dL Hct 41.0 (35.3-44.9) % Plt Count 330 (140-400) K/mcL Neutrophils # 7.0 (1.6-8.9) K/mcL BMP 11/03/18 04:28 Sodium 139 Potassium 3.6 Chloride 97 L Carbon Dioxide 33 H BUN 21 Creatinine 1.04 Glucose 155 H Calcium 9.2 Cardiac Enzymes 11/02/18 Range/Units 20:56 Troponin I 0.43 H* (< 0.04) ng/mL - ABG Interpretation ABG results: ABG ABG pH 7.29 pH Units (7.32-7.45) L 11/02/18 09:36 ABG pCO2 63 mmHg (35-45) H 11/02/18 09:36 ABG pO2 86 mmHg (85-104) 11/02/18 09:36 ABG O2 Saturation 95 % (95-98) 11/02/18 09:36 PT/INR, D-dimer PT 11.9 Seconds (9.4-12.1) 11/02/18 16:26 - Impressions Impressions Echocardiogram 11/03/18 08:30 Impressions: LVEF 45-50%. Mild segmental left ventricular systolic dysfunction suggestive of coronary artery disease in the LAD distribution No significant valvular dysfunction. Left Ventricular Wall Motion: Rest Echo Findings The apex, apical anterior, mid anterior, apical lateral and mid anterior lateral [place] were hypokinetic. All other wall segments showed normal motion. Findings: Study Quality * Technically adequate exam. Right Ventricle * Not well visualized Left Atrium * Not well visualized Right Atrium * Not well visualized Aorta * Normally sized aortic root. Pericardium * The pericardium appears normal. Left Ventricle * Indeterminate diastolic function. * LVEF 45-50%. * Mild segmental left ventricular systolic dysfunction suggestive of coronary artery disease in the LAD distribution Aortic Valve * Aortic valve not well visualized. * No aortic regurgitation. * No aortic stenosis. Mitral Valve * No mitral regurgitation. * No mitral stenosis. * Mitral valve not well visualized. Tricuspid Valve * No tricuspid stenosis. * Tricuspid valve not well visualized. * No tricuspid regurgitation. * Unable to estimate RVSP due to lack of TR jet. Interatrial Septum * Interatrial septum not well evaluated. IVC * Normal IVC dimensions and inspiratory collapse. Consult Discharge Plan - Plan Referrals: NONE,PCP [Primary Care Provider] - (Patient will call her pcp when she is released for hospital. Her dr comes to her home ) (1) Sepsis Qualifiers: Sepsis type: sepsis due to unspecified organism Qualified Code(s): A41.9 - Sepsis, unspecified organism (3) Pneumonia Qualifiers: Pneumonia type: due to unspecified organism Laterality: bilateral Lung location: unspecified part of lung Qualified Code(s): J18.9 - Pneumonia, unspecified organism (6) CHF exacerbation Qualifiers: Heart failure type: diastolic Qualified Code(s): I50.33 - Acute on chronic diastolic (congestive) heart failure
[2018-11-03] MEDS: Azithromycin 500 MG in D5% in Water 250 ML IVPB SCH (20:16)
[2018-11-03] MEDS: *HR* Ticagrelor 90 MG TABLET PO SCH (20:19)
[2018-11-04] MEDS: Piperacillin/Tazobactam 3.375 GM in 0.9 % Sodium Chloride Mini Bag 100 ML IVPB SCH ×4 (00:15→23:16)
[2018-11-04] MEDS: Mag Hydrox/Al Hydrox/Simeth 30 ML UDC PO PRN ×2 (00:48→20:17)
[2018-11-04] MEDS: Levalbuterol Neb 0.63 MG/3 ML IH SCH ×4 (03:40→21:54)
[2018-11-04] MEDS: MethylPREDNISolone 40 MG/ML VIAL IVP SCH (05:16)
[2018-11-04 07:44] LABS: Basophils % 0.1 %; Hematocrit 42.8 % (35.3-44.9); Hemoglobin 13.5 g/dL (11.5-15.4); Immature Granulocytes % 0.5 % (0-4); Lymphocytes # 1.1 K/mcL (0.6-4.6); Lymphocytes % 7.9 %; Mean Corpuscular HGB Conc 31.5 g/dL (31.6-35.5); Mean Corpuscular Hemoglobin 28.1 pg (28.0-33.3); Mean Corpuscular Volume 89.2 fL (83.0-100.0); Mean Platelet Volume 9.5 fL (9.4-12.4); Monocytes # 0.6 K/mcL (0.0-1.3); Monocytes % 3.9 %; Platelet Count 346 K/mcL (140-400); Red Cell Distribution Width 14.2 % (11.5-14.5); Segmented Neutrophils % 87.6 %
[2018-11-04 07:47] LABS: Neutrophils # 12.4 K/mcL (1.6-8.9); White Blood Count 14.2 K/mcL (4.3-11.1)
[2018-11-04 08:03] LABS: Calcium 8.9 mg/dL (8.6-10.3); Magnesium 2.1 mg/dL (1.6-2.6); Potassium 3.4 mEq/L (3.5-5.1)
[2018-11-04] MEDS: Nitroglycerin 25 MG/250 ML INFUS..BTL IVC SCH (09:11)
[2018-11-04] MEDS: Aspirin 81 MG TAB.CHEW PO SCH (09:28)
[2018-11-04] MEDS: Metoprolol XL (24 HR) Succ 50 MG TAB.ER.24H PO SCH (09:29)
[2018-11-04] MEDS: *HR* Ticagrelor 90 MG TABLET PO SCH ×2 (09:29→20:17)
[2018-11-04] MEDS: Furosemide 40 MG/4 ML VIAL IVP SCH (09:29)
[2018-11-04] MEDS: Miconazole 2% ointment 141 APPL/141 GM TUBE TP SCH (09:50)
[2018-11-04] MEDS: Budesonide/Formoterol 160/4.5 1 PUFF INH IH SCH ×2 (09:58→21:54)
--- NOTE | 2018-11-04 11:55 | Internal Med Progress Note ---
Hospitalist Progress Note - Encounter Date of Encounter: 11/04/18 Time of Encounter: 11:52 - Subjective Interval History: Ms Booth status she is a little bit anxious about discharge planning because of the events that occurred. She stated that she uses 3.5 L of nasal cannula oxygen and that she is compliant with her nebulizer treatments and she stated also that she gets in a home health nurse that comes once a week and a home health aide that comes 3 times a week. She denies any fevers chills chest pain or shortness of breath but stated that chest wall is sore status post CPR by family members - Exam Vitals: Temp Pulse Resp BP Pulse Ox 97.9 F 68 20 133/65 93 11/04/18 07:37 11/04/18 09:30 11/04/18 09:58 11/04/18 07:37 11/04/18 09:58 Exam: GENERAL: NAD, A&O x3, pleasant and conversant SKIN: No skin lesions or rashes except for her bilateral lower extremity with signs of chronic lymphedema with venous stasis, non-jaundiced EYES: EOMI, PERRLA, no sclera icterus HENT: Head atraumatic, no facial asymmetry, frontal and maxillary sinus non- tender, normal hearing, oropharynx and mucosa moist and without any exudates NECK: No cervical lymphadenopathy, trachea midline, thyroid is palpable does not appear enlarged LUNGS: Diminished few scattered rales no wheezing rhonchi. Non labored respirations HEART: Normal rate and rhythm, no murmurs or rubs ABDOMEN: soft, non-tender, non-distended, bowel sounds x 4 normoactive EXTRMITIES: No LE asymmetry however since of chronic lymphedema and venostasis with thickening and scaling of the skin bilateral onychomycoses noted with overgrown toenails NEURO: Speech and comprehension appears intact. PSYCH: Cooperative, non- anxious or irritable, mood depressed and affect flat - Assessment and Plan (1) Sepsis Current Visit: Yes Status: Suspected Assessment and Plan: resolved her leukocytosis trended down from 18.4-8.6 but trended up today to 14.2 although in the setting of Solu Medrol twice a day 40 mg. Culture is pending and she is afebrile. given his sudden resolution appears to be more inflammatory or reactive blood and urine cultures are pending we will leave Zosyn for now presented with tachycardia, tachypnea, and leukocytosis recently hospitalized, ?HCAP. LActic acid also elevated at 5 which can be explained by profound hypoxia on presentation was given 500ml bolus in the ED, will trend while holding off on further IVF in view of significant pulm edema on CXR abx as above, follow up on cultures (2) Elevated troponin Current Visit: Yes Status: Acute Assessment and Plan: Plan per cardiology Likely demand ischemia however. Family did state that they performed CPR 2-D echo is pending cardiology is on board recommended continuing heparin. (3) Pneumonia Current Visit: Yes Status: Acute Assessment and Plan: she is afebrile, denies any cough or shortness of breath at baseline oxygen 3.5 L. we will continue empiric Zosyn for now likely de-escalate therapy tomorrow Legionella antigen was negative (4) COPD exacerbation Current Visit: Yes Status: Acute Assessment and Plan: Continue steroids switched to oral and nebulizer treatment will include azithromycin for its anti-inflammatory properties (5) Acute on chronic respiratory failure with hypoxemia Current Visit: Yes Status: Acute Assessment and Plan: She appears stable follow him back to baseline underlying etiology for her likely cardiorespiratory arrest remains unclear requires 3L at baseline, presented with O2 sat of 40-50% CXR finding compatible with pulmonary edema, ?HTN emergency given her leukocytosis, intermittent cough, and recent hospitalization, unable to rule out PNA complicated by COPD exacerbation entirely significantly improved after IV lasix and IV Abx, continue offered CT to better evaluate the airspace disease but declined continue bronchodilators, will add IV solumedrol for the possibility of COPD exacerbation trend troponin to rule out ACS, limited echo due to CHF exacerbation wean to HFNC if possible MRSA screen, sputum culture, strep/legionella ag (6) CHF exacerbation Current Visit: Yes Status: Acute Assessment and Plan: had 3.6L will switch to oral lasix and reduce to 40mg to avoid over diuresis. Echo pending limited echo trend troponin to rule out ACS (7) Hypertensive emergency Current Visit: Yes Status: Acute Assessment and Plan: Resolved BP wnl likely the cause of pulmonary edema leading to acute on chronic respiratory failure improved on nitro gtt, will try to wean while restarting her home meds for HTN once reconciled (8) DVT prophylaxis Current Visit: Yes Status: Acute Assessment and Plan: Currently on heparin protocol for her presumed NSTEMI. - Time Spent with Patient Total time spent is greater than 50% in coordination of care (as documented) at patient's floor/unit and/or counseling patient: 25 - 35 minutes Internal Medicine: Result - Labs CBC & Chem 7: 11/04/18 07:35 11/04/18 07:35 Labs: Short CBC 11/04/18 Range/Units 07:35 WBC 14.2 H D (4.3-11.1) K/mcL Hgb 13.5 (11.5-15.4) g/dL Hct 42.8 (35.3-44.9) % Plt Count 346 (140-400) K/mcL Neutrophils # 12.4 H (1.6-8.9) K/mcL BMP 11/04/18 07:35 Sodium 138 Potassium 3.4 L Chloride 95 L Carbon Dioxide 34 H BUN 28 H Creatinine 1.30 H Glucose 166 H Calcium 8.9 - ABG Interpretation ABG results: ABG ABG pH 7.29 pH Units (7.32-7.45) L 11/02/18 09:36 ABG pCO2 63 mmHg (35-45) H 11/02/18 09:36 ABG pO2 86 mmHg (85-104) 11/02/18 09:36 ABG O2 Saturation 95 % (95-98) 11/02/18 09:36 PT/INR, D-dimer PT 11.9 Seconds (9.4-12.1) 11/02/18 16:26 Consult Discharge Plan - Plan Referrals: NONE,PCP [Primary Care Provider] - (Patient will call her pcp when she is released for hospital. Her dr comes to her home ) (1) Sepsis Qualifiers: Sepsis type: sepsis due to unspecified organism Qualified Code(s): A41.9 - Sepsis, unspecified organism (3) Pneumonia Qualifiers: Pneumonia type: due to unspecified organism Laterality: bilateral Lung location: unspecified part of lung Qualified Code(s): J18.9 - Pneumonia, unspecified organism (6) CHF exacerbation Qualifiers: Heart failure type: diastolic Qualified Code(s): I50.33 - Acute on chronic diastolic (congestive) heart failure
[2018-11-04] MEDS: Heparin 25,000 UNIT/250 ML D5W 25,000 UNIT/250 ML IV.SOLN IVC SCH (12:46)
--- NOTE | 2018-11-04 17:52 | Electrocardiograph Report ---
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
--- NOTE | 2018-11-04 17:56 | Electrocardiograph Report ---
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
[2018-11-04] MEDS: *HR* Heparin 5,000 UNIT/ML VIAL SQ SCH (19:24)
[2018-11-04] MEDS: Azithromycin 500 MG in D5% in Water 250 ML IVPB SCH (20:13)
[2018-11-04] MEDS: *HR* OxyCODONE Immed Rel 5 MG TABLET PO PRN (23:27)
[2018-11-05] MEDS: Levalbuterol Neb 0.63 MG/3 ML IH SCH ×3 (03:56→12:54)
[2018-11-05] MEDS: *HR* Heparin 5,000 UNIT/ML VIAL SQ SCH (05:05)
[2018-11-05] MEDS: Miconazole 2% ointment 141 APPL/141 GM TUBE TP SCH (07:40)
[2018-11-05] MEDS: Aspirin 81 MG TAB.CHEW PO SCH (07:40)
[2018-11-05] MEDS: Metoprolol XL (24 HR) Succ 50 MG TAB.ER.24H PO SCH (07:41)
[2018-11-05] MEDS: *HR* Ticagrelor 90 MG TABLET PO SCH (07:41)
[2018-11-05] MEDS: Nitroglycerin 25 MG/250 ML INFUS..BTL IVC SCH (07:42)
[2018-11-05] MEDS: Piperacillin/Tazobactam 3.375 GM in 0.9 % Sodium Chloride Mini Bag 100 ML IVPB SCH (07:42)
[2018-11-05] MEDS ORDERED: Furosemide 40 MG TABLET PO SCH (09:00)
[2018-11-05] MEDS ORDERED: predniSONE 20 MG TABLET PO SCH (09:00)
[2018-11-05 09:25] LABS: Basophils % 0.2 %; Eosinophils % 0.3 %; Hematocrit 43.3 % (35.3-44.9); Hemoglobin 13.4 g/dL (11.5-15.4); Immature Granulocytes % 0.4 % (0-4); Lymphocytes # 1.4 K/mcL (0.6-4.6); Lymphocytes % 10.8 %; Mean Corpuscular HGB Conc 30.9 g/dL (31.6-35.5); Mean Corpuscular Hemoglobin 28.2 pg (28.0-33.3); Mean Corpuscular Volume 91.2 fL (83.0-100.0); Mean Platelet Volume 9.7 fL (9.4-12.4); Monocytes # 0.8 K/mcL (0.0-1.3); Monocytes % 5.6 %; Neutrophils # 11.1 K/mcL (1.6-8.9); Platelet Count 341 K/mcL (140-400); Red Blood Count 4.75 M/mcL (3.82-4.97); Red Cell Distribution Width 14.3 % (11.5-14.5); Segmented Neutrophils % 82.7 %; White Blood Count 13.4 K/mcL (4.3-11.1)
[2018-11-05] MEDS: Budesonide/Formoterol 160/4.5 1 PUFF INH IH SCH (09:29)
[2018-11-05 09:44] LABS: Calcium 8.7 mg/dL (8.6-10.3)
--- NOTE | 2018-11-05 11:20 | Discharge Summary ---
- NOTES TO OUTPATIENT PROVIDER Notes to Outpatient Provider: PCP or Hospice nurse Orders not resulted at time of discharge: Pending orders 11/02/18 08:37 Culture,Blood [BC] Stat 11/02/18 11:37 Culture,Sputum with Gram Stain [RM] Stat Date of Encounter: 11/05/18 Time of Encounter: 11:18 - Discharge Diagnosis (1) Sepsis Priority: Primary Status: Suspected Assessment and Plan: resolved her leukocytosis trended down from 18.4-8.6 but trended up today to 14.2 although in the setting of Solu Medrol twice a day 40 mg. Culture is pending but negative x 3 days and she is afebrile. given his sudden resolution appears to be more inflammatory or reactive blood and urine cultures are pending we will leave Zosyn for now presented with tachycardia, tachypnea, and leukocytosis recently hospitalized, ?HCAP. LActic acid also elevated at 5 which can be explained by profound hypoxia on presentation was given 500ml bolus in the ED, will trend while holding off on further IVF in view of significant pulm edema on CXR abx as above, follow up on cultures Qualifiers: Sepsis type: sepsis due to unspecified organism Qualified Code(s): A41.9 - Sepsis, unspecified organism (2) Elevated troponin Priority: Secondary Status: Acute Assessment and Plan: Patient refused left heart cath. Plan per cardiology Likely demand ischemia however. Family did state that they performed CPR 2-D echo is pending cardiology is on board recommended continuing heparin. (3) Pneumonia Priority: Secondary Status: Acute Assessment and Plan: will discharge on levaquin. she is afebrile, denies any cough or shortness of breath at baseline oxygen 3.5 L. we will continue empiric Zosyn for now likely de-escalate therapy tomorrow Legionella antigen was negative Qualifiers: Pneumonia type: due to unspecified organism Laterality: bilateral Lung lo cation: unspecified part of lung Qualified Code(s): J18.9 - Pneumonia, unspecified organism (4) COPD exacerbation Priority: Secondary Status: Acute Assessment and Plan: resume home meds Continue steroids switched to oral and nebulizer treatment will include azit hromycin for its anti-inflammatory properties (5) Acute on chronic respiratory failure with hypoxemia Priority: Secondary Status: Acute Assessment and Plan: She appears stable follow him back to baseline underlying etiology for her likely cardiorespiratory arrest remains unclear but suspect respiratory depression from opioid. Will reduce opioid dose requires 3L at baseline, presented with O2 sat of 40-50% CXR finding compatible with pulmonary edema, ?HTN emergency given her leukocytosis, intermittent cough, and recent hospitalization, unable to rule out PNA complicated by COPD exacerbation entirely significantly improved after IV lasix and IV Abx, continue offered CT to better evaluate the airspace disease but declined continue bronchodilators, will add IV solumedrol for the possibility of COPD exacerbation trend troponin to rule out ACS, limited echo due to CHF exacerbation wean to HFNC if possible MRSA screen, sputum culture, strep/legionella ag (6) CHF exacerbation Priority: Secondary Status: Acute Assessment and Plan: had 3.6L will switch to oral lasix and reduce to 40mg to avoid over diuresis. Echo EF 45-50% limited echo Qualifiers: Heart failure type: diastolic Qualified Code(s): I50.33 - Acute on chronic diastolic (congestive) heart failure (7) Hypertensive emergency Priority: Secondary Status: Acute Assessment and Plan: Resolved BP wnl likely the cause of pulmonary edema leading to acute on chronic respiratory failure improved on nitro gtt, will try to wean while restarting her home meds for HTN once reconciled (8) DVT prophylaxis Priority: Secondary Status: Acute Assessment and Plan: Currently on heparin protocol for her presumed NSTEMI. Hospital course: Ms. Booth is a 73 year old female - Time Spent with Patient Total time spent providing and/or coordinating discharge services: - Discharge Medications Prescriptions: New Aspirin 81 mg PO DAILY tab.chew LORazepam [Ativan] 0.25 mg PO TID PRN 10 Days #30 tablet PRN Reason: Anxiety Ticagrelor [Brilinta] 90 mg PO BID #60 tablet Buspirone HCl [Buspar] 7.5 mg PO BID #60 tab Rosuvastatin [Crestor] 40 mg PO HS #30 tablet Furosemide [Lasix] 40 mg PO QAM #30 tablet Levofloxacin [Levaquin] 500 mg PO QDPC #7 tablet Nystatin POWDER [Nystop] 1 appl TP TID PRN #60 gm PRN Reason: EXCORIATION Oxycodone HCl/Acetaminophen [Percocet 5-325 mg Tablet] 1 each PO Q4H PRN 7 Days #30 tablet PRN Reason: Pain Potassium Chloride 20 meq PO DAILY #30 tab.er.prt predniSONE [PredniSONE] 10 mg PO DAILY #30 tablet Budesonide Neb [Pulmicort Neb] 0.5 mg IH BIDR #60 ampul.neb Sertraline [Zoloft] 50 mg PO DAILY #30 tablet Continued Albuterol Sulfate [Proventil Inhaler] 2 puff IH Q4HR PRN PRN Reason: Shortness Of Breath Vitamin E 400 unit PO DAILY Magnesium 250 mg PO DAILY Lisinopril [Zestril] 5 mg PO DAILY tablet Gabapentin [Neurontin] 100 mg PO TID Fluticasone/Vilanterol [Breo Ellipta 100-25 Mcg INH] 1 puff IH BID Ipratropium/Albuterol Sulfate [Iprat-Albut 0.5-3(2.5) mg/3 ml] 3 ml IH Q4H PRN #100 ampul.neb PRN Reason: Shortness Of Breath Metoprolol XL (24 HR) Succ [Toprol Xl] 50 mg PO DAILY #30 tab.er.24h Discontinued Furosemide [Lasix] 40 mg PO BID LORazepam [Ativan] 0.5 mg PO Q4H PRN PRN Reason: Anxiety Oxycodone HCl [Roxybond] 10 mg PO Q6H PRN PRN Reason: Pain Potassium Gluconate 550 mg PO DAILY Home Medications: Albuterol Sulfate [Proventil Inhaler] 2 puff IH Q4HR PRN 05/01/16 [History] Metoprolol XL (24 HR) Succ [Toprol Xl] 50 mg PO DAILY #30 tab.er.24h 05/16/16 [Rx] Magnesium 250 mg PO DAILY 09/16/18 [History] Vitamin E 400 unit PO DAILY 09/16/18 [History] Lisinopril [Zestril] 5 mg PO DAILY tablet 09/22/18 [Rx] Fluticasone/Vilanterol [Breo Ellipta 100-25 Mcg INH] 1 puff IH BID 11/02/18 [History] Gabapentin [Neurontin] 100 mg PO TID 11/02/18 [History] Aspirin 81 mg PO DAILY tab.chew 11/05/18 [Rx] Budesonide Neb [Pulmicort Neb] 0.5 mg IH BIDR #60 ampul.neb 11/05/18 [Rx] Buspirone HCl [Buspar] 7.5 mg PO BID #60 tab 11/05/18 [Rx] Furosemide [Lasix] 40 mg PO QAM #30 tablet 11/05/18 [Rx] Ipratropium/Albuterol Sulfate [Iprat-Albut 0.5-3(2.5) mg/3 ml] 3 ml IH Q4H PRN #100 ampul.neb 11/05/18 [Rx] LORazepam [Ativan] 0.25 mg PO TID PRN 10 Days #30 tablet 11/05/18 [Rx] Levofloxacin [Levaquin] 500 mg PO QDPC #7 tablet 11/05/18 [Rx] Nystatin POWDER [Nystop] 1 appl TP TID PRN #60 gm 11/05/18 [Rx] Oxycodone HCl/Acetaminophen [Percocet 5-325 mg Tablet] 1 each PO Q4H PRN 7 Days #30 tablet 11/05/18 [Rx] Potassium Chloride 20 meq PO DAILY #30 tab.er.prt 11/05/18 [Rx] Rosuvastatin [Crestor] 40 mg PO HS #30 tablet 11/05/18 [Rx] Sertraline [Zoloft] 50 mg PO DAILY #30 tablet 11/05/18 [Rx] Ticagrelor [Brilinta] 90 mg PO BID #60 tablet 11/05/18 [Rx] predniSONE [PredniSONE] 10 mg PO DAILY #30 tablet 11/05/18 [Rx] Allergies/Adverse Reactions: Allergy/AdvReac Type Severity Reaction Status Date / Time pain med Allergy See Uncoded 08/03/18 15:36 Comments Date of admission: 11/02/18 13:42 Primary care physician: PCP NONE Consults: 11/02/18 15:45 Consult to Cardiology [CONS] Routine Comment: Consulting Provider: Card[facility] [place] Reason for Consult: NSTEMI Call Completed: Yes 11/02/18 15:54 Consult to Wound Care [CONS] Routine Reason for Consult: BLE wounds. Call Completed: No 11/02/18 16:14 Consult to Nutrition [CONS] Routine Comment: Consulting Provider: NUTRITION Reason for Dietary Consult: MST Score Consult to Pastoral Services [CONS] Routine Comment: Consult to Regulatory Administrator [CONS] Routine Reason for SW Consult: [facility] Discharging clinician: Enovwo E Ohwof[place]woraye - Constitutional Vitals: Temp Pulse Resp BP Pulse Ox 97.7 F 67 16 109/55 96 11/05/18 06:39 11/05/18 06:39 11/05/18 09:29 11/05/18 06:39 11/05/18 09:29 Exam: GENERAL: NAD, A&O x3, quite tearful SKIN: No skin lesions or rashes except for her bilateral lower extremity with signs of chronic lymphedema with venous stasis, non-jaundiced EYES: EOMI, PERRLA, no sclera icterus HENT: Head atraumatic, no facial asymmetry, frontal and maxillary sinus non- tender, normal hearing, oropharynx and mucosa moist and without any exudates NECK: No cervical lymphadenopathy, trachea midline, thyroid is palpable does not appear enlarged LUNGS: Diminished few scattered rales no wheezing rhonchi. Non labored respirations HEART: Normal rate and rhythm, no murmurs or rubs ABDOMEN: soft, non-tender, non-distended, bowel sounds x 4 normoactive EXTRMITIES: No LE asymmetry however since of chronic lymphedema and venostasis with thickening and scaling of the skin bilateral onychomycoses noted with overgrown toenails NEURO: Speech and comprehension appears intact. PSYCH: Cooperative, non- anxious or irritable, mood depressed and affect flat - Patient Status Disposition: Hospice - Home Condition: Fair - Discharge Instructions Follow Up With: NONE,PCP [Primary Care Provider] - (Patient will call her pcp when she is released for hospital. Her dr comes to her home ) - Diet and Activity Activity: resume usual activities as tolerated, wear oxygen at all times Diet: diabetic diet, low fat, low cholesterol
[2018-11-05 11:31] VITALS: BP 129/52
--- NOTE | 2018-11-07 06:25 | Electrocardiograph Report ---
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
--- NOTE | 2018-11-07 06:25 | Electrocardiograph Report ---
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
== END 2018-11-05 14:20 | disposition hospice, home (50) | DRG 871 ==
LOC: EMEROOARM 08:14 → 2NNU 13:42 → SUATTDRO 13:42 → 2NNU 14:35
PROVIDERS: ADMIT Internal Medicine; ATTEND Pharmacist

== ENCOUNTER 2018-12-24 16:31 | Inpatient (IN) ==
[~2018-12-24 16:31] MED LIST: *HR* Etomidate 20 MG/10 ML AMPUL IVP ONE; *HR* Midazolam HCl 5 MG/5 ML VIAL IVP ONE; *HR* Rocuronium Bromide 100 MG/10 ML VIAL IVC ONE
[2018-12-24] MEDS ORDERED: methylPREDNISolone 125 MG/2 ML VIAL IVP ONE (16:43)
[2018-12-24] MEDS ORDERED: Ipratropium/Albuterol Neb 3 ML IH ONE (16:43)
[2018-12-24] MEDS ORDERED: Ipratropium/Albuterol Neb 3 ML ONE (16:47)
--- NOTE | 2018-12-24 16:49 | Emergency Department Note ---
Disposition Clinical Impression: Lactic acidosis Respiratory failure Qualifiers: Chronicity: acute Respiratory failure complication: hypoxia and hypercapnia Qualified Code(s): J96.01 - Acute respiratory failure with hypoxia Disposition: Admitted As Inpatient Condition: Critical Time of Disposition: 21:00 Altered Mental Status HPI - General Stated Complaint: TERESITA/unresponsive Time Seen by Provider: 12/24/18 16:43 Source: family, EMS Mode of arrival: EMS Limitations: altered mental status Nursing Notes Reviewed: Yes Vital Signs Reviewed: Yes - History of Present Illness HPI Narrative: The patient is a 73-year-old female with an unknown past medical history at the time of presentation. We were called by EMS stating that they had picked the patient up for severe respiratory distress and had begun bagging in route. EMS was stating that they were seeing ventricular tachycardia on the monitor but had not administered medication or shock at that time. Upon presentation the patient was noted to be in severe respiratory distress she was unresponsive to verbal or painful stimuli, there was a wide complex tachycardia noted on the monitor in the 140 range she was tachypneic in the 30s and 40s but satting in the 90% range by [id number]. The decision was made at that time for emergent intubation for protection of the patient's airway. The patient was intubated with a size 7.0 tube using 20 mg of etomidate and 70 mg of rocuronium. The tube was secured at 21 cm at the teeth. Patient tolerated the procedure well without difficulties. There was immediate color change on capnography device good waveform on end tidal CO2 pulse ox came up to 100% range patient was bagging easily. There are bilateral breath sounds noted with normal the epigastrium. Bedside chest x-ray showed good tube placement. MD complaint: altered mental status, decreased responsiveness Onset (ago): unknown Timing confirmed by: spouse (Patient's spouse who arrived after intubation states that the patient developed severe onset respiratory distress approximate one half hour prior to arrival in the ED.) - Related Data Home Medications Medication Instructions Recorded Confirmed Albuterol Sulfate [Proventil 2 puff IH Q4HR PRN 05/01/16 12/24/18 Inhaler] Fluticasone/Vilanterol [Breo 1 puff IH BID 11/02/18 12/24/18 Ellipta 100-25 Mcg INH] Pantoprazole Sodium 40 mg PO DAILY 12/24/18 12/24/18 predniSONE [PredniSONE] 10 mg PO DAILY 12/24/18 12/24/18 Previous Rx's Medication Instructions Recorded Metoprolol XL (24 HR) Succ [Toprol 50 mg PO DAILY #30 tab.er.24h 05/16/16 Xl] Aspirin 81 mg PO DAILY tab.chew 11/05/18 Budesonide Neb [Pulmicort Neb] 0.5 mg IH BIDR #60 ampul.neb 11/05/18 Buspirone HCl [Buspar] 7.5 mg PO BID #60 tab 11/05/18 Furosemide [Lasix] 40 mg PO QAM #30 tablet 11/05/18 Ipratropium/Albuterol Sulfate 3 ml IH Q4H PRN #100 ampul.neb 11/05/18 [Iprat-Albut 0.5-3(2.5) mg/3 ml] Nystatin POWDER [Nystop] 1 appl TP TID PRN #60 gm 11/05/18 Potassium Chloride 20 meq PO DAILY #30 tab.er.prt 11/05/18 Ticagrelor [Brilinta] 90 mg PO BID #60 tablet 11/05/18 Allergies Allergy/AdvReac Type Severity Reaction Status Date / Time pain med Allergy See Uncoded 08/03/18 15:36 Comments Limitations: ROS unobtainable due to patients medical condition Past Medical History - Past Medical History Medical history: Reports: arthritis, asthma, COPD, DVT, pulmonary embolus, other Psychiatric history: Reports: depression HOME HEALTH CNA history: Reports: no HOME HEALTH CNA history - Social History Smoking Status: Former smoker Smokeless Tobacco Status: No Alcohol use: Reports: none Drug use: Reports: none Physical Exam Constitutional: Patient is in acute respiratory failure Neuro: GCS 5 Head: Atraumatic, normocephalic Neck: Trachea midline without deviation. Anterior neck is supple without swelling. *Chest: Symmetric chest wall rise *Heart: Cardiac rate was tachycardic regular rhythm S1 and S2 , no S3 or S4 appreciated, no murmurs, gallops, rubs, or clicks. *Lungs: After intubation lung sounds are extremely diminished throughout with coarse wheezes and rhonchi Extremities: Pulses are strong in the 4 extremities - General Limitations: other (Patient is unresponsive) General appearance: obtunded, in distress Course Course Narrative: We will perform a CT head and neck with CTA chest abdomen and pelvis at this time ED sepsis workup plus cardiopulmonary evaluation to determine etiology of sudden onset respiratory failure. Vital Signs Pulse Rate 141 12/24/18 16:37 Respiratory Rate 27 12/24/18 16:37 Blood Pressure 168/108 12/24/18 16:37 O2 Sat by Pulse Oximetry 100 12/24/18 16:37 Temperature 100.0 F H 12/24/18 17:30 Pulse Rate 74 12/24/18 20:05 Respiratory Rate 24 12/24/18 20:55 Blood Pressure 102/71 12/24/18 20:15 O2 Sat by Pulse Oximetry 100 12/24/18 20:55 Oxygen Delivery Oxygen Delivery Ventilator Altered Mental Status - MDM Narrative Medical decision making narrative: Patient initially noted to have a severe respiratory acidosis with a lactic acidosis to laboratory analysis. After approximately one hour after being intubated on the ventilator patient's acidoses have improved dramatically. She has been somewhat of a challenge with sedation requiring higher doses of propofol initially adding a Versed drip in order to achieve adequate sedation. Patient appears to be stable at this time and will go to CT scan her prior to admission to the ICU. Plan of care discussed with patient's and extended family at bedside and they verbalized their understanding and agreement with our course of action. - Lab Data Lab results reviewed: Yes I reviewed the patient's lab results. Result diagrams: 12/24/18 16:36 12/24/18 17:43 Lab Results 12/24/18 12/24/18 12/24/18 Range/Units 16:36 16:36 16:36 WBC 20.2 H (4.3-11.1) K/mcL RBC 5.04 H (3.82-4.97) M/mcL Hgb 14.5 (11.5-15.4) g/dL Hct 48.5 H (35.3-44.9) % MCV 96.2 (83.0-100.0) fL MCH 28.8 (28.0-33.3) pg MCHC 29.9 L (31.6-35.5) g/dL RDW 15.3 H (11.5-14.5) % Plt Count 395 (140-400) K/mcL MPV 9.7 (9.4-12.4) fL Immature Gran % 0.6 (0-4) % Seg Neutrophils % 59.8 % Lymphocytes % 35.6 % Monocytes % 3.2 % Eosinophils % 0.6 % Basophils % 0.2 % Neutrophils # 12.0 H (1.6-8.9) K/mcL Lymphocytes # 7.2 H (0.6-4.6) K/mcL Monocytes # 0.6 (0.0-1.3) K/mcL Eosinophils # 0.1 (0.0-0.6) K/mcL Basophils # 0.1 (0.0-0.2) K/mcL PT (9.4-12.1) Seconds INR APTT (26.0-36.0) Seconds Sample Site ABG pH (7.32-7.45) pH Units ABG pCO2 (35-45) mmHg ABG pO2 (85-104) mmHg ABG HCO3 (21-27) mEq/L ABG Total CO2 (20-26) mEq/L ABG O2 Saturation (95-98) % ABG Base Excess (-2 to 3) mEq/L Ashkan Test Respiration Rate O2 Delivery Device Blood Gas Modality Inspired O2 (1-15=lpm [id number]=%) Tidal Volume cc PEEP cm H2O Sodium 138 (136-145) mEq/L Potassium 5.0 (3.5-5.1) mEq/L Chloride 99 (98-107) mEq/L Carbon Dioxide 22 L (23-29) mEq/L BUN 20 (8-23) mg/dL Creatinine 0.96 (0.60-1.20) mg/dL Est GFR ( Amer) > 60 (> 60) Est GFR (Non-Af Amer) 57 L (> 60) BUN/Creatinine Ratio 21 (6-26) Glucose 248 H (70-105) mg/dL Calculated Osmolality 297 (280-300) Lactic Acid 9.2 H* (0.5-2.2) mmol/L Calcium 9.7 (8.6-10.3) mg/dL Total Bilirubin (0.3-1.0) mg/dL AST (13-39) Units/L ALT (7-52) Units/L Alkaline Phosphatase (34-104) Units/L Troponin I < 0.03 (< 0.04) ng/mL B-Natriuretic Peptide (Less than 100) pg/mL Serum Total Protein (6.4-8.9) g/dL Albumin (3.5-5.7) g/dL Globulin (2.4-3.5) g/dL Albumin/Globulin Ratio (1.1-2.2) Procalcitonin (0.00-0.15) ng/mL Person Notif of Crit 12/24/18 12/24/18 12/24/18 Range/Units 16:36 16:36 16:55 WBC (4.3-11.1) K/mcL RBC (3.82-4.97) M/mcL Hgb (11.5-15.4) g/dL Hct (35.3-44.9) % MCV (83.0-100.0) fL MCH (28.0-33.3) pg MCHC (31.6-35.5) g/dL RDW (11.5-14.5) % Plt Count (140-400) K/mcL MPV (9.4-12.4) fL Immature Gran % (0-4) % Seg Neutrophils % % Lymphocytes % % Monocytes % % Eosinophils % % Basophils % % Neutrophils # (1.6-8.9) K/mcL Lymphocytes # (0.6-4.6) K/mcL Monocytes # (0.0-1.3) K/mcL Eosinophils # (0.0-0.6) K/mcL Basophils # (0.0-0.2) K/mcL PT (9.4-12.1) Seconds INR APTT (26.0-36.0) Seconds Sample Site R Radial ABG pH 7.15 L* (7.32-7.45) pH Units ABG pCO2 87 H* (35-45) mmHg ABG pO2 527 H (85-104) mmHg ABG HCO3 31 H (21-27) mEq/L ABG Total CO2 33 H (20-26) mEq/L ABG O2 Saturation 100 H (95-98) % ABG Base Excess -1 (-2 to 3) mEq/L Ashkan Test N/A Respiration Rate 16 O2 Delivery Device Adult Vent Blood Gas Modality ASSIST CONTROL Inspired O2 100.0 (1-15=lpm [id number]=%) Tidal Volume 450 cc PEEP 5 cm H2O Sodium (136-145) mEq/L Potassium (3.5-5.1) mEq/L Chloride (98-107) mEq/L Carbon Dioxide (23-29) mEq/L BUN (8-23) mg/dL Creatinine (0.60-1.20) mg/dL Est GFR ( Amer) (> 60) Est GFR (Non-Af Amer) (> 60) BUN/Creatinine Ratio (6-26) Glucose (70-105) mg/dL Calculated Osmolality (280-300) Lactic Acid (0.5-2.2) mmol/L Calcium (8.6-10.3) mg/dL Total Bilirubin (0.3-1.0) mg/dL AST (13-39) Units/L ALT (7-52) Units/L Alkaline Phosphatase (34-104) Units/L Troponin I (< 0.04) ng/mL B-Natriuretic Peptide 201 H (Less than 100) pg/mL Serum Total Protein (6.4-8.9) g/dL Albumin (3.5-5.7) g/dL Globulin (2.4-3.5) g/dL Albumin/Globulin Ratio (1.1-2.2) Procalcitonin 0.42 H (0.00-0.15) ng/mL [facility] 12/24/18 12/24/18 12/24/18 Range/Units 17:43 17:43 17:43 WBC (4.3-11.1) K/mcL RBC (3.82-4.97) M/mcL Hgb (11.5-15.4) g/dL Hct (35.3-44.9) % MCV (83.0-100.0) fL MCH (28.0-33.3) pg MCHC (31.6-35.5) g/dL RDW (11.5-14.5) % Plt Count (140-400) K/mcL MPV (9.4-12.4) fL Immature Gran % (0-4) % Seg Neutrophils % % Lymphocytes % % Monocytes % % Eosinophils % % Basophils % % Neutrophils # (1.6-8.9) K/mcL Lymphocytes # (0.6-4.6) K/mcL Monocytes # (0.0-1.3) K/mcL Eosinophils # (0.0-0.6) K/mcL Basophils # (0.0-0.2) K/mcL PT 10.7 (9.4-12.1) Seconds INR 0.9 APTT 32.5 (26.0-36.0) Seconds Sample Site ABG pH (7.32-7.45) pH Units ABG pCO2 (35-45) mmHg ABG pO2 (85-104) mmHg ABG HCO3 (21-27) mEq/L ABG Total CO2 (20-26) mEq/L ABG O2 Saturation (95-98) % ABG Base Excess (-2 to 3) mEq/L Ashkan Test Respiration Rate O2 Delivery Device Blood Gas Modality Inspired O2 (1-15=lpm [id number]=%) Tidal Volume cc PEEP cm H2O Sodium 137 (136-145) mEq/L Potassium 4.2 (3.5-5.1) mEq/L Chloride 100 (98-107) mEq/L Carbon Dioxide 25 (23-29) mEq/L BUN 22 (8-23) mg/dL Creatinine 0.94 (0.60-1.20) mg/dL Est GFR ( Amer) > 60 (> 60) Est GFR (Non-Af Amer) 59 L (> 60) BUN/Creatinine Ratio 23 (6-26) Glucose 269 H (70-105) mg/dL Calculated Osmolality 297 (280-300) Lactic Acid 3.8 H (0.5-2.2) mmol/L Calcium 9.0 (8.6-10.3) mg/dL Total Bilirubin 0.5 (0.3-1.0) mg/dL AST 32 (13-39) Units/L ALT 20 (7-52) Units/L Alkaline Phosphatase 129 H (34-104) Units/L Troponin I (< 0.04) ng/mL B-Natriuretic Peptide (Less than 100) pg/mL Serum Total Protein 7.3 (6.4-8.9) g/dL Albumin 3.7 (3.5-5.7) g/dL Globulin 3.6 H (2.4-3.5) g/dL Albumin/Globulin Ratio 1.0 L (1.1-2.2) Procalcitonin (0.00-0.15) ng/mL Person Notif of Crit - Radiology Data Radiology results reviewed: Yes I reviewed the patient's radiology results. Chest X-Ray 12/24/18 16:43 IMPRESSION: Interstitial changes throughout the lungs, stable with no superimposed acute infiltrate. Satisfactory position of endotracheal tube. Enteric catheter coiled in the proximal stomach. D/ / Destin Proctor MD / Destin Proctor MD Interpreting Provider: Destin Proctor MD - EKG Data EKG attestation: Yes I reviewed and interpreted this EKG. EKG results narrative: 1634: Prior to intubation the patient's EKG shows a sinus tachycardia with a right bundle branch block at a computer analyzed rate of 142 beats per minute, OR interval of 91 milliseconds, a QRS duration of 141 milliseconds, a QT/QTc interval of 294 / 452 milliseconds respectively. There are no significant ST segment elevations, depressions, pathologic Q waves, abnormal T-wave inversions, nor any other signs of acute ischemic change. This EKG that was performed today is generally consistent in morphology with prior EKG that was performed on 11/02/2017. Post intubation the patient's EKG shows a sinus rhythm with a right bundle branch block and a left anterior fascicular block at a computer analyzed rate of 86 beats per minute, OR interval of 135 milliseconds, a QRS duration of 142 milliseconds, a QT/QTc interval of 463 / 554 milliseconds respectively. There are no significant ST segment elevations, depressions, pathologic Q waves, abnormal T-wave inversions, nor any other signs of acute ischemic change. This EKG is generally consistent in morphology with prior. TPA Checklist - LKW: 3-4.5 hrs Add. Warnings/Precautions Patient/family understanding: The patient/family members have been counseled and understood the risk, benefit, and alternatives of treatment. Critical Care Time Critical Care Time: Yes Total Critical Care Time: 60 Attestation: Critical care time 60 minutes managing patient's respiratory failure. Attestation Statement - Attestation Attestation: Patient was seen with resident physician. I reviewed the history, physical, assessment and plan, and agree with the findings. I also personally evaluated this patient and had [id number] time with this patient. 73-year-old female presents to the emergency department with a chief complaint of respiratory failure. Patient's history is provided via EMS she says they were called to the patient's house where she was found in extremis. She was not breathing particularly well and had a heart rate in the 30s. They applied oxygen and a got her heart rate up into the 70s to 80s. She is being bagged at the time of arrival and was essentially unconscious and in respiratory failure. I we had no other patient history at the time of arrival to include head status or medical history, for allergies, or even name. Review of systems as above unable to obtain secondary to patient's condition. Physical exam vital signs patient was tachycardic hypertensive and had decreased oxygenation and she was being bagged. She had very poor breath sounds and sounded very tight with some wheezing. Abdomen was obese no tenderness no masses. Extremities patient had essentially purple looked like almost cyanotic lower extremities bilaterally about mid calf down. Neurologically and psychiatric exams were both unobtainable secondary to patient condition. ED course. Because the patient presented in extremis we immediately started the process of rapid sequence intubation. This was successfully done. Once intubated patient's respiratory status is a little bit better to evaluate and she definitely had some increased wheezing and what sounded like a pretty significant reactive airways disease. She was started on breathing treatments and actually blood pressure and pulse improved once a get her intubated and oxygenated. She was Sedated using propofol and Versed. We completed a cardiopulmonary workup. We spoke with the who said he wanted everything done to keep her alive. She will be admitted to the intensive care unit for additional evaluation and treatment in critical condition. Critical care time was 60 minutes managing patient's respiratory failure. CT scans are pending at time of admission she is got a get them on her way to the intensive care unit. We had a difficult time keeping the patient appropriately sedated. A pharmacy was very helpful in helping to accomplish that. ED procedures. I reviewed the patient's EKG as well as the resident physician interpretation and I agree with the findings.
[2018-12-24] MEDS ORDERED: *HR* Etomidate 20 MG/10 ML AMPUL IVP ONE (16:51)
[2018-12-24] MEDS ORDERED: *HR* Rocuronium Bromide 50 MG/5 ML VIAL IVP ONE (16:52)
[2018-12-24 17:00] LABS: ABG Base Excess -1 mEq/L (-2 to 3); ABG HCO3 31 mEq/L (21-27); ABG Oxygen Saturation 100 % (95-98); ABG PCO2 87 mmHg (35-45); ABG PH 7.15 pH Units (7.32-7.45); ABG PO2 527 mmHg (85-104); ABG TCO2 33 mEq/L (20-26); Blood Gas Modality ASSIST CONTROL; Blood Gas PEEP 5 cm H2O; Blood Gas VT 450 cc
[2018-12-24 17:04] LABS: Basophils # 0.1 K/mcL (0.0-0.2); Basophils % 0.2 %; Eosinophils # 0.1 K/mcL (0.0-0.6); Eosinophils % 0.6 %; Hematocrit 48.5 % (35.3-44.9); Hemoglobin 14.5 g/dL (11.5-15.4); Immature Granulocytes % 0.6 % (0-4); Lymphocytes # 7.2 K/mcL (0.6-4.6); Lymphocytes % 35.6 %; Mean Corpuscular HGB Conc 29.9 g/dL (31.6-35.5); Mean Corpuscular Hemoglobin 28.8 pg (28.0-33.3); Mean Corpuscular Volume 96.2 fL (83.0-100.0); Mean Platelet Volume 9.7 fL (9.4-12.4); Monocytes # 0.6 K/mcL (0.0-1.3); Monocytes % 3.2 %; Platelet Count 395 K/mcL (140-400); Red Blood Count 5.04 M/mcL (3.82-4.97); Red Cell Distribution Width 15.3 % (11.5-14.5); Segmented Neutrophils % 59.8 %; White Blood Count 20.2 K/mcL (4.3-11.1)
[2018-12-24] MEDS ORDERED: Isovue-370 500 ML BOTTLE IVP ONE (17:07)
[2018-12-24] MEDS ORDERED: 0.9 % Sodium Chloride 1,000 ML IVC ONE (17:07)
[2018-12-24] MEDS ORDERED: *HR* Midazolam HCl 5 MG/5 ML VIAL IVP PRN (17:07)
[2018-12-24] MEDS ORDERED: 0.9 % Sodium Chloride 1,000 ML ONE (17:11)
[2018-12-24] MEDS ORDERED: Piperacillin/Tazobactam 3.375 GM in 0.9 % Sodium Chloride Mini Bag 100 ML IVPB ONE (17:12)
[2018-12-24] MEDS ORDERED: Acetaminophen 650 MG RECTAL SUPP RC ONE (17:22)
[2018-12-24 17:24] LABS: BUN/Creatinine Ratio 21 (6-26); Blood Urea Nitrogen 20 mg/dL (8-23); Calcium 9.7 mg/dL (8.6-10.3); Carbon Dioxide 22 mEq/L (23-29); Chloride 99 mEq/L (98-107); Glucose 248 mg/dL (70-105); Osmolality,Calculated 297 (280-300); Sodium 138 mEq/L (136-145); eGFR For African Americans > 60 (> 60); eGFR For Non-African Americans 57 (> 60)
[2018-12-24 17:25] LABS: Troponin I < 0.03 ng/mL (< 0.04)
[2018-12-24 18:06] LABS: INR 0.9; Prothrombin Time 10.7 Seconds (9.4-12.1)
[2018-12-24 18:09] LABS: Activated Partial Thrombo Time 32.5 Seconds (26.0-36.0)
[2018-12-24] MEDS: FentaNYL (PF) 1,000 MCG in 0.9 % Sodium Chloride 80 ML IVC STA (18:21)
[2018-12-24 19:00] LABS: Alanine Aminotransferase 20 Units/L (7-52); Albumin 3.7 g/dL (3.5-5.7); Alkaline Phosphatase 129 Units/L (34-104); Aspartate Amino Transferase 32 Units/L (13-39); BUN/Creatinine Ratio 23 (6-26); Bilirubin,Total 0.5 mg/dL (0.3-1.0); Blood Urea Nitrogen 22 mg/dL (8-23); Carbon Dioxide 25 mEq/L (23-29); Chloride 100 mEq/L (98-107); Globulin 3.6 g/dL (2.4-3.5); Glucose 269 mg/dL (70-105); Osmolality,Calculated 297 (280-300); Potassium 4.2 mEq/L (3.5-5.1); Sodium 137 mEq/L (136-145); Total Protein 7.3 g/dL (6.4-8.9); eGFR For African Americans > 60 (> 60); eGFR For Non-African Americans 59 (> 60)
[2018-12-24 19:26] LABS: ABG Base Excess 4 mEq/L (-2 to 3); ABG HCO3 33 mEq/L (21-27); ABG Oxygen Saturation 100 % (95-98); ABG PCO2 70 mmHg (35-45); ABG PH 7.29 pH Units (7.32-7.45); ABG PO2 534 mmHg (85-104); ABG TCO2 35 mEq/L (20-26); Blood Gas Modality ASSIST CONTROL; Blood Gas PEEP 5 cm H2O; Blood Gas VT 450 cc
[2018-12-24] MEDS ORDERED: Acetaminophen 325 MG TABLET PO PRN (20:19)
[2018-12-24] MEDS ORDERED: Artificial Tears SOLN 15 ML BOTTLE BOTH EYES PRN (20:19)
[2018-12-24] MEDS ORDERED: Naloxone 0.4 MG/ML INJ IVP PRN (20:19)
[2018-12-24] MEDS ORDERED: Vancomycin (wt based) 1,000 MG VIAL IVPB SCH (21:00)
[2018-12-24] MEDS: 0.9 % Sodium Chloride 1,000 ML IVC SCH (21:48)
[2018-12-24] MEDS: Chlorhexidine Rinse 15 ML MOUTHWASH MM SCH (21:49)
[2018-12-24] MEDS: *HR* Heparin 5,000 UNIT/ML VIAL SQ SCH (21:50)
[2018-12-24] MEDS ORDERED: levoFLOXacin 750 MG/150 ML 750 MG/150 ML BAG IVPB SCH (22:00)
[2018-12-24] MEDS: Budesonide/Formoterol 160/4.5 1 PUFF INH IH SCH (22:06)
[2018-12-24 22:14] LABS: Bilirubin,Urine Negative (Negative); Blood,Urine Large (Negative); Clarity,Urine Clear (Clear); Color,Urine Yellow (Yellow); Glucose,Urine (UA) Normal (Normal); Ketones,Urine Negative (Negative); Leukocyte Esterase,Urine Negative (Negative); Nitrite,Urine Negative (Negative); PH,Urine 5.5 pH Units (5.0-8.0); Protein,Urine 30 mg/dL (Neg-Trace); Specific Gravity,Urine > 1.030 (1.010-1.025); Urobilinogen,Urine Normal (Normal)
[2018-12-24 22:15] LABS: Bacteria,Urine None Seen per hpf (None-Few); Hyaline Casts,Urine Few per lpf (None-Few); RBC,Urine TNTC per hpf (0-3); Squamous Epithelial Cell,Urine Many per lpf (None-Few)
[2018-12-24 22:24] LABS: Uric Acid Crystals,Urine Present
--- NOTE | 2018-12-24 22:29 | Internal Med History&Physical ---
Date of Encounter: 12/24/18 Time of Encounter: 19:35 Internal Medicine - H&P: HPI Chief complaint: respiratory failure Admitted From: Emergency Dept Plans for Post Hospital Care: Home History of present illness: Ms. Booth is a 73 year old female who presents to the ER this afternoon/evening with complaints of acute respiratory failure and respiratory arrest en route by EMS. Patient was emergently intubated upon arrival to the ER by ER staff. Workup in ER of the patient reveleaed her to have acute respiratory failure, sepsis, and subsequent respiratory arrest. Once her airway was secured by ER staff and patient was fluid resuscitated, she stabilized hemodynamically and from a respiratory standpoint. She was then admitted to hospitalist service. I discussed the case with the ER staff and then met with family at the bedside in the ER. History is obtained by multiple family members and my discussions with the ER staff. Patient was feeling well earlier in the day but then developed sudden onset respiratory distress at home. She summoned help from her and family members who called EMS. Once EMS arrived, patient collapsed and she was placed in the squad and brought to ER by EMS. Patient was noted to have respiratory arrest in the squad but never lost a pulse. She received bag mask ventilation and was intubated emergently upon arrival to the ER. She was fluid resuscitated and started on antibiotics for suspected sepsis. Blood and urine cultures were obtained. She is also supported by mechanical ventilation for respiratory failure. Given the sudden onset respiratory failure and arrest, there was high clinical concern for possible pulmonary embolus. ER staff and I therefore requested CT of the chest to rule out PE. CT of the chest was negative. CT of the head and abdomen were negative as well. According to family, patient has extensive history of COPD and and has greater than 50 year history of smoking. She quit smoking 2 years ago. Since then, she has been intubated several times, last episode roughly 1 year ago. CODE STATUS was discussed and she is full code. Past Med Surg Social Fam HX - Past Medical History Source: old records reviewed, obtained from family, other (discussions with ER staff) Medical history: arthritis, asthma, COPD, DVT, pulmonary embolus Additional medical history: bells palsy family states has not seen a doctor in 3 0 years. Psychiatric history: depression - Past Surgical History Surgical History: other Additional surgical history: tubal with surgical intervention. - Social History Smoking Status: Former smoker Smokeless Tobacco Status: No Alcohol use: none Drug use: none Current living situation: Home, With Family Activity Level: Independent ambulation Recent Out of Country Travel Within the Last 8 Weeks: No - Family History Father Living Status: Hx Family Cardiac Disorders: Yes (CHF, anuerysm) Hx Family Respiratory Disorders: No Hx Family Cancer: No Hx Family GI Disorders: No Hx Family Endocrine Disorder: Yes (IDDM 1) Hx Family Neuromuscular Disorders: No Hx Family Neurologic Disorders: No Hx Family HEENT Disorders: No Hx Family Autoimmune Disorders: No Mother Living Status: Hx Family Cardiac Disorders: Yes (CHF, HTN) Hx Family Endocrine Disorder: Yes (DM) Sister Living Status: Hx Family Cardiac Disorders: Yes Internal Medicine - H&P: Meds Albuterol Sulfate [Proventil Inhaler] 2 puff IH Q4HR PRN 05/01/16 [History] Metoprolol XL (24 HR) Succ [Toprol Xl] 50 mg PO DAILY #30 tab.er.24h 05/16/16 [Rx] Fluticasone/Vilanterol [Breo Ellipta 100-25 Mcg INH] 1 puff IH BID 11/02/18 [History] Aspirin 81 mg PO DAILY tab.chew 11/05/18 [Rx] Budesonide Neb [Pulmicort Neb] 0.5 mg IH BIDR #60 ampul.neb 11/05/18 [Rx] Buspirone HCl [Buspar] 7.5 mg PO BID #60 tab 11/05/18 [Rx] Furosemide [Lasix] 40 mg PO QAM #30 tablet 11/05/18 [Rx] Ipratropium/Albuterol Sulfate [Iprat-Albut 0.5-3(2.5) mg/3 ml] 3 ml IH Q4H PRN #100 ampul.neb 11/05/18 [Rx] Nystatin POWDER [Nystop] 1 appl TP TID PRN #60 gm 11/05/18 [Rx] Potassium Chloride 20 meq PO DAILY #30 tab.er.prt 11/05/18 [Rx] Ticagrelor [Brilinta] 90 mg PO BID #60 tablet 11/05/18 [Rx] Pantoprazole Sodium 40 mg PO DAILY 12/24/18 [History] predniSONE [PredniSONE] 10 mg PO DAILY 12/24/18 [History] Allergy/AdvReac Type Severity Reaction Status Date / Time pain med Allergy See Uncoded 08/03/18 15:36 Comments ROS unobtainable: due to endotracheal tube Review of systems: as per TAZLINA and per family; unobtainable from patient due to ETT - Constitutional Vitals: Temp Pulse Resp BP Pulse Ox 98.1 F 69 16 104/57 97 12/24/18 20:45 12/24/18 22:00 12/24/18 22:07 12/24/18 22:00 12/24/18 22:07 Exam: intubated, sedated, on mechanical ventilator - Head Head exam: Present: atraumatic, normal inspection - Eye Eye exam: Absent: scleral icterus - ENT ENT exam: Present: mucous membranes dry, normal exam, normal oropharynx Additional comments: ETT in place - Neck Neck exam general surgery: Present: full ROM, supple, trachea midline. Absent: lymphadenopathy, tenderness, nuchal rigidity, thyromegaly - Respiratory Respiratory exam: Present: prolonged expiratory phase, rales, rhonchi. Absent: accessory muscle use, chest wall tenderness, wheezes, tachypnea - Cardiovascular Cardiovascular exam: Present: distant heart sounds, RRR, +S1, +S2. Absent: diastolic murmur, systolic murmur, tachycardia - GI/Abdominal GI/Abdominal exam: Present: hypoactive bowel sounds, soft. Absent: guarding, hepatomegaly, mass, rebound, splenomegaly, tenderness - Extremities Exam Extremities exam: Present: full ROM, normal capillary refill, warm, radial pulses palpable and symmetrical. Absent: calf tenderness, pedal edema, tenderness Additional comments: crusting skin, poor toenail hygiene - Back Exam Back exam: Present: normal inspection - Neurological Exam Additional comments: intubated and sedated; unable to assess - Psychiatric Additional comments: unable to assess; intubated - Skin Skin exam: Present: dry, intact, warm Internal Med - H&P Results - Labs CBC & Chem 7: 12/24/18 16:36 12/24/18 17:43 Labs: Short CBC 12/24/18 Range/Units 16:36 WBC 20.2 H (4.3-11.1) K/mcL Hgb 14.5 (11.5-15.4) g/dL Hct 48.5 H (35.3-44.9) % Plt Count 395 (140-400) K/mcL Neutrophils # 12.0 H (1.6-8.9) K/mcL BMP 12/24/18 12/24/18 16:36 17:43 Sodium 138 137 Potassium 5.0 4.2 Chloride 99 100 Carbon Dioxide 22 L 25 BUN 20 22 Creatinine 0.96 0.94 Glucose 248 H 269 H Calcium 9.7 9.0 Cardiac Enzymes 12/24/18 12/24/18 Range/Units 16:36 21:16 Troponin I < 0.03 0.17 H* (< 0.04) ng/mL Liver Function 12/24/18 Range/Units 17:43 Total Bilirubin 0.5 (0.3-1.0) mg/dL AST 32 (13-39) Units/L ALT 20 (7-52) Units/L Alkaline Phosphatase 129 H (34-104) Units/L Albumin 3.7 (3.5-5.7) g/dL Urine 12/24/18 Range/Units 21:26 Urine Color Yellow (Yellow) Urine Clarity Clear (Clear) Urine pH 5.5 (5.0-8.0) pH Units Ur Specific [place] > 1.030 H (1.010-1.025) Urine Protein 30 H (Neg-Trace) mg/dL Urine Glucose (UA) Normal (Normal) mg/dL - ABG Interpretation Interpretation: ABG interpreted by ms ABG results: 12/24/18 12/24/18 16:55 19:22 ABG pH 7.15 L* 7.29 L D ABG pCO2 87 H* 70 H* ABG pO2 527 H 534 H ABG HCO3 31 H 33 H ABG Total CO2 33 H 35 H ABG O2 Saturation 100 H 100 H ABG Base Excess -1 4 H Interpretation: respiratory acidosis - Impressions ITS Impressions Chest X-Ray 12/24/18 16:43 IMPRESSION: Interstitial changes throughout the lungs, stable with no superimposed acute infiltrate. Satisfactory position of endotracheal tube. Enteric catheter coiled in the proximal stomach. D/ / Destin Proctor MD / Destin Proctor MD Interpreting Provider: Destin Proctor MD Abdomen/Pelvis CTA 12/24/18 17:07 IMPRESSION: 1. 2.6 cm abdominal aortic aneurysm. Recommend follow-up every 5 years. Reference: J Am Soniya Radiol 2013;10:789-794. 2. Cholelithiasis without findings of acute cholecystitis. 3. Nonobstructing 3 mm calculus inferior pole right kidney. 4. Midline ventral pelvic hernia contains only fat. 5. No CT evidence of an acute intra-abdominal or intrapelvic process. 6. Slight chronic appearing central compression superior endplate L4. 7. Degenerative changes throughout the lumbar spine. D/ / Brad Rivas / Brad Rivas Interpreting Provider: Brad Rivas Chest CTA 12/24/18 17:07 IMPRESSION: 1. Negative for acute pulmonary embolism 2. Left upper lobe opacification posteriorly. There is soft tissue density in this region which could represent obstruction of the segmental left upper lobe bronchus. This could represent postobstructive pneumonitis or possibly a pneumonia. Bronchoscopy may be helpful for further evaluation. D/ / Tai Trevino MD / Tai Trevino MD Interpreting Provider: Tai Trevino MD Head CT 12/24/18 17:07 IMPRESSION: No acute intracranial abnormality. Mild left sphenoid sinus disease. D/ / Toño Simpson / Toño Simpson Interpreting Provider: Toño Simpson - Diagnostic Studies Chest x-ray Status: image reviewed by me (ETT in place) - Assessment and Plan (1) Acute respiratory failure with hypoxia and hypercapnia Current Visit: Yes Status: Acute Assessment and plan: 1. S/P respiratory arrest in squad per EMS; no loss of pulse. 2. Patient emergently intubated in ER. 3. Continue mechanical ventilation and supportive measures. 4. Trend ABG's and adjust ventilator settings to normalized respiratory and acid/base status. 5. Consult pulmonary for ventilatory and ICU management. (2) Severe sepsis Current Visit: Yes Status: Acute Assessment and plan: 1. S/P fluid resuscitation in ER. 2. Lactic acid level normalized; continue to trend. 3. Blood and sputum cultures obtained. 4. Continue antibiotics to cover cover respiratory pathogens as pneumonia is suspected source of sepsis. 5. Add Solumedrol given chronic steroid use and possible development of adrenal insufficiency in the setting of sepsis. 6. Monitor hemodynamics closely in ICU. 6. May need CVC and pressors. (3) DM type 2 (diabetes mellitus, type 2) Current Visit: Yes Status: Chronic Assessment and plan: 1. Hold oral home meds. 2. Monitor glucose closely and order SSI -- adjust dosing accordingly. Qualifiers: Diabetes mellitus termite treater helper insulin use: unspecified termite treater helper insulin use status Diabetes mellitus complication status: with unspecified complications Qualified Code(s): E11.9 - Type 2 diabetes mellitus without complications (4) Elevated troponin Current Visit: Yes Status: Acute Assessment and plan: 1. Likely due to respiratory arrest. 2. Trend troponins and EKG's. 3. Order ECHO and consult cardiology. 4. Will give aspirin as this was not given in ER. (5) DVT prophylaxis Current Visit: Yes Status: Acute Assessment and plan: 1. Heparin SQ. - Time Spent With Patient Total 55 minutes critical care time spent assessing patient, coordinating care, and discussing with family.
[2018-12-24] MEDS: Piperacillin/Tazobactam 3.375 GM in 0.9 % Sodium Chloride Mini Bag 100 ML IVPB SCH (23:33)
[2018-12-24] MEDS: Artificial Tears SOLN 15 ML BOTTLE BOTH EYES SCH (23:33)
[2018-12-24] MEDS: Aspirin 81 MG TAB.CHEW PO SCH (23:36)
[2018-12-25 01:10] LABS: ABG Base Excess 3 mEq/L (-2 to 3); ABG HCO3 30 mEq/L (21-27); ABG Oxygen Saturation 95 % (95-98); ABG PCO2 55 mmHg (35-45); ABG PH 7.34 pH Units (7.32-7.45); ABG PO2 79 mmHg (85-104); ABG TCO2 32 mEq/L (20-26); Blood Gas Modality ASSIST CONTROL; Blood Gas PEEP 5 cm H2O; Blood Gas VT 450 cc
[2018-12-25] MEDS: FentaNYL (PF) 1,000 MCG in 0.9 % Sodium Chloride 80 ML IVC STA ×2 (02:14→10:14)
[2018-12-25] MEDS: Artificial Tears SOLN 15 ML BOTTLE BOTH EYES SCH ×5 (03:11→19:42)
[2018-12-25 03:22] LABS: Basophils % 0.2 %; Hematocrit 39.1 % (35.3-44.9); Hemoglobin 11.9 g/dL (11.5-15.4); Lymphocytes # 0.8 K/mcL (0.6-4.6); Lymphocytes % 6.9 %; Mean Corpuscular HGB Conc 30.4 g/dL (31.6-35.5); Mean Corpuscular Hemoglobin 28.1 pg (28.0-33.3); Mean Corpuscular Volume 92.2 fL (83.0-100.0); Mean Platelet Volume 9.6 fL (9.4-12.4); Monocytes # 0.1 K/mcL (0.0-1.3); Monocytes % 1.3 %; Neutrophils # 10.1 K/mcL (1.6-8.9); Platelet Count 268 K/mcL (140-400); Red Blood Count 4.24 M/mcL (3.82-4.97); Red Cell Distribution Width 15.2 % (11.5-14.5); Segmented Neutrophils % 90.6 %; White Blood Count 11.2 K/mcL (4.3-11.1)
[2018-12-25 03:38] LABS: BUN/Creatinine Ratio 27 (6-26); Blood Urea Nitrogen 24 mg/dL (8-23); Calcium 8.6 mg/dL (8.6-10.3); Carbon Dioxide 27 mEq/L (23-29); Chloride 102 mEq/L (98-107); Glucose 191 mg/dL (70-105); Magnesium 2.3 mg/dL (1.6-2.6); Osmolality,Calculated 297 (280-300); Potassium 4.2 mEq/L (3.5-5.1); Sodium 139 mEq/L (136-145); eGFR For African Americans > 60 (> 60); eGFR For Non-African Americans > 60 (> 60)
[2018-12-25 04:02] LABS: Prothrombin Time 11.7 Seconds (9.4-12.1)
[2018-12-25] MEDS: Pantoprazole 40 MG VIAL IVP SCH (05:20)
[2018-12-25] MEDS: *HR* Heparin 5,000 UNIT/ML VIAL SQ SCH ×3 (05:24→21:10)
[2018-12-25] MEDS: 0.9 % Sodium Chloride 1,000 ML IVC SCH (05:25)
[2018-12-25] MEDS ORDERED: methylPREDNISolone 125 MG/2 ML VIAL IVP SCH (06:00)
[2018-12-25 06:01] LABS: ABG Base Excess 3 mEq/L (-2 to 3); ABG HCO3 30 mEq/L (21-27); ABG Oxygen Saturation 97 % (95-98); ABG PCO2 57 mmHg (35-45); ABG PH 7.33 pH Units (7.32-7.45); ABG PO2 95 mmHg (85-104); ABG TCO2 32 mEq/L (20-26); Blood Gas Modality ASSIST CONTROL; Blood Gas PEEP 5 cm H2O; Blood Gas VT 450 cc
[2018-12-25] MEDS: Budesonide/Formoterol 160/4.5 1 PUFF INH IH SCH ×2 (08:08→21:26)
--- NOTE | 2018-12-25 08:15 | Pulmonology Consult Note ---
<Yury Stokes W - Last Filed: 12/25/18 15:41> Date of Encounter: 12/25/18 Medications and Allergies RX: Albuterol Sulfate [Proventil Inhaler] 2 puff IH Q4HR PRN 05/01/16 [History] RX: Metoprolol XL (24 HR) Succ [Toprol Xl] 50 mg PO DAILY #30 tab.er.24h 05/16/16 [Rx] RX: Fluticasone/Vilanterol [Breo Ellipta 100-25 Mcg INH] 1 puff IH BID 11/02/18 [History] RX: Aspirin 81 mg PO DAILY tab.chew 11/05/18 [Rx] RX: Budesonide Neb [Pulmicort Neb] 0.5 mg IH BIDR #60 ampul.neb 11/05/18 [Rx] RX: Buspirone HCl [Buspar] 7.5 mg PO BID #60 tab 11/05/18 [Rx] RX: Furosemide [Lasix] 40 mg PO QAM #30 tablet 11/05/18 [Rx] RX: Ipratropium/Albuterol Sulfate [Iprat-Albut 0.5-3(2.5) mg/3 ml] 3 ml IH Q4H PRN #100 ampul.neb 11/05/18 [Rx] RX: Nystatin POWDER [Nystop] 1 appl TP TID PRN #60 gm 11/05/18 [Rx] RX: Potassium Chloride 20 meq PO DAILY #30 tab.er.prt 11/05/18 [Rx] RX: Ticagrelor [Brilinta] 90 mg PO BID #60 tablet 11/05/18 [Rx] Pantoprazole Sodium 40 mg PO DAILY 12/24/18 [History] predniSONE [PredniSONE] 10 mg PO DAILY 12/24/18 [History] Allergy/AdvReac Type Severity Reaction Status Date / Time pain med Allergy See Uncoded 08/03/18 15:36 Comments All Systems: The remainder of the systems were reviewed and are negative Physical Examination Vital Signs: Vital Signs, Last 4 Hours Temp Pulse Resp BP Pulse Ox 12/25/18 15:22 94 12/25/18 15:09 97 17 172/92 94 12/25/18 15:00 100 12 172/92 98 12/25/18 14:04 43 16 102/55 94 12/25/18 13:20 16 105/53 94 12/25/18 13:00 51 16 98/50 94 12/25/18 12:02 97.6 F Ventilator Settings Ventilator Settings: Ventilator Settings, Last 8 Hours Ventilator Tidal Volume 450 Setting Ventilator Tidal Volume 450 Setting Ventilator Tidal Volume 450 Setting Ventilator Tidal Volume 450 Setting Ventilator Tidal Volume 450 Setting Ventilator Tidal Volume 450 Setting Ventilator Tidal Volume 450 Setting Ventilator Tidal Volume 450 Setting Ventilator Tidal Volume 450 Setting Ventilator Tidal Volume 450 Setting Ventilator Tidal Volume 450 Setting Ventilator Tidal Volume 450 Setting Ventilator Tidal Volume 450 Setting Ventilator Tidal Volume 450 Setting Ventilator Respiratory Rate 16 Setting Ventilator Respiratory Rate 16 Setting Ventilator Respiratory Rate 16 Setting Ventilator Respiratory Rate 16 Setting Ventilator Respiratory Rate 16 Setting Ventilator Respiratory Rate 16 Setting Ventilator Respiratory Rate 16 Setting Ventilator Respiratory Rate 16 Setting Ventilator Respiratory Rate 16 Setting Ventilator Respiratory Rate 16 Setting Ventilator Respiratory Rate 16 Setting Ventilator Respiratory Rate 16 Setting Ventilator Respiratory Rate 16 Setting Ventilator Respiratory Rate 16 Setting Actual Respiratory Rate 15 Actual Respiratory Rate 17 Actual Respiratory Rate 16 Actual Respiratory Rate 16 Actual Respiratory Rate 16 Actual Respiratory Rate 16 Actual Respiratory Rate 16 Actual Respiratory Rate 16 Actual Respiratory Rate 16 Actual Respiratory Rate 16 Actual Respiratory Rate 16 Actual Respiratory Rate 16 Actual Respiratory Rate 16 Actual Respiratory Rate 16 Positive End Expiratory 5 Pressure Positive End Expiratory 5 Pressure Positive End Expiratory 5 Pressure Positive End Expiratory 5 Pressure Positive End Expiratory 5 Pressure Positive End Expiratory 5 Pressure Positive End Expiratory 5 Pressure Positive End Expiratory 5 Pressure Positive End Expiratory 5 Pressure Positive End Expiratory 5 Pressure Positive End Expiratory 5 Pressure Positive End Expiratory 5 Pressure Positive End Expiratory 5 Pressure Positive End Expiratory 5 Pressure Peak Inspiratory Airway 38 Pressure Peak Inspiratory Airway 34 Pressure Peak Inspiratory Airway 27 Pressure Peak Inspiratory Airway 27 Pressure Peak Inspiratory Airway 26 Pressure Peak Inspiratory Airway 26 Pressure Peak Inspiratory Airway 26 Pressure Peak Inspiratory Airway 26 Pressure Peak Inspiratory Airway 25 Pressure Peak Inspiratory Airway 24 Pressure Peak Inspiratory Airway 25 Pressure Peak Inspiratory Airway 28 Pressure Results - Laboratory Findings CBC and BMP: 12/25/18 02:49 12/25/18 14:16 ABG ABG pH 7.33 pH Units (7.32-7.45) 12/25/18 05:58 ABG pCO2 57 mmHg (35-45) H 12/25/18 05:58 ABG pO2 95 mmHg (85-104) 12/25/18 05:58 ABG O2 Saturation 97 % (95-98) 12/25/18 05:58 PT/INR, D-dimer PT 11.7 Seconds (9.4-12.1) 12/25/18 02:49 Abnormal lab findings: Abnormal lab results WBC 11.2 K/mcL (4.3-11.1) H 12/25/18 02:49 RBC 5.04 M/mcL (3.82-4.97) H 12/24/18 16:36 Hct 48.5 % (35.3-44.9) H 12/24/18 16:36 MCHC 30.4 g/dL (31.6-35.5) L 12/25/18 02:49 RDW 15.2 % (11.5-14.5) H 12/25/18 02:49 Neutrophils # 10.1 K/mcL (1.6-8.9) H 12/25/18 02:49 Lymphocytes # 7.2 K/mcL (0.6-4.6) H 12/24/18 16:36 ABG pH 7.29 pH Units (7.32-7.45) L D 12/24/18 19:22 ABG pCO2 57 mmHg (35-45) H 12/25/18 05:58 ABG pO2 79 mmHg (85-104) L D 12/25/18 01:08 ABG HCO3 30 mEq/L (21-27) H 12/25/18 05:58 ABG Total CO2 32 mEq/L (20-26) H 12/25/18 05:58 ABG O2 Saturation 100 % (95-98) H 12/24/18 19:22 ABG Base Excess 4 mEq/L (-2 to 3) H 12/24/18 19:22 Carbon Dioxide 22 mEq/L (23-29) L 12/24/18 16:36 BUN 24 mg/dL (8-23) H 12/25/18 14:16 Est GFR (Non-Af Amer) 59 (> 60) L 12/24/18 17:43 BUN/Creatinine Ratio 29 (6-26) H 12/25/18 14:16 Glucose 176 mg/dL (70-105) H 12/25/18 14:16 POC Glucose 162 mg/dL (70-99) H 12/25/18 11:43 Lactic Acid 3.8 mmol/L (0.5-2.2) H 12/24/18 17:43 Alkaline Phosphatase 129 Units/L (34-104) H 12/24/18 17:43 Troponin I 0.15 ng/mL (< 0.04) H* 12/25/18 14:16 B-Natriuretic Peptide 201 pg/mL (Less than 100) H 12/24/18 16:36 Globulin 3.6 g/dL (2.4-3.5) H 12/24/18 17:43 Albumin/Globulin Ratio 1.0 (1.1-2.2) L 12/24/18 17:43 Procalcitonin 0.42 ng/mL (0.00-0.15) H 12/24/18 16:36 Ur Specific [place] > 1.030 (1.010-1.025) H 12/24/18 21:26 Urine Protein 30 mg/dL (Neg-Trace) H 12/24/18 21:26 Urine Blood Large (Negative) H 12/24/18 21:26 Urine Microscopic RBC TNTC per hpf (0-3) H 12/24/18 21:26 Urine Microscopic WBC 5-15 per hpf (0-3) H 12/24/18 21:26 Ur Squamous Epith Cells Many per lpf (None-Few) H 12/24/18 21:26 - Microbiology Findings Microbiology Findings: Microbiology, Last 48 Hours 12/24/18 22:00 Urine Culture - Preliminary Urine,[place] Culture is incubating. 12/24/18 16:36 Blood Culture - Preliminary Peripheral Venipuncture Culture is incubating and being continuously monitored for growth. Final report to follow. 12/24/18 17:38 Blood Culture - Preliminary Peripheral Venipuncture Culture is incubating and being continuously monitored for growth. Final report to follow. - Clinical Findings Intake & Output: Intake & Output 12/24/18 12/25/18 12/25/18 23:59 07:59 15:59 Intake Total 1507.7 / 1507.7 1642.3 / 2017.3 375 / 2017.3 Output Total 50 / 50 700 / 900 200 / 900 Balance 1457.7 / 1457.7 942.3 / 1117.3 175 / 1117.3 Weight 98 kg 96.7 kg Consult Discharge Plan - Plan Referrals: NONE,PCP [Primary Care Provider] - - Attending Attestation I examined this patient and my medical decision-making was reviewed with the Resident Physician. I agree with the documented findings, disposition and treatment plan as described except to the extent set forth below. We independently had [id number] contact with the patient I spent 32min of Critical Care time with this patient. It involved decision making of high complexity to assess, manipulate, and support vital organ system failure and/or to prevent further life threatening deterioration of the patient's condition. The time involved in the performance of separately reportable procedures was not counted toward critical care time. Patient seen and examined at bedside Labs, radiology, chart personally reviewed. Management was reviewed during multidisciplinary critical care rounds. MANAGER CARDIOLOGY: Acute toxic metabolic encephalopathy patient now intubated on the vent and sedated for goal Ybarra around 2-3 Pulm: Acute hypoxic hypercapnic respiratory failure secondary to pneumonia and COPD exacerbation acceptable gas exchange at this time we will continue to treat aggressively for COPD exacerbation and pneumonia may need bronchoscopy for evaluation of left atelectasis Cards: Blood pressure monitored and stable she presented with NSTEMI which is likely demand ischemia we will get formal echocardiogram to evaluate this may need cardiology consultation aced upon clinical course but this does appear to be secondary to respiratory demand GI: GI prophylaxis given Nutrition: Nothing By mouth for now Renal: UOP Monitored, Cont to Trend sCr and monitor Electrolytes. ID: She is being treated with broad-spectrum antibiotics for pneumonia we will de-escalate based upon clinical course cultures as far blood pending Heme/Onc: DVT prophylaxis given Endo: Glucose Monitored Integ/MSK: Skin Care per routine ICU Nursing Protocol to prevent ulcers. Lines: All lines examined without evidence of infection : Dispo: Monitor in ICU for critical illness CODE: Prognosis is guarded family updated at bedside she remains full code <Destin Lundberg N - Last Filed: 12/25/18 15:48> Date of Encounter: 12/25/18 Time of Encounter: 08:15 Assessment and Plan (1) Acute respiratory failure with hypoxia and hypercapnia Current Visit: Yes Status: Acute 73F with significant PMH of COPD presents to the ED with acute respiratory failure and respiratory arrest en route by EMS likely 2/[address] from 12/24/18 read as Left upper lobe opacification posteriorly. There is soft tissue density in this region which could represent obstruction of the segmental left upper lobe bronchus. This could represent postobstructive pneumonitis or possibly a pneumonia. Emergent intubation was performed by ER staff on 12/24/18 She was started on Solu-Medrol, Levaquin, Zosyn, and vancomycin. -Continue mechanical ventilation and supportive measures -Continue to trend ABGs and adjust ventilator as needed. -Discontinue Levaquin and start azithromycin -Continue Zosyn and vancomycin at this time. -Reduced Solu-Medrol dose from 80 mg twice a day to 40 mg 3 times a day (2) Severe sepsis Current Visit: Yes Status: Acute Lactic acid originally of 9.2, heart rate of 141, and white count of 20.2 along with patient's acute respiratory failure gaits patient criteria of severe sepsis Patient was given bolus fluids and broad spectrum abx were started Likely 2/2 CAP Blood and sputum cultures pending Patient started on broad-spectrum antibiotics Solu-Medrol started due to patient's chronic steroid use Procalcitonin of 0.42 -Lactic Acid down to 2.0 currently -Continue antibiotic therapy with Zosyn, vancomycin, and azithromycin. -Continue Solu-Medrol at 40 mg 3 times a day -Monitor for continued hemodynamic stability (3) Elevated troponin Current Visit: Yes Status: Acute Troponins were originally negative at less than 0.03, but repeats trended from 0.17 up to 0.21 Most likely due to respiratory failure ECG shows normal sinus rhythm at a rate of 65 with a right bundle branch block that has been present on previous ECGs. Echo from 10/2018 with EF of 45-50%. -Continue to trend troponins -Limited echo was performed and came back with an EF of 55-60% without wall segment abnormalities. -Cardiology consulted, will follow recommendations (4) Diabetes Current Visit: No Status: Chronic Most recent glucose of 162 Currently nothing by mouth -Blood sugar checks every 6 hours -Continue to hold home diabetes medications -We will start sliding scale insulin as needed Qualifiers: Diabetes mellitus type: type 2 Diabetes mellitus intermediate project manager insulin use: without intermediate project manager use Diabetes mellitus complication status: with neurologic complications Diabetes mellitus complication detail: with polyneuropathy Qualified Code(s): E11.42 - Type 2 diabetes mellitus with diabetic polyneuropathy History of Present Illness Consult date: 12/25/18 Chief complaint: Respiratory Distress History of present illness: Mrs. Manley is a 73-year-old female with significant MH of who presents for a complaint of acute respiratory failure and respiratory arrest en route by EMS. Currently intubated without family in the room this history was obtained from prior records. According to H&P patient was feeling fine earlier in the day and then developed sudden respiratory depression at home at this time EMS was called. EMS used bag mask ventilation and patient was intubated emergently upon arrival to the ED. In the ED patient had a negative PE workup. Vital signs on admission of temper ature of 100.0, pulse of 141, respiratory rate is 27, blood pressure 168/108, and O2 sat recent 100% on ventilator. Patient's labs were significant for white count of 20.2, lactic acid of 9.2, troponin rising to 0.21, pro calcitonin of 0.42, and glucose of 269. Patient treated at that time for suspected sepsis. Prior notes show patient has had a long history of COPD exacerbations and has been intubated several times with the most recent being approximately 1 year ago. Past Med Surg Social Fam HX - Past Medical History Medical history: arthritis, asthma, COPD, DVT, pulmonary embolus Additional medical history: bells palsy family states has not seen a doctor in 30 years. Psychiatric history: depression - Past Surgical History Surgical History: other Additional surgical history: tubal with surgical intervention. - Social History Smoking Status: Former smoker Smokeless Tobacco Status: No Alcohol use: none Drug use: none - Family History Father Living Status: Hx Family Cardiac Disorders: Yes (CHF, anuerysm) Hx Family Respiratory Disorders: No Hx Family Cancer: No Hx Family GI Disorders: No Hx Family Endocrine Disorder: Yes (IDDM 1) Hx Family Neuromuscular Disorders: No Hx Family Neurologic Disorders: No Hx Family HEENT Disorders: No Hx Family Autoimmune Disorders: No Mother Living Status: Hx Family Cardiac Disorders: Yes (CHF, HTN) Hx Family Endocrine Disorder: Yes (DM) Sister Living Status: Hx Family Cardiac Disorders: Yes ROS unobtainable: due to endotracheal tube All Systems: The remainder of the systems were reviewed and are negative Physical Examination Vital Signs: Vital Signs, Last 4 Hours Temp Pulse Resp BP Pulse Ox 12/25/18 08:08 16 100/68 94 12/25/18 07:40 97.7 F 12/25/18 07:17 71 16 106/57 94 12/25/18 06:19 22 99 12/25/18 05:47 85 21 119/64 98 12/25/18 05:00 66 22 136/84 98 12/25/18 04:33 20 100 General appearance: no acute distress Eyes: nonicteric ENT: other (Endotracheal tube in place) Neck: no lymphadenopathy, no JVD Effort: normal Inspection: normal Auscultation: bilateral: clear Cardiovascular: irregular rhythm Gastrointestinal: normoactive bowel sounds, soft, non-distended Integumentary: normal Extremities: no cyanosis Musculoskeletal: no deformities unable to assess due to mental status Ventilator Settings Ventilator Settings: Ventilator Settings, Last 8 Hours Ventilator Tidal Volume 450 Setting Ventilator Tidal Volume 450 Setting Ventilator Tidal Volume 450 Setting Ventilator Tidal Volume 450 Setting Ventilator Tidal Volume 450 Setting Ventilator Tidal Volume 450 Setting Ventilator Tidal Volume 450 Setting Ventilator Tidal Volume 450 Setting Ventilator Tidal Volume 450 Setting Ventilator Tidal Volume 450 Setting Ventilator Tidal Volume 450 Setting Ventilator Tidal Volume 450 Setting Ventilator Tidal Volume 450 Setting Ventilator Tidal Volume 450 Setting Ventilator Respiratory Rate 16 Setting Ventilator Respiratory Rate 16 Setting Ventilator Respiratory Rate 16 Setting Ventilator Respiratory Rate 18 Setting Ventilator Respiratory Rate 18 Setting Ventilator Respiratory Rate 16 Setting Ventilator Respiratory Rate 16 Setting Ventilator Respiratory Rate 16 Setting Ventilator Respiratory Rate 16 Setting Ventilator Respiratory Rate 16 Setting Ventilator Respiratory Rate 16 Setting Ventilator Respiratory Rate 16 Setting Ventilator Respiratory Rate 16 Setting Ventilator Respiratory Rate 16 Setting Actual Respiratory Rate 16 Actual Respiratory Rate 16 Actual Respiratory Rate 16 Actual Respiratory Rate 18 Actual Respiratory Rate 21 Actual Respiratory Rate 18 Actual Respiratory Rate 23 Actual Respiratory Rate 18 Actual Respiratory Rate 16 Actual Respiratory Rate 16 Actual Respiratory Rate 16 Actual Respiratory Rate 16 Positive End Expiratory 5 Pressure Positive End Expiratory 5 Pressure Positive End Expiratory 5 Pressure Positive End Expiratory 5 Pressure Positive End Expiratory 5 Pressure Positive End Expiratory 5 Pressure Positive End Expiratory 5 Pressure Positive End Expiratory 5 Pressure Positive End Expiratory 5 Pressure Positive End Expiratory 5 Pressure Positive End Expiratory 5 Pressure Positive End Expiratory 5 Pressure Positive End Expiratory 5 Pressure Positive End Expiratory 5 Pressure Peak Inspiratory Airway 25 Pressure Peak Inspiratory Airway 28 Pressure Peak Inspiratory Airway 29 Pressure Peak Inspiratory Airway 17 Pressure Peak Inspiratory Airway 25 Pressure Peak Inspiratory Airway 13 Pressure Peak Inspiratory Airway 20 Pressure Peak Inspiratory Airway 26 Pressure Peak Inspiratory Airway 31 Pressure Peak Inspiratory Airway 26 Pressure Peak Inspiratory Airway 25 Pressure Peak Inspiratory Airway 25 Pressure Results - Laboratory Findings CBC and BMP: 12/25/18 02:49 12/25/18 14:16 ABG ABG pH 7.33 pH Units (7.32-7.45) 12/25/18 05:58 ABG pCO2 57 mmHg (35-45) H 12/25/18 05:58 ABG pO2 95 mmHg (85-104) 12/25/18 05:58 ABG O2 Saturation 97 % (95-98) 12/25/18 05:58 PT/INR, D-dimer PT 11.7 Seconds (9.4-12.1) 12/25/18 02:49 Abnormal lab findings: Abnormal lab results WBC 11.2 K/mcL (4.3-11.1) H 12/25/18 02:49 RBC 5.04 M/mcL (3.82-4.97) H 12/24/18 16:36 Hct 48.5 % (35.3-44.9) H 12/24/18 16:36 MCHC 30.4 g/dL (31.6-35.5) L 12/25/18 02:49 RDW 15.2 % (11.5-14.5) H 12/25/18 02:49 Neutrophils # 10.1 K/mcL (1.6-8.9) H 12/25/18 02:49 Lymphocytes # 7.2 K/mcL (0.6-4.6) H 12/24/18 16:36 ABG pH 7.29 pH Units (7.32-7.45) L D 12/24/18 19:22 ABG pCO2 57 mmHg (35-45) H 12/25/18 05:58 ABG pO2 79 mmHg (85-104) L D 12/25/18 01:08 ABG HCO3 30 mEq/L (21-27) H 12/25/18 05:58 ABG Total CO2 32 mEq/L (20-26) H 12/25/18 05:58 ABG O2 Saturation 100 % (95-98) H 12/24/18 19:22 ABG Base Excess 4 mEq/L (-2 to 3) H 12/24/18 19:22 Carbon Dioxide 22 mEq/L (23-29) L 12/24/18 16:36 BUN 24 mg/dL (8-23) H 12/25/18 02:49 Est GFR (Non-Af Amer) 59 (> 60) L 12/24/18 17:43 BUN/Creatinine Ratio 27 (6-26) H 12/25/18 02:49 Glucose 191 mg/dL (70-105) H 12/25/18 02:49 POC Glucose 163 mg/dL (70-99) H 12/24/18 21:12 Lactic Acid 3.8 mmol/L (0.5-2.2) H 12/24/18 17:43 Alkaline Phosphatase 129 Units/L (34-104) H 12/24/18 17:43 Troponin I 0.21 ng/mL (< 0.04) H* 12/25/18 02:49 B-Natriuretic Peptide 201 pg/mL (Less than 100) H 12/24/18 16:36 Globulin 3.6 g/dL (2.4-3.5) H 12/24/18 17:43 Albumin/Globulin Ratio 1.0 (1.1-2.2) L 12/24/18 17:43 Procalcitonin 0.42 ng/mL (0.00-0.15) H 12/24/18 16:36 Ur Specific [place] > 1.030 (1.010-1.025) H 12/24/18 21:26 Urine Protein 30 mg/dL (Neg-Trace) H 12/24/18 21:26 Urine Blood Large (Negative) H 12/24/18 21:26 Urine Microscopic RBC TNTC per hpf (0-3) H 12/24/18 21:26 Urine Microscopic WBC 5-15 per hpf (0-3) H 12/24/18 21:26 Ur Squamous Epith Cells Many per lpf (None-Few) H 12/24/18 21:26 - Microbiology Findings Microbiology Findings: Microbiology, Last 48 Hours 12/24/18 16:36 Blood Culture - Preliminary Peripheral Venipuncture Culture is incubating and being continuously monitored for growth. Final report to follow. 12/24/18 17:38 Blood Culture - Preliminary Peripheral Venipuncture Culture is incubating and being continuously monitored for growth. Final report to follow. - Clinical Findings Intake & Output: Intake & Output 12/24/18 12/25/18 12/25/18 23:59 07:59 15:59 Intake Total 1507.7 / 1507.7 1642.3 / 1642.3 Output Total 50 / 50 700 / 700 Balance 1457.7 / 1457.7 942.3 / 942.3 Weight 98 kg 96.7 kg
[2018-12-25] MEDS: Piperacillin/Tazobactam 3.375 GM in 0.9 % Sodium Chloride Mini Bag 100 ML IVPB SCH ×3 (08:56→23:54)
[2018-12-25] MEDS: Chlorhexidine Rinse 15 ML MOUTHWASH MM SCH ×2 (08:57→19:42)
[2018-12-25] MEDS: Aspirin 81 MG TAB.CHEW PO SCH (08:57)
--- NOTE | 2018-12-25 09:02 | Electrocardiograph Report ---
[address] [place], [place] [address] Test Date: 2018-12-24 Pat Name: Selma Booth Department: [id number] Room: 10 Gender: F Pinion Polisher: : [id number] Requested By: Sanchez Loo Order Number: [id number] Reading MD: Puja Leyva Measurements Intervals [place] Rate: 142 P: 0 CA: 91 QRS: -64 QRSD: 141 T: 90 QT: 294 QTc: 452 Interpretive Statements Regular tachycardia, probably sinus Right bundle branch block LVH with IVCD and secondary repol abnrm Inferior infarct, age indeterminate Artifact Electronically Signed On 12-25-2018 9:01:01 EDT by Puja Leyva
--- NOTE | 2018-12-25 09:04 | Electrocardiograph Report ---
[address] [place], [place] [address] Test Date: 2018-12-24 Pat Name: Selma Booth Department: [id number] Room: 10 Gender: F Commercial Manager: : 1945 Requested By: David Calle Order Number: [id number] Reading MD: Puja Leyva Measurements Intervals [place] Rate: 65 P: 4 CT: 147 QRS: -49 QRSD: 143 T: -54 QT: 501 QTc: 512 Interpretive Statements SINUS RHYTHM LEFT AXIS DEVIATION RIGHT BUNDLE BRANCH BLOCK SEPTAL MYOCARDIAL INFARCTION, PROBABLY OLD MODERATE T-WAVE ABNORMALITY, CONSIDER INFERIOR ISCHEMIA Electronically Signed On 12-25-2018 9:03:03 EDT by Puja Leyva
[2018-12-25] MEDS ORDERED: Perflutren Lipid Microsphere 1.3 ML in 0.9 % Sodium Chloride 8.7 ML IVP ONE (09:47)
--- NOTE | 2018-12-25 10:43 | Cardiology Consult Note ---
<Anjum Diaz - Last Filed: 12/25/18 10:35> Date of Encounter: 12/25/18 Time of Encounter: 10:35 Assessment and Plan (1) Elevated troponin Current Visit: Yes Status: Acute Troponin elevation at 0.17, 0.21 in the setting of respiratory arrest and COPD. EKG shows sinus tachycardia with RBBB. No known CAD. H/o [place] 10/2018, declined LHC. Last TTE 10/2018 showed EF 45%-50% with segmental dysfunction concerning for LAD disease. LHC recommended at that time and patient declines. states she should be done while under sedation because she will refuse when awake. Discussed medical POA. Patient does not have one but is NOK. Discussed with that there is not emergent need to do LHC but we will consider again during stay based on testing. He agrees with plan. Continue heparin gtt. On asa. On brilinta at home due to recent [place] (no intervention). BB held with mild bradycardia. STart statin when taking oral. Continue to trend troponin. Repeat TTE. (2) Systolic heart failure Current Visit: Yes Status: Acute H/o mild CMP. EF 45-50%. BNP 201. CXR and CT scan with findings concerning for mucous plugging, possible PNA. No effusions or edema seen. Chest CT-. Negative for acute pulmonary embolis . Left upper lobe opacification posteriorly. There is soft tissue density in this region which could represent obstruction of the segmental left upper lobe bronchus. This could represent postobstructive pneumonitis or possibly a pneumonia. Appears close to euvolemic. On lasix 40 mg daily at home and bb. Restart when able. Caution with IV fluid. Strict I&O, daily weights. Qualifiers: Heart failure chronicity: chronic Qualified Code(s): I50.22 - Chronic systolic (congestive) heart failure (3) Wide-complex tachycardia Current Visit: Yes Status: Acute Patient reported to have WCT in the EMS and ED. EKG reviewed by classifying machine operator and read as sinus tachycardia with RBBB. Continue to monitor. Note HR now in upper 50's. BB on hold. Discussion w patient/family: The assessment and plan as outlined above was discussed with the patient and/or family members who expressed understanding and agreement. All questions were answered. Thank you for involving us in the care of your patient. Please call with any questions. History of Present Illness Consult date: 12/25/18 Requesting physician: David Calle Consult reason: elevated troponin Chief complaint: respiratory distress History of present illness: Ms. Booth is a 73 year old female with past medical history significant for mild systolic CHF, COPD, and DM who presents with respiratory distress from home. Her son and are at bedside. They states that the night before she was doing very well. The next day she became increasing SOB and the EMS was called. SHe required bagging in the EMS. She was noted to have some wide complex tachycardia in the ES and ER but did not require shock. She required intubation. She is currently intubated and on sedation. Cardiology consulted for elevated troponin. Of note she was also seen for elevated troponin in the same setting in October. TTE at that time revealed EF 45-50% with segmental wall motion concerning for disease in the LAD territory. [facility] discussed at that time and patient declined. Her son states that she has panic attacks and often declines testing. Past Med Surg Social Fam HX - Past Medical History Medical history: arthritis, asthma, cardiomyopathy, COPD, DVT, pulmonary embolus Additional medical history: bells palsy family states has not seen a doctor in 30 years. Psychiatric history: depression - Past Surgical History Surgical History: other Additional surgical history: tubal with surgical intervention. - Social History Smoking Status: Former smoker Smokeless Tobacco Status: No Alcohol use: none Drug use: none - Family History Father Living Status: Hx Family Cardiac Disorders: Yes (CHF, anuerysm) Hx Family Respiratory Disorders: No Hx Family Cancer: No Hx Family GI Disorders: No Hx Family Endocrine Disorder: Yes (IDDM 1) Hx Family Neuromuscular Disorders: No Hx Family Neurologic Disorders: No Hx Family HEENT Disorders: No Hx Family Autoimmune Disorders: No Mother Living Status: Hx Family Cardiac Disorders: Yes (CHF, HTN) Hx Family Endocrine Disorder: Yes (DM) Sister Living Status: Hx Family Cardiac Disorders: Yes Medications and Allergies Albuterol Sulfate [Proventil Inhaler] 2 puff IH Q4HR PRN 05/01/16 [History] Metoprolol XL (24 HR) Succ [Toprol Xl] 50 mg PO DAILY #30 tab.er.24h 05/16/16 [Rx] Fluticasone/Vilanterol [Breo Ellipta 100-25 Mcg INH] 1 puff IH BID 11/02/18 [History] Aspirin 81 mg PO DAILY tab.chew 11/05/18 [Rx] Budesonide Neb [Pulmicort Neb] 0.5 mg IH BIDR #60 ampul.neb 11/05/18 [Rx] Buspirone HCl [Buspar] 7.5 mg PO BID #60 tab 11/05/18 [Rx] Furosemide [Lasix] 40 mg PO QAM #30 tablet 11/05/18 [Rx] Ipratropium/Albuterol Sulfate [Iprat-Albut 0.5-3(2.5) mg/3 ml] 3 ml IH Q4H PRN #100 ampul.neb 11/05/18 [Rx] Nystatin POWDER [Nystop] 1 appl TP TID PRN #60 gm 11/05/18 [Rx] Potassium Chloride 20 meq PO DAILY #30 tab.er.prt 11/05/18 [Rx] Ticagrelor [Brilinta] 90 mg PO BID #60 tablet 11/05/18 [Rx] Pantoprazole Sodium 40 mg PO DAILY 12/24/18 [History] predniSONE [PredniSONE] 10 mg PO DAILY 12/24/18 [History] Allergy/AdvReac Type Severity Reaction Status Date / Time pain med Allergy See Uncoded 08/03/18 15:36 Comments All Systems Review: The remainder of the systems were reviewed and are negative Physical Examination Vital Signs, Last 4 Hours Temp Pulse Resp BP Pulse Ox 12/25/18 10:20 93 12/25/18 10:16 54 16 106/53 93 12/25/18 09:46 16 104/51 94 12/25/18 09:10 58 12/25/18 09:00 58 16 104/51 94 12/25/18 08:08 16 100/68 94 12/25/18 07:40 97.7 F 12/25/18 07:17 71 16 106/57 94 General: Other (Sedated on ventilator) HEENT: Atraumatic, Normocephaly, Mucus Membranes Moist, Other (ET tube intact) Neck: No JVD, Normal carotid pulses Cardiac: Reg Rate and Rhythm, Normal S1 and S2, No Murmur Lungs: Other (diminished, ventilator support) Abdomen: Soft, Non-Tender Skin: Other (orange plaque areas on BLE) Extremities: No Clubbing, No Cyanosis, No Edema, Normal Pulses Results 12/25/18 02:49 12/25/18 02:49 Lab Results 12/24/18 12/24/18 12/24/18 16:36 16:36 16:36 WBC 20.2 H Hgb 14.5 Hct 48.5 H Plt Count 395 INR APTT Sodium 138 Potassium 5.0 Chloride 99 Carbon Dioxide 22 L BUN 20 Creatinine 0.96 Glucose 248 H Calcium 9.7 Magnesium Total Bilirubin AST ALT Alkaline Phosphatase Troponin I < 0.03 B-Natriuretic Peptide 201 H 12/24/18 12/24/18 12/24/18 17:43 17:43 21:16 WBC Hgb Hct Plt Count INR 0.9 APTT 32.5 Sodium 137 Potassium 4.2 Chloride 100 Carbon Dioxide 25 BUN 22 Creatinine 0.94 Glucose 269 H Calcium 9.0 Magnesium Total Bilirubin 0.5 AST 32 ALT 20 Alkaline Phosphatase 129 H Troponin I 0.17 H* B-Natriuretic Peptide 12/25/18 12/25/18 12/25/18 02:49 02:49 02:49 WBC 11.2 H Hgb 11.9 D Hct 39.1 Plt Count 268 INR 1.0 APTT Sodium Potassium Chloride Carbon Dioxide BUN Creatinine Glucose Calcium Magnesium Total Bilirubin AST ALT Alkaline Phosphatase Troponin I 0.21 H* B-Natriuretic Peptide 12/25/18 02:49 WBC Hgb Hct Plt Count INR APTT Sodium 139 Potassium 4.2 Chloride 102 Carbon Dioxide 27 BUN 24 H Creatinine 0.88 Glucose 191 H Calcium 8.6 Magnesium 2.3 Total Bilirubin AST ALT Alkaline Phosphatase Troponin I B-Natriuretic Peptide - Imaging and Cardiology Echo: report reviewed - EKG Interpretation EKG results cardiology: personally reviewed Consult Discharge Plan - Plan Referrals: NONE,PCP [Primary Care Provider] - <Puja Leyva - Last Filed: 12/25/18 12:25> Date of Encounter: 12/25/18 - Attending Attestation I examined this patient and my medical decision-making was reviewed with the IMPREGNATOR HELPER. I agree with the documented findings, disposition and treatment plan as described. Ms. Booth presents with troponin elevation in setting of acute respiratory distress requiring intubation and ventilator support. ECG without acute ischemic findings. 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 Await echo findings to help guide management. Described to the family that this is not emergent and decisions can be made pending further evaluation and improvement in patient's clinical status. Assessment and Plan Discussion w patient/family: The assessment and plan as outlined above was discussed with the patient and/or family members who expressed understanding and agreement. All questions were answered. Thank you for involving us in the care of your patient. Please call with any questions. History of Present Illness History of present illness: Ms. Booth is a 73 year old female All Systems Review: The remainder of the systems were reviewed and are negative Physical Examination Vital Signs, Last 4 Hours Temp Pulse Resp BP Pulse Ox 12/25/18 12:02 97.6 F 12/25/18 11:30 54 12/25/18 11:10 56 16 106/49 92 12/25/18 11:06 16 106/49 93 12/25/18 10:20 93 12/25/18 10:16 54 16 106/53 93 12/25/18 09:46 16 104/51 94 12/25/18 09:10 58 12/25/18 09:00 56 16 104/51 93 Results 12/25/18 02:49 12/25/18 02:49 Lab Results 12/24/18 12/24/18 12/24/18 16:36 16:36 16:36 WBC 20.2 H Hgb 14.5 Hct 48.5 H Plt Count 395 INR APTT Sodium 138 Potassium 5.0 Chloride 99 Carbon Dioxide 22 L BUN 20 Creatinine 0.96 Glucose 248 H Calcium 9.7 Magnesium Total Bilirubin AST ALT Alkaline Phosphatase Troponin I < 0.03 B-Natriuretic Peptide 201 H 12/24/18 12/24/18 12/24/18 17:43 17:43 21:16 WBC Hgb Hct Plt Count INR 0.9 APTT 32.5 Sodium 137 Potassium 4.2 Chloride 100 Carbon Dioxide 25 BUN 22 Creatinine 0.94 Glucose 269 H Calcium 9.0 Magnesium Total Bilirubin 0.5 AST 32 ALT 20 Alkaline Phosphatase 129 H Troponin I 0.17 H* B-Natriuretic Peptide 12/25/18 12/25/18 12/25/18 02:49 02:49 02:49 WBC 11.2 H Hgb 11.9 D Hct 39.1 Plt Count 268 INR 1.0 APTT Sodium Potassium Chloride Carbon Dioxide BUN Creatinine Glucose Calcium Magnesium Total Bilirubin AST ALT Alkaline Phosphatase Troponin I 0.21 H* B-Natriuretic Peptide 12/25/18 02:49 WBC Hgb Hct Plt Count INR APTT Sodium 139 Potassium 4.2 Chloride 102 Carbon Dioxide 27 BUN 24 H Creatinine 0.88 Glucose 191 H Calcium 8.6 Magnesium 2.3 Total Bilirubin AST ALT Alkaline Phosphatase Troponin I B-Natriuretic Peptide
[2018-12-25] MEDS ORDERED: Azithromycin 500 MG in 0.9 % Sodium Chloride 250 ML IVPB SCH (13:00)
[2018-12-25] MEDS: Azithromycin 500 MG in 0.9 % Sodium Chloride 250 ML IVPB SCH (14:25)
[2018-12-25 15:02] LABS: BUN/Creatinine Ratio 29 (6-26); Blood Urea Nitrogen 24 mg/dL (8-23); Calcium 8.8 mg/dL (8.6-10.3); Carbon Dioxide 29 mEq/L (23-29); Chloride 104 mEq/L (98-107); Glucose 176 mg/dL (70-105); Osmolality,Calculated 296 (280-300); Potassium 4.1 mEq/L (3.5-5.1); Sodium 139 mEq/L (136-145); eGFR For African Americans > 60 (> 60); eGFR For Non-African Americans > 60 (> 60)
[2018-12-25] MEDS: methylPREDNISolone 125 MG/2 ML VIAL IVP SCH ×2 (16:27→23:56)
[2018-12-25] MEDS: FentaNYL (PF) 1,000 MCG in 0.9 % Sodium Chloride 80 ML IVC SCH (17:59)
[2018-12-26] MEDS: Artificial Tears SOLN 15 ML BOTTLE BOTH EYES SCH ×7 (00:01→23:42)
[2018-12-26] MEDS: Dexmedetomidine HCl 400 MCG/100 ML MLS IVC SCH ×2 (04:09→14:21)
[2018-12-26 04:50] LABS: ABG Base Excess 5 mEq/L (-2 to 3); ABG HCO3 31 mEq/L (21-27); ABG Oxygen Saturation 97 % (95-98); ABG PCO2 49 mmHg (35-45); ABG PH 7.41 pH Units (7.32-7.45); ABG PO2 87 mmHg (85-104); ABG TCO2 32 mEq/L (20-26); Blood Gas Modality ASSIST CONTROL; Blood Gas PEEP 5 cm H2O; Blood Gas VT 450 cc
[2018-12-26 05:07] LABS: Hematocrit 35.9 % (35.3-44.9); Hemoglobin 11.5 g/dL (11.5-15.4); Mean Corpuscular Hemoglobin 28.8 pg (28.0-33.3); Mean Platelet Volume 9.5 fL (9.4-12.4); Platelet Count 286 K/mcL (140-400); Red Blood Count 3.99 M/mcL (3.82-4.97); Red Cell Distribution Width 15.4 % (11.5-14.5); White Blood Count 12.7 K/mcL (4.3-11.1)
[2018-12-26 05:30] LABS: BUN/Creatinine Ratio 28 (6-26); Blood Urea Nitrogen 29 mg/dL (8-23); Calcium 8.8 mg/dL (8.6-10.3); Carbon Dioxide 26 mEq/L (23-29); Chloride 104 mEq/L (98-107); Glucose 156 mg/dL (70-105); Osmolality,Calculated 297 (280-300); Potassium 4.2 mEq/L (3.5-5.1); Sodium 139 mEq/L (136-145); eGFR For African Americans > 60 (> 60); eGFR For Non-African Americans 52 (> 60)
[2018-12-26] MEDS: Pantoprazole 40 MG VIAL IVP SCH (05:56)
[2018-12-26] MEDS: *HR* Heparin 5,000 UNIT/ML VIAL SQ SCH ×3 (05:56→21:16)
--- NOTE | 2018-12-26 07:05 | Pulmonology Progress Note ---
<Destin Lundberg - Last Filed: 12/26/18 10:33> Date of Encounter: 12/26/18 Time of Encounter: 07:05 Assessment and Plan (1) Acute respiratory failure with hypoxia and hypercapnia Current Visit: Yes Status: Acute 73F with significant PMH of COPD presents to the ED with acute respiratory failure and respiratory arrest en route by EMS likely 2/2 PNA and COPD exacerbation CT from 12/24/18 read as Left upper lobe opacification posteriorly. There is soft tissue density in this region which could represent obstruction of the segmental left upper lobe bronchus. This could represent postobstructive pneumonitis or possibly a pneumonia. Emergent intubation was performed by ER staff on 12/24/18 She was started on Solu-Medrol, Levaquin, Zosyn, and vancomycin. -Patient extubated this morning and placed on BiPAP will wean throughout the day in hopes of patient being able to tolerate -Continue Zosyn and azithromycin day 2 -d/c vancomycin -Solu-Medrol 40 mg 3 times a day (2) Severe sepsis Current Visit: Yes Status: Resolved Lactic acid originally of 9.2, heart rate of 141, and white count of 20.2 along with patient's acute respiratory failure gaits patient criteria of severe sepsis Patient was given bolus fluids and broad spectrum abx were started Likely 2/2 CAP Blood and sputum cultures pending Patient started on broad-spectrum antibiotics Solu-Medrol started due to patient's chronic steroid use Procalcitonin of 0.42 -WBC down to 12.7 and temperature 98.3 -Lactic Acid down to 2.0 currently -Continue antibiotic therapy with Zosyn and azithromycin day 2 -Monitor for continued hemodynamic stability (3) Diabetes Current Visit: No Status: Chronic Most recent glucose of 139 Currently nothing by mouth -Will move up diet as tolerated as pt is weaned off bipap -Blood sugar checks every 6 hours -Start on SSI when diet is advanced -Continue to hold home diabetes medications Qualifiers: Diabetes mellitus type: type 2 Diabetes mellitus vermin exterminator insulin use: without vermin exterminator use Diabetes mellitus complication status: with neurologic complications Diabetes mellitus complication detail: with polyneuropathy Qualified Code(s): E11.42 - Type 2 diabetes mellitus with diabetic polyneuropathy (4) NSTEMI (non-ST elevated myocardial infarction) Current Visit: No Status: Acute Troponins were originally negative at less than 0.03, but repeats trended from 0.17 up to 0.21 Most likely due to respiratory failure ECG shows normal sinus rhythm at a rate of 65 with a right bundle branch block that has been present on previous ECGs. Echo from 10/2018 with EF of 45-50%. Limited echo was performed and came back with an EF of 55-60% without wall segment abnormalities. -Troponins trending down to 0.15 -Cardiology following, will follow recommendations -EKG from 12/26/18 shows sinus tachycardia at a rate of 107 with a a RBBB. No evidence of acute ischemia. (5) Lactic acidosis Current Visit: Yes Status: Acute On admission patient with a lactic acid of 9.2 Following the beginning of treatment trended down to 3.8 -Most recent lactic acid on 12/25 of 2.0 (6) DVT prophylaxis Current Visit: Yes Status: Acute Heparin 500 units subcutaneous every 8 hours Subjective Interval history: Patient extubated this morning was able to speak with patient some, but difficult due to BiPAP. Patient states she was doing fine at home when she was rolled over by hospice nurse for changing and became suddenly short of breath. Objective PUL Vital signs: Last Vital Signs Temp 98.3 F 12/26/18 04:58 Pulse 85 12/26/18 06:00 Resp 13 12/26/18 06:07 BP 100/56 12/26/18 06:07 Pulse Ox 94 12/26/18 06:07 General appearance: no acute distress Eyes: nonicteric Neck: supple, no lymphadenopathy Auscultation: bilateral: clear Cardiovascular: other (Sinus Tachycardia at a rate of 105) Gastrointestinal: normoactive bowel sounds, soft, non-distended Integumentary: normal Extremities: no cyanosis (trace pitting edema in ble) non-focal exam (a&ox3) mood appropriate, affect normal Ventilator Settings Ventilator Settings: Ventilator Settings, Last 8 Hours Ventilator Tidal Volume 450 Setting Ventilator Tidal Volume 450 Setting Ventilator Tidal Volume 450 Setting Ventilator Tidal Volume 450 Setting Ventilator Tidal Volume 450 Setting Ventilator Tidal Volume 450 Setting Ventilator Tidal Volume 450 Setting Ventilator Tidal Volume 450 Setting Ventilator Tidal Volume 450 Setting Ventilator Tidal Volume 450 Setting Ventilator Tidal Volume 450 Setting Ventilator Tidal Volume 450 Setting Ventilator Respiratory Rate 16 Setting Ventilator Respiratory Rate 16 Setting Ventilator Respiratory Rate 16 Setting Ventilator Respiratory Rate 16 Setting Ventilator Respiratory Rate 16 Setting Ventilator Respiratory Rate 16 Setting Ventilator Respiratory Rate 16 Setting Ventilator Respiratory Rate 16 Setting Ventilator Respiratory Rate 16 Setting Ventilator Respiratory Rate 16 Setting Ventilator Respiratory Rate 16 Setting Ventilator Respiratory Rate 16 Setting Actual Respiratory Rate 13 Actual Respiratory Rate 12 Actual Respiratory Rate 16 Actual Respiratory Rate 16 Actual Respiratory Rate 16 Actual Respiratory Rate 18 Actual Respiratory Rate 16 Actual Respiratory Rate 17 Actual Respiratory Rate 16 Actual Respiratory Rate 16 Actual Respiratory Rate 16 Actual Respiratory Rate 20 Positive End Expiratory 5 Pressure Positive End Expiratory 5 Pressure Positive End Expiratory 5 Pressure Positive End Expiratory 5 Pressure Positive End Expiratory 5 Pressure Positive End Expiratory 5 Pressure Positive End Expiratory 5 Pressure Positive End Expiratory 5 Pressure Positive End Expiratory 5 Pressure Positive End Expiratory 5 Pressure Positive End Expiratory 5 Pressure Positive End Expiratory 5 Pressure Positive End Expiratory 5 Pressure Peak Inspiratory Airway 10 Pressure Peak Inspiratory Airway 10 Pressure Peak Inspiratory Airway 30 Pressure Peak Inspiratory Airway 30 Pressure Peak Inspiratory Airway 23 Pressure Peak Inspiratory Airway 29 Pressure Peak Inspiratory Airway 27 Pressure Peak Inspiratory Airway 30 Pressure Peak Inspiratory Airway 34 Pressure Peak Inspiratory Airway 28 Pressure Peak Inspiratory Airway 27 Pressure Peak Inspiratory Airway 26 Pressure Results - Laboratory Findings CBC and BMP: 12/26/18 04:56 12/26/18 04:56 ABG ABG pH 7.41 pH Units (7.32-7.45) 12/26/18 04:47 ABG pCO2 49 mmHg (35-45) H 12/26/18 04:47 ABG pO2 87 mmHg (85-104) 12/26/18 04:47 ABG O2 Saturation 97 % (95-98) 12/26/18 04:47 PT/INR, D-dimer PT 11.7 Seconds (9.4-12.1) 12/25/18 02:49 Abnormal lab findings: Abnormal lab results WBC 12.7 K/mcL (4.3-11.1) H 12/26/18 04:56 RBC 5.04 M/mcL (3.82-4.97) H 12/24/18 16:36 Hct 48.5 % (35.3-44.9) H 12/24/18 16:36 MCHC 30.4 g/dL (31.6-35.5) L 12/25/18 02:49 RDW 15.4 % (11.5-14.5) H 12/26/18 04:56 Neutrophils # 10.1 K/mcL (1.6-8.9) H 12/25/18 02:49 Lymphocytes # 7.2 K/mcL (0.6-4.6) H 12/24/18 16:36 ABG pH 7.29 pH Units (7.32-7.45) L D 12/24/18 19:22 ABG pCO2 49 mmHg (35-45) H 12/26/18 04:47 ABG pO2 79 mmHg (85-104) L D 12/25/18 01:08 ABG HCO3 31 mEq/L (21-27) H 12/26/18 04:47 ABG Total CO2 32 mEq/L (20-26) H 12/26/18 04:47 ABG O2 Saturation 100 % (95-98) H 12/24/18 19:22 ABG Base Excess 5 mEq/L (-2 to 3) H 12/26/18 04:47 Carbon Dioxide 22 mEq/L (23-29) L 12/24/18 16:36 BUN 29 mg/dL (8-23) H 12/26/18 04:56 Est GFR (Non-Af Amer) 52 (> 60) L 12/26/18 04:56 BUN/Creatinine Ratio 28 (6-26) H 12/26/18 04:56 Glucose 156 mg/dL (70-105) H 12/26/18 04:56 POC Glucose 139 mg/dL (70-99) H 12/26/18 05:43 Lactic Acid 3.8 mmol/L (0.5-2.2) H 12/24/18 17:43 Alkaline Phosphatase 129 Units/L (34-104) H 12/24/18 17:43 Troponin I 0.15 ng/mL (< 0.04) H* 12/25/18 14:16 B-Natriuretic Peptide 201 pg/mL (Less than 100) H 12/24/18 16:36 Globulin 3.6 g/dL (2.4-3.5) H 12/24/18 17:43 Albumin/Globulin Ratio 1.0 (1.1-2.2) L 12/24/18 17:43 Procalcitonin 0.42 ng/mL (0.00-0.15) H 12/24/18 16:36 Ur Specific [place] > 1.030 (1.010-1.025) H 12/24/18 21:26 Urine Protein 30 mg/dL (Neg-Trace) H 12/24/18 21:26 Urine Blood Large (Negative) H 12/24/18 21:26 Urine Microscopic RBC TNTC per hpf (0-3) H 12/24/18 21:26 Urine Microscopic WBC 5-15 per hpf (0-3) H 12/24/18 21:26 Ur Squamous Epith Cells Many per lpf (None-Few) H 12/24/18 21:26 Vancomycin Trough 19 mcg/mL (5-10) H 12/26/18 04:56 - Microbiology Findings Microbiology Findings: Microbiology, Last 48 Hours 12/24/18 22:00 Urine Culture - Preliminary Urine,[place] Culture is incubating. 12/24/18 16:36 Blood Culture - Preliminary Peripheral Venipuncture Culture is incubating and being continuously monitored for growth. Final report to follow. 12/24/18 17:38 Blood Culture - Preliminary Peripheral Venipuncture Culture is incubating and being continuously monitored for growth. Final report to follow. - Clinical Findings Intake & Output: Intake & Output 12/25/18 12/25/18 12/26/18 15:59 23:59 07:59 Intake Total 650 / 3988.4 1696.1 / 3988.4 264.9 / 264.9 Output Total 200 / 3010 2110 / 3010 200 / 200 Balance 450 / 978.4 -413.9 / 978.4 64.9 / 64.9 Weight 96.9 kg Consult Discharge Plan - Plan Referrals: NONE,PCP [Primary Care Provider] - <Yury Stokes - Last Filed: 12/26/18 11:11> Date of Encounter: 12/26/18 Objective PUL Vital signs: Last Vital Signs Temp 99.5 F 12/26/18 08:00 Pulse 71 12/26/18 10:00 Resp 12 12/26/18 10:00 BP 151/126 12/26/18 10:00 Pulse Ox 95 12/26/18 10:00 Ventilator Settings Ventilator Settings: Ventilator Settings, Last 8 Hours Ventilator Tidal Volume 450 Setting Ventilator Tidal Volume 450 Setting Ventilator Tidal Volume 450 Setting Ventilator Tidal Volume 450 Setting Ventilator Tidal Volume 450 Setting Ventilator Tidal Volume 450 Setting Ventilator Respiratory Rate 16 Setting Ventilator Respiratory Rate 16 Setting Ventilator Respiratory Rate 16 Setting Ventilator Respiratory Rate 16 Setting Ventilator Respiratory Rate 16 Setting Ventilator Respiratory Rate 16 Setting Actual Respiratory Rate 14 Actual Respiratory Rate 19 Actual Respiratory Rate 13 Actual Respiratory Rate 12 Actual Respiratory Rate 16 Actual Respiratory Rate 16 Actual Respiratory Rate 16 Actual Respiratory Rate 18 Positive End Expiratory 5 Pressure Positive End Expiratory 5 Pressure Positive End Expiratory 5 Pressure Positive End Expiratory 5 Pressure Positive End Expiratory 5 Pressure Positive End Expiratory 5 Pressure Positive End Expiratory 5 Pressure Positive End Expiratory 5 Pressure Positive End Expiratory 5 Pressure Peak Inspiratory Airway 11 Pressure Peak Inspiratory Airway 10 Pressure Peak Inspiratory Airway 10 Pressure Peak Inspiratory Airway 30 Pressure Peak Inspiratory Airway 30 Pressure Peak Inspiratory Airway 23 Pressure Peak Inspiratory Airway 29 Pressure Results - Laboratory Findings CBC and BMP: 12/26/18 04:56 12/26/18 04:56 ABG ABG pH 7.41 pH Units (7.32-7.45) 12/26/18 04:47 ABG pCO2 49 mmHg (35-45) H 12/26/18 04:47 ABG pO2 87 mmHg (85-104) 12/26/18 04:47 ABG O2 Saturation 97 % (95-98) 12/26/18 04:47 PT/INR, D-dimer PT 11.7 Seconds (9.4-12.1) 12/25/18 02:49 Abnormal lab findings: Abnormal lab results WBC 12.7 K/mcL (4.3-11.1) H 12/26/18 04:56 RBC 5.04 M/mcL (3.82-4.97) H 12/24/18 16:36 Hct 48.5 % (35.3-44.9) H 12/24/18 16:36 MCHC 30.4 g/dL (31.6-35.5) L 12/25/18 02:49 RDW 15.4 % (11.5-14.5) H 12/26/18 04:56 Neutrophils # 10.1 K/mcL (1.6-8.9) H 12/25/18 02:49 Lymphocytes # 7.2 K/mcL (0.6-4.6) H 12/24/18 16:36 ABG pH 7.29 pH Units (7.32-7.45) L D 12/24/18 19:22 ABG pCO2 49 mmHg (35-45) H 12/26/18 04:47 ABG pO2 79 mmHg (85-104) L D 12/25/18 01:08 ABG HCO3 31 mEq/L (21-27) H 12/26/18 04:47 ABG Total CO2 32 mEq/L (20-26) H 12/26/18 04:47 ABG O2 Saturation 100 % (95-98) H 12/24/18 19:22 ABG Base Excess 5 mEq/L (-2 to 3) H 12/26/18 04:47 Carbon Dioxide 22 mEq/L (23-29) L 12/24/18 16:36 BUN 29 mg/dL (8-23) H 12/26/18 04:56 Est GFR (Non-Af Amer) 52 (> 60) L 12/26/18 04:56 BUN/Creatinine Ratio 28 (6-26) H 12/26/18 04:56 Glucose 156 mg/dL (70-105) H 12/26/18 04:56 POC Glucose 139 mg/dL (70-99) H 12/26/18 05:43 Lactic Acid 3.8 mmol/L (0.5-2.2) H 12/24/18 17:43 Alkaline Phosphatase 129 Units/L (34-104) H 12/24/18 17:43 Troponin I 0.15 ng/mL (< 0.04) H* 12/25/18 14:16 B-Natriuretic Peptide 201 pg/mL (Less than 100) H 12/24/18 16:36 Globulin 3.6 g/dL (2.4-3.5) H 12/24/18 17:43 Albumin/Globulin Ratio 1.0 (1.1-2.2) L 12/24/18 17:43 Procalcitonin 0.42 ng/mL (0.00-0.15) H 12/24/18 16:36 Ur Specific [place] > 1.030 (1.010-1.025) H 12/24/18 21:26 Urine Protein 30 mg/dL (Neg-Trace) H 12/24/18 21:26 Urine Blood Large (Negative) H 12/24/18 21:26 Urine Microscopic RBC TNTC per hpf (0-3) H 12/24/18 21:26 Urine Microscopic WBC 5-15 per hpf (0-3) H 12/24/18 21:26 Ur Squamous Epith Cells Many per lpf (None-Few) H 12/24/18 21:26 Vancomycin Trough 19 mcg/mL (5-10) H 12/26/18 04:56 - Microbiology Findings Microbiology Findings: Microbiology, Last 48 Hours 12/24/18 22:00 Urine Culture - Final Urine,[place] No growth. 12/24/18 16:36 Blood Culture - Preliminary Peripheral Venipuncture Culture is incubating and being continuously monitored for growth. Final report to follow. 12/24/18 17:38 Blood Culture - Preliminary Peripheral Venipuncture Culture is incubating and being continuously monitored for growth. Final report to follow. - Clinical Findings Intake & Output: Intake & Output 12/25/18 12/26/18 12/26/18 23:59 07:59 15:59 Intake Total 1696.1 / 3988.4 264.9 / 264.9 Output Total 2110 / 3010 200 / 250 50 / 250 Balance -413.9 / 978.4 64.9 / 14.9 -50 / 14.9 Weight 96.9 kg - Attending Attestation I examined this patient and my medical decision-making was reviewed with the Resident Physician. I agree with the documented findings, disposition and treatment plan as described except to the extent set forth below. We independently had [id number] contact with the patient Patient seen and examined at bedside Labs, radiology, chart personally reviewed. Management was reviewed during multidisciplinary critical care rounds. HEALTH PROMOTION COORDINATOR: Awake and alert following commands Pulm: Acute hypoxic hypercapnic respiratory failure patient has been liberated from the vent she is on BiPAP and will be weaned to nasal cannula 15 to treat for COPD exacerbation the context of pneumonia Cards: Mildly fluid overloaded we will give for diuretic resume home antihypertensive regimen GI: Discontinue stress ulcer prophylaxis off vent Nutrition: Advance diet as tolerated after bedside speech and swallow eval once off BiPAP Renal: UOP Monitored, Cont to Trend sCr and monitor Electrolytes. ID: Patient is on broad-spectrum antibiotics and we will de-escalate Heme/Onc: DVT prophylaxis given Endo: Glucose Monitored Integ/MSK: Skin Care per routine ICU Nursing Protocol to prevent ulcers. Lines: All lines examined without evidence of infection : Dispo: Monitor in ICU postextubation CODE: Full
[2018-12-26] MEDS: Budesonide/Formoterol 160/4.5 1 PUFF INH IH SCH ×2 (07:15→20:27)
[2018-12-26] MEDS ORDERED: *HR* LORazepam 2 MG/ML VIAL IVP ONE (07:38)
[2018-12-26] MEDS ORDERED: Furosemide 40 MG/4 ML VIAL IVP ONE (07:38)
[2018-12-26] MEDS ORDERED: Aminoglycoside Consult 1 EACH MC ONE (08:06)
[2018-12-26] MEDS: methylPREDNISolone 125 MG/2 ML VIAL IVP SCH ×3 (08:18→23:44)
[2018-12-26] MEDS: Piperacillin/Tazobactam 3.375 GM in 0.9 % Sodium Chloride Mini Bag 100 ML IVPB SCH ×3 (08:19→23:44)
[2018-12-26] MEDS: Chlorhexidine Rinse 15 ML MOUTHWASH MM SCH ×2 (08:19→21:16)
[2018-12-26 08:47] LABS: Magnesium 2.3 mg/dL (1.6-2.6)
[2018-12-26] MEDS: Aspirin 81 MG TAB.CHEW PO SCH (09:17)
[2018-12-26] MEDS: Azithromycin 500 MG in 0.9 % Sodium Chloride 250 ML IVPB SCH (14:32)
--- NOTE | 2018-12-26 15:32 | Cardiology Progress Note ---
Date of Encounter: 12/26/18 Time of Encounter: 09:00 Assessment and Plan (1) Elevated troponin Current Visit: Yes Status: Acute Troponin elevation at 0.17, 0.21, 0.15 in the setting of respiratory arrest and COPD. EKG shows sinus tachycardia with RBBB. No known CAD. H/o RI 10/2018, declined LHC. Last TTE 10/2018 showed EF 45%-50% with segmental dysfunction concerning for LAD disease. LHC recommended at that time and patient declined. TTE this admission shows EF improved and WMA resolved. Reviwed with patient and family. No indication for further testing this admission. Continue treatment for COPD. Patient agrees. Continue heparin gtt 48 hr then d/c. On asa and brilinta at home due to recent RI (no intervention). Continue bb. Start statin . Cardiology will sign off. Call with questions. Out-pt f/u will be coordinated. (2) Systolic heart failure Current Visit: Yes Status: Acute H/o mild CMP. EF 45-50%. BNP 201. CXR and CT scan with findings concerning for mucous plugging, possible PNA. No effusions or edema seen. Chest CT-. Negative for acute pulmonary embolis . Left upper lobe opacification posteriorly. There is soft tissue density in this region which could represent obstruction of the segmental left upper lobe bronchus. This could represent postobstructive pneumonitis or possibly a pneumonia. TTE shows EF back to normal. Appears close to euvolemic. On bb. Oral lasix only if needed. Caution with IV fluid. Strict I&O, daily weights. Qualifiers: Heart failure chronicity: chronic Qualified Code(s): I50.22 - Chronic systolic (congestive) heart failure (3) Wide-complex tachycardia Current Visit: Yes Status: Acute Patient reported to have WCT in the EMS and ED. EKG reviewed by boots and shoes supervisor and read as sinus tachycardia with RBBB. Continue to monitor. Now SR Discussion w patient/family: The assessment and plan as outlined above was discussed with the patient and/or family members who expressed understanding and agreement. All questions were answered. Thank you for involving us in the care of your patient. Please call with any questions. Subjective Principal diagnosis: elevated troponin Interval history: Ms. Booth is now extubated. Denies chest pain. C/o chest congestion/tightness at times. Breathing improved. Objective Vital Signs, Last 4 Hours Pulse Resp BP Pulse Ox 12/26/18 14:00 85 13 150/73 95 12/26/18 13:44 20 95 12/26/18 13:00 85 16 157/72 95 12/26/18 12:00 79 22 146/64 95 General: Conversant, No Apparent Distress HEENT: Atraumatic, Normocephaly, Mucus Membranes Moist Neck: No JVD, Normal carotid pulses Cardiac: Reg Rate and Rhythm, Normal S1 and S2, No Murmur Lungs: Other (Rhonci scattered through out. ) Neuro: Alert and responsive, No focal deficits noted Abdomen: Soft, Non-Tender Skin: No rashes noted on visualized skin Musculoskeletal: No Chest Wall Tenderness Extremities: No Clubbing, No Cyanosis, No Edema, Normal Pulses Results 12/26/18 04:56 12/26/18 04:56 Lab Results 12/26/18 12/26/18 04:56 04:56 WBC 12.7 H Hgb 11.5 Hct 35.9 Plt Count 286 Sodium 139 Potassium 4.2 Chloride 104 Carbon Dioxide 26 BUN 29 H Creatinine 1.05 Glucose 156 H Calcium 8.8 Magnesium 2.3 - Imaging and Cardiology Echo: report reviewed Consult Discharge Plan - Plan Referrals: NONE,PCP [Primary Care Provider] -
--- NOTE | 2018-12-26 15:44 | Electrocardiograph Report ---
[address] [place], [place] [address] Test Date: 2018-12-24 Pat Name: Selma Booth Department: [id number] Room: 10 Gender: F Equipment Engineer: : 1945 Requested By: Jet Leslie Order Number: [id number] Reading MD: Romain Seth Measurements Intervals [place] Rate: 86 P: 52 NV: 135 QRS: -65 QRSD: 142 T: -24 QT: 463 QTc: 554 Interpretive Statements Sinus rhythm RBBB Electronically Signed On 12-26-2018 15:42:42 EDT by Romain Steh
--- NOTE | 2018-12-26 15:48 | Electrocardiograph Report ---
[address] [place], [place] [address] Test Date: 2018-12-25 Pat Name: Selma Booth Department: 109 Room: 10 Gender: F Records Analysis Manager: : 1945 Requested By: David Calle Order Number: [id number] Reading MD: Romain Seth Measurements Intervals [place] Rate: 78 P: 36 CT: 139 QRS: -62 QRSD: 141 T: -52 QT: 432 QTc: 466 Interpretive Statements SINUS RHYTHM MARKED LEFT AXIS DEVIATION RIGHT BUNDLE BRANCH BLOCK Electronically Signed On 12-26-2018 15:46:41 EDT by Romain Seth
--- NOTE | 2018-12-26 16:20 | Electrocardiograph Report ---
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
[2018-12-26] MEDS: FentaNYL (PF) 1,000 MCG in 0.9 % Sodium Chloride 80 ML IVC SCH (18:52)
[2018-12-26] MEDS: Ipratropium/Albuterol Neb 3 ML IH PRN (20:27)
[2018-12-27] MEDS: Artificial Tears SOLN 15 ML BOTTLE BOTH EYES SCH ×2 (04:31→07:29)
[2018-12-27 05:50] LABS: Hematocrit 38.4 % (35.3-44.9); Hemoglobin 12.4 g/dL (11.5-15.4); Mean Corpuscular HGB Conc 32.3 g/dL (31.6-35.5); Mean Corpuscular Hemoglobin 28.9 pg (28.0-33.3); Mean Corpuscular Volume 89.5 fL (83.0-100.0); Mean Platelet Volume 9.7 fL (9.4-12.4); Platelet Count 313 K/mcL (140-400); Red Blood Count 4.29 M/mcL (3.82-4.97); Red Cell Distribution Width 15.6 % (11.5-14.5); White Blood Count 9.9 K/mcL (4.3-11.1)
[2018-12-27] MEDS: *HR* Heparin 5,000 UNIT/ML VIAL SQ SCH ×3 (06:01→21:40)
[2018-12-27] MEDS: Pantoprazole 40 MG VIAL IVP SCH (06:01)
[2018-12-27 06:22] LABS: BUN/Creatinine Ratio 32 (6-26); Blood Urea Nitrogen 32 mg/dL (8-23); Carbon Dioxide 29 mEq/L (23-29); Chloride 101 mEq/L (98-107); Glucose 159 mg/dL (70-105); Magnesium 2.3 mg/dL (1.6-2.6); Osmolality,Calculated 304 (280-300); Potassium 3.8 mEq/L (3.5-5.1); Sodium 142 mEq/L (136-145); eGFR For African Americans > 60 (> 60); eGFR For Non-African Americans 55 (> 60)
--- NOTE | 2018-12-27 06:52 | Pulmonology Progress Note ---
<ToñoDestin Khadijah - Last Filed: 12/27/18 10:49> Date of Encounter: 12/27/18 Time of Encounter: 06:49 Assessment and Plan (1) Acute respiratory failure with hypoxia and hypercapnia Current Visit: Yes Status: Resolved 73F with significant PMH of COPD presents to the ED with acute respiratory failure and respiratory arrest en route by EMS likely 2/2 PNA and COPD exacerbation CT from 12/24/18 read as Left upper lobe opacification posteriorly. There is soft tissue density in this region which could represent obstruction of the segmental left upper lobe bronchus. This could represent postobstructive pneumonitis or possibly a pneumonia. Emergent intubation was performed by ER staff on 12/24/18 She was started on Solu-Medrol, Levaquin, Zosyn, and vancomycin. Levaquin was switched to Azithromycin in ICU Vancomycin d/c 12/26/18 -Patient currently on 4L NC with O2 saturation of 93% -Discontinue Zosyn and started pt on Augmentin 875 mg BID for 7 days and Azithromycin 250 mg PO for 2 more days -Transitioned pt to PO prednisone 40 mg to be tapered -Pt will need pulmonology f/u and CT scan in 4 weeks -Patient to be transferred to the floor, we will continue to follow him for today and hospitalist will be notified (2) Severe sepsis Current Visit: Yes Status: Resolved Lactic acid originally of 9.2, heart rate of 141, and white count of 20.2 along with patient's acute respiratory failure gaits patient criteria of severe sepsis Patient was given bolus fluids and broad spectrum abx were started Likely 2/2 CAP Blood and sputum cultures pending Patient started on broad-spectrum antibiotics Solu-Medrol started due to patient's chronic steroid use Procalcitonin of 0.42 -WBC down to 9.9, temperature 97.8,and BP 140/67 -Continue antibiotic therapy as described above -Monitor for continued hemodynamic stability (3) Diabetes Current Visit: No Status: Chronic Pt started on Diabetic diet. -Hold home diabetes medications -Start on low-dose SSI with continued BG monitoring. Qualifiers: Diabetes mellitus type: type 2 Diabetes mellitus half-way insulin use: without superintendent terminal use Diabetes mellitus complication status: with neurologic complications Diabetes mellitus complication detail: with polyneuropathy Qualified Code(s): E11.42 - Type 2 diabetes mellitus with diabetic polyneuropathy (4) NSTEMI (non-ST elevated myocardial infarction) Current Visit: No Status: Acute Troponins were originally negative at less than 0.03, but repeats trended from 0.17 up to 0.21 Most likely due to respiratory failure ECG shows normal sinus rhythm at a rate of 65 with a right bundle branch block that has been present on previous ECGs. Echo from 10/2018 with EF of 45-50%. Limited echo was performed and came back with an EF of 55-60% without wall segment abnormalities. Troponins trending down to 0.15 EKG from 12/26/18 shows sinus tachycardia at a rate of 107 with a a RBBB. No evidence of acute ischemia. -Will need cardiac f/u as an outpatient (5) Lactic acidosis Current Visit: Yes Status: Acute On admission patient with a lactic acid of 9.2 Following the beginning of treatment trended down to 3.8 -Most recent lactic acid on 12/25 of 2.0 (6) DVT prophylaxis Current Visit: Yes Status: Acute Heparin 5000 units subcutaneous every 8 hours Subjective Principal diagnosis: elevated troponin Interval history: Patient states she is doing well. Patient asked when she would be able to go d own to a regular bed in the hospital. Patient denies chest pain, shortness of breath, cough, either, chills, abdominal pain, nausea, vomiting, or diarrhea. Objective PUL Vital signs: Last Vital Signs Temp 97.8 F 12/27/18 04:24 Pulse 67 12/27/18 06:00 Resp 22 12/27/18 06:00 BP 140/67 12/27/18 06:00 Pulse Ox 93 12/27/18 06:00 General appearance: no acute distress Eyes: nonicteric ENT: oropharynx moist Neck: supple, no lymphadenopathy Effort: normal Auscultation: bilateral: clear Cardiovascular: irregular rhythm Gastrointestinal: normoactive bowel sounds, soft, non-distended Extremities: no cyanosis (trace pitting edema to BLE) Musculoskeletal: no deformities normal mental status, non-focal exam mood appropriate, affect normal Results - Laboratory Findings CBC and BMP: 12/27/18 04:58 12/27/18 04:58 ABG ABG pH 7.41 pH Units (7.32-7.45) 12/26/18 04:47 ABG pCO2 49 mmHg (35-45) H 12/26/18 04:47 ABG pO2 87 mmHg (85-104) 12/26/18 04:47 ABG O2 Saturation 97 % (95-98) 12/26/18 04:47 PT/INR, D-dimer PT 11.7 Seconds (9.4-12.1) 12/25/18 02:49 Abnormal lab findings: Abnormal lab results WBC 12.7 K/mcL (4.3-11.1) H 12/26/18 04:56 RBC 5.04 M/mcL (3.82-4.97) H 12/24/18 16:36 Hct 48.5 % (35.3-44.9) H 12/24/18 16:36 MCHC 30.4 g/dL (31.6-35.5) L 12/25/18 02:49 RDW 15.6 % (11.5-14.5) H 12/27/18 04:58 Neutrophils # 10.1 K/mcL (1.6-8.9) H 12/25/18 02:49 Lymphocytes # 7.2 K/mcL (0.6-4.6) H 12/24/18 16:36 ABG pH 7.29 pH Units (7.32-7.45) L D 12/24/18 19:22 ABG pCO2 49 mmHg (35-45) H 12/26/18 04:47 ABG pO2 79 mmHg (85-104) L D 12/25/18 01:08 ABG HCO3 31 mEq/L (21-27) H 12/26/18 04:47 ABG Total CO2 32 mEq/L (20-26) H 12/26/18 04:47 ABG O2 Saturation 100 % (95-98) H 12/24/18 19:22 ABG Base Excess 5 mEq/L (-2 to 3) H 12/26/18 04:47 Carbon Dioxide 22 mEq/L (23-29) L 12/24/18 16:36 BUN 32 mg/dL (8-23) H 12/27/18 04:58 Est GFR (Non-Af Amer) 55 (> 60) L 12/27/18 04:58 BUN/Creatinine Ratio 32 (6-26) H 12/27/18 04:58 Glucose 159 mg/dL (70-105) H 12/27/18 04:58 POC Glucose 178 mg/dL (70-99) H 12/26/18 18:10 Calculated Osmolality 304 (280-300) H 12/27/18 04:58 Lactic Acid 3.8 mmol/L (0.5-2.2) H 12/24/18 17:43 Alkaline Phosphatase 129 Units/L (34-104) H 12/24/18 17:43 Troponin I 0.15 ng/mL (< 0.04) H* 12/25/18 14:16 B-Natriuretic Peptide 201 pg/mL (Less than 100) H 12/24/18 16:36 Globulin 3.6 g/dL (2.4-3.5) H 12/24/18 17:43 Albumin/Globulin Ratio 1.0 (1.1-2.2) L 12/24/18 17:43 Procalcitonin 0.42 ng/mL (0.00-0.15) H 12/24/18 16:36 Ur Specific Combs > 1.030 (1.010-1.025) H 12/24/18 21:26 Urine Protein 30 mg/dL (Neg-Trace) H 12/24/18 21:26 Urine Blood Large (Negative) H 12/24/18 21:26 Urine Microscopic RBC TNTC per hpf (0-3) H 12/24/18 21:26 Urine Microscopic WBC 5-15 per hpf (0-3) H 12/24/18 21:26 Ur Squamous Epith Cells Many per lpf (None-Few) H 12/24/18 21:26 Vancomycin Trough 19 mcg/mL (5-10) H 12/26/18 04:56 - Microbiology Findings Microbiology Findings: Microbiology, Last 48 Hours 12/24/18 22:00 Urine Culture - Final Urine,[place] No growth. 12/24/18 16:36 Blood Culture - Preliminary Peripheral Venipuncture Culture is incubating and being continuously monitored for growth. Final report to follow. - Clinical Findings Intake & Output: Intake & Output 12/26/18 12/26/18 12/27/18 15:59 23:59 07:59 Intake Total 119 / 733.9 350 / 733.9 Output Total 2350 / 2700 150 / 2700 250 / 250 Balance -2230 / -1965.1 200 / -1966.1 -250 / -250 Weight 95.9 kg Consult Discharge Plan - Plan Referrals: NONE,PCP [Primary Care Provider] - <Yury Stokes W - Last Filed: 12/27/18 12:21> Date of Encounter: 12/27/18 Objective PUL Vital signs: Last Vital Signs Temp 98.1 F 12/27/18 11:25 Pulse 73 12/27/18 11:46 Resp 16 12/27/18 11:00 BP 112/48 12/27/18 11:00 Pulse Ox 92 12/27/18 11:00 Results - Laboratory Findings CBC and BMP: 12/27/18 04:58 12/27/18 04:58 ABG ABG pH 7.41 pH Units (7.32-7.45) 12/26/18 04:47 ABG pCO2 49 mmHg (35-45) H 12/26/18 04:47 ABG pO2 87 mmHg (85-104) 12/26/18 04:47 ABG O2 Saturation 97 % (95-98) 12/26/18 04:47 PT/INR, D-dimer PT 11.7 Seconds (9.4-12.1) 12/25/18 02:49 Abnormal lab findings: Abnormal lab results WBC 12.7 K/mcL (4.3-11.1) H 12/26/18 04:56 RBC 5.04 M/mcL (3.82-4.97) H 12/24/18 16:36 Hct 48.5 % (35.3-44.9) H 12/24/18 16:36 MCHC 30.4 g/dL (31.6-35.5) L 12/25/18 02:49 RDW 15.6 % (11.5-14.5) H 12/27/18 04:58 Neutrophils # 10.1 K/mcL (1.6-8.9) H 12/25/18 02:49 Lymphocytes # 7.2 K/mcL (0.6-4.6) H 12/24/18 16:36 ABG pH 7.29 pH Units (7.32-7.45) L D 12/24/18 19:22 ABG pCO2 49 mmHg (35-45) H 12/26/18 04:47 ABG pO2 79 mmHg (85-104) L D 12/25/18 01:08 ABG HCO3 31 mEq/L (21-27) H 12/26/18 04:47 ABG Total CO2 32 mEq/L (20-26) H 12/26/18 04:47 ABG O2 Saturation 100 % (95-98) H 12/24/18 19:22 ABG Base Excess 5 mEq/L (-2 to 3) H 12/26/18 04:47 Carbon Dioxide 22 mEq/L (23-29) L 12/24/18 16:36 BUN 32 mg/dL (8-23) H 12/27/18 04:58 Est GFR (Non-Af Amer) 55 (> 60) L 12/27/18 04:58 BUN/Creatinine Ratio 32 (6-26) H 12/27/18 04:58 Glucose 159 mg/dL (70-105) H 12/27/18 04:58 POC Glucose 178 mg/dL (70-99) H 12/26/18 18:10 Calculated Osmolality 304 (280-300) H 12/27/18 04:58 Lactic Acid 3.8 mmol/L (0.5-2.2) H 12/24/18 17:43 Alkaline Phosphatase 129 Units/L (34-104) H 12/24/18 17:43 Troponin I 0.15 ng/mL (< 0.04) H* 12/25/18 14:16 B-Natriuretic Peptide 201 pg/mL (Less than 100) H 12/24/18 16:36 Globulin 3.6 g/dL (2.4-3.5) H 12/24/18 17:43 Albumin/Globulin Ratio 1.0 (1.1-2.2) L 12/24/18 17:43 Procalcitonin 0.42 ng/mL (0.00-0.15) H 12/24/18 16:36 Ur Specific Combs > 1.030 (1.010-1.025) H 12/24/18 21:26 Urine Protein 30 mg/dL (Neg-Trace) H 12/24/18 21:26 Urine Blood Large (Negative) H 12/24/18 21:26 Urine Microscopic RBC TNTC per hpf (0-3) H 12/24/18 21:26 Urine Microscopic WBC 5-15 per hpf (0-3) H 12/24/18 21:26 Ur Squamous Epith Cells Many per lpf (None-Few) H 12/24/18 21:26 Vancomycin Trough 19 mcg/mL (5-10) H 12/26/18 04:56 - Microbiology Findings Microbiology Findings: Microbiology, Last 48 Hours 12/24/18 22:00 Urine Culture - Final Urine,[place] No growth. - Clinical Findings Intake & Output: Intake & Output 12/26/18 12/27/18 12/27/18 23:59 07:59 15:59 Intake Total 350 / 733.9 100 / 460 360 / 460 Output Total 150 / 2700 350 / 550 200 / 550 Balance 200 / -1966.1 -250 / -90 160 / -90 Weight 95.9 kg - Attending Attestation I examined this patient and my medical decision-making was reviewed with the Resident Physician. I agree with the documented findings, disposition and treatment plan as described except to the extent set forth below. We independently had [id number] contact with the patient Patient seen and examined at bedside Labs, radiology, chart personally reviewed. Impression/Recs: Patient's clinical course continues to improve. She will need a 5 day burst of prednisone for COPD exacerbation continue schedule bronchodilators and Symbicort she will need antibiotics for at least 5 days and probably closer to 7 for community-acquired pneumonia and can be de-escalated to oral formulation she kay l need repeat CT scan in about 4 weeks and pulmonary follow-up at that time. Stable for transfer to the floor
[2018-12-27] MEDS: Budesonide/Formoterol 160/4.5 1 PUFF INH IH SCH ×3 (07:17→19:30)
[2018-12-27] MEDS: Ipratropium/Albuterol Neb 3 ML IH PRN ×2 (07:18→15:52)
[2018-12-27] MEDS ORDERED: predniSONE 20 MG TABLET PO SCH (08:00)
[2018-12-27] MEDS: FentaNYL (PF) 1,000 MCG in 0.9 % Sodium Chloride 80 ML IVC SCH (08:26)
[2018-12-27] MEDS: Dexmedetomidine HCl 400 MCG/100 ML MLS IVC SCH (08:26)
[2018-12-27] MEDS: predniSONE 20 MG TABLET PO SCH ×3 (08:56→09:22)
[2018-12-27] MEDS: Piperacillin/Tazobactam 3.375 GM in 0.9 % Sodium Chloride Mini Bag 100 ML IVPB SCH (08:56)
[2018-12-27] MEDS: Aspirin 81 MG TAB.CHEW PO SCH (08:57)
[2018-12-27] MEDS: Chlorhexidine Rinse 15 ML MOUTHWASH MM SCH (08:57)
[2018-12-27] MEDS ORDERED: NON-FORMULARY MEDICATION 1 EACH EACH (Pantoprazole Sodium 40 MG) PO SCH (09:00)
[2018-12-27] MEDS ORDERED: Aspirin 81 MG TAB.CHEW PO SCH (09:00)
[2018-12-27] MEDS ORDERED: *HR* Ticagrelor 90 MG TABLET PO SCH (09:00)
[2018-12-27] MEDS ORDERED: *HR* Midazolam HCl 5 MG/5 ML VIAL IVP PRN (09:00)
[2018-12-27] MEDS ORDERED: Azithromycin 250 MG TABLET PO SCH (09:00)
[2018-12-27] MEDS ORDERED: Acetaminophen 325 MG TABLET PO PRN (09:00)
[2018-12-27] MEDS ORDERED: Naloxone 0.4 MG/ML INJ IVP PRN (09:00)
[2018-12-27] MEDS: Azithromycin 250 MG TABLET PO SCH (09:23)
[2018-12-27] MEDS: Furosemide 40 MG TABLET PO SCH (09:34)
[2018-12-27] MEDS ORDERED: Piperacillin/Tazobactam 3.375 GM in 0.9 % Sodium Chloride Mini Bag 100 ML IVPB SCH (16:00)
[2018-12-28] MEDS: Ipratropium/Albuterol Neb 3 ML IH PRN ×2 (04:37→10:34)
[2018-12-28] MEDS ORDERED: Pantoprazole 40 MG VIAL IVP SCH (06:30)
[2018-12-28] MEDS: *HR* Heparin 5,000 UNIT/ML VIAL SQ SCH ×3 (06:59→20:51)
[2018-12-28] MEDS: Furosemide 40 MG TABLET PO SCH (08:11)
[2018-12-28] MEDS: predniSONE 20 MG TABLET PO SCH (08:12)
[2018-12-28] MEDS: Azithromycin 250 MG TABLET PO SCH (08:12)
[2018-12-28] MEDS: Aspirin 81 MG TAB.CHEW PO SCH (08:12)
[2018-12-28] MEDS: Budesonide/Formoterol 160/4.5 1 PUFF INH IH SCH ×2 (10:28→20:10)
--- NOTE | 2018-12-28 11:45 | Internal Med Progress Note ---
Hospitalist Progress Note - Encounter Date of Encounter: 12/28/18 Time of Encounter: 08:25 - Subjective Interval History: Patient is currently in ICU but stable enough to be transferred to medical floor. Basically presented with shortness of breath, diagnosed with pneumonia and COPD and is currently being treated for these problems. Major improvement i n the breathing status. Currently on her baseline home oxygen requirement. Denies fever, chills, rigors. Denies chest pain. Wants to be transferred to medical floor as she gets disturbed because of the noise in the ICU. No other overnight events. - Exam Vitals: Temp Pulse Resp BP Pulse Ox 97.8 F 56 19 113/45 94 12/28/18 07:36 12/28/18 11:00 12/28/18 11:00 12/28/18 11:00 12/28/18 11:00 Exam: General: Alert and oriented, no physical distress, able to follow commands. HEENT: No thyromegaly, no lymphadenopathy, no discharge. Eyes: No discharge. Normal conjuctiva, no icterus Respiratory: Wheezing appreciated in all lung bases CVS: Normal heart sounds, no murmurs, regular rhthm, no edema Extremities: No peripheral edema, peripheral pulses intact. Lymph nodes: No lymphadenopathy Gastrointestinal: Soft, nontender abdomen, normal abdominal sounds. No distention noted. Genitourinary: No paravertebral tenderness. Skin: No rash, ulcers or wound. Neurological: Alert and oriented. No focal deficits. Cranial nerves II-XII intact. - Assessment and Plan (1) Acute respiratory failure with hypoxia and hypercapnia Current Visit: Yes Status: Resolved Assessment and Plan: Etiology seems to be COPD exacerbation and pneumonia. CT scan done at the time of admission showed left upper lobe opacity anteriorly. There is soft tissue density in this region which could represent obstruction of the segmental left upper lobe bronchus. This could represent postobstructive pneumonitis or possibly a pneumonia. Was intubated initially but then extubated yesterday. Has been doing well. Currently on prednisone, Augmentin and azithromycin which will continue. On 2 L of oxygen with saturation in low 90s. As per pulmonary recommendations, pulmonology follow-up and CT scan in 4 weeks. (2) DM type 2 (diabetes mellitus, type 2) Current Visit: Yes Status: Chronic Assessment and Plan: Hold home antidiabetic medications. Start the patient on low-dose sliding scale. (3) DVT prophylaxis Current Visit: Yes Status: Acute Assessment and Plan: Heparin SQ. (4) Elevated troponin Current Visit: Yes Status: Acute Assessment and Plan: Likely type II in context of sepsis. Troponins peaked at 0.21. EKG did not show any new changes. Limited echo done during this visit showed ejection fraction of 55-60% No interventions planned in this visit. Cardiology follow-up as an outpatient. (5) Severe sepsis Current Visit: Yes Status: Resolved Assessment and Plan: K with a lactic acid of 9.2, tachycardia of 141, WBC count of 20.2, satisfied the criteria of sepsis. Condition improved with IV fluid bolus and IV antibiotics. Blood cultures have been negative so far. Continue the patient on ordered antibiotics. Continue to monitor for signs of hemodynamic stability. (6) COPD (chronic obstructive pulmonary disease) Current Visit: No Status: Acute Assessment and Plan: History of COPD, on 2 L of oxygen at home. Currently taking Symbicort at home. Continue the current management. Outpatient follow-up with the pulmonology. - Summary of Assessment and Plan Summary of Assessment and Plan: Patient vitals, EKG, x-ray and CT scan were reviewed. Anticipate discharge tomorrow. - Time Spent with Patient Total time spent is greater than 50% in coordination of care (as documented) at patient's floor/unit and/or counseling patient: Internal Medicine: Result - Labs CBC & Chem 7: 12/27/18 04:58 12/27/18 04:58 - ABG Interpretation ABG results: ABG ABG pH 7.41 pH Units (7.32-7.45) 12/26/18 04:47 ABG pCO2 49 mmHg (35-45) H 12/26/18 04:47 ABG pO2 87 mmHg (85-104) 12/26/18 04:47 ABG O2 Saturation 97 % (95-98) 12/26/18 04:47 PT/INR, D-dimer PT 11.7 Seconds (9.4-12.1) 12/25/18 02:49 Consult Discharge Plan - Plan Referrals: NONE,PCP [Primary Care Provider] - (2) DM type 2 (diabetes mellitus, type 2) Qualifiers: Diabetes mellitus cadd manager insulin use: unspecified cadd manager insulin use status Diabetes mellitus complication status: with other specified complication Qualified Code(s): E11.69 - Type 2 diabetes mellitus with other specified complication (6) COPD (chronic obstructive pulmonary disease) Qualifiers: COPD type: unspecified COPD Qualified Code(s): J44.9 - Chronic obstructive pulmonary disease, unspecified
[2018-12-28] MEDS ORDERED: *HR* Dextrose 50 % in Water (Syg) 50 ML SYRINGE IVP PRN (11:50)
[2018-12-28] MEDS ORDERED: D5% in Water 1,000 ML IVC PRN (11:50)
[2018-12-28] MEDS ORDERED: Dextrose Gel 15 GM/37.5 ML TUBE PO PRN ×2 (11:50)
[2018-12-28] MEDS: Insulin LISPRO 300 UNITS/3 ML VIAL SQ SCH (17:28)
[2018-12-29] MEDS: Ipratropium/Albuterol Neb 3 ML IH PRN ×2 (04:09→10:42)
[2018-12-29 05:12] LABS: Basophils % 0.1 %; Eosinophils # 0.1 K/mcL (0.0-0.6); Eosinophils % 0.4 %; Hematocrit 39.1 % (35.3-44.9); Hemoglobin 12.2 g/dL (11.5-15.4); Immature Granulocytes % 0.7 % (0-4); Lymphocytes # 3.1 K/mcL (0.6-4.6); Lymphocytes % 22.8 %; Mean Corpuscular HGB Conc 31.2 g/dL (31.6-35.5); Mean Corpuscular Hemoglobin 28.5 pg (28.0-33.3); Mean Corpuscular Volume 91.4 fL (83.0-100.0); Mean Platelet Volume 9.7 fL (9.4-12.4); Monocytes # 0.9 K/mcL (0.0-1.3); Monocytes % 6.9 %; Neutrophils # 9.3 K/mcL (1.6-8.9); Platelet Count 305 K/mcL (140-400); Red Blood Count 4.28 M/mcL (3.82-4.97); Red Cell Distribution Width 15.6 % (11.5-14.5); Segmented Neutrophils % 69.1 %; White Blood Count 13.4 K/mcL (4.3-11.1)
[2018-12-29 05:22] LABS: BUN/Creatinine Ratio 33 (6-26); Blood Urea Nitrogen 27 mg/dL (8-23); Calcium 8.7 mg/dL (8.6-10.3); Carbon Dioxide 31 mEq/L (23-29); Chloride 102 mEq/L (98-107); Glucose 124 mg/dL (70-105); Osmolality,Calculated 299 (280-300); Potassium 3.3 mEq/L (3.5-5.1); Sodium 141 mEq/L (136-145); eGFR For African Americans > 60 (> 60); eGFR For Non-African Americans > 60 (> 60)
[2018-12-29] MEDS: *HR* Heparin 5,000 UNIT/ML VIAL SQ SCH ×2 (06:12→16:15)
[2018-12-29] MEDS: Insulin LISPRO 300 UNITS/3 ML VIAL SQ SCH ×3 (09:00→16:17)
[2018-12-29] MEDS: Aspirin 81 MG TAB.CHEW PO SCH (09:01)
[2018-12-29] MEDS: Azithromycin 250 MG TABLET PO SCH (09:01)
[2018-12-29] MEDS: predniSONE 20 MG TABLET PO SCH (09:01)
[2018-12-29] MEDS: Furosemide 40 MG TABLET PO SCH (09:02)
[2018-12-29] MEDS: Budesonide/Formoterol 160/4.5 1 PUFF INH IH SCH (10:41)
--- NOTE | 2018-12-29 10:47 | Discharge Summary ---
- NOTES TO OUTPATIENT PROVIDER Notes to Outpatient Provider: Presented with acute hypoxic respiratory failure, diagnosed with COPD and pneumonia. Currently on antibiotics and steroids. Taking 10 mg at home, I will taper down the steroids to 10 mg daily. Orders not resulted at time of discharge: Pending orders 12/24/18 16:36 Culture,Blood [BC] Stat 12/24/18 20:19 Culture,Sputum with Gram Stain [RM] Stat Date of Encounter: 12/29/18 Time of Encounter: 10:30 - Discharge Diagnosis (1) Acute respiratory failure with hypoxia and hypercapnia Priority: Primary Status: Resolved (2) DM type 2 (diabetes mellitus, type 2) Priority: Secondary Status: Chronic Qualifiers: Diabetes mellitus anode rebuilder insulin use: unspecified fpc insulin use status Diabetes mellitus complication status: with other specified complication Qualified Code(s): E11.69 - Type 2 diabetes mellitus with other specified complication (3) DVT prophylaxis Priority: Secondary Status: Acute (4) Elevated troponin Priority: Secondary Status: Acute (5) Severe sepsis Priority: Secondary Status: Resolved (6) COPD (chronic obstructive pulmonary disease) Priority: Secondary Status: Acute Qualifiers: COPD type: unspecified COPD Qualified Code(s): J44.9 - Chronic obstructive pulmonary disease, unspecified Hospital course: Ms. Booth is a 73 year old female with a past medical history significant for COPD, CAD, DVT, asthma, presented to the hospital because of the acute onset of shortness of breath. Patient was diagnosed with acute respiratory failure, intubated. She was admitted to the ICU. Diagnosed with pneumonia and COPD exacerbation and was continued on antibiotics and steroids. Her condition improved over the next couple of days. She was extubated and transferred to the floor. She was switched to oral prednisone and oral antibiotics. She has been doing fine. Denies any chest pain, increased shortness of breath at this point. She is back to her home requirement of 2 L of oxygen at this point. Denies any fever, chills, rigors. Her potassium is low today which was debilitated. Her WBC count is high which is most likely because of the prednisone. No other overnight events. During the hospitalization, her troponin was elevated which was most likely because of the sepsis. She been discharged on Augmentin for 6 more days. She also been given steroids, prednisone 40 mg daily for 2 more days, 20 mg daily for 3 more days, 10 mg afterwards daily until she seen by the PCP as he has been on 10 mg outpatient. She is being [facility]. - Time Spent with Patient Total time spent providing and/or coordinating discharge services:45 minutes - Discharge Medications Prescriptions: New Amoxicillin/Clavulanate [Augmentin] 875 mg PO BIDWM 6 Days #12 tablet Continued Albuterol Sulfate [Proventil Inhaler] 2 puff IH Q4HR PRN PRN Reason: Shortness Of Breath Fluticasone/Vilanterol [Breo Ellipta 100-25 Mcg INH] 1 puff IH BID Aspirin 81 mg PO DAILY tab.chew Ticagrelor [Brilinta] 90 mg PO BID #60 tablet Buspirone HCl [Buspar] 7.5 mg PO BID #60 tab Furosemide [Lasix] 40 mg PO QAM #30 tablet Nystatin POWDER [Nystop] 1 appl TP TID PRN #60 gm PRN Reason: EXCORIATION Potassium Chloride 20 meq PO DAILY #30 tab.er.prt Budesonide Neb [Pulmicort Neb] 0.5 mg IH BIDR #60 ampul.neb Ipratropium/Albuterol Sulfate [Iprat-Albut 0.5-3(2.5) mg/3 ml] 3 ml IH Q4H PRN #100 ampul.neb PRN Reason: Shortness Of Breath Pantoprazole Sodium 40 mg PO DAILY Metoprolol XL (24 HR) Succ [Toprol Xl] 50 mg PO DAILY #30 tab.er.24h Changed predniSONE [PredniSONE] See Taper PO DAILY #50 tablet Home Medications: Albuterol Sulfate [Proventil Inhaler] 2 puff IH Q4HR PRN 05/01/16 [History] Fluticasone/Vilanterol [Breo Ellipta 100-25 Mcg INH] 1 puff IH BID 11/02/18 [History] Aspirin 81 mg PO DAILY tab.chew 11/05/18 [Rx] Budesonide Neb [Pulmicort Neb] 0.5 mg IH BIDR #60 ampul.neb 11/05/18 [Rx] Buspirone HCl [Buspar] 7.5 mg PO BID #60 tab 11/05/18 [Rx] Furosemide [Lasix] 40 mg PO QAM #30 tablet 11/05/18 [Rx] Ipratropium/Albuterol Sulfate [Iprat-Albut 0.5-3(2.5) mg/3 ml] 3 ml IH Q4H PRN #100 ampul.neb 11/05/18 [Rx] Nystatin POWDER [Nystop] 1 appl TP TID PRN #60 gm 11/05/18 [Rx] Potassium Chloride 20 meq PO DAILY #30 tab.er.prt 11/05/18 [Rx] Ticagrelor [Brilinta] 90 mg PO BID #60 tablet 11/05/18 [Rx] Pantoprazole Sodium 40 mg PO DAILY 12/24/18 [History] Amoxicillin/Clavulanate [Augmentin] 875 mg PO BIDWM 6 Days #12 tablet 12/29/18 [Rx] Metoprolol XL (24 HR) Succ [Toprol Xl] 50 mg PO DAILY #30 tab.er.24h 12/29/18 [Rx] predniSONE [PredniSONE] See Taper PO DAILY #50 tablet 12/29/18 [Rx] Allergies/Adverse Reactions: Allergy/AdvReac Type Severity Reaction Status Date / Time pain med Allergy See Uncoded 08/03/18 15:36 Comments Date of admission: 12/24/18 19:11 Primary care physician: PCP NONE Consults: 12/24/18 20:19 Consult to Pulmonology [CONS] Routine Consulting Provider: [facility] [place] Reason for Consult: icu/vent management Call Completed: No 12/24/18 22:43 Consult to Cardiology [CONS] Routine Comment: Consulting Provider: Cardiology [place] Reason for Consult: troponin elevation; respiratory arrest Call Completed: No 12/27/18 09:00 Consult to Occupational Therapy [CONS] Routine Comment: Evaluate, develop and implement POC Reason for Consult: eval Does patient have active BEDREST order?: No Is patient medically & hemodynamically stable?: Yes Consult to Physical Therapy [CONS] Routine Comment: Evaluate, develop and implement POC Reason for Consult: eval, previously bed bound Does patient have active BEDREST order?: No Is patient medically & hemodynamically stable?: Yes 12/27/18 10:18 Consult to Fab[employer] And Material C[employer] [CONS] Routine Reason for SW Consult: discharge planning. [facility] with home health prior to admission. - Constitutional Vitals: Temp Pulse Resp BP Pulse Ox 97.9 F 57 18 116/59 94 12/29/18 07:18 12/29/18 07:18 12/29/18 07:18 12/29/18 07:18 12/29/18 07:18 Exam: General: Alert and oriented, no physical distress, able to follow commands. HEENT: No thyromegaly, no lymphadenopathy, no discharge. Eyes: No discharge. Normal conjuctiva, no icterus Respiratory: Wheezing appreciated in all lung bases CVS: Normal heart sounds, no murmurs, regular rhthm, no edema Extremities: No peripheral edema, peripheral pulses intact. Lymph nodes: No lymphadenopathy Gastrointestinal: Soft, nontender abdomen, normal abdominal sounds. No distention noted. Genitourinary: No paravertebral tenderness. Skin: No rash, ulcers or wound. Neurological: Alert and oriented. No focal deficits. Cranial nerves II-XII intact. - Patient Status Disposition: Hospice - Home Condition: Fair - Discharge Instructions Follow Up With: NONE,PCP [Primary Care Provider] - Forms: ED Satisfaction Letter Additional Instructions: Take 40 mg of prdnisone for 2 days, then 20 mg for 3 days, then go down to 10mg until you see your PCP. Further prednisone adjusetments as per the PCP. - Diet and Activity Activity: as per physical therapy, increase activity as tolerated Diet: advance to your usual diet
--- NOTE | 2018-12-29 10:53 | Physician Discharge Referral ---
Home Health/Hosp Referral Info Transfer to: Hospice Provider in Charge Post Discharge: PCP - Diagnosis (1) Acute respiratory failure with hypoxia and hypercapnia Priority: Primary Status: Resolved (2) DM type 2 (diabetes mellitus, type 2) Priority: Secondary Status: Chronic (3) DVT prophylaxis Priority: Secondary Status: Acute (4) Elevated troponin Priority: Secondary Status: Acute (5) Severe sepsis Priority: Secondary Status: Resolved (6) COPD (chronic obstructive pulmonary disease) Priority: Secondary Status: Acute - Respiratory Orders Oxygen / L per min (2) Smoking Cessation: Smoking cessation has been advised. For more information, call the [place] [employer] Quit Line at [phone]. - Transfer Medications Prescriptions: Amoxicillin/Clavulanate [Augmentin] 875 mg PO BIDWM 6 Days #12 tablet predniSONE [PredniSONE] See Taper PO DAILY #50 tablet Metoprolol XL (24 HR) Succ [Toprol Xl] 50 mg PO DAILY #30 tab.er.24h Home Medications: Albuterol Sulfate [Proventil Inhaler] 2 puff IH Q4HR PRN 05/01/16 [History] Fluticasone/Vilanterol [Breo Ellipta 100-25 Mcg INH] 1 puff IH BID 11/02/18 [History] Aspirin 81 mg PO DAILY tab.chew 11/05/18 [Rx] Budesonide Neb [Pulmicort Neb] 0.5 mg IH BIDR #60 ampul.neb 11/05/18 [Rx] Buspirone HCl [Buspar] 7.5 mg PO BID #60 tab 11/05/18 [Rx] Furosemide [Lasix] 40 mg PO QAM #30 tablet 11/05/18 [Rx] Ipratropium/Albuterol Sulfate [Iprat-Albut 0.5-3(2.5) mg/3 ml] 3 ml IH Q4H PRN #100 ampul.neb 11/05/18 [Rx] Nystatin POWDER [Nystop] 1 appl TP TID PRN #60 gm 11/05/18 [Rx] Potassium Chloride 20 meq PO DAILY #30 tab.er.prt 11/05/18 [Rx] Ticagrelor [Brilinta] 90 mg PO BID #60 tablet 11/05/18 [Rx] Pantoprazole Sodium 40 mg PO DAILY 12/24/18 [History] Amoxicillin/Clavulanate [Augmentin] 875 mg PO BIDWM 6 Days #12 tablet 12/29/18 [Rx] Metoprolol XL (24 HR) Succ [Toprol Xl] 50 mg PO DAILY #30 tab.er.24h 12/29/18 [Rx] predniSONE [PredniSONE] See Taper PO DAILY #50 tablet 12/29/18 [Rx] Allergies/Adverse Reactions: Allergy/AdvReac Type Severity Reaction Status Date / Time pain med Allergy See Uncoded 08/03/18 15:36 Comments Certification: Further, I certify that my clinical findings support that this patient is homebound (i.e. absences from home require considerable and taxing effort and are for medical reasons or zoroastrianism services or infrequently or short duration when for other reasons) because: Homebound Reason: Patient requires assistance of a person or device to safely leave home Attestation: My signature below is to certify that this patient is under my care and that I, or nurse practitioner, or a physician's bookkeeper assistant working with me, has a [id number] encounter with this patient.
[2018-12-29 15:46] VITALS: BP 122/64
== END 2018-12-29 16:36 | disposition hospice, home (50) | DRG 871 ==
LOC: EMEROOARM 16:31 → ICNU 19:11 → SUATTDRO 19:11 → ICNU 20:10 → 2ANU 12-28 13:12
PROVIDERS: ADMIT Internal Medicine Nephrology; ATTEND Internal Medicine

== ENCOUNTER 2019-06-30 08:34 | Inpatient (IN) ==
[2019-06-30] MEDS ORDERED: methylPREDNISolone 125 MG/2 ML VIAL IVP ONE (08:37)
[2019-06-30] MEDS ORDERED: Ipratropium/Albuterol Neb 3 ML IH ONE (08:37)
[2019-06-30] MEDS ORDERED: 0.9 % Sodium Chloride 1,000 ML IVC ONE ×2 (08:40→19:18)
[2019-06-30] MEDS ORDERED: Isovue-370 500 ML BOTTLE IVP ONE (08:42)
[2019-06-30 09:06] LABS: Basophils # 0.1 K/mcL (0.0-0.2); Basophils % 0.5 %; Eosinophils # 0.1 K/mcL (0.0-0.6); Eosinophils % 0.2 %; Hematocrit 44.4 % (35.3-44.9); Hemoglobin 13.1 g/dL (11.5-15.4); Immature Granulocytes % 3.7 % (0-4); Lymphocytes # 6.6 K/mcL (0.6-4.6); Lymphocytes % 24.9 %; Mean Corpuscular HGB Conc 29.5 g/dL (31.6-35.5); Mean Corpuscular Hemoglobin 28.7 pg (28.0-33.3); Mean Corpuscular Volume 97.4 fL (83.0-100.0); Mean Platelet Volume 9.9 fL (9.4-12.4); Monocytes % 3.9 %; Nucleated Red Blood Cells 0.1 /100 WBC (0); Platelet Count 433 K/mcL (140-400); Red Blood Count 4.56 M/mcL (3.82-4.97); Red Cell Distribution Width 13.8 % (11.5-14.5); Segmented Neutrophils % 66.8 %; White Blood Count 26.6 K/mcL (4.3-11.1)
[2019-06-30 09:07] LABS: Neutrophils # 17.8 K/mcL (1.6-8.9)
[2019-06-30 09:27] LABS: Platelet Estimate Normal (Normal)
[2019-06-30 09:29] LABS: Calcium 9.4 mg/dL (8.6-10.3); Potassium 3.7 mEq/L (3.5-5.1); Troponin I 0.05 ng/mL (< 0.04)
[2019-06-30] MEDS ORDERED: levoFLOXacin 750 MG/150 ML 750 MG/150 ML BAG IVPB ONE (09:35)
[2019-06-30] MEDS ORDERED: *HR* Etomidate 20 MG/10 ML AMPUL IVP ONE (10:04)
[2019-06-30] MEDS ORDERED: *HR* Succinylcholine 200 MG/10 ML VIAL IVP ONE (10:04)
[2019-06-30] MEDS ORDERED: Insulin Human Regular 10 UNIT in 0.9 % Sodium Chloride 10 ML IV ONE (10:16)
[2019-06-30 10:18] LABS: VBG HCO3 30 mEq/L (21-27); VBG PCO2 79 mmHg (41-51); VBG PH 7.18 pH Units (7.32-7.42); VBG PO2 112 mmHg (25-50)
[2019-06-30] MEDS ORDERED: D5% in Water 250 ML IV BAG IV ONE (10:20)
[2019-06-30] MEDS ORDERED: *HR* Norepinephrine 4 MG/4 ML VIAL IVC ONE (10:20)
[2019-06-30] MEDS ORDERED: *HR* LORazepam 2 MG/ML VIAL IVP ONE ×2 (10:35→13:24)
[2019-06-30 12:01] LABS: VBG HCO3 29 mEq/L (21-27); VBG PCO2 58 mmHg (41-51); VBG PO2 162 mmHg (25-50)
[2019-06-30] MEDS ORDERED: *HR* FentaNYL (PF) 100 MCG/2 ML VIAL IVP ONE (13:42)
[2019-06-30] MEDS ORDERED: Naloxone 0.4 MG/ML INJ ONE (14:03)
[2019-06-30] MEDS ORDERED: Naloxone 0.4 MG/ML INJ IVP PRN (15:30)
[2019-06-30] MEDS ORDERED: Piperacillin/Tazobactam 3.375 GM in 0.9 % Sodium Chloride Mini Bag 100 ML IVPB STA (15:37)
[2019-06-30 15:49] LABS: ABG Base Excess 2 mEq/L (-2 to 3); ABG HCO3 27 mEq/L (21-27); ABG Oxygen Saturation 100 % (95-98); ABG PCO2 46 mmHg (35-45); ABG PH 7.38 pH Units (7.32-7.45); ABG PO2 180 mmHg (85-104); ABG TCO2 29 mEq/L (20-26); Blood Gas VT 450 cc
[2019-06-30] MEDS ORDERED: Vancomycin 1,750 MG in 0.9 % Sodium Chloride 250 ML IVPB SCH (16:00)
[2019-06-30] MEDS ORDERED: 0.9 % Sodium Chloride 1,000 ML ONE (16:07)
[2019-06-30 16:17] LABS: Basophils # 0.1 K/mcL (0.0-0.2); Basophils % 0.2 %; Hematocrit 37.6 % (35.3-44.9); Hemoglobin 11.3 g/dL (11.5-15.4); Immature Granulocytes % 1.3 % (0-4); Lymphocytes # 0.4 K/mcL (0.6-4.6); Lymphocytes % 1.8 %; Mean Corpuscular HGB Conc 30.1 g/dL (31.6-35.5); Mean Corpuscular Hemoglobin 28.9 pg (28.0-33.3); Mean Corpuscular Volume 96.2 fL (83.0-100.0); Mean Platelet Volume 9.9 fL (9.4-12.4); Monocytes # 0.4 K/mcL (0.0-1.3); Monocytes % 1.8 %; Neutrophils # 21.6 K/mcL (1.6-8.9); Platelet Count 373 K/mcL (140-400); Red Blood Count 3.91 M/mcL (3.82-4.97); Segmented Neutrophils % 94.9 %; White Blood Count 22.8 K/mcL (4.3-11.1)
[2019-06-30 16:18] LABS: Prothrombin Time 11.6 Seconds (9.4-12.1)
[2019-06-30 16:21] LABS: Activated Partial Thrombo Time 27.4 Seconds (26.0-36.0)
[2019-06-30 16:35] LABS: Platelet Estimate Normal (Normal); Stomatocytes 1+ (Not Present)
[2019-06-30 16:42] LABS: Calcium 8.7 mg/dL (8.6-10.3); Potassium 5.1 mEq/L (3.5-5.1)
[2019-06-30] MEDS: Dexmedetomidine HCl 400 MCG/100 ML MLS IVC SCH ×2 (16:43→23:31)
[2019-06-30] MEDS: Norepinephrine 4 MG in 0.9 % Sodium Chloride 250 ML IVC SCH ×2 (16:44→20:24)
[2019-06-30] MEDS ORDERED: Dexmedetomidine HCl 400 MCG/100 ML MLS IVC ONE (17:05)
[2019-06-30] MEDS ORDERED: D5% in Water 1,000 ML IVC PRN (17:37)
[2019-06-30] MEDS ORDERED: Dextrose Gel 15 GM/37.5 ML TUBE PO PRN ×2 (17:37)
[2019-06-30] MEDS ORDERED: *HR* Dextrose 50 % in Water (Syg) 50 ML SYRINGE IVP PRN (17:37)
[2019-06-30] MEDS: FentaNYL (PF) 1,000 MCG in 0.9 % Sodium Chloride 80 ML IVC SCH (17:43)
[2019-06-30 17:51] LABS: Estimated Average Glucose 229 mg/dl
[2019-06-30] MEDS: Hydrocortisone Sodium Succ 100 MG/2 ML VIAL IVP SCH (18:42)
[2019-06-30] MEDS: Clindamycin 600 MG/50 ML 600 MG/50 ML IV.SOLN IVPB SCH (18:43)
[2019-06-30] MEDS: Insulin LISPRO 300 UNITS/3 ML VIAL SQ SCH (18:47)
[2019-06-30 19:29] LABS: Albumin 3.2 g/dL (3.5-5.7); Albumin/Globulin Ratio 1.1 (1.1-2.2); Bilirubin,Direct 0.1 mg/dL (0.0-0.2); Bilirubin,Indirect 0.2 mg/dL (0.0-1.0); Bilirubin,Total 0.3 mg/dL (0.3-1.0); Globulin 2.9 g/dL (2.4-3.5); Total Protein 6.1 g/dL (6.4-8.9)
[2019-06-30] MEDS: Ipratropium/Albuterol Neb 3 ML IH SCH ×2 (19:51→23:49)
[2019-06-30 20:10] LABS: ABG Base Excess -2 mEq/L (-2 to 3); ABG HCO3 26 mEq/L (21-27); ABG Oxygen Saturation 97 % (95-98); ABG PCO2 55 mmHg (35-45); ABG PH 7.28 pH Units (7.32-7.45); ABG PO2 102 mmHg (85-104); ABG TCO2 27 mEq/L (20-26); Blood Gas VT 450 cc
[2019-06-30] MEDS: Chlorhexidine Rinse 15 ML MOUTHWASH MM SCH (21:26)
[2019-06-30 22:16] LABS: ABG Base Excess -1 mEq/L (-2 to 3); ABG HCO3 26 mEq/L (21-27); ABG Oxygen Saturation 92 % (95-98); ABG PCO2 53 mmHg (35-45); ABG PH 7.29 pH Units (7.32-7.45); ABG PO2 71 mmHg (85-104); ABG TCO2 27 mEq/L (20-26); Blood Gas VT 450 cc
[2019-07-01] MEDS: Norepinephrine 4 MG in 0.9 % Sodium Chloride 250 ML IVC SCH ×3 (00:01→15:14)
[2019-07-01] MEDS: Clindamycin 600 MG/50 ML 600 MG/50 ML IV.SOLN IVPB SCH ×4 (00:02→23:42)
[2019-07-01 00:03] LABS: Calcium 7.9 mg/dL (8.6-10.3); Potassium 4.8 mEq/L (3.5-5.1)
[2019-07-01] MEDS: Insulin LISPRO 300 UNITS/3 ML VIAL SQ SCH ×5 (00:05→23:42)
[2019-07-01] MEDS: Hydrocortisone Sodium Succ 100 MG/2 ML VIAL IVP SCH ×5 (00:06→23:42)
[2019-07-01] MEDS: Ipratropium/Albuterol Neb 3 ML IH SCH ×6 (03:48→23:40)
[2019-07-01 04:42] LABS: Basophils # 0.1 K/mcL (0.0-0.2); Basophils % 0.2 %; Hematocrit 29.5 % (35.3-44.9); Immature Granulocytes % 1.6 % (0-4); Lymphocytes # 1.3 K/mcL (0.6-4.6); Mean Corpuscular HGB Conc 30.8 g/dL (31.6-35.5); Mean Corpuscular Hemoglobin 29.5 pg (28.0-33.3); Mean Corpuscular Volume 95.8 fL (83.0-100.0); Mean Platelet Volume 10.3 fL (9.4-12.4); Monocytes # 1.3 K/mcL (0.0-1.3); Monocytes % 5.9 %; Neutrophils # 19.2 K/mcL (1.6-8.9); Platelet Count 285 K/mcL (140-400); Red Blood Count 3.08 M/mcL (3.82-4.97); Segmented Neutrophils % 86.3 %; White Blood Count 22.3 K/mcL (4.3-11.1)
[2019-07-01 04:44] LABS: Hemoglobin 9.1 g/dL (11.5-15.4)
[2019-07-01 04:47] LABS: Potassium 4.6 mEq/L (3.5-5.1)
[2019-07-01] MEDS: Dexmedetomidine HCl 400 MCG/100 ML MLS IVC SCH ×4 (05:11→20:50)
[2019-07-01 05:28] LABS: ABG Base Excess -1 mEq/L (-2 to 3); ABG HCO3 26 mEq/L (21-27); ABG Oxygen Saturation 92 % (95-98); ABG PCO2 48 mmHg (35-45); ABG PH 7.34 pH Units (7.32-7.45); ABG PO2 69 mmHg (85-104); ABG TCO2 27 mEq/L (20-26); Blood Gas Modality ASSIST CONTROL; Blood Gas VT 450 cc
[2019-07-01] MEDS ORDERED: *HR* Heparin 5,000 UNIT/ML VIAL SQ SCH (06:00)
[2019-07-01] MEDS ORDERED: Perflutren Lipid Microsphere 1.3 ML in 0.9 % Sodium Chloride 8.7 ML IVP ONE (08:31)
[2019-07-01] MEDS: Chlorhexidine Rinse 15 ML MOUTHWASH MM SCH ×2 (08:58→21:05)
[2019-07-01] MEDS: FentaNYL (PF) 1,000 MCG in 0.9 % Sodium Chloride 80 ML IVC SCH (09:07)
[2019-07-01] MEDS ORDERED: *HR* Heparin 5,000 UNIT/ML VIAL IVP ONE (12:52)
[2019-07-01] MEDS ORDERED: *HR* Heparin 5,000 UNIT/ML VIAL IVP PRN ×2 (13:10)
[2019-07-01] MEDS: Heparin 25,000 UNIT/250 ML D5W 25,000 UNIT/250 ML IV.SOLN IVC SCH (14:14)
[2019-07-01 14:28] LABS: Hematocrit 27.7 % (35.3-44.9); Hemoglobin 8.6 g/dL (11.5-15.4); Mean Corpuscular Hemoglobin 29.6 pg (28.0-33.3); Mean Corpuscular Volume 95.2 fL (83.0-100.0); Mean Platelet Volume 10.2 fL (9.4-12.4); Platelet Count 262 K/mcL (140-400); Red Blood Count 2.91 M/mcL (3.82-4.97); Red Cell Distribution Width 14.1 % (11.5-14.5); White Blood Count 24.3 K/mcL (4.3-11.1)
[2019-07-01 14:35] LABS: Heparin anti-factor XA UFH 0.05 IU/mL (0.30-0.70); Prothrombin Time 11.7 Seconds (9.4-12.1)
[2019-07-01 19:39] LABS: Hemoglobin 8.5 g/dL (11.5-15.4)
[2019-07-01 23:36] LABS: Bilirubin,Urine Small (Negative); Blood,Urine Large (Negative); Clarity,Urine Turbid (Clear); Color,Urine Dark Yellow (Yellow); Glucose,Urine (UA) 250 mg/dL (Normal); Ketones,Urine 15 mg/dL (Negative); Leukocyte Esterase,Urine Negative (Negative); Nitrite,Urine Negative (Negative); PH,Urine 5.5 pH Units (5.0-8.0); Protein,Urine 100 mg/dL (Neg-Trace); Specific Gravity,Urine > 1.030 (1.010-1.025); Urobilinogen,Urine Normal (Normal)
[2019-07-01 23:39] LABS: Squamous Epithelial Cell,Urine Many per lpf (None-Few); WBC,Urine 50-100 per hpf (0-3)
[2019-07-01] MEDS: Piperacillin/Tazobactam 3.375 GM in 0.9 % Sodium Chloride Mini Bag 100 ML IVPB SCH (23:42)
[2019-07-01 23:53] LABS: Hyaline Casts,Urine Few per lpf (None-Few); RBC,Urine TNTC per hpf (0-3); Yeast,Urine Many per hpf (None Seen)
[2019-07-01 23:54] LABS: Bacteria,Urine Few per hpf (None-Few)
[2019-07-02] MEDS: FentaNYL (PF) 1,000 MCG in 0.9 % Sodium Chloride 80 ML IVC SCH ×4 (00:47→22:10)
[2019-07-02] MEDS: Dexmedetomidine HCl 400 MCG/100 ML MLS IVC SCH ×5 (01:54→23:28)
[2019-07-02] MEDS: Ipratropium/Albuterol Neb 3 ML IH SCH ×6 (03:08→23:18)
[2019-07-02 04:01] LABS: Basophils % 0.2 %; Hematocrit 26.9 % (35.3-44.9); Hemoglobin 8.3 g/dL (11.5-15.4); Immature Granulocytes % 1.4 % (0-4); Lymphocytes # 1.7 K/mcL (0.6-4.6); Lymphocytes % 7.1 %; Mean Corpuscular HGB Conc 30.9 g/dL (31.6-35.5); Mean Corpuscular Hemoglobin 29.4 pg (28.0-33.3); Mean Corpuscular Volume 95.4 fL (83.0-100.0); Mean Platelet Volume 10.2 fL (9.4-12.4); Monocytes # 1.4 K/mcL (0.0-1.3); Monocytes % 5.9 %; Neutrophils # 20.6 K/mcL (1.6-8.9); Nucleated Red Blood Cells 0.1 /100 WBC (0); Platelet Count 236 K/mcL (140-400); Red Blood Count 2.82 M/mcL (3.82-4.97); Red Cell Distribution Width 14.3 % (11.5-14.5); Segmented Neutrophils % 85.4 %; White Blood Count 24.1 K/mcL (4.3-11.1)
[2019-07-02 04:17] LABS: Calcium 8.2 mg/dL (8.6-10.3); Potassium 4.4 mEq/L (3.5-5.1)
[2019-07-02 04:41] LABS: ABG Base Excess 3 mEq/L (-2 to 3); ABG HCO3 28 mEq/L (21-27); ABG Oxygen Saturation 93 % (95-98); ABG PCO2 45 mmHg (35-45); ABG PH 7.41 pH Units (7.32-7.45); ABG PO2 66 mmHg (85-104); ABG TCO2 30 mEq/L (20-26); Blood Gas Modality AF; Blood Gas VT 340 cc
[2019-07-02] MEDS: Hydrocortisone Sodium Succ 100 MG/2 ML VIAL IVP SCH ×3 (05:17→23:30)
[2019-07-02] MEDS: *HR* Midazolam HCl 2 MG/2 ML VIAL IVP PRN ×2 (05:17→20:20)
[2019-07-02] MEDS: Insulin LISPRO 300 UNITS/3 ML VIAL SQ SCH ×4 (05:20→23:42)
[2019-07-02] MEDS: Piperacillin/Tazobactam 3.375 GM in 0.9 % Sodium Chloride Mini Bag 100 ML IVPB SCH ×3 (07:32→23:30)
[2019-07-02] MEDS: Chlorhexidine Rinse 15 ML MOUTHWASH MM SCH ×2 (07:32→20:30)
[2019-07-02] MEDS: Clindamycin 600 MG/50 ML 600 MG/50 ML IV.SOLN IVPB SCH (07:32)
[2019-07-02] MEDS: CLEAR EYES NATURAL TEARS 15 ML BOTTLE BOTH EYES SCH ×4 (10:21→20:31)
[2019-07-02] MEDS: Pantoprazole 40 MG VIAL IVP SCH (13:20)
[2019-07-02] MEDS: Furosemide 20 MG/2 ML VIAL IVP SCH ×2 (13:21→20:30)
[2019-07-02 16:59] LABS: Adenovirus Not Detected (Not Detect); Bordetella Pertussis Not Detected (Not Detect); Chlamydophila pneumoniae Not Detected (Not Detect); Coronavirus 229E Not Detected (Not Detect); Coronavirus HKU1 Not Detected (Not Detect); Coronavirus NL63 Not Detected (Not Detect); Coronavirus OC43 Not Detected (Not Detect); Human Metapneumovirus Not Detected (Not Detect); Human Rhinovirus/Enterovirus Not Detected (Not Detect); Influenza A Subtype 2009 H1 Not Detected (Not Detect); Influenza B Not Detected (Not Detect); Mycoplasma pneumoniae Not Detected (Not Detect); Parainfluenza Virus 1 Not Detected (Not Detect); Parainfluenza Virus 2 Not Detected (Not Detect); Parainfluenza Virus 3 Not Detected (Not Detect); Parainfluenza Virus 4 Not Detected (Not Detect); Respiratory Syncytial Virus Not Detected (Not Detect)
[2019-07-02] MEDS: Heparin 25,000 UNIT/250 ML D5W 25,000 UNIT/250 ML IV.SOLN IVC SCH (17:27)
[2019-07-02] MEDS: Cetaphil Lotion 473 ML BOTTLE TP SCH (17:34)
[2019-07-03] MEDS: *HR* Midazolam HCl 2 MG/2 ML VIAL IVP PRN ×2 (01:35→08:19)
[2019-07-03] MEDS: FentaNYL (PF) 1,000 MCG in 0.9 % Sodium Chloride 80 ML IVC SCH ×2 (03:47→10:20)
[2019-07-03] MEDS: Ipratropium/Albuterol Neb 3 ML IH SCH ×5 (03:55→20:14)
[2019-07-03 03:58] LABS: Basophils # 0.1 K/mcL (0.0-0.2); Basophils % 0.2 %; Hematocrit 24.6 % (35.3-44.9); Hemoglobin 7.7 g/dL (11.5-15.4); Immature Granulocytes % 1.5 % (0-4); Lymphocytes # 2.1 K/mcL (0.6-4.6); Lymphocytes % 8.1 %; Mean Corpuscular HGB Conc 31.3 g/dL (31.6-35.5); Mean Corpuscular Hemoglobin 30.2 pg (28.0-33.3); Mean Corpuscular Volume 96.5 fL (83.0-100.0); Mean Platelet Volume 10.5 fL (9.4-12.4); Monocytes # 1.5 K/mcL (0.0-1.3); Monocytes % 5.9 %; Neutrophils # 21.8 K/mcL (1.6-8.9); Platelet Count 223 K/mcL (140-400); Red Blood Count 2.55 M/mcL (3.82-4.97); Red Cell Distribution Width 14.6 % (11.5-14.5); Segmented Neutrophils % 84.3 %; White Blood Count 25.9 K/mcL (4.3-11.1)
[2019-07-03 04:09] LABS: Calcium 8.3 mg/dL (8.6-10.3); Potassium 4.2 mEq/L (3.5-5.1)
[2019-07-03 04:54] LABS: ABG Base Excess 2 mEq/L (-2 to 3); ABG HCO3 29 mEq/L (21-27); ABG Oxygen Saturation 87 % (95-98); ABG PCO2 54 mmHg (35-45); ABG PH 7.34 pH Units (7.32-7.45); ABG PO2 58 mmHg (85-104); ABG TCO2 30 mEq/L (20-26); Blood Gas Modality VC; Blood Gas VT 340 cc
[2019-07-03] MEDS: Dexmedetomidine HCl 400 MCG/100 ML MLS IVC SCH ×5 (05:12→21:36)
[2019-07-03] MEDS: Insulin LISPRO 300 UNITS/3 ML VIAL SQ SCH ×4 (05:32→23:58)
[2019-07-03] MEDS: Heparin 25,000 UNIT/250 ML D5W 25,000 UNIT/250 ML IV.SOLN IVC SCH (05:45)
[2019-07-03] MEDS: Furosemide 20 MG/2 ML VIAL IVP SCH ×2 (08:19→20:09)
[2019-07-03] MEDS: Chlorhexidine Rinse 15 ML MOUTHWASH MM SCH ×2 (08:20→19:58)
[2019-07-03] MEDS: Piperacillin/Tazobactam 3.375 GM in 0.9 % Sodium Chloride Mini Bag 100 ML IVPB SCH ×3 (08:20→23:33)
[2019-07-03] MEDS: Hydrocortisone Sodium Succ 100 MG/2 ML VIAL IVP SCH (08:21)
[2019-07-03] MEDS: Cetaphil Lotion 473 ML BOTTLE TP SCH (08:21)
[2019-07-03] MEDS: CLEAR EYES NATURAL TEARS 15 ML BOTTLE BOTH EYES SCH ×4 (08:21→19:58)
[2019-07-03] MEDS: Pantoprazole 40 MG VIAL IVP SCH (08:21)
[2019-07-03] MEDS ORDERED: Lidocaine -MPF 1% 5 ML AMPUL INFILT ONE (08:46)
[2019-07-03] MEDS ORDERED: Aminoglycoside Consult 1 EACH MC ONE (09:18)
[2019-07-03 11:27] LABS: Mycoplasma pneumoniae IgG 0.31 U/L (<=0.09)
[2019-07-03] MEDS ORDERED: Furosemide 40 MG/4 ML VIAL IVP ONE (12:49)
[2019-07-03 13:40] LABS: Hematocrit 23.2 % (35.3-44.9); Hemoglobin 7.2 g/dL (11.5-15.4)
[2019-07-03] MEDS ORDERED: Isovue-370 500 ML BOTTLE PO ONE (18:23)
[2019-07-04] MEDS: Ipratropium/Albuterol Neb 3 ML IH SCH ×6 (00:07→20:10)
[2019-07-04] MEDS: Dexmedetomidine HCl 400 MCG/100 ML MLS IVC SCH ×3 (00:29→06:34)
[2019-07-04] MEDS: Insulin LISPRO 300 UNITS/3 ML VIAL SQ SCH ×4 (05:32→20:57)
[2019-07-04 07:33] LABS: Basophils % 0.1 %; Eosinophils # 0.1 K/mcL (0.0-0.6); Eosinophils % 0.4 %; Hematocrit 20.5 % (35.3-44.9); Hemoglobin 6.4 g/dL (11.5-15.4); Immature Granulocytes % 1.1 % (0-4); Lymphocytes # 1.5 K/mcL (0.6-4.6); Lymphocytes % 10.6 %; Mean Corpuscular HGB Conc 31.2 g/dL (31.6-35.5); Mean Corpuscular Hemoglobin 29.6 pg (28.0-33.3); Mean Corpuscular Volume 94.9 fL (83.0-100.0); Mean Platelet Volume 10.5 fL (9.4-12.4); Monocytes # 0.8 K/mcL (0.0-1.3); Monocytes % 5.5 %; Neutrophils # 11.5 K/mcL (1.6-8.9); Nucleated Red Blood Cells 0.5 /100 WBC (0); Platelet Count 174 K/mcL (140-400); Red Blood Count 2.16 M/mcL (3.82-4.97); Red Cell Distribution Width 14.8 % (11.5-14.5); Segmented Neutrophils % 82.3 %; White Blood Count 13.9 K/mcL (4.3-11.1)
[2019-07-04 07:55] LABS: Calcium 7.9 mg/dL (8.6-10.3); Potassium 3.3 mEq/L (3.5-5.1)
[2019-07-04] MEDS: Piperacillin/Tazobactam 3.375 GM in 0.9 % Sodium Chloride Mini Bag 100 ML IVPB SCH ×2 (08:07→16:36)
[2019-07-04] MEDS: Chlorhexidine Rinse 15 ML MOUTHWASH MM SCH (08:08)
[2019-07-04] MEDS: CLEAR EYES NATURAL TEARS 15 ML BOTTLE BOTH EYES SCH (08:08)
[2019-07-04] MEDS: Furosemide 20 MG/2 ML VIAL IVP SCH ×2 (08:08→20:50)
[2019-07-04] MEDS: Pantoprazole 40 MG VIAL IVP SCH (08:09)
[2019-07-04] MEDS: Cetaphil Lotion 473 ML BOTTLE TP SCH (08:13)
[2019-07-04] MEDS ORDERED: Hydrocortisone Sodium Succ 100 MG/2 ML VIAL IVP SCH (09:00)
[2019-07-04] MEDS ORDERED: *HR* LORazepam 0.5 MG TABLET PO PRN (12:04)
[2019-07-04] MEDS ORDERED: *HR* Heparin 5,000 UNIT/ML VIAL SQ SCH (14:00)
[2019-07-04] MEDS ORDERED: *HR* Metoprolol 5 MG/5 ML VIAL IVP ONE ×2 (14:35→14:58)
[2019-07-04] MEDS ORDERED: Furosemide 20 MG/2 ML VIAL IVP ONE (15:00)
[2019-07-04] MEDS ORDERED: carvediloL 6.25 MG TABLET PO SCH (17:00)
[2019-07-04] MEDS ORDERED: D5% in Water 1,000 ML IVC PRN (18:07)
[2019-07-04] MEDS ORDERED: Naloxone 0.4 MG/ML INJ IVP PRN (18:07)
[2019-07-04] MEDS ORDERED: Dextrose Gel 15 GM/37.5 ML TUBE PO PRN ×2 (18:07)
[2019-07-04] MEDS ORDERED: *HR* Dextrose 50 % in Water (Syg) 50 ML SYRINGE IVP PRN (18:07)
[2019-07-04] MEDS: *HR* Heparin 5,000 UNIT/ML VIAL SQ SCH (21:00)
[2019-07-04] MEDS ORDERED: Insulin LISPRO 300 UNITS/3 ML VIAL SQ SCH (21:00)
[2019-07-05] MEDS: Ipratropium/Albuterol Neb 3 ML IH SCH ×7 (00:01→23:48)
[2019-07-05] MEDS: Piperacillin/Tazobactam 3.375 GM in 0.9 % Sodium Chloride Mini Bag 100 ML IVPB SCH ×2 (01:15→08:14)
[2019-07-05] MEDS: Mag Hydrox/Al Hydrox/Simeth 30 ML UDC PO PRN (01:55)
[2019-07-05] MEDS: *HR* Heparin 5,000 UNIT/ML VIAL SQ SCH ×3 (04:41→21:06)
[2019-07-05] MEDS ORDERED: Ondansetron ODT 4 MG TAB.RAPDIS SL ONE (04:43)
[2019-07-05 05:51] LABS: Hematocrit 29.1 % (35.3-44.9); Hemoglobin 9.4 g/dL (11.5-15.4); Mean Corpuscular HGB Conc 32.3 g/dL (31.6-35.5); Mean Corpuscular Hemoglobin 29.3 pg (28.0-33.3); Mean Corpuscular Volume 90.7 fL (83.0-100.0); Platelet Count 217 K/mcL (140-400); Red Blood Count 3.21 M/mcL (3.82-4.97); Red Cell Distribution Width 17.5 % (11.5-14.5); White Blood Count 17.6 K/mcL (4.3-11.1)
[2019-07-05 05:58] LABS: Calcium 8.3 mg/dL (8.6-10.3); Potassium 3.1 mEq/L (3.5-5.1)
[2019-07-05] MEDS: carvediloL 6.25 MG TABLET PO SCH ×2 (08:11→17:09)
[2019-07-05] MEDS: Insulin LISPRO 300 UNITS/3 ML VIAL SQ SCH ×4 (08:12→21:07)
[2019-07-05] MEDS: Cetaphil Lotion 473 ML BOTTLE TP SCH (08:16)
[2019-07-05] MEDS: predniSONE 10 MG TABLET PO SCH (08:16)
[2019-07-05] MEDS: Furosemide 20 MG/2 ML VIAL IVP SCH ×2 (08:17→21:06)
[2019-07-05] MEDS ORDERED: predniSONE 10 MG TABLET PO SCH (09:00)
[2019-07-05] MEDS ORDERED: Vancomycin 1,750 MG in 0.9 % Sodium Chloride 250 ML IVPB SCH (12:00)
[2019-07-05] MEDS: *HR* LORazepam 0.5 MG TABLET PO PRN (21:05)
[2019-07-06] MEDS: Ipratropium/Albuterol Neb 3 ML IH SCH ×6 (04:04→23:44)
[2019-07-06 04:45] LABS: Basophils % 0.1 %; Eosinophils # 0.1 K/mcL (0.0-0.6); Eosinophils % 0.7 %; Hematocrit 28.3 % (35.3-44.9); Hemoglobin 8.7 g/dL (11.5-15.4); Immature Granulocytes % 1.2 % (0-4); Lymphocytes # 1.5 K/mcL (0.6-4.6); Mean Corpuscular HGB Conc 30.7 g/dL (31.6-35.5); Mean Corpuscular Hemoglobin 28.7 pg (28.0-33.3); Mean Corpuscular Volume 93.4 fL (83.0-100.0); Mean Platelet Volume 10.7 fL (9.4-12.4); Monocytes # 1.3 K/mcL (0.0-1.3); Nucleated Red Blood Cells 0.2 /100 WBC (0); Platelet Count 214 K/mcL (140-400); Red Blood Count 3.03 M/mcL (3.82-4.97)
[2019-07-06 05:00] LABS: BUN/Creatinine Ratio 21 (6-26); Blood Urea Nitrogen 20 mg/dL (8-23); Calcium 8.2 mg/dL (8.6-10.3); Carbon Dioxide 33 mEq/L (23-29); Chloride 101 mEq/L (98-107); Glucose 167 mg/dL (70-105); Osmolality,Calculated 296 (280-300); Potassium 3.1 mEq/L (3.5-5.1); Sodium 140 mEq/L (136-145); eGFR For African Americans > 60 (> 60); eGFR For Non-African Americans 57 (> 60)
[2019-07-06] MEDS: *HR* Heparin 5,000 UNIT/ML VIAL SQ SCH ×3 (05:50→20:54)
[2019-07-06] MEDS ORDERED: Potassium Chloride Elixir 20 MEQ/15 ML UDC PO ONE (07:37)
[2019-07-06] MEDS: predniSONE 10 MG TABLET PO SCH (09:53)
[2019-07-06] MEDS: carvediloL 6.25 MG TABLET PO SCH ×2 (09:54→18:07)
[2019-07-06] MEDS: Furosemide 20 MG/2 ML VIAL IVP SCH ×2 (09:55→20:56)
[2019-07-06] MEDS: Insulin LISPRO 300 UNITS/3 ML VIAL SQ SCH ×4 (09:58→20:58)
[2019-07-06] MEDS: Cetaphil Lotion 473 ML BOTTLE TP SCH (10:00)
[2019-07-06] MEDS: Mag Hydrox/Al Hydrox/Simeth 30 ML UDC PO PRN (20:59)
[2019-07-07] MEDS: Ipratropium/Albuterol Neb 3 ML IH SCH ×6 (03:37→23:54)
[2019-07-07] MEDS: *HR* Heparin 5,000 UNIT/ML VIAL SQ SCH ×3 (06:23→21:15)
[2019-07-07 07:23] LABS: Basophils % 0.1 %; Eosinophils # 0.1 K/mcL (0.0-0.6); Eosinophils % 0.8 %; Hematocrit 27.6 % (35.3-44.9); Hemoglobin 8.6 g/dL (11.5-15.4); Immature Granulocytes % 1.1 % (0-4); Lymphocytes # 1.6 K/mcL (0.6-4.6); Mean Corpuscular HGB Conc 31.2 g/dL (31.6-35.5); Mean Corpuscular Hemoglobin 29.2 pg (28.0-33.3); Mean Corpuscular Volume 93.6 fL (83.0-100.0); Mean Platelet Volume 10.6 fL (9.4-12.4); Monocytes # 1.1 K/mcL (0.0-1.3); Monocytes % 7.7 %; Neutrophils # 11.2 K/mcL (1.6-8.9); Platelet Count 222 K/mcL (140-400); Red Blood Count 2.95 M/mcL (3.82-4.97); Red Cell Distribution Width 16.5 % (11.5-14.5); Segmented Neutrophils % 79.3 %; White Blood Count 14.1 K/mcL (4.3-11.1)
[2019-07-07 07:33] LABS: BUN/Creatinine Ratio 20 (6-26); Blood Urea Nitrogen 17 mg/dL (8-23); Calcium 8.5 mg/dL (8.6-10.3); Carbon Dioxide 37 mEq/L (23-29); Chloride 99 mEq/L (98-107); Glucose 160 mg/dL (70-105); Osmolality,Calculated 295 (280-300); Potassium 3.3 mEq/L (3.5-5.1); Sodium 140 mEq/L (136-145); eGFR For African Americans > 60 (> 60); eGFR For Non-African Americans > 60 (> 60)
[2019-07-07] MEDS: predniSONE 10 MG TABLET PO SCH (08:21)
[2019-07-07] MEDS: Furosemide 20 MG/2 ML VIAL IVP SCH ×2 (08:21→21:15)
[2019-07-07] MEDS: carvediloL 6.25 MG TABLET PO SCH ×2 (08:21→17:01)
[2019-07-07] MEDS: Insulin LISPRO 300 UNITS/3 ML VIAL SQ SCH ×4 (08:25→21:23)
[2019-07-07] MEDS: Cetaphil Lotion 473 ML BOTTLE TP SCH (10:21)
[2019-07-07] MEDS: Nystatin SUSP 5 ML UD.LIQ PO SCH ×3 (14:00→21:15)
[2019-07-08] MEDS: Ipratropium/Albuterol Neb 3 ML IH SCH ×5 (04:00→20:07)
[2019-07-08] MEDS: Furosemide 20 MG/2 ML VIAL IVP SCH ×2 (08:28→21:10)
[2019-07-08] MEDS: *HR* Heparin 5,000 UNIT/ML VIAL SQ SCH ×3 (08:29→21:10)
[2019-07-08] MEDS: Insulin LISPRO 300 UNITS/3 ML VIAL SQ SCH ×4 (08:30→23:00)
[2019-07-08] MEDS: predniSONE 10 MG TABLET PO SCH (08:31)
[2019-07-08] MEDS: carvediloL 6.25 MG TABLET PO SCH ×2 (08:31→16:59)
[2019-07-08] MEDS: Nystatin SUSP 5 ML UD.LIQ PO SCH ×4 (08:32→21:10)
[2019-07-08] MEDS: Cetaphil Lotion 473 ML BOTTLE TP SCH (08:32)
[2019-07-08 09:20] LABS: Basophils % 0.1 %; Eosinophils # 0.1 K/mcL (0.0-0.6); Eosinophils % 0.9 %; Hematocrit 29.7 % (35.3-44.9); Hemoglobin 9.3 g/dL (11.5-15.4); Immature Granulocytes % 1.1 % (0-4); Lymphocytes # 1.5 K/mcL (0.6-4.6); Lymphocytes % 10.5 %; Mean Corpuscular HGB Conc 31.3 g/dL (31.6-35.5); Mean Corpuscular Hemoglobin 29.8 pg (28.0-33.3); Mean Corpuscular Volume 95.2 fL (83.0-100.0); Mean Platelet Volume 10.6 fL (9.4-12.4); Monocytes % 7.2 %; Neutrophils # 11.1 K/mcL (1.6-8.9); Platelet Count 257 K/mcL (140-400); Red Blood Count 3.12 M/mcL (3.82-4.97); Red Cell Distribution Width 16.3 % (11.5-14.5); Segmented Neutrophils % 80.2 %; White Blood Count 13.9 K/mcL (4.3-11.1)
[2019-07-08 09:30] LABS: BUN/Creatinine Ratio 19 (6-26); Blood Urea Nitrogen 16 mg/dL (8-23); Calcium 8.5 mg/dL (8.6-10.3); Carbon Dioxide 40 mEq/L (23-29); Chloride 97 mEq/L (98-107); Glucose 184 mg/dL (70-105); Osmolality,Calculated 296 (280-300); Potassium 3.4 mEq/L (3.5-5.1); Sodium 140 mEq/L (136-145); eGFR For African Americans > 60 (> 60); eGFR For Non-African Americans > 60 (> 60)
[2019-07-08] MEDS ORDERED: SODIUM CHLORIDE/NAHCO3/KCL/PEG 4,000 ML SOLN.RECON PO ONE (17:00)
[2019-07-09] MEDS: Ipratropium/Albuterol Neb 3 ML IH SCH ×7 (00:06→23:43)
[2019-07-09 03:56] LABS: Basophils % 0.1 %; Eosinophils # 0.2 K/mcL (0.0-0.6); Eosinophils % 1.2 %; Hematocrit 31.6 % (35.3-44.9); Hemoglobin 9.6 g/dL (11.5-15.4); Immature Granulocytes % 1.1 % (0-4); Lymphocytes # 1.8 K/mcL (0.6-4.6); Lymphocytes % 12.5 %; Mean Corpuscular HGB Conc 30.4 g/dL (31.6-35.5); Mean Corpuscular Hemoglobin 28.7 pg (28.0-33.3); Mean Corpuscular Volume 94.3 fL (83.0-100.0); Mean Platelet Volume 10.5 fL (9.4-12.4); Monocytes % 6.9 %; Neutrophils # 11.4 K/mcL (1.6-8.9); Nucleated Red Blood Cells 0.1 /100 WBC (0); Platelet Count 293 K/mcL (140-400); Red Blood Count 3.35 M/mcL (3.82-4.97); Segmented Neutrophils % 78.2 %; White Blood Count 14.5 K/mcL (4.3-11.1)
[2019-07-09 04:42] LABS: BUN/Creatinine Ratio 14 (6-26); Blood Urea Nitrogen 11 mg/dL (8-23); Calcium 8.2 mg/dL (8.6-10.3); Carbon Dioxide 36 mEq/L (23-29); Chloride 100 mEq/L (98-107); Glucose 115 mg/dL (70-105); Osmolality,Calculated 292 (280-300); Potassium 3.1 mEq/L (3.5-5.1); Sodium 141 mEq/L (136-145); eGFR For African Americans > 60 (> 60); eGFR For Non-African Americans > 60 (> 60)
[2019-07-09] MEDS: *HR* Heparin 5,000 UNIT/ML VIAL SQ SCH ×3 (06:50→20:54)
[2019-07-09] MEDS: Insulin LISPRO 300 UNITS/3 ML VIAL SQ SCH ×4 (10:18→21:06)
[2019-07-09] MEDS: Furosemide 20 MG/2 ML VIAL IVP SCH ×2 (14:16→20:55)
[2019-07-09] MEDS: Nystatin SUSP 5 ML UD.LIQ PO SCH ×4 (14:16→20:55)
[2019-07-09] MEDS: carvediloL 6.25 MG TABLET PO SCH ×2 (14:17→16:52)
[2019-07-09] MEDS: predniSONE 10 MG TABLET PO SCH (14:17)
[2019-07-09] MEDS: Cetaphil Lotion 473 ML BOTTLE TP SCH (14:21)
[2019-07-10] MEDS: Ipratropium/Albuterol Neb 3 ML IH SCH ×6 (03:22→23:58)
[2019-07-10] MEDS: *HR* Heparin 5,000 UNIT/ML VIAL SQ SCH ×3 (05:17→20:15)
[2019-07-10] MEDS: lisinopriL 5 MG TABLET PO SCH (08:02)
[2019-07-10] MEDS: Insulin LISPRO 300 UNITS/3 ML VIAL SQ SCH ×4 (08:02→20:16)
[2019-07-10] MEDS: Furosemide 20 MG/2 ML VIAL IVP SCH (08:03)
[2019-07-10] MEDS: predniSONE 10 MG TABLET PO SCH (08:03)
[2019-07-10] MEDS: Nystatin SUSP 5 ML UD.LIQ PO SCH ×4 (08:03→20:15)
[2019-07-10] MEDS: carvediloL 6.25 MG TABLET PO SCH ×2 (08:03→16:53)
[2019-07-10] MEDS: Cetaphil Lotion 473 ML BOTTLE TP SCH (14:42)
[2019-07-10] MEDS: Mag Hydrox/Al Hydrox/Simeth 30 ML UDC PO PRN (20:23)
[2019-07-10] MEDS ORDERED: Acetaminophen 325 MG TABLET PO ONE (20:24)
[2019-07-11] MEDS: Ipratropium/Albuterol Neb 3 ML IH SCH ×6 (03:14→23:47)
[2019-07-11 04:38] LABS: Basophils % 0.1 %; Eosinophils # 0.2 K/mcL (0.0-0.6); Eosinophils % 1.2 %; Hematocrit 30.1 % (35.3-44.9); Hemoglobin 9.2 g/dL (11.5-15.4); Immature Granulocytes % 0.6 % (0-4); Lymphocytes # 1.7 K/mcL (0.6-4.6); Lymphocytes % 13.4 %; Mean Corpuscular HGB Conc 30.6 g/dL (31.6-35.5); Mean Corpuscular Hemoglobin 28.8 pg (28.0-33.3); Mean Corpuscular Volume 94.4 fL (83.0-100.0); Monocytes # 0.8 K/mcL (0.0-1.3); Monocytes % 6.5 %; Platelet Count 297 K/mcL (140-400); Red Blood Count 3.19 M/mcL (3.82-4.97); Red Cell Distribution Width 16.6 % (11.5-14.5); Segmented Neutrophils % 78.2 %; White Blood Count 12.8 K/mcL (4.3-11.1)
[2019-07-11 04:56] LABS: Calcium 8.7 mg/dL (8.6-10.3); Potassium 3.6 mEq/L (3.5-5.1)
[2019-07-11] MEDS: *HR* Heparin 5,000 UNIT/ML VIAL SQ SCH ×3 (06:13→20:25)
[2019-07-11] MEDS ORDERED: Furosemide 20 MG TABLET PO SCH (08:00)
[2019-07-11] MEDS: lisinopriL 5 MG TABLET PO SCH (08:04)
[2019-07-11] MEDS: carvediloL 6.25 MG TABLET PO SCH ×2 (08:05→17:44)
[2019-07-11] MEDS: predniSONE 10 MG TABLET PO SCH (08:06)
[2019-07-11] MEDS: Nystatin SUSP 5 ML UD.LIQ PO SCH ×4 (08:06→19:49)
[2019-07-11] MEDS: Mag Hydrox/Al Hydrox/Simeth 30 ML UDC PO PRN ×2 (08:06→19:49)
[2019-07-11] MEDS: Cetaphil Lotion 473 ML BOTTLE TP SCH (08:08)
[2019-07-11] MEDS: Insulin LISPRO 300 UNITS/3 ML VIAL SQ SCH ×4 (08:08→20:23)
[2019-07-11] MEDS ORDERED: Furosemide 40 MG/4 ML VIAL IVP ONE (16:46)
[2019-07-11] MEDS: *HR* LORazepam 0.5 MG TABLET PO PRN (19:49)
[2019-07-11] MEDS ORDERED: Acetaminophen 325 MG TABLET PO ONE (22:19)
[2019-07-12] MEDS: Ipratropium/Albuterol Neb 3 ML IH SCH ×4 (04:03→16:08)
[2019-07-12 04:21] LABS: Hematocrit 31.5 % (35.3-44.9); Hemoglobin 9.9 g/dL (11.5-15.4); Mean Corpuscular HGB Conc 31.4 g/dL (31.6-35.5); Mean Corpuscular Hemoglobin 29.5 pg (28.0-33.3); Mean Corpuscular Volume 93.8 fL (83.0-100.0); Mean Platelet Volume 9.8 fL (9.4-12.4); Platelet Count 371 K/mcL (140-400); Red Blood Count 3.36 M/mcL (3.82-4.97); Red Cell Distribution Width 16.8 % (11.5-14.5); White Blood Count 14.6 K/mcL (4.3-11.1)
[2019-07-12 04:40] LABS: Calcium 8.8 mg/dL (8.6-10.3); Potassium 3.1 mEq/L (3.5-5.1)
[2019-07-12] MEDS: *HR* Heparin 5,000 UNIT/ML VIAL SQ SCH ×2 (05:29→15:16)
[2019-07-12] MEDS ORDERED: Potassium Chloride Elixir 20 MEQ/15 ML UDC PO SCH (05:39)
[2019-07-12] MEDS: Nystatin SUSP 5 ML UD.LIQ PO SCH ×2 (09:16→12:44)
[2019-07-12] MEDS: lisinopriL 5 MG TABLET PO SCH (09:16)
[2019-07-12] MEDS: Cetaphil Lotion 473 ML BOTTLE TP SCH (09:17)
[2019-07-12] MEDS: predniSONE 10 MG TABLET PO SCH (09:17)
[2019-07-12] MEDS: carvediloL 6.25 MG TABLET PO SCH (09:17)
[2019-07-12] MEDS: Insulin LISPRO 300 UNITS/3 ML VIAL SQ SCH ×2 (09:18→12:44)
[2019-07-12 12:12] VITALS: BP 109/69
[2019-07-12] MEDS ORDERED: carvediloL 6.25 MG TABLET PO SCH (17:00)
[2019-07-13] MEDS ORDERED: Aspirin 81 MG TAB.CHEW PO SCH (09:00)
[2019-07-13] MEDS ORDERED: lisinopriL 5 MG TABLET PO SCH (09:00)
== END 2019-07-12 17:16 | DRG 871 ==
LOC: EMEROOARM 08:34 → SUATTDRO 13:27 → ICNU 13:27 → 2NNU 07-04 20:32 → 2ANU 07-11 17:33
PROVIDERS: ADMIT Pediatrics; ATTEND Internal Medicine

== ENCOUNTER 2020-06-29 01:23 | Inpatient (IN) ==
[2020-06-29] MEDS ORDERED: Ipratropium/Albuterol Neb 3 ML ONE (01:32)
[2020-06-29] MEDS ORDERED: Ipratropium/Albuterol Neb 3 ML IH ONE (01:35)
[2020-06-29] MEDS ORDERED: Azithromycin 250 MG TABLET PO ONE (01:35)
[2020-06-29] MEDS ORDERED: methylPREDNISolone 125 MG/2 ML VIAL IVP ONE (01:35)
[2020-06-29] MEDS ORDERED: Azithromycin 500 MG in 0.9 % Sodium Chloride 250 ML IVPB ONE (01:40)
[2020-06-29 02:04] LABS: Basophils # 0.1 K/mcL (0.0-0.2); Basophils % 0.6 %; Eosinophils # 0.1 K/mcL (0.0-0.6); Eosinophils % 0.4 %; Hematocrit 45.8 % (35.3-44.9); Hemoglobin 13.6 g/dL (11.5-15.4); Lymphocytes % 35.4 %; Mean Corpuscular HGB Conc 29.7 g/dL (31.6-35.5); Mean Corpuscular Volume 97.7 fL (83.0-100.0); Mean Platelet Volume 10.5 fL (9.4-12.4); Monocytes # 0.9 K/mcL (0.0-1.3); Monocytes % 5.3 %; Neutrophils # 9.6 K/mcL (1.6-8.9); Platelet Count 378 K/mcL (140-400); Red Blood Count 4.69 M/mcL (3.82-4.97); Segmented Neutrophils % 56.3 %
[2020-06-29 02:15] LABS: INR 0.9; Prothrombin Time 10.7 Seconds (9.4-12.1)
[2020-06-29 02:16] LABS: VBG HCO3 34 mEq/L (21-27); VBG PCO2 100 mmHg (41-51); VBG PH 7.14 pH Units (7.32-7.42); VBG PO2 73 mmHg (25-50)
[2020-06-29 02:18] LABS: Activated Partial Thrombo Time 28.6 Seconds (26.0-36.0)
[2020-06-29 02:32] LABS: Alanine Aminotransferase 87 Units/L (7-52); Albumin 3.7 g/dL (3.5-5.7); Albumin/Globulin Ratio 1.1 (1.1-2.2); Alkaline Phosphatase 236 Units/L (34-104); Aspartate Amino Transferase 84 Units/L (13-39); BUN/Creatinine Ratio 17 (6-26); Bilirubin,Direct 0.1 mg/dL (0.0-0.2); Bilirubin,Indirect 0.3 mg/dL (0.0-1.0); Bilirubin,Total 0.4 mg/dL (0.3-1.0); Blood Urea Nitrogen 16 mg/dL (8-23); Calcium 9.1 mg/dL (8.6-10.3); Carbon Dioxide 31 mEq/L (23-29); Chloride 92 mEq/L (98-107); Globulin 3.5 g/dL (2.4-3.5); Glucose 562 mg/dL (70-105); Osmolality,Calculated 305 (280-300); Potassium 4.4 mEq/L (3.5-5.1); Sodium 134 mEq/L (136-145); Total Protein 7.2 g/dL (6.4-8.9); Troponin I 0.04 ng/mL (< 0.04); eGFR For African Americans > 60 (> 60); eGFR For Non-African Americans 58 (> 60)
[2020-06-29] MEDS ORDERED: *HR* EPINEPHrine 1 MG/10 ML SYRINGE ONE (03:25)
[2020-06-29] MEDS ORDERED: *HR* EPINEPHrine 1 MG/10 ML SYRINGE IVP ONE (03:30)
[2020-06-29 03:51] LABS: ABG Base Excess 7 mEq/L (-2 to 3); ABG HCO3 37 mEq/L (21-27); ABG Oxygen Saturation 100 % (95-98); ABG PCO2 77 mmHg (35-45); ABG PH 7.29 pH Units (7.32-7.45); ABG PO2 272 mmHg (85-104); ABG TCO2 39 mEq/L (20-26)
[2020-06-29] MEDS ORDERED: 0.9 % Sodium Chloride 1,000 ML IVC ONE (03:56)
[2020-06-29] MEDS ORDERED: *HR* Dextrose 50 % in Water (Vial) 50 ML VIAL IVP PRN ×2 (04:23→22:04)
[2020-06-29] MEDS ORDERED: Acetaminophen 325 MG TABLET PO PRN (04:23)
[2020-06-29] MEDS ORDERED: Naloxone 0.4 MG/ML INJ IVP PRN (04:23)
[2020-06-29] MEDS ORDERED: Dextrose Gel 15 GM/37.5 ML TUBE PO PRN ×4 (04:23→22:04)
[2020-06-29] MEDS ORDERED: D5% in Water 1,000 ML IVC PRN ×2 (04:23→22:04)
[2020-06-29] MEDS ORDERED: Ipratropium/Albuterol Neb 3 ML IH PRN (04:26)
[2020-06-29 05:21] LABS: Adenovirus Not Detected (Not Detect); Bordetella Pertussis Not Detected (Not Detect); Chlamydophila pneumoniae Not Detected (Not Detect); Coronavirus 229E Not Detected (Not Detect); Coronavirus HKU1 Not Detected (Not Detect); Coronavirus NL63 Not Detected (Not Detect); Coronavirus OC43 Not Detected (Not Detect); Human Metapneumovirus Not Detected (Not Detect); Human Rhinovirus/Enterovirus Not Detected (Not Detect); Influenza A Subtype 2009 H1 Not Detected (Not Detect); Influenza B Not Detected (Not Detect); Mycoplasma pneumoniae Not Detected (Not Detect); Parainfluenza Virus 1 Not Detected (Not Detect); Parainfluenza Virus 2 Not Detected (Not Detect); Parainfluenza Virus 3 Not Detected (Not Detect); Parainfluenza Virus 4 Not Detected (Not Detect); Respiratory Syncytial Virus Not Detected (Not Detect); SARS-CoV-2 Not Detected (Not Detect)
[2020-06-29] MEDS: Insulin LISPRO 300 UNITS/3 ML VIAL SUBQ SCH ×4 (06:35→22:36)
[2020-06-29] MEDS: *HR* Heparin 5,000 UNIT/ML VIAL SQ SCH ×2 (06:35→17:16)
[2020-06-29] MEDS: MethylPREDNISolone 40 MG/ML VIAL IVP SCH ×3 (09:56→23:12)
[2020-06-29] MEDS: Insulin DETEMIR 100 UNIT/ML X5UNITS SUBQ SCH ×2 (09:57→17:16)
[2020-06-29] MEDS: Ipratropium/Albuterol Neb 3 ML IH SCH ×3 (10:01→22:45)
[2020-06-29] MEDS ORDERED: Furosemide 40 MG/4 ML VIAL IVP ONE (10:07)
[2020-06-29 17:01] LABS: Estimated Average Glucose 367 mg/dl; Hemoglobin A1C 14.4 %
[2020-06-29] MEDS: Furosemide 40 MG/4 ML VIAL IVP SCH (20:58)
[2020-06-29] MEDS: Azithromycin 500 MG in 0.9 % Sodium Chloride 250 ML IVPB SCH (22:33)
[2020-06-29] MEDS: Ondansetron 4 MG/2 ML VIAL IVP PRN (23:57)
[2020-06-30] MEDS: Ipratropium/Albuterol Neb 3 ML IH SCH ×4 (04:16→22:27)
[2020-06-30 05:38] LABS: Basophils % 0.1 %; Hematocrit 36.5 % (35.3-44.9); Immature Granulocytes % 0.6 % (0-4); Lymphocytes # 1.1 K/mcL (0.6-4.6); Mean Corpuscular HGB Conc 31.5 g/dL (31.6-35.5); Mean Corpuscular Hemoglobin 29.1 pg (28.0-33.3); Mean Corpuscular Volume 92.4 fL (83.0-100.0); Mean Platelet Volume 10.5 fL (9.4-12.4); Monocytes # 0.4 K/mcL (0.0-1.3); Monocytes % 2.6 %; Neutrophils # 12.6 K/mcL (1.6-8.9); Platelet Count 262 K/mcL (140-400); Red Blood Count 3.95 M/mcL (3.82-4.97); Red Cell Distribution Width 13.7 % (11.5-14.5); Segmented Neutrophils % 88.7 %; White Blood Count 14.2 K/mcL (4.3-11.1)
[2020-06-30 05:41] LABS: Hemoglobin 11.5 g/dL (11.5-15.4)
[2020-06-30 05:57] LABS: BUN/Creatinine Ratio 28 (6-26); Blood Urea Nitrogen 22 mg/dL (8-23); Calcium 8.9 mg/dL (8.6-10.3); Carbon Dioxide 34 mEq/L (23-29); Chloride 95 mEq/L (98-107); Glucose 308 mg/dL (70-105); Osmolality,Calculated 295 (280-300); Potassium 4.3 mEq/L (3.5-5.1); Sodium 135 mEq/L (136-145); eGFR For African Americans > 60 (> 60); eGFR For Non-African Americans > 60 (> 60)
[2020-06-30] MEDS: *HR* Heparin 5,000 UNIT/ML VIAL SQ SCH ×2 (06:50→17:40)
[2020-06-30] MEDS: Furosemide 40 MG/4 ML VIAL IVP SCH ×2 (08:42→20:26)
[2020-06-30] MEDS: MethylPREDNISolone 40 MG/ML VIAL IVP SCH ×3 (08:43→22:59)
[2020-06-30] MEDS: cefTRIAXone 1,000 MG in Water for inj. (sterile) 10 ML IVP SCH ×2 (08:43→08:44)
[2020-06-30] MEDS: Insulin DETEMIR 100 UNIT/ML X5UNITS SUBQ SCH ×2 (08:55→20:27)
[2020-06-30] MEDS ORDERED: Insulin LISPRO 300 UNITS/3 ML VIAL SUBQ SCH (16:30)
[2020-06-30] MEDS: carvediloL 6.25 MG TABLET PO SCH (17:40)
[2020-06-30] MEDS: Insulin LISPRO 300 UNITS/3 ML VIAL SUBQ SCH ×2 (17:41→20:27)
[2020-06-30 18:13] LABS: Bacteria,Urine Few per hpf (None-Few); Bilirubin,Urine Negative (Negative); Blood,Urine Negative (Negative); Budding Yeast,Urine Moderate per hpf (None Seen); Clarity,Urine Clear (Clear); Color,Urine Light-Yellow (Yellow); Glucose,Urine (UA) >=1000 mg/dL (Normal); Hyaline Casts,Urine Few per lpf (None Seen); Ketones,Urine Negative (Negative); Leukocyte Esterase,Urine Moderate (Negative); Mucus,Urine Few per lpf (None-Few); Nitrite,Urine Negative (Negative); Protein,Urine Negative (Neg-Trace); Specific Gravity,Urine 1.021 (1.010-1.025); Squamous Epithelial Cell,Urine Moderate per hpf (None-Few); Urobilinogen,Urine Normal (Normal); WBC,Urine 15-30 per hpf (0-3)
[2020-06-30] MEDS ORDERED: NON-FORMULARY MEDICATION 1 EACH EACH (Carvedilol [Carvedilol] 3.125 MG Tablet) PO SCH (21:00)
[2020-06-30] MEDS: Azithromycin 500 MG in 0.9 % Sodium Chloride 250 ML IVPB SCH (22:59)
[2020-06-30] MEDS: Ondansetron 4 MG/2 ML VIAL IVP PRN (23:00)
[2020-07-01 02:29] LABS: Basophils % 0.1 %; Hematocrit 38.4 % (35.3-44.9); Hemoglobin 11.8 g/dL (11.5-15.4); Immature Granulocytes % 0.6 % (0-4); Lymphocytes # 0.7 K/mcL (0.6-4.6); Lymphocytes % 6.8 %; Mean Corpuscular HGB Conc 30.7 g/dL (31.6-35.5); Mean Corpuscular Volume 94.3 fL (83.0-100.0); Mean Platelet Volume 10.2 fL (9.4-12.4); Monocytes # 0.3 K/mcL (0.0-1.3); Monocytes % 2.8 %; Neutrophils # 9.7 K/mcL (1.6-8.9); Platelet Count 262 K/mcL (140-400); Red Blood Count 4.07 M/mcL (3.82-4.97); Red Cell Distribution Width 13.8 % (11.5-14.5); Segmented Neutrophils % 89.7 %; White Blood Count 10.8 K/mcL (4.3-11.1)
[2020-07-01 02:49] LABS: BUN/Creatinine Ratio 32 (6-26); Blood Urea Nitrogen 28 mg/dL (8-23); Carbon Dioxide 32 mEq/L (23-29); Chloride 93 mEq/L (98-107); Glucose 332 mg/dL (70-105); Osmolality,Calculated 294 (280-300); Potassium 4.3 mEq/L (3.5-5.1); Sodium 133 mEq/L (136-145); eGFR For African Americans > 60 (> 60); eGFR For Non-African Americans > 60 (> 60)
[2020-07-01] MEDS: Ipratropium/Albuterol Neb 3 ML IH SCH ×4 (04:10→22:44)
[2020-07-01 05:02] LABS: ABG Base Excess 8 mEq/L (-2 to 3); ABG HCO3 36 mEq/L (21-27); ABG Oxygen Saturation 82 % (95-98); ABG PCO2 65 mmHg (35-45); ABG PH 7.36 pH Units (7.32-7.45); ABG PO2 50 mmHg (85-104); ABG TCO2 38 mEq/L (20-26)
[2020-07-01] MEDS: *HR* Heparin 5,000 UNIT/ML VIAL SQ SCH ×2 (05:19→17:47)
[2020-07-01] MEDS: carvediloL 6.25 MG TABLET PO SCH ×2 (10:10→17:47)
[2020-07-01] MEDS: Aspirin Enteric Coated 81 MG Tablet PO SCH (10:10)
[2020-07-01] MEDS: Furosemide 40 MG/4 ML VIAL IVP SCH ×2 (10:11→21:07)
[2020-07-01] MEDS: MethylPREDNISolone 40 MG/ML VIAL IVP SCH ×3 (10:11→23:38)
[2020-07-01] MEDS: cefTRIAXone 1,000 MG in Water for inj. (sterile) 10 ML IVP SCH (10:11)
[2020-07-01] MEDS: Insulin LISPRO 300 UNITS/3 ML VIAL SUBQ SCH ×4 (10:13→21:16)
[2020-07-01] MEDS: Insulin DETEMIR 100 UNIT/ML X5UNITS SUBQ SCH ×2 (10:29→21:07)
[2020-07-01] MEDS: Simethicone 80 MG TAB.CHEW PO PRN (13:55)
[2020-07-01] MEDS ORDERED: Azithromycin 250 MG TABLET PO SCH (23:00)
[2020-07-02 01:54] LABS: Basophils % 0.2 %; Hematocrit 39.8 % (35.3-44.9); Hemoglobin 12.3 g/dL (11.5-15.4); Immature Granulocytes % 0.8 % (0-4); Lymphocytes # 0.7 K/mcL (0.6-4.6); Lymphocytes % 6.3 %; Mean Corpuscular HGB Conc 30.9 g/dL (31.6-35.5); Mean Corpuscular Hemoglobin 29.4 pg (28.0-33.3); Mean Platelet Volume 10.3 fL (9.4-12.4); Monocytes # 0.7 K/mcL (0.0-1.3); Monocytes % 6.1 %; Neutrophils # 9.8 K/mcL (1.6-8.9); Platelet Count 278 K/mcL (140-400); Red Blood Count 4.19 M/mcL (3.82-4.97); Red Cell Distribution Width 13.4 % (11.5-14.5); Segmented Neutrophils % 86.6 %; White Blood Count 11.3 K/mcL (4.3-11.1)
[2020-07-02 03:21] LABS: BUN/Creatinine Ratio 36 (6-26); Blood Urea Nitrogen 33 mg/dL (8-23); Calcium 9.1 mg/dL (8.6-10.3); Carbon Dioxide 34 mEq/L (23-29); Chloride 90 mEq/L (98-107); Glucose 326 mg/dL (70-105); Osmolality,Calculated 300 (280-300); Potassium 3.8 mEq/L (3.5-5.1); Sodium 135 mEq/L (136-145); eGFR For African Americans > 60 (> 60); eGFR For Non-African Americans > 60 (> 60)
[2020-07-02] MEDS: Ipratropium/Albuterol Neb 3 ML IH SCH ×3 (04:11→15:47)
[2020-07-02] MEDS: *HR* Heparin 5,000 UNIT/ML VIAL SQ SCH (06:07)
[2020-07-02] MEDS ORDERED: predniSONE 20 MG TABLET PO SCH (09:00)
[2020-07-02] MEDS: Aspirin Enteric Coated 81 MG Tablet PO SCH (09:23)
[2020-07-02] MEDS: cefTRIAXone 1,000 MG in Water for inj. (sterile) 10 ML IVP SCH (09:23)
[2020-07-02] MEDS: Furosemide 40 MG/4 ML VIAL IVP SCH (09:23)
[2020-07-02] MEDS: carvediloL 6.25 MG TABLET PO SCH (09:24)
[2020-07-02] MEDS: Insulin LISPRO 300 UNITS/3 ML VIAL SUBQ SCH ×2 (09:24→12:03)
[2020-07-02] MEDS: Insulin DETEMIR 100 UNIT/ML X5UNITS SUBQ SCH (09:28)
[2020-07-02 12:14] VITALS: BP 125/68
[2020-07-02] MEDS: Simethicone 80 MG TAB.CHEW PO PRN (13:41)
== END 2020-07-02 15:54 | disposition hospice, home (50) | DRG 291 ==
LOC: 2NENU 01:23 → EMEROOARM 01:23 → SUATTDRO 04:12 → 2NENU 05:41
PROVIDERS: ADMIT Student in an Organized Health Care Education/Training Program; ATTEND Student in an Organized Health Care Education/Training Program

== ENCOUNTER 2020-12-26 13:24 | Inpatient (IN) ==
[2020-12-26] MEDS ORDERED: Ipratropium/Albuterol Neb 3 ML ONE (13:29)
[2020-12-26] MEDS ORDERED: Furosemide 40 MG/4 ML VIAL ONE (13:32)
[2020-12-26] MEDS ORDERED: Furosemide 40 MG/4 ML VIAL IVP ONE (13:35)
[2020-12-26] MEDS ORDERED: Ipratropium/Albuterol Neb 3 ML IH ONE (13:35)
[2020-12-26] MEDS ORDERED: Piperacillin/Tazobactam 4.5 GM in Water for inj. (sterile) 20 ML IVP ONE (13:36)
[2020-12-26 13:57] LABS: Basophils % 0.2 %; Hemoglobin 14.7 g/dL (11.5-15.4); Immature Granulocytes % 1.1 % (0-4); Lymphocytes # 1.5 K/mcL (0.6-4.6); Lymphocytes % 11.8 %; Mean Corpuscular HGB Conc 30.6 g/dL (31.6-35.5); Mean Corpuscular Hemoglobin 29.1 pg (28.0-33.3); Mean Corpuscular Volume 94.9 fL (83.0-100.0); Mean Platelet Volume 10.4 fL (9.4-12.4); Monocytes # 0.6 K/mcL (0.0-1.3); Monocytes % 4.7 %; Neutrophils # 10.1 K/mcL (1.6-8.9); Platelet Count 253 K/mcL (140-400); Red Blood Count 5.06 M/mcL (3.82-4.97); Red Cell Distribution Width 14.9 % (11.5-14.5); Segmented Neutrophils % 82.2 %; White Blood Count 12.2 K/mcL (4.3-11.1)
[2020-12-26] MEDS ORDERED: Vancomycin 2,000 MG/520 ML IV.SOLN IVPB ONE (14:00)
[2020-12-26] MEDS ORDERED: Piperacillin/Tazobactam 3.375 GM in 0.9 % Sodium Chloride Mini Bag 100 ML IVPB ONE (14:00)
[2020-12-26 14:12] LABS: VBG HCO3 39 mEq/L (21-27); VBG PCO2 82 mmHg (41-51); VBG PH 7.29 pH Units (7.32-7.42); VBG PO2 74 mmHg (25-50)
[2020-12-26 14:50] LABS: Albumin 3.4 g/dL (3.5-5.7); Albumin/Globulin Ratio 0.9 (1.1-2.2); Bilirubin,Direct 0.1 mg/dL (0.0-0.2); Bilirubin,Indirect 0.4 mg/dL (0.0-1.0); Bilirubin,Total 0.5 mg/dL (0.3-1.0); Calcium 8.9 mg/dL (8.6-10.3); Globulin 3.7 g/dL (2.4-3.5); Magnesium 2.4 mg/dL (1.6-2.6); Potassium 6.4 mEq/L (3.5-5.1); Total Protein 7.1 g/dL (6.4-8.9); Troponin I 0.16 ng/mL (< 0.04)
[2020-12-26 15:01] LABS: Influenza A PCR Negative (Negative); Influenza B PCR Negative (Negative); Resp. Syncytial Virus PCR Negative (Negative)
[2020-12-26 15:05] LABS: SARS-CoV-2 by PCR (In House) Positive (Negative)
[2020-12-26] MEDS ORDERED: Calcium Gluconate 1gm/50mL 1 GM/50 ML BAG IVPB STA (15:26)
[2020-12-26] MEDS ORDERED: Insulin Human Regular 10 UNIT in 0.9 % Sodium Chloride 10 ML IV ONE (15:28)
[2020-12-26] MEDS ORDERED: *HR* Dextrose 50 % in Water (Vial) 50 ML VIAL IVP ONE (15:29)
[2020-12-26] MEDS ORDERED: Remdesivir 200 MG in 0.9 % Sodium Chloride 100 ML IVPB ONE (16:00)
[2020-12-26 16:30] LABS: Calcium 8.4 mg/dL (8.6-10.3); Potassium 5.8 mEq/L (3.5-5.1)
[2020-12-26] MEDS ORDERED: *HR* Enoxaparin 40 MG/0.4 ML SYRINGE SQ SCH (16:45)
[2020-12-26] MEDS ORDERED: Dexamethasone Sodium Phos/PF 10 MG/ML VIAL IVP STA (16:57)
[2020-12-26] MEDS ORDERED: Naloxone 0.4 MG/ML INJ IVP PRN (16:58)
[2020-12-26] MEDS ORDERED: Dextrose Gel 15 GM/37.5 ML TUBE PO PRN ×2 (17:11)
[2020-12-26] MEDS ORDERED: D5% in Water 1,000 ML IVC PRN (17:11)
[2020-12-26] MEDS ORDERED: *HR* Dextrose 50 % in Water (Vial) 50 ML VIAL IVP PRN (17:11)
[2020-12-26] MEDS ORDERED: TOCILIZUMAB 800 MG in 0.9 % Sodium Chloride 100 ML IVPB ONE (17:45)
[2020-12-26] MEDS ORDERED: TOCILIZUMAB 810 MG in 0.9 % Sodium Chloride 100 ML IVPB ONE (18:00)
[2020-12-26] MEDS ORDERED: Albumin 25% 25gram/100mL 25 GM/100 ML IV.SOLN IVPB ONE (18:34)
[2020-12-26] MEDS ORDERED: Albumin 25% 25gram/100mL 25 GM/100 ML IV.SOLN ONE (18:36)
[2020-12-26] MEDS: *HR* Enoxaparin 40 MG/0.4 ML SYRINGE SQ SCH (18:59)
[2020-12-26] MEDS: Insulin LISPRO 300 UNITS/3 ML VIAL SUBQ SCH (19:09)
[2020-12-26] MEDS: Ipratropium 1 PUFF INHALER IH SCH ×2 (19:54→23:58)
[2020-12-26] MEDS ORDERED: Furosemide 20 MG/2 ML VIAL IVP ONE (21:00)
[2020-12-26 22:03] LABS: Calcium 8.5 mg/dL (8.6-10.3); Potassium 5.4 mEq/L (3.5-5.1)
[2020-12-26] MEDS: Budesonide/Formoterol 160/4.5 1 PUFF INH IH SCH (23:58)
[2020-12-27] MEDS ORDERED: Piperacillin/Tazobactam 3.375 GM in 0.9 % Sodium Chloride Mini Bag 100 ML IVPB SCH
[2020-12-27] MEDS: Insulin LISPRO 300 UNITS/3 ML VIAL SUBQ SCH ×4 (00:42→17:31)
[2020-12-27 01:52] LABS: Basophils % 0.5 %; Hematocrit 44.9 % (35.3-44.9); Hemoglobin 13.4 g/dL (11.5-15.4); Immature Granulocytes % 1.3 % (0-4); Lymphocytes # 0.6 K/mcL (0.6-4.6); Mean Corpuscular HGB Conc 29.8 g/dL (31.6-35.5); Mean Corpuscular Hemoglobin 28.7 pg (28.0-33.3); Mean Corpuscular Volume 96.1 fL (83.0-100.0); Mean Platelet Volume 10.5 fL (9.4-12.4); Monocytes # 0.1 K/mcL (0.0-1.3); Platelet Count 206 K/mcL (140-400); Red Blood Count 4.67 M/mcL (3.82-4.97); Red Cell Distribution Width 14.9 % (11.5-14.5); Segmented Neutrophils % 81.2 %
[2020-12-27 01:55] LABS: Neutrophils # 3.3 K/mcL (1.6-8.9)
[2020-12-27 02:11] LABS: Albumin 3.6 g/dL (3.5-5.7); Albumin/Globulin Ratio 1.2 (1.1-2.2); Bilirubin,Direct 0.1 mg/dL (0.0-0.2); Bilirubin,Indirect 0.3 mg/dL (0.0-1.0); Bilirubin,Total 0.4 mg/dL (0.3-1.0); Calcium 8.7 mg/dL (8.6-10.3); Globulin 2.9 g/dL (2.4-3.5); Potassium 5.2 mEq/L (3.5-5.1); Total Protein 6.5 g/dL (6.4-8.9)
[2020-12-27] MEDS: Ipratropium 1 PUFF INHALER IH SCH ×6 (03:50→23:58)
[2020-12-27] MEDS: *HR* Enoxaparin 40 MG/0.4 ML SYRINGE SQ SCH ×2 (06:12→17:30)
[2020-12-27] MEDS: Budesonide/Formoterol 160/4.5 1 PUFF INH IH SCH ×2 (08:40→19:44)
[2020-12-27] MEDS: Pantoprazole 40 MG VIAL IVP SCH (08:58)
[2020-12-27] MEDS ORDERED: Furosemide 20 MG/2 ML VIAL IVP SCH (09:00)
[2020-12-27] MEDS: Aspirin Enteric Coated 81 MG Tablet PO SCH ×2 (09:00)
[2020-12-27] MEDS ORDERED: *HR* LORazepam 2 MG/ML VIAL IVP ONE ×3 (10:23→21:46)
[2020-12-27 13:59] LABS: Calcium 8.9 mg/dL (8.6-10.3); Potassium 5.1 mEq/L (3.5-5.1)
[2020-12-27 14:09] LABS: Troponin I 0.29 ng/mL (< 0.04)
[2020-12-27] MEDS: Remdesivir 100 MG in 0.9 % Sodium Chloride 100 ML IVPB SCH (16:26)
[2020-12-27] MEDS: Ondansetron 4 MG/2 ML VIAL IVP PRN (17:42)
[2020-12-28] MEDS: Insulin LISPRO 300 UNITS/3 ML VIAL SUBQ SCH ×5 (00:01→23:32)
[2020-12-28] MEDS: Dexmedetomidine HCl 400 MCG/100 ML MLS IVC SCH ×3 (02:20→15:54)
[2020-12-28] MEDS: Ipratropium 1 PUFF INHALER IH SCH ×6 (04:12→23:20)
[2020-12-28] MEDS: Ondansetron 4 MG/2 ML VIAL IVP PRN (04:25)
[2020-12-28] MEDS: *HR* Enoxaparin 40 MG/0.4 ML SYRINGE SQ SCH ×2 (05:23→17:23)
[2020-12-28] MEDS: Budesonide/Formoterol 160/4.5 1 PUFF INH IH SCH ×2 (07:47→19:57)
[2020-12-28] MEDS: Aspirin Enteric Coated 81 MG Tablet PO SCH ×2 (07:48→10:23)
[2020-12-28] MEDS: Pantoprazole 40 MG VIAL IVP SCH (07:48)
[2020-12-28 08:48] LABS: Basophils % 0.2 %; Hematocrit 41.4 % (35.3-44.9); Hemoglobin 12.4 g/dL (11.5-15.4); Immature Granulocytes % 0.5 % (0-4); Lymphocytes # 0.6 K/mcL (0.6-4.6); Lymphocytes % 9.8 %; Mean Corpuscular Hemoglobin 28.1 pg (28.0-33.3); Mean Corpuscular Volume 93.9 fL (83.0-100.0); Mean Platelet Volume 9.7 fL (9.4-12.4); Monocytes # 0.5 K/mcL (0.0-1.3); Monocytes % 7.7 %; Neutrophils # 5.3 K/mcL (1.6-8.9); Platelet Count 279 K/mcL (140-400); Red Blood Count 4.41 M/mcL (3.82-4.97); Red Cell Distribution Width 14.6 % (11.5-14.5); Segmented Neutrophils % 81.8 %
[2020-12-28 08:55] LABS: White Blood Count 6.5 K/mcL (4.3-11.1)
[2020-12-28 09:05] LABS: Platelet Estimate Normal (Normal)
[2020-12-28 09:06] LABS: Albumin 3.3 g/dL (3.5-5.7); Albumin/Globulin Ratio 1.3 (1.1-2.2); Bilirubin,Direct 0.1 mg/dL (0.0-0.2); Bilirubin,Indirect 0.3 mg/dL (0.0-1.0); Bilirubin,Total 0.4 mg/dL (0.3-1.0); Globulin 2.6 g/dL (2.4-3.5); Total Protein 5.9 g/dL (6.4-8.9)
[2020-12-28 09:09] LABS: Albumin 3.2 g/dL (3.5-5.7); Albumin/Globulin Ratio 1.2 (1.1-2.2); Bilirubin,Total 0.4 mg/dL (0.3-1.0); Globulin 2.6 g/dL (2.4-3.5); Total Protein 5.8 g/dL (6.4-8.9)
[2020-12-28] MEDS ORDERED: 0.9 % Sodium Chloride 1,000 ML IVC SCH (11:00)
[2020-12-28 11:22] LABS: Calcium 8.5 mg/dL (8.6-10.3)
[2020-12-28] MEDS: Remdesivir 100 MG in 0.9 % Sodium Chloride 100 ML IVPB SCH (15:54)
[2020-12-29] MEDS: Ipratropium 1 PUFF INHALER IH SCH ×6 (04:36→23:33)
[2020-12-29] MEDS: Insulin LISPRO 300 UNITS/3 ML VIAL SUBQ SCH ×3 (06:05→16:39)
[2020-12-29] MEDS: *HR* Enoxaparin 40 MG/0.4 ML SYRINGE SQ SCH ×2 (06:05→18:48)
[2020-12-29] MEDS: Budesonide/Formoterol 160/4.5 1 PUFF INH IH SCH ×2 (08:05→19:32)
[2020-12-29] MEDS: Pantoprazole 40 MG VIAL IVP SCH (08:48)
[2020-12-29] MEDS: Aspirin Enteric Coated 81 MG Tablet PO SCH (08:49)
[2020-12-29] MEDS: Dexmedetomidine HCl 400 MCG/100 ML MLS IVC SCH ×3 (09:08→22:03)
[2020-12-29 10:22] LABS: Hematocrit 41.5 % (35.3-44.9); Hemoglobin 12.4 g/dL (11.5-15.4); Mean Corpuscular HGB Conc 29.9 g/dL (31.6-35.5); Mean Corpuscular Hemoglobin 28.2 pg (28.0-33.3); Mean Corpuscular Volume 94.3 fL (83.0-100.0); Platelet Count 301 K/mcL (140-400); Red Cell Distribution Width 14.5 % (11.5-14.5); White Blood Count 8.4 K/mcL (4.3-11.1)
[2020-12-29 10:42] LABS: Albumin 3.3 g/dL (3.5-5.7); Albumin/Globulin Ratio 1.2 (1.1-2.2); Bilirubin,Total 0.4 mg/dL (0.3-1.0); Calcium 8.6 mg/dL (8.6-10.3); Globulin 2.7 g/dL (2.4-3.5); Potassium 4.9 mEq/L (3.5-5.1)
[2020-12-29 11:25] LABS: Lymphocytes # 0.8 K/mcL (0.6-4.6); Monocytes # 0.7 K/mcL (0.0-1.3); Neutrophils # 6.9 K/mcL (1.6-8.9); Platelet Estimate Normal (Normal)
[2020-12-29] MEDS: Remdesivir 100 MG in 0.9 % Sodium Chloride 100 ML IVPB SCH (15:55)
[2020-12-30] MEDS: Insulin LISPRO 300 UNITS/3 ML VIAL SUBQ SCH ×4 (00:56→18:40)
[2020-12-30 02:41] LABS: Basophils % 0.6 %; Hematocrit 41.2 % (35.3-44.9); Hemoglobin 12.4 g/dL (11.5-15.4); Immature Granulocytes % 0.4 % (0-4); Lymphocytes # 0.4 K/mcL (0.6-4.6); Lymphocytes % 6.9 %; Mean Corpuscular HGB Conc 30.1 g/dL (31.6-35.5); Mean Corpuscular Hemoglobin 28.8 pg (28.0-33.3); Mean Corpuscular Volume 95.8 fL (83.0-100.0); Mean Platelet Volume 10.3 fL (9.4-12.4); Monocytes # 0.4 K/mcL (0.0-1.3); Monocytes % 7.2 %; Neutrophils # 4.6 K/mcL (1.6-8.9); Platelet Count 215 K/mcL (140-400); Red Cell Distribution Width 14.2 % (11.5-14.5); Segmented Neutrophils % 84.9 %; White Blood Count 5.4 K/mcL (4.3-11.1)
[2020-12-30 03:17] LABS: Alanine Aminotransferase 19 Units/L (7-52); Albumin 2.9 g/dL (3.5-5.7); Albumin/Globulin Ratio 1.1 (1.1-2.2); Alkaline Phosphatase 59 Units/L (34-104); Aspartate Amino Transferase 30 Units/L (13-39); BUN/Creatinine Ratio 46 (6-26); Bilirubin,Total 0.4 mg/dL (0.3-1.0); Blood Urea Nitrogen 48 mg/dL (8-23); Carbon Dioxide 25 mEq/L (23-29); Chloride 100 mEq/L (98-107); Ferritin 412 ng/mL (10-120); Globulin 2.6 g/dL (2.4-3.5); Glucose 282 mg/dL (70-105); Lactate Dehydrogenase 493 Units/L (140-271); Osmolality,Calculated 307 (280-300); Potassium 4.9 mEq/L (3.5-5.1); Sodium 137 mEq/L (136-145); Total Protein 5.5 g/dL (6.4-8.9); eGFR For African Americans > 60 (> 60); eGFR For Non-African Americans 52 (> 60)
[2020-12-30] MEDS: Ipratropium 1 PUFF INHALER IH SCH ×6 (03:36→23:01)
[2020-12-30 04:10] LABS: Platelet Estimate Normal (Normal)
[2020-12-30] MEDS: Dexmedetomidine HCl 400 MCG/100 ML MLS IVC SCH ×4 (05:05→22:51)
[2020-12-30] MEDS: *HR* Enoxaparin 40 MG/0.4 ML SYRINGE SQ SCH ×2 (05:06→16:39)
[2020-12-30] MEDS: Acetaminophen 325 MG TABLET PO PRN ×2 (09:19→21:12)
[2020-12-30] MEDS: Aspirin Enteric Coated 81 MG Tablet PO SCH (09:20)
[2020-12-30] MEDS: Pantoprazole 40 MG VIAL IVP SCH (09:21)
[2020-12-30] MEDS: Budesonide/Formoterol 160/4.5 1 PUFF INH IH SCH ×2 (10:59→19:53)
[2020-12-30] MEDS: Remdesivir 100 MG in 0.9 % Sodium Chloride 100 ML IVPB SCH (16:08)
[2020-12-31] MEDS: Insulin LISPRO 300 UNITS/3 ML VIAL SUBQ SCH ×5 (00:01→17:47)
[2020-12-31 02:27] LABS: Basophils % 0.1 %; Hematocrit 44.7 % (35.3-44.9); Hemoglobin 13.5 g/dL (11.5-15.4); Immature Granulocytes % 0.9 % (0-4); Lymphocytes # 0.5 K/mcL (0.6-4.6); Lymphocytes % 5.6 %; Mean Corpuscular HGB Conc 30.2 g/dL (31.6-35.5); Mean Corpuscular Hemoglobin 27.8 pg (28.0-33.3); Mean Corpuscular Volume 92.2 fL (83.0-100.0); Mean Platelet Volume 9.8 fL (9.4-12.4); Monocytes # 0.5 K/mcL (0.0-1.3); Monocytes % 5.5 %; Neutrophils # 7.2 K/mcL (1.6-8.9); Platelet Count 253 K/mcL (140-400); Red Blood Count 4.85 M/mcL (3.82-4.97); Red Cell Distribution Width 14.1 % (11.5-14.5); Segmented Neutrophils % 87.9 %
[2020-12-31 02:29] LABS: White Blood Count 8.2 K/mcL (4.3-11.1)
[2020-12-31 02:44] LABS: Alanine Aminotransferase 20 Units/L (7-52); Albumin 3.2 g/dL (3.5-5.7); Albumin/Globulin Ratio 1.2 (1.1-2.2); Alkaline Phosphatase 63 Units/L (34-104); Aspartate Amino Transferase 22 Units/L (13-39); BUN/Creatinine Ratio 44 (6-26); Bilirubin,Total 0.5 mg/dL (0.3-1.0); Blood Urea Nitrogen 44 mg/dL (8-23); Calcium 8.5 mg/dL (8.6-10.3); Carbon Dioxide 31 mEq/L (23-29); Chloride 100 mEq/L (98-107); Globulin 2.7 g/dL (2.4-3.5); Glucose 214 mg/dL (70-105); Osmolality,Calculated 306 (280-300); Potassium 4.9 mEq/L (3.5-5.1); Sodium 139 mEq/L (136-145); Total Protein 5.9 g/dL (6.4-8.9); eGFR For African Americans > 60 (> 60); eGFR For Non-African Americans 54 (> 60)
[2020-12-31] MEDS: Ipratropium 1 PUFF INHALER IH SCH ×5 (04:13→20:23)
[2020-12-31] MEDS: Dexmedetomidine HCl 400 MCG/100 ML MLS IVC SCH ×2 (05:09→12:07)
[2020-12-31] MEDS: *HR* Enoxaparin 40 MG/0.4 ML SYRINGE SQ SCH ×2 (05:21→16:57)
[2020-12-31] MEDS: Budesonide/Formoterol 160/4.5 1 PUFF INH IH SCH ×2 (07:30→20:23)
[2020-12-31] MEDS: Pantoprazole 40 MG VIAL IVP SCH (07:58)
[2020-12-31] MEDS: Aspirin Enteric Coated 81 MG Tablet PO SCH (07:58)
[2020-12-31] MEDS: Dexamethasone Sodium Phos/PF 10 MG/ML VIAL IVP SCH (07:59)
[2020-12-31] MEDS ORDERED: Dexmedetomidine HCl 400 MCG/100 ML MLS IVC SCH (20:15)
[2020-12-31] MEDS ORDERED: QUEtiapine Fumarate 25 MG TABLET PO SCH (21:00)
[2020-12-31] MEDS ORDERED: *HR* Metoprolol 5 MG/5 ML VIAL IVP ONE (21:57)
[2021-01-01] MEDS: Ipratropium 1 PUFF INHALER IH SCH ×7 (00:13→23:18)
[2021-01-01] MEDS: Insulin LISPRO 300 UNITS/3 ML VIAL SUBQ SCH ×4 (00:16→17:52)
[2021-01-01 00:57] LABS: BUN/Creatinine Ratio 38 (6-26); Blood Urea Nitrogen 36 mg/dL (8-23); Calcium 8.7 mg/dL (8.6-10.3); Carbon Dioxide 34 mEq/L (23-29); Chloride 99 mEq/L (98-107); Glucose 219 mg/dL (70-105); Magnesium 2.4 mg/dL (1.6-2.6); Osmolality,Calculated 303 (280-300); Phosphorous 2.8 mg/dL (2.7-4.5); Potassium 4.3 mEq/L (3.5-5.1); Sodium 139 mEq/L (136-145); eGFR For African Americans > 60 (> 60); eGFR For Non-African Americans 57 (> 60)
[2021-01-01] MEDS: *HR* Enoxaparin 40 MG/0.4 ML SYRINGE SQ SCH ×2 (05:13→17:54)
[2021-01-01] MEDS: Aspirin Enteric Coated 81 MG Tablet PO SCH (08:10)
[2021-01-01] MEDS: Dexamethasone Sodium Phos/PF 10 MG/ML VIAL IVP SCH (08:10)
[2021-01-01] MEDS: Pantoprazole 40 MG VIAL IVP SCH (08:11)
[2021-01-01] MEDS: Budesonide/Formoterol 160/4.5 1 PUFF INH IH SCH ×2 (08:17→20:36)
[2021-01-01] MEDS: Levalbuterol 1 PUFF INHALER IH SCH ×3 (12:00→20:36)
[2021-01-01] MEDS: *HR* Metoprolol 5 MG/5 ML VIAL IVP PRN (12:49)
[2021-01-01] MEDS: Ondansetron 4 MG/2 ML VIAL IVP PRN (15:25)
[2021-01-01] MEDS: QUEtiapine Fumarate 25 MG TABLET PO SCH (20:12)
[2021-01-02] MEDS: Insulin LISPRO 300 UNITS/3 ML VIAL SUBQ SCH ×4 (00:06→18:55)
[2021-01-02] MEDS: Acetaminophen 325 MG TABLET PO PRN (00:07)
[2021-01-02] MEDS: Ipratropium 1 PUFF INHALER IH SCH ×5 (03:24→19:44)
[2021-01-02] MEDS: Levalbuterol 1 PUFF INHALER IH SCH ×4 (03:24→19:46)
[2021-01-02] MEDS: *HR* Enoxaparin 40 MG/0.4 ML SYRINGE SQ SCH ×2 (05:23→18:56)
[2021-01-02] MEDS: Budesonide/Formoterol 160/4.5 1 PUFF INH IH SCH ×2 (07:59→19:44)
[2021-01-02 08:14] LABS: BUN/Creatinine Ratio 37 (6-26); Blood Urea Nitrogen 36 mg/dL (8-23); Calcium 8.3 mg/dL (8.6-10.3); Chloride 100 mEq/L (98-107); Glucose 146 mg/dL (70-105); Magnesium 2.4 mg/dL (1.6-2.6); Osmolality,Calculated 305 (280-300); Sodium 142 mEq/L (136-145); eGFR For African Americans > 60 (> 60); eGFR For Non-African Americans 56 (> 60)
[2021-01-02 09:57] LABS: Carbon Dioxide 38 mEq/L (23-29)
[2021-01-02] MEDS: Pantoprazole 40 MG VIAL IVP SCH (10:39)
[2021-01-02] MEDS: Dexamethasone Sodium Phos/PF 10 MG/ML VIAL IVP SCH (10:39)
[2021-01-02] MEDS: Aspirin Enteric Coated 81 MG Tablet PO SCH (10:40)
[2021-01-02] MEDS: QUEtiapine Fumarate 25 MG TABLET PO SCH (19:53)
[2021-01-03] MEDS: Ipratropium 1 PUFF INHALER IH SCH ×7 (00:01→23:56)
[2021-01-03] MEDS: Insulin LISPRO 300 UNITS/3 ML VIAL SUBQ SCH ×5 (00:29→22:45)
[2021-01-03] MEDS: Levalbuterol 1 PUFF INHALER IH SCH ×4 (04:40→19:36)
[2021-01-03] MEDS: *HR* Enoxaparin 40 MG/0.4 ML SYRINGE SQ SCH ×2 (05:46→16:51)
[2021-01-03] MEDS: Budesonide/Formoterol 160/4.5 1 PUFF INH IH SCH ×2 (08:08→19:36)
[2021-01-03] MEDS: Aspirin Enteric Coated 81 MG Tablet PO SCH (08:54)
[2021-01-03] MEDS: Dexamethasone Sodium Phos/PF 10 MG/ML VIAL IVP SCH (08:55)
[2021-01-03] MEDS ORDERED: *HR* Metoprolol 5 MG/5 ML VIAL IVP ONE (09:24)
[2021-01-03] MEDS: *HR* Metoprolol 5 MG/5 ML VIAL IVP PRN (09:25)
[2021-01-03] MEDS ORDERED: *HR* Metoprolol 5 MG/5 ML VIAL IVP PRN (09:44)
[2021-01-03 10:30] LABS: Hematocrit 40.8 % (35.3-44.9); Hemoglobin 12.3 g/dL (11.5-15.4); Mean Corpuscular HGB Conc 30.1 g/dL (31.6-35.5); Mean Corpuscular Hemoglobin 28.8 pg (28.0-33.3); Mean Corpuscular Volume 95.6 fL (83.0-100.0); Mean Platelet Volume 10.6 fL (9.4-12.4); Platelet Count 288 K/mcL (140-400); Red Blood Count 4.27 M/mcL (3.82-4.97); Red Cell Distribution Width 14.4 % (11.5-14.5)
[2021-01-03 10:31] LABS: Basophils % 0.2 %; Eosinophils % 0.1 %; Hematocrit 40.7 % (35.3-44.9); Hemoglobin 12.1 g/dL (11.5-15.4); Immature Granulocytes % 1.3 % (0-4); Lymphocytes # 1.1 K/mcL (0.6-4.6); Lymphocytes % 7.8 %; Mean Corpuscular HGB Conc 29.7 g/dL (31.6-35.5); Mean Corpuscular Hemoglobin 28.1 pg (28.0-33.3); Mean Corpuscular Volume 94.4 fL (83.0-100.0); Mean Platelet Volume 10.7 fL (9.4-12.4); Monocytes % 7.3 %; Neutrophils # 11.8 K/mcL (1.6-8.9); Platelet Count 290 K/mcL (140-400); Red Blood Count 4.31 M/mcL (3.82-4.97); Red Cell Distribution Width 14.3 % (11.5-14.5); Segmented Neutrophils % 83.3 %; White Blood Count 14.1 K/mcL (4.3-11.1); White Blood Count 14.6 K/mcL (4.3-11.1)
[2021-01-03 10:49] LABS: BUN/Creatinine Ratio 31 (6-26); Blood Urea Nitrogen 33 mg/dL (8-23); Calcium 8.4 mg/dL (8.6-10.3); Carbon Dioxide 27 mEq/L (23-29); Chloride 98 mEq/L (98-107); Glucose 394 mg/dL (70-105); Magnesium 2.1 mg/dL (1.6-2.6); Osmolality,Calculated 308 (280-300); Potassium 4.7 mEq/L (3.5-5.1); Sodium 137 mEq/L (136-145); eGFR For African Americans > 60 (> 60); eGFR For Non-African Americans 51 (> 60)
[2021-01-03] MEDS: Ondansetron 4 MG/2 ML VIAL IVP PRN (16:50)
[2021-01-03 18:31] LABS: VBG HCO3 25 mEq/L (21-27); VBG PCO2 40 mmHg (41-51); VBG PO2 198 mmHg (25-50)
[2021-01-03] MEDS ORDERED: 0.9 % Sodium Chloride 500 ML IVC ONE ×2 (19:06→21:41)
[2021-01-03] MEDS ORDERED: cefTRIAXone 1,000 MG in Water for inj. (sterile) 10 ML IVP SCH (20:00)
[2021-01-03] MEDS ORDERED: Albumin 25% 25gram/100mL 25 GM/100 ML IV.SOLN IVPB ONE (20:37)
[2021-01-03] MEDS ORDERED: 0.9 % Sodium Chloride 500 ML ONE (21:16)
[2021-01-03] MEDS ORDERED: 0.9 % Sodium Chloride 1,000 ML IVC SCH (22:30)
[2021-01-03] MEDS ORDERED: 0.9 % Sodium Chloride 1,000 ML ONE (22:31)
[2021-01-03] MEDS: QUEtiapine Fumarate 25 MG TABLET PO SCH (22:33)
[2021-01-04] MEDS ORDERED: 0.9 % Sodium Chloride 1,000 ML IVC ONE (00:20)
[2021-01-04] MEDS: Ipratropium 1 PUFF INHALER IH SCH ×6 (03:31→23:33)
[2021-01-04] MEDS: Levalbuterol 1 PUFF INHALER IH SCH ×4 (03:32→20:22)
[2021-01-04 03:59] LABS: Albumin/Globulin Ratio 1.8 (1.1-2.2); Bilirubin,Total 0.6 mg/dL (0.3-1.0); Calcium 7.6 mg/dL (8.6-10.3); Globulin 1.7 g/dL (2.4-3.5); Potassium 4.5 mEq/L (3.5-5.1); Total Protein 4.7 g/dL (6.4-8.9)
[2021-01-04 04:34] LABS: Hemoglobin 7.6 g/dL (11.5-15.4); Mean Corpuscular HGB Conc 30.4 g/dL (31.6-35.5); Mean Corpuscular Hemoglobin 29.1 pg (28.0-33.3); Mean Corpuscular Volume 95.8 fL (83.0-100.0); Mean Platelet Volume 11.5 fL (9.4-12.4); Platelet Count 222 K/mcL (140-400); Red Blood Count 2.61 M/mcL (3.82-4.97); Red Cell Distribution Width 14.2 % (11.5-14.5); White Blood Count 24.2 K/mcL (4.3-11.1)
[2021-01-04] MEDS ORDERED: Vancomycin 1,750 MG/517.5 ML IV.SOLN IVPB ONE (06:00)
[2021-01-04] MEDS ORDERED: Pantoprazole 40 MG VIAL IVP SCH (06:00)
[2021-01-04] MEDS ORDERED: Piperacillin/Tazobactam 3.375 GM in 0.9 % Sodium Chloride Mini Bag 100 ML IVPB SCH (06:00)
[2021-01-04] MEDS: Insulin LISPRO 300 UNITS/3 ML VIAL SUBQ SCH ×4 (06:15→23:32)
[2021-01-04] MEDS ORDERED: 0.9 % Sodium Chloride 500 ML IVC ONE (06:33)
[2021-01-04] MEDS: Norepinephrine 4 MG/254 ML IV.SOLN IVC SCH ×3 (08:00→23:28)
[2021-01-04] MEDS ORDERED: 0.9 % Sodium Chloride 250 ML ONE (08:48)
[2021-01-04] MEDS: Ondansetron 4 MG/2 ML VIAL IVP PRN (09:27)
[2021-01-04] MEDS: Aspirin Enteric Coated 81 MG Tablet PO SCH (09:28)
[2021-01-04] MEDS: Dexamethasone Sodium Phos/PF 10 MG/ML VIAL IVP SCH (09:28)
[2021-01-04] MEDS: Budesonide/Formoterol 160/4.5 1 PUFF INH IH SCH ×2 (10:37→20:22)
[2021-01-04] MEDS: Piperacillin/Tazobactam 3.375 GM in 0.9 % Sodium Chloride Mini Bag 100 ML IVPB SCH ×2 (12:36→23:35)
[2021-01-04 13:29] LABS: Hematocrit 26.8 % (35.3-44.9); Hemoglobin 8.4 g/dL (11.5-15.4)
[2021-01-04] MEDS: Pantoprazole 40 MG in 0.9 % Sodium Chloride Mini Bag 100 ML IVC SCH ×2 (16:03→20:19)
[2021-01-04] MEDS: QUEtiapine Fumarate 25 MG TABLET PO SCH (20:22)
[2021-01-04 21:16] LABS: Hematocrit 24.3 % (35.3-44.9); Hemoglobin 7.8 g/dL (11.5-15.4)
[2021-01-05 00:13] LABS: Hematocrit 22.7 % (35.3-44.9); Hemoglobin 7.7 g/dL (11.5-15.4)
[2021-01-05] MEDS: Pantoprazole 40 MG in 0.9 % Sodium Chloride Mini Bag 100 ML IVC SCH ×5 (00:29→21:45)
[2021-01-05] MEDS ORDERED: 0.9 % Sodium Chloride 250 ML ONE (03:04)
[2021-01-05 03:32] LABS: Hemoglobin 7.2 g/dL (11.5-15.4); Red Cell Distribution Width 15.4 % (11.5-14.5)
[2021-01-05 03:33] LABS: Basophils % 0.1 %; Hematocrit 21.6 % (35.3-44.9); Immature Granulocytes % 3.4 % (0-4); Lymphocytes # 1.5 K/mcL (0.6-4.6); Lymphocytes % 4.5 %; Mean Corpuscular HGB Conc 33.3 g/dL (31.6-35.5); Mean Corpuscular Hemoglobin 29.5 pg (28.0-33.3); Mean Corpuscular Volume 88.5 fL (83.0-100.0); Mean Platelet Volume 11.7 fL (9.4-12.4); Monocytes # 2.1 K/mcL (0.0-1.3); Monocytes % 6.3 %; Neutrophils # 29.1 K/mcL (1.6-8.9); Nucleated Red Blood Cells 0.3 /100 WBC (0); Platelet Count 228 K/mcL (140-400); Red Blood Count 2.44 M/mcL (3.82-4.97); Segmented Neutrophils % 85.7 %
[2021-01-05] MEDS: Levalbuterol 1 PUFF INHALER IH SCH ×4 (03:38→20:13)
[2021-01-05] MEDS: Ipratropium 1 PUFF INHALER IH SCH ×6 (03:38→23:31)
[2021-01-05 03:43] LABS: VBG Ionized Calcium 1.02 mmol/L (1.15-1.35)
[2021-01-05 03:50] LABS: Alanine Aminotransferase 266 Units/L (7-52); Albumin 2.7 g/dL (3.5-5.7); Albumin/Globulin Ratio 1.8 (1.1-2.2); Alkaline Phosphatase 70 Units/L (34-104); Aspartate Amino Transferase 301 Units/L (13-39); Bilirubin,Total 0.9 mg/dL (0.3-1.0); Blood Urea Nitrogen 53 mg/dL (8-23); C-Reactive Protein < 5 mg/L (Less than 10); Calcium 7.2 mg/dL (8.6-10.3); Carbon Dioxide 25 mEq/L (23-29); Chloride 100 mEq/L (98-107); Globulin 1.5 g/dL (2.4-3.5); Glucose 263 mg/dL (70-105); Magnesium 2.1 mg/dL (1.6-2.6); Osmolality,Calculated 306 (280-300); Phosphorous 4.5 mg/dL (2.7-4.5); Potassium 4.8 mEq/L (3.5-5.1); Sodium 136 mEq/L (136-145); Total Protein 4.2 g/dL (6.4-8.9)
[2021-01-05 03:53] LABS: BUN/Creatinine Ratio 16 (6-26); Vancomycin,Random 16 mcg/mL; eGFR For African Americans 16 (> 60); eGFR For Non-African Americans 13 (> 60)
[2021-01-05] MEDS: Insulin LISPRO 300 UNITS/3 ML VIAL SUBQ SCH ×4 (05:29→23:54)
[2021-01-05] MEDS: Norepinephrine 4 MG/254 ML IV.SOLN IVC SCH ×3 (05:31→23:50)
[2021-01-05] MEDS: Budesonide/Formoterol 160/4.5 1 PUFF INH IH SCH ×2 (07:24→20:12)
[2021-01-05] MEDS: Aspirin Enteric Coated 81 MG Tablet PO SCH (08:49)
[2021-01-05] MEDS: Dexamethasone Sodium Phos/PF 10 MG/ML VIAL IVP SCH (08:50)
[2021-01-05] MEDS ORDERED: Heparin 1,000 UNITS/500 mL 500 ML ONE (09:56)
[2021-01-05] MEDS ORDERED: Acetaminophen 325 MG TABLET PO PRN (11:41)
[2021-01-05] MEDS: 0.9 % Sodium Chloride 1,000 ML IVC SCH (12:35)
[2021-01-05] MEDS: Piperacillin/Tazobactam 3.375 GM in 0.9 % Sodium Chloride Mini Bag 100 ML IVPB SCH ×2 (12:36→23:36)
[2021-01-05 19:21] LABS: Hematocrit 25.4 % (35.3-44.9); Hemoglobin 8.5 g/dL (11.5-15.4)
[2021-01-05] MEDS: QUEtiapine Fumarate 25 MG TABLET PO SCH (21:04)
[2021-01-06 00:43] LABS: Hematocrit 23.8 % (35.3-44.9); Hemoglobin 8.2 g/dL (11.5-15.4)
[2021-01-06] MEDS: Pantoprazole 40 MG in 0.9 % Sodium Chloride Mini Bag 100 ML IVC SCH ×4 (02:43→22:48)
[2021-01-06] MEDS: Ipratropium 1 PUFF INHALER IH SCH ×5 (03:22→22:27)
[2021-01-06] MEDS: Levalbuterol 1 PUFF INHALER IH SCH ×4 (03:22→22:26)
[2021-01-06 04:46] LABS: Basophils % 0.2 %; Hemoglobin 7.8 g/dL (11.5-15.4); Nucleated Red Blood Cells 1.3 /100 WBC (0)
[2021-01-06 04:48] LABS: Basophils # 0.1 K/mcL (0.0-0.2); Eosinophils % 0.1 %; Hematocrit 23.3 % (35.3-44.9); Immature Granulocytes % 2.6 % (0-4); Lymphocytes # 0.9 K/mcL (0.6-4.6); Mean Corpuscular HGB Conc 33.5 g/dL (31.6-35.5); Mean Corpuscular Hemoglobin 30.5 pg (28.0-33.3); Mean Platelet Volume 11.1 fL (9.4-12.4); Monocytes # 2.1 K/mcL (0.0-1.3); Monocytes % 6.8 %; Neutrophils # 27.1 K/mcL (1.6-8.9); Platelet Count 168 K/mcL (140-400); Red Blood Count 2.56 M/mcL (3.82-4.97); Red Cell Distribution Width 14.8 % (11.5-14.5); Segmented Neutrophils % 87.3 %
[2021-01-06 05:04] LABS: Alanine Aminotransferase 183 Units/L (7-52); Albumin 2.6 g/dL (3.5-5.7); Albumin/Globulin Ratio 1.9 (1.1-2.2); Alkaline Phosphatase 89 Units/L (34-104); Aspartate Amino Transferase 127 Units/L (13-39); BUN/Creatinine Ratio 17 (6-26); Bilirubin,Total 0.8 mg/dL (0.3-1.0); Blood Urea Nitrogen 60 mg/dL (8-23); C-Reactive Protein < 5 mg/L (Less than 10); Calcium 7.4 mg/dL (8.6-10.3); Carbon Dioxide 25 mEq/L (23-29); Chloride 104 mEq/L (98-107); Globulin 1.4 g/dL (2.4-3.5); Glucose 156 mg/dL (70-105); Magnesium 2.1 mg/dL (1.6-2.6); Osmolality,Calculated 308 (280-300); Phosphorous 4.1 mg/dL (2.7-4.5); Potassium 4.5 mEq/L (3.5-5.1); Sodium 139 mEq/L (136-145); eGFR For African Americans 15 (> 60); eGFR For Non-African Americans 13 (> 60)
[2021-01-06 05:35] LABS: Platelet Estimate Normal (Normal)
[2021-01-06] MEDS: Insulin LISPRO 300 UNITS/3 ML VIAL SUBQ SCH ×2 (06:27→15:30)
[2021-01-06] MEDS: Ondansetron 4 MG/2 ML VIAL IVP PRN (06:34)
[2021-01-06] MEDS: Budesonide/Formoterol 160/4.5 1 PUFF INH IH SCH ×2 (07:48→22:27)
[2021-01-06] MEDS ORDERED: Vancomycin 500 MG in 0.9 % Sodium Chloride Mini Bag 100 ML IVPB ONE (09:00)
[2021-01-06] MEDS: Dexamethasone Sodium Phos/PF 10 MG/ML VIAL IVP SCH (10:05)
[2021-01-06] MEDS: Aspirin Enteric Coated 81 MG Tablet PO SCH (10:05)
[2021-01-06] MEDS: 0.9 % Sodium Chloride 1,000 ML IVC SCH ×2 (10:11→21:47)
[2021-01-06 11:26] LABS: Hematocrit 22.9 % (35.3-44.9); Hemoglobin 7.5 g/dL (11.5-15.4)
[2021-01-06] MEDS ORDERED: Acetaminophen 325 MG TABLET PO PRN (11:45)
[2021-01-06] MEDS: Piperacillin/Tazobactam 3.375 GM in 0.9 % Sodium Chloride Mini Bag 100 ML IVPB SCH (12:17)
[2021-01-06] MEDS: Nystatin SUSP 5 ML UD.LIQ BC SCH ×2 (15:30→20:08)
[2021-01-06 16:13] LABS: Hematocrit 21.4 % (35.3-44.9); Hemoglobin 7.2 g/dL (11.5-15.4)
[2021-01-06] MEDS ORDERED: D5% in Water 1,000 ML IVC PRN (18:22)
[2021-01-06] MEDS ORDERED: *HR* Dextrose 50 % in Water (Vial) 50 ML VIAL IVP PRN (18:22)
[2021-01-06] MEDS ORDERED: Dextrose Gel 15 GM/37.5 ML TUBE PO PRN ×2 (18:22)
[2021-01-06] MEDS ORDERED: *HR* Metoprolol 5 MG/5 ML VIAL IVP PRN (18:22)
[2021-01-06] MEDS ORDERED: Naloxone 0.4 MG/ML INJ IVP PRN (18:22)
[2021-01-06] MEDS: QUEtiapine Fumarate 25 MG TABLET PO SCH (20:09)
[2021-01-07] MEDS: Piperacillin/Tazobactam 3.375 GM in 0.9 % Sodium Chloride Mini Bag 100 ML IVPB SCH ×3 (00:05→23:32)
[2021-01-07] MEDS: Insulin LISPRO 300 UNITS/3 ML VIAL SUBQ SCH ×4 (00:16→17:57)
[2021-01-07] MEDS: Ipratropium 1 PUFF INHALER IH SCH ×7 (00:37→23:52)
[2021-01-07 02:04] LABS: Basophils # 0.1 K/mcL (0.0-0.2); Basophils % 0.2 %; Hematocrit 23.7 % (35.3-44.9); Hemoglobin 7.9 g/dL (11.5-15.4); Immature Granulocytes % 3.4 % (0-4); Lymphocytes # 0.6 K/mcL (0.6-4.6); Lymphocytes % 2.3 %; Mean Corpuscular HGB Conc 33.3 g/dL (31.6-35.5); Mean Corpuscular Hemoglobin 30.3 pg (28.0-33.3); Mean Corpuscular Volume 90.8 fL (83.0-100.0); Mean Platelet Volume 10.7 fL (9.4-12.4); Monocytes # 0.9 K/mcL (0.0-1.3); Monocytes % 3.8 %; Neutrophils # 21.8 K/mcL (1.6-8.9); Platelet Count 136 K/mcL (140-400); Red Blood Count 2.61 M/mcL (3.82-4.97); Segmented Neutrophils % 90.3 %; White Blood Count 24.1 K/mcL (4.3-11.1)
[2021-01-07 02:07] LABS: VBG Ionized Calcium 1.09 mmol/L (1.15-1.35)
[2021-01-07 02:20] LABS: Platelet Estimate Normal (Normal)
[2021-01-07 02:23] LABS: Alanine Aminotransferase 134 Units/L (7-52); Albumin 2.6 g/dL (3.5-5.7); Albumin/Globulin Ratio 1.7 (1.1-2.2); Aspartate Amino Transferase 64 Units/L (13-39); BUN/Creatinine Ratio 19 (6-26); Bilirubin,Total 0.6 mg/dL (0.3-1.0); Blood Urea Nitrogen 60 mg/dL (8-23); C-Reactive Protein < 5 mg/L (Less than 10); Calcium 7.3 mg/dL (8.6-10.3); Carbon Dioxide 23 mEq/L (23-29); Chloride 103 mEq/L (98-107); Globulin 1.5 g/dL (2.4-3.5); Glucose 278 mg/dL (70-105); Magnesium 2.1 mg/dL (1.6-2.6); Osmolality,Calculated 315 (280-300); Phosphorous 4.4 mg/dL (2.7-4.5); Potassium 4.7 mEq/L (3.5-5.1); Sodium 139 mEq/L (136-145); Total Protein 4.1 g/dL (6.4-8.9); eGFR For African Americans 18 (> 60); eGFR For Non-African Americans 15 (> 60)
[2021-01-07 02:55] LABS: Alkaline Phosphatase 117 Units/L (34-104)
[2021-01-07] MEDS: Pantoprazole 40 MG in 0.9 % Sodium Chloride Mini Bag 100 ML IVC SCH ×2 (03:27→08:24)
[2021-01-07] MEDS: Levalbuterol 1 PUFF INHALER IH SCH ×4 (03:40→20:41)
[2021-01-07] MEDS: Budesonide/Formoterol 160/4.5 1 PUFF INH IH SCH ×2 (07:27→20:40)
[2021-01-07] MEDS: Aspirin Enteric Coated 81 MG Tablet PO SCH (08:23)
[2021-01-07] MEDS: Nystatin SUSP 5 ML UD.LIQ BC SCH ×4 (08:25→20:40)
[2021-01-07] MEDS: Acetaminophen 325 MG TABLET PO PRN (08:31)
[2021-01-07 08:53] LABS: Hematocrit 25.7 % (35.3-44.9); Hemoglobin 8.7 g/dL (11.5-15.4)
[2021-01-07] MEDS ORDERED: Dexamethasone Sodium Phos/PF 10 MG/ML VIAL IVP SCH (09:00)
[2021-01-07] MEDS ORDERED: *HR* Heparin 5,000 UNIT/ML VIAL IVP PRN ×2 (11:44)
[2021-01-07 13:27] LABS: Hematocrit 23.8 % (35.3-44.9); Hematocrit 24.6 % (35.3-44.9); Hemoglobin 7.9 g/dL (11.5-15.4); Mean Corpuscular HGB Conc 33.6 g/dL (31.6-35.5); Mean Corpuscular Volume 92.2 fL (83.0-100.0); Mean Platelet Volume 11.3 fL (9.4-12.4); Platelet Count 127 K/mcL (140-400); Red Blood Count 2.58 M/mcL (3.82-4.97); Red Cell Distribution Width 15.3 % (11.5-14.5)
[2021-01-07 13:38] LABS: Heparin anti-factor XA UFH 0.11 IU/mL (0.30-0.70)
[2021-01-07] MEDS: Pantoprazole 40 MG VIAL IVP SCH ×2 (13:42→23:32)
[2021-01-07] MEDS: Heparin 25,000UNIT/250ML 1/2NS 25,000 UNIT/250 ML IV.SOLN IVC SCH (13:44)
[2021-01-07 19:05] LABS: Hematocrit 25.2 % (35.3-44.9); Hemoglobin 8.1 g/dL (11.5-15.4)
[2021-01-07] MEDS: QUEtiapine Fumarate 25 MG TABLET PO SCH (20:42)
[2021-01-08] MEDS: Insulin LISPRO 300 UNITS/3 ML VIAL SUBQ SCH ×5 (00:24→18:08)
[2021-01-08 01:11] LABS: Basophils % 0.1 %; Hematocrit 24.7 % (35.3-44.9); Hemoglobin 8.1 g/dL (11.5-15.4); Lymphocytes # 0.5 K/mcL (0.6-4.6); Lymphocytes % 1.8 %; Mean Corpuscular HGB Conc 32.8 g/dL (31.6-35.5); Mean Corpuscular Volume 91.5 fL (83.0-100.0); Monocytes # 1.3 K/mcL (0.0-1.3); Monocytes % 4.4 %; Neutrophils # 26.1 K/mcL (1.6-8.9); Platelet Count 163 K/mcL (140-400); Segmented Neutrophils % 90.7 %; White Blood Count 28.8 K/mcL (4.3-11.1)
[2021-01-08 01:18] LABS: VBG Ionized Calcium 1.15 mmol/L (1.15-1.35)
[2021-01-08 01:31] LABS: Alanine Aminotransferase 113 Units/L (7-52); Albumin 3.1 g/dL (3.5-5.7); Albumin/Globulin Ratio 1.9 (1.1-2.2); Alkaline Phosphatase 144 Units/L (34-104); Aspartate Amino Transferase 41 Units/L (13-39); BUN/Creatinine Ratio 21 (6-26); Bilirubin,Total 0.8 mg/dL (0.3-1.0); Blood Urea Nitrogen 56 mg/dL (8-23); C-Reactive Protein < 5 mg/L (Less than 10); Calcium 7.8 mg/dL (8.6-10.3); Carbon Dioxide 25 mEq/L (23-29); Chloride 105 mEq/L (98-107); Globulin 1.6 g/dL (2.4-3.5); Glucose 249 mg/dL (70-105); Magnesium 2.2 mg/dL (1.6-2.6); Osmolality,Calculated 310 (280-300); Phosphorous 3.6 mg/dL (2.7-4.5); Potassium 4.3 mEq/L (3.5-5.1); Sodium 138 mEq/L (136-145); Total Protein 4.7 g/dL (6.4-8.9); eGFR For African Americans 21 (> 60); eGFR For Non-African Americans 18 (> 60)
[2021-01-08 01:38] LABS: Platelet Estimate Normal (Normal); Polychromasia 1+ (Not Present)
[2021-01-08] MEDS: 0.9 % Sodium Chloride 1,000 ML IVC SCH ×2 (01:42→18:07)
[2021-01-08] MEDS: Pantoprazole 40 MG in 0.9 % Sodium Chloride Mini Bag 100 ML IVC SCH (01:43)
[2021-01-08] MEDS: Nystatin SUSP 5 ML UD.LIQ BC SCH ×5 (01:46→21:01)
[2021-01-08] MEDS: Ipratropium 1 PUFF INHALER IH SCH ×5 (04:10→22:45)
[2021-01-08] MEDS: Levalbuterol 1 PUFF INHALER IH SCH ×4 (04:10→22:46)
[2021-01-08] MEDS: Heparin 25,000UNIT/250ML 1/2NS 25,000 UNIT/250 ML IV.SOLN IVC SCH (06:06)
[2021-01-08] MEDS: Budesonide/Formoterol 160/4.5 1 PUFF INH IH SCH ×2 (07:33→22:46)
[2021-01-08] MEDS: Aspirin Enteric Coated 81 MG Tablet PO SCH (10:11)
[2021-01-08] MEDS: Pantoprazole 40 MG VIAL IVP SCH ×2 (13:51→23:28)
[2021-01-08] MEDS: Piperacillin/Tazobactam 3.375 GM in 0.9 % Sodium Chloride Mini Bag 100 ML IVPB SCH ×2 (13:52→23:29)
[2021-01-08] MEDS ORDERED: *HR* Dextrose 50 % in Water (Syg) 50 ML SYRINGE IVP PRN (14:45)
[2021-01-08] MEDS ORDERED: Insulin LISPRO 300 UNITS/3 ML VIAL SUBQ SCH (21:00)
[2021-01-08] MEDS: QUEtiapine Fumarate 25 MG TABLET PO SCH (21:02)
[2021-01-08] MEDS: Acetaminophen 325 MG TABLET PO PRN (21:03)
[2021-01-09] MEDS: Ondansetron 4 MG/2 ML VIAL IVP PRN ×2 (02:35→08:59)
[2021-01-09] MEDS: Ipratropium 1 PUFF INHALER IH SCH ×4 (03:52→19:56)
[2021-01-09] MEDS: Levalbuterol 1 PUFF INHALER IH SCH ×4 (03:52→19:56)
[2021-01-09 05:04] LABS: Lymphocytes % 2.1 %
[2021-01-09 05:06] LABS: Basophils % 0.1 %; Hematocrit 17.2 % (35.3-44.9); Immature Granulocytes % 4.1 % (0-4); Lymphocytes # 0.6 K/mcL (0.6-4.6); Mean Corpuscular HGB Conc 32.6 g/dL (31.6-35.5); Mean Corpuscular Hemoglobin 30.8 pg (28.0-33.3); Mean Corpuscular Volume 94.5 fL (83.0-100.0); Mean Platelet Volume 11.4 fL (9.4-12.4); Monocytes # 1.6 K/mcL (0.0-1.3); Monocytes % 5.3 %; Neutrophils # 26.3 K/mcL (1.6-8.9); Nucleated Red Blood Cells 2.8 /100 WBC (0); Platelet Count 170 K/mcL (140-400); Red Blood Count 1.82 M/mcL (3.82-4.97); Red Cell Distribution Width 15.2 % (11.5-14.5); Segmented Neutrophils % 88.4 %; White Blood Count 29.7 K/mcL (4.3-11.1)
[2021-01-09 05:10] LABS: Alanine Aminotransferase 75 Units/L (7-52); Albumin 2.5 g/dL (3.5-5.7); Albumin/Globulin Ratio 2.1 (1.1-2.2); Alkaline Phosphatase 127 Units/L (34-104); Aspartate Amino Transferase 45 Units/L (13-39); BUN/Creatinine Ratio 21 (6-26); Bilirubin,Total 0.8 mg/dL (0.3-1.0); Blood Urea Nitrogen 56 mg/dL (8-23); C-Reactive Protein < 5 mg/L (Less than 10); Calcium 7.4 mg/dL (8.6-10.3); Carbon Dioxide 23 mEq/L (23-29); Chloride 107 mEq/L (98-107); Globulin 1.2 g/dL (2.4-3.5); Glucose 292 mg/dL (70-105); Magnesium 2.1 mg/dL (1.6-2.6); Osmolality,Calculated 314 (280-300); Phosphorous 4.3 mg/dL (2.7-4.5); Potassium 4.1 mEq/L (3.5-5.1); Sodium 139 mEq/L (136-145); Total Protein 3.7 g/dL (6.4-8.9); eGFR For African Americans 21 (> 60); eGFR For Non-African Americans 17 (> 60)
[2021-01-09 05:11] LABS: Hemoglobin 5.6 g/dL (11.5-15.4)
[2021-01-09 05:38] LABS: Anisocytosis 1+ (Not Present); Platelet Estimate Normal (Normal); Polychromasia 1+ (Not Present)
[2021-01-09] MEDS ORDERED: 0.9 % Sodium Chloride 250 ML IVC SCH (05:45)
[2021-01-09 07:07] LABS: Basophils % 0.1 %; Lymphocytes % 2.1 %
[2021-01-09 07:08] LABS: Lymphocytes # 0.6 K/mcL (0.6-4.6); Mean Corpuscular HGB Conc 32.5 g/dL (31.6-35.5); Mean Corpuscular Hemoglobin 31.5 pg (28.0-33.3); Mean Platelet Volume 11.3 fL (9.4-12.4); Monocytes % 5.9 %; Neutrophils # 24.4 K/mcL (1.6-8.9); Nucleated Red Blood Cells 2.8 /100 WBC (0); Platelet Count 135 K/mcL (140-400); Red Blood Count 1.65 M/mcL (3.82-4.97); Red Cell Distribution Width 15.3 % (11.5-14.5); Segmented Neutrophils % 87.9 %; White Blood Count 27.8 K/mcL (4.3-11.1)
[2021-01-09 07:24] LABS: Monocytes # 1.6 K/mcL (0.0-1.3)
[2021-01-09 07:25] LABS: Hemoglobin 5.2 g/dL (11.5-15.4)
[2021-01-09 07:31] LABS: Anisocytosis 1+ (Not Present); Platelet Estimate Normal (Normal); Polychromasia 1+ (Not Present)
[2021-01-09] MEDS ORDERED: 0.9 % Sodium Chloride 250 ML ONE (08:46)
[2021-01-09] MEDS ORDERED: Norepinephrine 4 MG/254 ML IV.SOLN IVC SCH (09:15)
[2021-01-09] MEDS: Nystatin SUSP 5 ML UD.LIQ BC SCH ×2 (09:18→13:36)
[2021-01-09] MEDS: Aspirin Enteric Coated 81 MG Tablet PO SCH (09:18)
[2021-01-09] MEDS: Budesonide/Formoterol 160/4.5 1 PUFF INH IH SCH (10:40)
[2021-01-09] MEDS: Insulin LISPRO 300 UNITS/3 ML VIAL SUBQ SCH (10:45)
[2021-01-09 11:42] LABS: Sodium, Urine 21.2 mEq/L
[2021-01-09] MEDS ORDERED: Lidocaine -MPF 1% 5 ML AMPUL INFILT ONE (12:10)
[2021-01-09] MEDS ORDERED: Scopolamine Patch 1.5 MG PATCH.TD72 TD SCH (13:15)
[2021-01-09] MEDS ORDERED: *HR* LORazepam 2 MG/ML VIAL IVP PRN ×2 (13:41→18:52)
[2021-01-09] MEDS ORDERED: *HR* FentaNYL (PF) 100 MCG/2 ML VIAL IVP PRN ×2 (13:41→18:52)
[2021-01-09] MEDS ORDERED: haloperidoL 1 MG TABLET PO PRN (14:01)
[2021-01-09] MEDS ORDERED: Haloperidol Lactate 5 MG/ML VIAL IVP PRN ×2 (16:29→18:52)
[2021-01-09] MEDS ORDERED: D5% in Water 1,000 ML IVC PRN (18:52)
[2021-01-09] MEDS ORDERED: Naloxone 0.4 MG/ML INJ IVP PRN (18:52)
[2021-01-09] MEDS ORDERED: Acetaminophen 325 MG TABLET PO PRN (18:52)
[2021-01-09] MEDS ORDERED: Dextrose Gel 15 GM/37.5 ML TUBE PO PRN ×2 (18:52)
[2021-01-09] MEDS ORDERED: Ondansetron 4 MG/2 ML VIAL IVP PRN (18:52)
[2021-01-09] MEDS ORDERED: *HR* Dextrose 50 % in Water (Syg) 50 ML SYRINGE IVP PRN (18:52)
[2021-01-09] MEDS ORDERED: QUEtiapine Fumarate 25 MG TABLET PO SCH (21:00)
[2021-01-09] MEDS ORDERED: Budesonide/Formoterol 160/4.5 1 PUFF INH IH SCH (22:00)
[2021-01-10] MEDS: Ipratropium 1 PUFF INHALER IH SCH (04:19)
[2021-01-10] MEDS: Levalbuterol 1 PUFF INHALER IH SCH (04:20)
[2021-01-10 07:19] VITALS: BP 86/46; PULSE 93; TEMP 96.6; O2SAT 91
[2021-01-10] MEDS: Heparin 25,000UNIT/250ML 1/2NS 25,000 UNIT/250 ML IV.SOLN IVC SCH (08:58)
[2021-01-10] MEDS: Pantoprazole 40 MG in 0.9 % Sodium Chloride Mini Bag 100 ML IVC SCH (08:58)
[2021-01-10] MEDS: Piperacillin/Tazobactam 3.375 GM in 0.9 % Sodium Chloride Mini Bag 100 ML IVPB SCH (08:59)
[2021-01-10] MEDS: Insulin LISPRO 300 UNITS/3 ML VIAL SUBQ SCH (10:30)
[2021-01-10] MEDS: Nystatin SUSP 5 ML UD.LIQ BC SCH (10:31)
[2021-01-10] MEDS: Pantoprazole 40 MG VIAL IVP SCH (10:31)
[2021-01-10] MEDS ORDERED: Atropine 1% Opth Drops 100 DROP/5 ML BOTTLE SL PRN (11:29)
[2021-01-10] MEDS ORDERED: *HR* LORazepam 2 MG/ML VIAL IVP PRN (11:30)
[2021-01-10] MEDS ORDERED: *HR* FentaNYL (PF) 100 MCG/2 ML VIAL IVP PRN (11:30)
[2021-01-10] MEDS ORDERED: Haloperidol Lactate 5 MG/ML VIAL IVP PRN (11:30)
[2021-01-10] MEDS ORDERED: Acetaminophen 650 MG RECTAL SUPP RC PRN (11:30)
[2021-01-12] MEDS ORDERED: Scopolamine Patch 1.5 MG PATCH.TD72 TD SCH (13:15)
== END 2021-01-10 12:57 | disposition expired | DRG 871 ==
LOC: 2NNU 13:24 → EMEROOARM 13:24 → SUATTDRO 17:06 → 2NNU 17:46 → 2NENU 01-03 03:37 → 2NNU 01-04 08:01 → ICNU 01-04 19:44 → 2ANU 01-06 19:31 → 2NNU 01-09 08:36 → 2ANU 01-09 22:05
PROVIDERS: ADMIT Student in an Organized Health Care Education/Training Program; ATTEND Internal Medicine